=== PATIENT | male | born 1970 | race Caucasian/White ===

== ENCOUNTER 2016-07-10 21:26 | Emergency (ER) | payer MEDICAID ==
[~2016-07-10] VITALS: Ht 193 cm; Wt 86.2 kg
[~2016-07-10 21:26] MED LIST: AMIT75TA2 PO; AMLO5TAB2 PO; AMLO5TAB4 PO; CETI10TA17 PO; HUMALOG; INSU100I10 SQ; INSU100I23 SQ; INSU100V6 SC; INSU100V6 SQ; KRISTALOSE PO; LACT10SO PO; LANS30CA PO; LANTUS; LORA-794 PO; LORA0.5T34 GT; METH10CP PO; NADO20TA PO; OLAN10TA19 PO; OLAN10TA22 PO; OXYC-143 PO; OXYC5CAP4 PO; OXYC5TAB71 PO; PANT40TA PO; PANT40TA2 PO; PRD20T PO; RANI150T11 PO; RIFA550T PO; RIFA550T3 PO; TADA20TA PO; TRAM-42 PO; TRAM50TA2 PO; TRAZ-28 PO
--- OUTSIDE RECORDS SUMMARY | 2016-07-10 21:35 | XMS REPORT | Continuity of Care Document ---
Author Author Interface Organization Interface Address Unknown Phone Unavailable Problems Problem Status Onset Date Classification Date Reported Comments Source Attention deficit hyperactivity disorder (disorder) Active Problem 05/07/2013 [facility] Alcoholic cirrhosis (disorder) Active Problem 05/07/2013 [facility] Alcoholism (disorder) Active Problem 05/07/2013 [facility] Fracture of ankle (disorder) Active Problem 05/07/2013 [facility] Mixed anxiety and depressive disorder (disorder) Active Problem 05/07/2013 [facility] Cirrhosis - non-alcoholic (disorder) Active Problem 05/07 [facility] Diabetes mellitus (disorder) Active Problem 05/07/2013 [facility] Gastroesophageal reflux disease (disorder) Active Problem 05/07/2013 [facility] Hepatic coma (disorder) Active Problem 05/07/2013 [facility] Hypertensive disorder, systemic arterial (disorder) Active Problem 05/07/2013 [facility] Paranoid schizophrenia (disorder) Active Problem 2012 [facility] Supraventricular tachycardia (disorder) Active Problem [facility] 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 Attention deficit hyperactivity disorder (disorder) Active Problem 08/27/2015 [employer]. Attention deficit hyperactivity disorder (disorder) Active Problem 10/05/2014 [employer]. Alcoholic cirrhosis (disorder) Active Problem 08/27/2015 [employer]. Alcoholism (disorder) Active Problem 08/27/2015 [employer]. Fracture of ankle (disorder) Active Problem 08/27/2015 [employer]. Mixed anxiety and depressive disorder (disorder) Active Problem 08/27/2015 [employer]. Atrial flutter (disorder) Active Problem 08/27/2015 [employer]. Alcoholic cirrhosis (disorder) Active Problem 10/05/2014 [employer]. Alcoholism (disorder) Active Problem 10/05/2014 [employer]. Fracture of ankle (disorder) Active Problem 10/05/2014 [employer]. Mixed anxiety and depressive disorder (disorder) Active Problem 10/05/2014 [employer]. Diabetes mellitus (disorder) Active Problem 10/05/2014 [employer]. AV cathy re-entry tachycardia (disorder) Active Problem 08/27/2015 [employer]. 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) Active Problem 08/27/2015 [employer]. Diabetes mellitus (disorder) Active Problem 08/27/2015 [employer]. Gastroesophageal reflux disease (disorder) Active Problem 08/27/2015 [employer]. Hepatic coma (disorder) Active Problem 08/27/2015 [employer]. Gastroesophageal reflux disease (disorder) Active Problem 10/05/2014 [employer]. Hepatic coma (disorder) Active Problem 10/05/2014 [employer]. Hypertensive disorder, systemic arterial (disorder) Active Problem 10/05/2014 [employer]. Paranoid schizophrenia (disorder) Active Problem 2014 [employer]. Supraventricular tachycardia (disorder) Active Problem [employer]. Hypertensive disorder, systemic arterial (disorder) Active Problem 08/27/2015 [employer]. Paranoid schizophrenia (disorder) Active Problem 2015 [employer]. Supraventricular tachycardia (disorder) Active Problem [employer]. Traumatic arthropathy-ankle (disorder) Active 04/23/2011 Problem 07/19/2015 [employer]. Attention deficit hyperactivity disorder (disorder) Active Problem 11/08/2015 [employer]. Traumatic arthropathy-ankle (disorder) Active 04/23/2011 Problem 10/05/2014 [employer]. Alcoholic cirrhosis (disorder) Active Problem 11/08/2015 [employer]. Alcoholism (disorder) Active Problem 11/08/2015 [employer]. Fracture of ankle (disorder) Active Problem 11/08/2015 [employer]. Mixed anxiety and depressive disorder (disorder) Active Problem 11/08/2015 [employer]. Atrial flutter (disorder) Active Problem 11/08/2015 [employer]. AV cathy re-entry tachycardia (disorder) Active Problem 11/08/2015 [employer]. 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 Diabetes mellitus (disorder) Active Problem 11/08/2015 [employer]. Gastroesophageal reflux disease (disorder) Active Problem 11/08/2015 [employer]. Hepatic coma (disorder) Active Problem 11/08/2015 [employer]. Attention deficit hyperactivity disorder (disorder) Active Problem 10/06/2013 [facility] Alcoholic cirrhosis (disorder) Active Problem 10/06/2013 [facility] Hypertensive disorder, systemic arterial (disorder) Active Problem 11/08/2015 [employer]. Paranoid schizophrenia (disorder) Active Problem 2015 [employer]. Supraventricular tachycardia (disorder) Active Problem [employer]. Traumatic arthropathy-ankle (disorder) Active 04/23/2011 Problem 11/08/2015 [employer]. Attention deficit hyperactivity disorder (disorder) Active Problem 07/23/2015 [employer]. Alcoholism (disorder) Active Problem 10/06/2013 [facility] Fracture of ankle (disorder) Active Problem 10/06/2013 [facility] Mixed anxiety and depressive disorder (disorder) Active Problem 10/06/2013 [facility] Diabetes mellitus (disorder) Active Problem 10/06/2013 [facility] Gastroesophageal reflux disease (disorder) Active Problem 10/06/2013 [facility] Hepatic coma (disorder) Active Problem 10/06/2013 [facility] Alcoholic cirrhosis (disorder) Active Problem 07/23/2015 [employer]. Alcoholism (disorder) Active Problem 07/23/2015 [employer]. Fracture of ankle (disorder) Active Problem 07/23/2015 [employer]. Mixed anxiety and depressive disorder (disorder) Active Problem 07/23/2015 [employer]. Atrial flutter (disorder) Active Problem 07/23/2015 [employer]. 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 Alcoholic cirrhosis (disorder) Active Problem 09/19/2013 [employer]. AV cathy re-entry tachycardia (disorder) Active Problem 07/23/2015 [employer]. 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 Diabetes mellitus (disorder) Active Problem 07/23/2015 [employer]. Gastroesophageal reflux disease (disorder) Active Problem 07/23/2015 [employer]. Hepatic coma (disorder) Active Problem 07/23/2015 [employer]. Alcoholism (disorder) Active Problem 09/19/2013 [employer]. Fracture of ankle (disorder) Active Problem 09/19/2013 [employer]. Mixed anxiety and depressive disorder (disorder) Active Problem 09/19/2013 [employer]. Cirrhosis - non-alcoholic (disorder) Active Problem 09/19 [employer]. Diabetes mellitus (disorder) Active Problem 09/19/2013 [employer]. Gastroesophageal reflux disease (disorder) Active Problem 09/19/2013 [employer]. Hepatic coma (disorder) Active Problem 09/19/2013 [employer]. Hypertensive disorder, systemic arterial (disorder) Active Problem 07/23/2015 [employer]. Paranoid schizophrenia (disorder) Active Problem 2015 [employer]. Supraventricular tachycardia (disorder) Active Problem [employer]. Traumatic arthropathy-ankle (disorder) Active 04/23/2011 Problem 07/23/2015 [employer]. Hypertensive disorder, systemic arterial (disorder) Active Problem 09/19/2013 [employer]. Paranoid schizophrenia (disorder) Active Problem 2013 [facility] Supraventricular tachycardia (disorder) [facility] 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 Alcoholic cirrhosis (disorder) 07/18/2015 Diagnosis 07/23 [employer]. Alcoholism (disorder) 2015 Diagnosis 07/23/2015 [employer]. Chest pain (finding) 2015 Diagnosis 07/23/2015 [employer]. Paranoid schizophrenia (disorder) 06/19/2015 Diagnosis [employer]. 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) 08/23/2015 Diagnosis 08/27/2015 [employer]. Diabetes mellitus (disorder) 08/23/2015 Diagnosis 2015 [employer]. Alcoholism (disorder) 2015 Diagnosis 08/27/2015 [employer]. Alcoholic cirrhosis (disorder) 08/23/2015 Diagnosis 08/27 [employer]. Atrial flutter (disorder) Diagnosis 06/23/2015 [employer]. Gastroesophageal reflux disease (disorder) 05/29/2015 Diagnosis 06/02/2015 [employer]. Hypertensive disorder, systemic arterial (disorder) 05/29/2015 Diagnosis 06/02/2015 [employer]. Supraventricular tachycardia (disorder) 06/04/2015 Diagnosis 06/15/2015 [employer]. Paranoid schizophrenia (disorder) 06/11/2015 Diagnosis [employer]. Intentional drug overdose (disorder) 06/11/2015 Diagnosis 06/15/2015 [employer]. Acute renal failure syndrome (disorder) 06/03/2015 Diagnosis 06/15/2015 [employer]. Hepatic encephalopathy (disorder) 06/04/2015 Diagnosis [employer]. Diabetes mellitus (disorder) 06/04/2015 Diagnosis 2014 [employer]. Epidermoid cyst of skin (disorder) 08/23/2015 Diagnosis 08/27/2015 [employer]. Hypersplenism (disorder) Diagnosis 08/27/2015 [employer] Other abnormal glucose 02/28 Diagnosis 03/04/2015 [employer]. Hepatic coma 02/28/2015 Diagnosis 03/04/2015 [employer]. Alcoholic cirrhosis of liver 02/28/2015 Diagnosis 2014 [employer]. Other anxiety states 2014 Diagnosis 03/04/2015 [employer]. Unspecified essential hypertension 02/28/2015 Diagnosis 03/04/2015 [employer]. Diabetes mellitus without mention of complication, type II or unspecified type , not stated as uncontrolled 02/28/2015 Diagnosis 2014 [employer]. Other and unspecified alcohol dependence, unspecified drinking behavior 02/28/2015 Diagnosis 03/04/2015 [employer]. Other secondary thrombocytopenia 11/21/2014 Diagnosis [employer]. Contusion of chest wall Diagnosis 11/25/2014 [employer]. Traumatic arthropathy involving ankle and foot 02/07/2015 Diagnosis 02/11/2015 [employer]. Diabetes mellitus with neurological manifestations, type II or unspecified type , not stated as uncontrolled 02/07/2015 Diagnosis 2014 [employer]. Esophageal reflux 2014 Diagnosis 10/15/2014 [employer] Unspecified fall 10/11/2014 Diagnosis 10/15/2014 [employer]. Bimalleolar fracture, closed 10/11/2014 Diagnosis 2014 [employer]. Thrombocytopenia, unspecified 05/24/2014 Diagnosis 2013 [employer]. Esophageal varices without mention of bleeding 02/16/2014 Diagnosis 02/20/2014 [employer]. Esophageal reflux 2013 Diagnosis 02/20/2014 [employer]. Unspecified essential hypertension 02/16/2014 Diagnosis 02/20/2014 [employer]. Attention deficit disorder of childhood with hyperactivity 02/16/2014 Diagnosis 02/20/2014 [facility]. Alcoholic cirrhosis of liver 02/16/2014 Diagnosis 2013 [facility]. Abdominal pain, unspecified site 01/23/2014 Diagnosis [employer]. Alcoholic cirrhosis of liver 01/04/2014 Diagnosis 2013 [employer]. Esophageal varices without mention of bleeding 01/26/2014 Diagnosis 01/30/2014 [employer]. Cirrhosis of liver without mention of alcohol 01/02/2014 Diagnosis 01/06/2014 [employer]. Acute upper respiratory infections of unspecified site 01/02/2014 Diagnosis 01/06/2014 [employer]. Hepatic coma 12/22/2013 Diagnosis 12/26/2013 [employer]. Paranoid type schizophrenia, unspecified state 11/20/2013 Diagnosis 11/24/2013 [employer]. 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) 07/18/2015 Diagnosis 07/23/2015 [employer]. Medications Medication Details Route Status Patient Instructions Ordering Provider Order Date Source No Known Medications No known medications Active [facility]. Pneumovax 23 0.5 mL, SOLN, IM, ONCE, 02/12/12 12:00:00 , Stop date 02/12/12 12:00:00Provide patient/caregiver the vaccine information statement and document version date on eMAR. Record the lot number and senior python developer below. Manuf: Lot Number: Exp Date: Inactive [facility]. influenza virus vaccine, inactivated adult 0.5 mL, Suspension, IM, ONCE, Start Date: 07/03/13 12:00:00, Stop Date: 07/03/13 12:00: 00Provide patient/caregiver the vaccine information statement and document version date on eMAR. Record the lot number and senior python developer below. Manuf: ____ Lot Number: Exp Date: Inactive [facility], [facility]. Allergies, Adverse Reactions, Alerts Substance Category Reaction Severity Reaction type Status Date Reported Comments Source penicillins Assertion "can't breathe" Drug allergy [facility]. penicillins Assertion "can't breathe" Drug allergy [facility]. penicillins Assertion "can't breathe" Drug allergy [facility]. penicillins Assertion "can't breathe" Drug allergy [facility], [facility]. penicillins Assertion "can't breathe" Drug allergy [facility] penicillins drug allergy "can 't breathe" Allergy Active [facility], [facility]. penicillins drug allergy "can 't breathe" Allergy Active [facility] penicillin drug allergy "can' t breathe" Allergy Active [facility] penicillin drug allergy "can' t breathe" Allergy Active [facility], [facility]. penicillin drug allergy "can' t breathe" Allergy Active [facility] Immunizations Immunization Date Given Site Status Last Updated Comments Source pneumococcal polysaccharide PPV23 02/12/2012 Right Deltoid pneumococcal 23-valent vaccine [facility] [employer]. influenza virus vaccine 07/05/2013 Left [facility]id [facility] virus vaccine 06/02/2015 Left Deltoid influenza virus vaccine [facility] pneumococcal polysaccharide PPV23 02/12/2012 Right Deltoid pneumococcal 23-valent vaccine [facility] [employer]. influenza virus vaccine 07/05/2013 Left [facility]toid influenza [facility] influenza virus vaccine 06/02/2015 Left Deltoid influenza virus vaccine [facility]. pneumococcal polysaccharide PPV23 02/12/2012 Right Deltoid pneumococcal 23-valent vaccine [facility] [employer]. influenza virus vaccine 07/05/2013 Left [facility]toid [facility] influenza virus vaccine 06/02/2015 Left [facility]id [facility] pneumococcal polysaccharide PPV23 02/12/2012 Right Deltoid pneumococcal 23-valent vaccine [facility] influenza virus vaccine 07/05/2013 Left Deltoid influenza virus [facility] pneumococcal polysaccharide PPV23 02/12/2012 Right Deltoid pneumococcal 23-valent vaccine [facility] influenza virus vaccine 07/05/2013 Left Deltoid influenza virus vaccine [facility] pneumococcal 23-valent vaccine 02/12/2012 completed [facility] influenza virus vaccine 07/05/2013 completed [facility] pneumococcal 23-valent vaccine 02/12/2012 completed [facility] pneumococcal 23-valent vaccine 02/12/2012 completed [facility] Results Order Name Results Value Reference Range Date Interpretation Comments Source Vital Signs Vital Sign Value Date Comments Source Encounters Location Location Details Encounter Type Encounter Number Reason For Visit Attending Provider ADM Date DC Date Status Source [facility] [id number] Clinic ( Outpatient) [id number] 12/22/2013 Active [facility] [id number] Clinic ( Outpatient) [id number] Sofy Smith 01/04/2014 Active [facility] [facility] Cancel/No Show [id number] Kings Aguilar 07/19/2015 07/15/2015 [employer] [facility] [id number] [facility] 11/04/2015 11/04/2015 [employer] [facility] [place]. Observation [id number] Kings Aguilar 07/18/2015 07/20/[address] [employer] [facility] [id number] Kings Aguilar 06/19/2015 [facility] [id number] Kings Aguilar 05/29/2015 [facility] Cancel/No Show [id number] Kings Aguilar 04/17/2015 04/16/2015 [employer]. [facility], [facility] Inpatient [id number] Ryan Nolan 06/01/2015 06/11/2015 [employer] [id number] Kings Aguilar 08/23/2015 [facility] [place] [facility] [id number] Kings Aguilar 02/28/2015 [employer] [place] [facility] [id number] Kings Aguilar 11/21/2014 [employer] [facility] [id number] Kings Aguilar 02/07/201501/2015 [employer] [place] [facility] Cancel/No Show [id number] Kings Aguilar 11/19/2014 11/19/2014 [facility], [facility] Emergency [id number] Soumya Fierro 11/15/2014 11/17/2014 [employer] [facility] [id number] Kings Aguilar 10/11/201404/2015 [employer] [facility] Cancel/No Show [id number] Kings Aguilar 09/24/2014 09/26/2014 [facility] Cancel/No Show [id number] Halie Dacosta 10/01/2014 10/01/2014 [facility] [id number] Kings Aguilar 08/27/2014 [employer] [facility] Cancel/No Show [id number] Kings Aguilar 06/22/2014 06/22/2014 [employer] [facility]. [facility] [place], [facility] Emergency [id number] Kings Aguilar 03/30/2014 03/31/2014 [facility] [facility] [id number] Kings Aguilar 05/24/2014 [employer] [facility] [id number] Kings Aguilar 02/16/2014 02/17/2014 [facility]opping, [facility]. [facility], [facility] Emergency [id number] DENISE DICKEY 01/24/2014 01/25/2014 [employer]. [facility] [id number] Sofy Smith 01/23/2014 01/25/2014 [employer]. [facility] Cancel/No Show [id number] Halie Dacosta 02/19/2014 02/19/2014 [employer]. [facility] [id number] Sofy Smith 01/04/201410/2013 [employer] [facility] [id number] Sofyarnold Smith 01/26/2014 01/27/2014 [employer]. [facility] [id number] Zoran Terry 01/02/2014 01/03/2014 [employer]. [facility] [id number] Kings Aguilar 12/22/2013 12/23/2013 [employer]. [facility] Cancel/No Show [id number] Kings Aguilar 12/18/2013 12/18/2013 [employer]. [facility] [id number] Kings Aguilar 11/10/2013 11/10/2013 [employer]. [facility] [id number] Kings Aguilar 11/20/2013 11/21/2013 [employer]. [facility] Cancel/No Show [id number] Kings Aguilar 10/02/2013 10/02/2013 [facility] CD:[id number] Inpatient [id number] Kings Aguilar 07/18/2015 07/19/2015 Active [facility] CD:[id number] Clinic ( Outpatient) [id number] Kings Aguilar 08/22/2015 Active [facility] CD:[id number] Clinic ( Outpatient) [id number] Kings Aguilar 09/24/2014 Active [facility] CD:[id number] Clinic ( Outpatient) [id number] Kings Aguilar 08/27/2014 Active [facility] CD:[id number] Emergency [id number] Kings Arredondo 03/29/2014 Active [facility] CD:[id number] Emergency [id number] DENISE DICKEY 01/23/2014 01/23/2014 Active [employer] [facility] CD:[id number] Clinic ( Outpatient) [id number] Kings Aguilar 02/16/2014 Active [employer] [facility] CD:[id number] Clinic ( Outpatient) [id number] Kings Aguilar 11/06/2013 Active [employer] [facility] CD:[id number] Inpatient [id number] Kings Aguilar 07/02/2013 07/05/2013 Active [employer] [facility] CD:[id number] Inpatient [id number] Kings Aguilar 08/01/2012 08/08/2012 Active [employer] [facility] CD:[id number] Clinic ( Outpatient) [id number] Kings Aguilar 06/19/2015 Active [employer] [facility] CD:090103 Inpatient [id number] Ryan Shawrick 06/01/2015 06/11/2015 Active [employer] [facility] CD:[id number] Clinic ( Outpatient) [id number] Kings Aguilar 05/24/2014 Active [employer] [facility] CD:[id number] Clinic ( Outpatient) [id number] Kings Aguilar 06/21/2013 Active [employer] [facility] CD:[id number] Inpatient [id number] Kings Aguilar 09/11/2013 09/15/2013 Active [employer] [facility] CD:[id number] Clinic ( Outpatient) [id number] Kings Aguilar 08/23/2015 Active [employer] [facility] CD:119245 Inpatient [id number] Max An 02/10/2012 Active [employer] [facility] CD:[id number] Clinic ( Outpatient) [id number] Kings Aguilar 05/29/2015 Active [employer] [facility] CD:[id number] Clinic ( Outpatient) [id number] Kings Aguilar 02/07/2015 Active [employer] [facility] CD:[id number] Clinic ( Outpatient) [id number] Kings Aguilar 11/19/2014 Active [employer] [facility] CD:[id number] Emergency [id number] Napoleon Hall 11/15/2014 11/15/2014 Active [employer] [facility] CD:[id number] Clinic ( Outpatient) [id number] Kings Aguilar 06/22/2014 Active [facility] [employer] [facility] CD:[id number] Clinic ( Outpatient) [id number] Kings Aguilar 12/22/2013 Active [facility] CD:[id number] Clinic ( Outpatient) [id number] Kings Aguilar 12/18/2013 Active [employer] [facility] CD:[id number] Clinic ( Outpatient) [id number] Kings Aguilar 10/11/2014 Active [employer] [facility] CD:[id number] Clinic ( Outpatient) [id number] Kings Aguilar 11/20/2013 Active [employer] [facility] CD:[id number] Clinic ( Outpatient) [id number] Kings Aguilar 06/07/2013 Active [facility] [employer] [facility] CD:[id number] Clinic ( Outpatient) [id number] Kings Aguilar 07/13/2013 Active [employer] [facility] CD:090590 Inpatient [id number] Kings Aguilar 12/08/2012 12/09/2012 Active [employer] [facility] CD:[id number] Clinic ( Outpatient) [id number] Kings Aguilar 02/28/2015 Active [employer] [facility] CD:[id number] Inpatient [id number] Kings Aguilar 06/20/2012 06/21/2012 Active [employer] [facility] CD:[id number] Outpatient [id number] Sofy Smith 01/26/2014 01/26/2014 Active [employer] [facility] CD:[id number] Clinic ( Outpatient) [id number] Kings Aguilar 07/27/2013 Active [employer] [facility] CD:[id number] Clinic ( Outpatient) [id number] Kings Aguilar 09/20/2013 Active [facility] [id number] Clinic ( Outpatient) [id number] Valentin Rojas 10/09/2015 Active [facility] AFCOL [id number] Clinic ( Outpatient) [id number] Kings Aguilar 10/02/2013 Active [facility] [employer] [facility] AFCOL [id number] Clinic ( Outpatient) [id number] Kings Aguilar 07/19/2015 Active [employer] [employer] [facility] [id number] Outpatient [id number] Sofy Bonillaiason 01/23/2014 01/23/2014 Active [facility] [id number] Clinic ( Outpatient) [id number] Kings Aguilar 06/14/2013 Active [facility] [id number] Clinic ( Outpatient) [id number] Kings Aguilar 11/21/2014 Active [facility] [id number] Clinic ( Outpatient) [id number] Kings Aguilar 11/10/2013 Active [facility] [id number] Clinic ( Outpatient) [id number] Valentin Sousamala 11/04/2015 Active [facility] [id number] Clinic ( Outpatient) [id number] Kings Aguilar 04/17/2015 Active [facility] [id number] Clinic ( Outpatient) [id number] [facility] 10/01/2014 Active [facility] [id number] Clinic ( Outpatient) [id number] Sofy Chadiason 05/03/2013 Active [facility] [id number] Clinic ( Outpatient) [id number] Sofy Quiason 11/01/2013 Active [facility] [id number] Clinic ( Outpatient) [id number] [facility] 02/19/2014 Active [facility] [id number] Clinic ( Outpatient) [id number] Zoran Terry 01/02/2014 Active [facility] Procedures Procedure Code Date Perfomer Comments Source No data available for this section [employer]. Echocardiography, transthoracic, real-time with image documentation (2D), includes M-mode recording, when performed, complete, with spectral Doppler echocardiography, and with color flow Doppler echocardiography [id number] 07/19/2015 [employer]. Echocardiogram, EF 55% 06/03 [employer]. Typical and Atypical AVNRT and Atrial Flutter Ablation 06/05/2015 [employer]. Esophagogastroduodenoscopy, flexible, transoral; diagnostic, including collection of specimen(s) by brushing or washing, when performed (separate procedure) [id number] [employer].
[2016-07-10] MEDS ORDERED: FOLI1TAB24 PO (21:39)
[2016-07-10] MEDS ORDERED: PREG50CA2 PO (21:39)
--- NOTE | 2016-07-10 21:42 | ED Abdominal Pain ---
General Chief Complaint: Abdominal/GI Problems Stated Complaint: ABD PAIN Source of Information: Patient, RN Notes Reviewed Exam Limitations: No Limitations History of Present Illness Time Seen By Provider: 21:38 Initial Comments As above. Timing/Duration: 1 Day Location: [facility], Epigastric Radiation: No Radiation Activities at Onset: None Associated Symptoms: Heartburn Swelling/Mass in Abdomen Other ((+) nausea) Allergies and Home Medications Allergies Coded Allergies: Penicillins (Verified Allergy, Severe, EDEMA, SOA, 03/21/16) clindamycin (Verified Allergy, Unknown, 03/21/16) olanzapine (Verified Allergy, Unknown, 03/21/16) quetiapine (Verified Allergy, Unknown, 03/21/16) Home Medications Amlodipine Besylate 5 Mg Tablet 5 MG PO DAILY (Reported) Famotidine 20 Mg Tablet #60 20 MG PO BID Prescribed by: MALGORZATA GUTIERREZ on 07/10/16 2351 Folic Acid 1 Mg Tablet #28 1 TAB PO UD (Reported) Insulin Glargine,Hum.rec.anlog 100 Unit/1 Ml Vial 40 UNIT SQ HS (Reported) Insulin Lispro 100 Unit/1 Ml Insuln.pen 30Days 5 UNIT SQ TIDAC Prescribed by: NATHANAEL FRY on 04/03/16 1054 Lactulose 10 Gm/15 Ml Solution 15 ML PO BID (Reported) Pregabalin 50 Mg Capsule #56 1 CAP PO UD (Reported) Tramadol HCl 50 Mg Tablet 50 MG PO Q6H PRN PRN PAIN (Reported) Review of Systems Constitutional: see HPI Gastrointestinal: See HPI Abdominal Pain Nausea All Other Systems Reviewed Negative Unless Noted: Yes (Negative excepted noted.) Past Fmxjped-Wjlvam-Ffzjhq Hx Patient Social History Type Used: Cigarettes Recent Foreign Travel: No Contact w/Someone Who Travel: No Recent Hopitalizations: No Immunizations Up To Date Tetanus Booster (TDap): Less than 5yrs PED Vaccines UTD: No Date of Pneumonia Vaccine: Apr 26, 2014 Date of Influenza Vaccine: Sep 02, 2014 Seasonal Allergies Seasonal Allergies: Yes Surgeries HX Surgeries: Yes (ORAL) Surgeries: Appendectomy, Neurological, Orthopedic Respiratory Hx Respiratory Disorders: Yes Respiratory Disorders: COPD Cardiovascular Hx Cardiac Disorders: Yes Cardiac Disorders: Hypertension, Palpitations Neurological Hx Neurological Disorders: Yes Neurological Disorders: Headaches /Migraines, Neuropathy Reproductive System Hx Reproductive Disorders: No Sexually Transmitted Disease: No HIV/AIDS: No Genitourinary Hx Genitourinary Disorders: No Gastrointestinal Hx Gastrointestinal Disorders: Yes (HEPATITIS C) Gastrointestinal Disorders: Hepatitis, Cirrhosis Musculoskeletal Hx Musculoskeletal Disorders: Yes (RIGHT FOOT FRACTURE) Musculoskeletal Disorders: Chronic Back Pain, Fractures Endocrine Hx Endocrine Disorders: Yes Endocrine Disorders: Diabetes, Insulin dep HEENT HX ENT Disorders: No Cancer Hx Cancer: Yes Cancer: Liver Psychosocial Hx Psychiatric Problems: Yes (EXTENISVE PSYCH ISSUES) Behavioral Health Disorders: Anxiety, Suicide Attempts, Schizophrenia, Depression Integumentary HX Skin/Integumentary Disorder: No Blood Transfusions Hx Blood Disorders: No (hep c) Adverse Reaction to a Blood Tr: No Family Medical History Significant Family History: Psychiatric Problems Family Medial History: Cardiovascular disease 19 FATHER 19 MOTHER FH: schizophrenia 19 FATHER 19 MOTHER Respiratory disorder 19 FATHER 19 MOTHER Physical Exam Vital Signs VS - Last 72 Hours, by Label 07/10/16 07/10/16 21:39 23:59 Temp 98.6 98.9 Pulse 73 90 Resp 18 16 B/P 158/93 Pulse Ox 99 95 O2 Delivery Room Air Room Air Capillary Refill : General Appearance: WD/WN mild distress HEENT: pharynx normal Neck: normal inspection Respiratory: no respiratory distress decreased breath sounds Cardiovascular: regular rate, rhythm Gastrointestinal: No rebound, tenderness (epigastric) Rectal: deferred Neurologic/Psychiatric: no motor/sensory deficits alert oriented x 3 depressed affect Skin: warm/dry Progress/Results/Core Measures Results/Orders Lab Results Laboratory Tests Test 07/10/16 00:00 07/10/16 21:45 07/10/16 21:50 Range/Units Arterial Blood pH 7.44 H 7.37-7.43 Ur Tricyclic Antidepressants Screen POSITIVE H NEGATIVE Urine Amphetamines Screen NEGATIVE NEGATIVE Urine Bacteria NONE /HPF Urine Barbiturates Screen NEGATIVE NEGATIVE Urine Benzodiazepines Screen NEGATIVE NEGATIVE Urine Bilirubin NEGATIVE NEGATIVE Urine Cannabinoids Screen NEGATIVE NEGATIVE Urine Casts NONE /LPF Urine Clarity SLIGHTLY CLOUDY Urine Cocaine Screen NEGATIVE NEGATIVE Urine Color YELLOW Urine Crystals NONE /LPF Urine Culture Indicated NO Urine Glucose (UA) 4+ H NEGATIVE Urine Ketones 1+ H NEGATIVE Urine Leukocyte Esterase NEGATIVE NEGATIVE Urine Methadone Screen NEGATIVE NEGATIVE Urine Methamphetamines Screen POSITIVE H NEGATIVE Urine Mucus NEGATIVE /LPF Urine Nitrite NEGATIVE NEGATIVE Urine Opiates Screen NEGATIVE NEGATIVE Urine Oxycodone Screen NEGATIVE NEGATIVE Urine Phencyclidine Screen NEGATIVE NEGATIVE Urine Propoxyphene Screen NEGATIVE NEGATIVE Urine Protein 3+ H NEGATIVE Urine RBC TNTC H /HPF Urine RBC (Auto) 5+ H NEGATIVE Urine Specific [place] 1.015 L 1.016-1.022 Urine Squamous Epithelial Cells 0-2 /HPF Urine Urobilinogen 1 NORMAL MG/DL Urine WBC NONE /HPF Urine pH 6.5 5-9 Alanine Aminotransferase (ALT/SGPT) 29 0-55 U/L Albumin 2.8 L 3.2-4.5 G/DL Alkaline Phosphatase 242 H 40-136 U/L Anion Gap 10 5-14 MMOL/L Aspartate Amino Transf (AST/SGOT) 53 H 5-34 U/L BUN/Creatinine Ratio 10 Basophils # (Auto) 0.0 0.0-0.1 10^3/uL Basophils (%) (Auto) 0 0-10 % Blood Urea Nitrogen 9 7-18 MG/DL Calcium Level 8.1 L 8.5-10.1 MG/DL Carbon Dioxide Level 18 L 21-32 MMOL/L Chloride Level 106 98-107 MMOL/L Creatinine 0.87 0.60-1.30 MG/DL Eosinophils # (Auto) 0.1 0.0-0.3 10^3/uL Eosinophils (%) (Auto) 3 0-10 % Estimat Glomerular Filtration Rate > 60 Glucose Level 416 *H 70-105 MG/DL Hematocrit 35 L 40-54 % Hemoglobin 12.1 L 13.3-17.7 G/DL Lipase 23 8-78 U/L Lymphocytes # (Auto) 0.8 L 1.0-4.0 X 10^3 Lymphocytes (%) (Auto) 17 12-44 % Magnesium Level 1.4 L 1.8-2.4 MG/DL Mean Corpuscular Hemoglobin 30 25-34 PG Mean Corpuscular Hemoglobin Concent 35 32-36 G/DL Mean Corpuscular Volume 85 80-99 FL Mean Platelet Volume 12.1 H 7.4-10.4 FL Monocytes # (Auto) 0.3 0.0-1.0 X 10^3 Monocytes (%) (Auto) 6 0-12 % Neutrophils # (Auto) 3.5 1.8-7.8 X 10^3 Neutrophils (%) (Auto) 74 42-75 % Platelet Count 53 L 130-400 10^3/uL Potassium Level 3.8 3.6-5.0 MMOL/L Red Blood Count 4.08 L 4.35-5.85 10^6/uL Red Cell Distribution Width 15.9 H 10.0-14.5 % Sodium Level 134 L 135-145 MMOL/L Total Bilirubin 2.1 H 0.1-1.0 MG/DL Total Protein 6.6 6.4-8.2 G/DL White Blood Count 4.7 4.3-11.0 10^3/uL My Orders Orders-MALGORZATA GUTIERREZ DO Saline Lock/Iv-Start (07/10/16 21:43) Cbc With Automated Diff (07/10/16 21:43) Comprehensive Metabolic Panel (07/10/16 21:43) Drug Screen Stat (Urine) (07/10/16 21:43) Lipase (07/10/16 21:43) Ua Culture If Indicated (07/10/16 21:43) Famotidine Injection (Pepcid Injection) (07/10/16 21:45) Ondansetron Injection (Zofran Injectio (07/10/16 21:45) Ketorolac Injection (Toradol Injection) (07/10/16 21:45) Insulin (Regular) Human (Humulin R (Per (07/10/16 22:45) Saline Lock/Iv-Start (07/10/16 22:31) Ns Iv 1000 Ml (Sodium Chloride 0.9%) (07/10/16 22:31) Ct Abdomen/Pelvis Wo (07/10/16 22:33) Magnesium (07/10/16 22:34) Insulin (Regular) Human (Humulin R (Per (07/10/16 22:38) Abg Ph (07/10/16 22:50) Medications Given in ED Current Medications Medications Dose Ordered Sig/Rafita Route Start Time Stop Time Status Last Admin Dose Admin Famotidine 20 mg ONCE ONCE IVP 07/10/16 21:45 07/10/16 21:46 DC 07/10/16 21:54 20 MG Ketorolac Tromethamine 15 mg 15 mg ONCE ONCE IVP 07/10/16 21:45 07/10/16 21:46 DC 07/10/16 21:55 15 MG Ondansetron HCl 4 mg ONCE ONCE IVP 07/10/16 21:45 07/10/16 22:31 DC 07/10/16 21:55 4 MG Sodium Chloride 1,000 ml @ 0 mls/hr Q0M ONCE IV 07/10/16 22:31 07/10/16 22:33 DC 07/10/16 22:44 0 MLS/HR Vital Signs/I&O Vital Sign - Last 12Hours 07/10/16 07/10/16 21:39 23:59 Temp 98.6 98.9 Pulse 73 90 Resp 18 16 B/P 158/93 Pulse Ox 99 95 O2 Delivery Room Air Room Air Intake and Output 07/11/16 00:00 Intake Total 1000 ml Balance 1000 ml Progress Note : Progress Note Much improved @ discharge. Diagnostic Imaging Diagonstic Imaging: CT Plain Films/CT/US/NM/MRI: abdomen, pelvis Reviewed: Reviewed [place] Study (nothing acute) Departure Impression Impression: Primary Impression: Abdominal pain secondary to acute gastritis Additional Impressions: Methamphetamine abuse Hyperglycemia Disposition: 01 HOME, SELF-CARE Condition: Improved Departure-Patient Inst. Decision time for Depature: 23:51 Referrals: MEETA SUTTON (PCP) Primary Care Physician [facility] (Family) Primary Care Physician Patient Instructions: Gastritis (DC) Scripts Famotidine (Pepcid)20 Mg [id number] Mg PO BID #60 TAB Ref 0 Prov:MALGORZATA GUTIERREZ DO 07/10/16 MALGORZAAT GUTIERREZ DO Jul 10, 2016 21:42
[2016-07-10] MEDS ORDERED: ONDANSETRON 4 MG/2 ML (SDV) Z0FRAN IVP ONE (21:45)
[2016-07-10] MEDS ORDERED: PROCHLORPERAZINE 10 MG/2ML INJ (COMPAZINE) IM ONE (21:45)
[2016-07-10] MEDS ORDERED: FAMOTIDINE 20MG/2ML IV (PEPCID) IVP ONE (21:45)
[2016-07-10] MEDS ORDERED: KETOROLAC 30 MG/ML VIAL IVP ONE (21:45)
[2016-07-10] MEDS ORDERED: diphenhydrAMINE 50 MG/ML INJ (BENADRYL) IM ONE (21:45)
[2016-07-10 22:05] LABS: BASOPHILS % (AUTO) 0 % (0-10); EOSINOPHILS # (AUTO) 0.1 10^3/uL (0.0-0.3); EOSINOPHILS % (AUTO) 3 % (0-10); LYMPHOCYTES # (AUTO) 0.8 X 10^3 (1.0-4.0); LYMPHOCYTES % (AUTO) 17 % (12-44); MEAN CORPUSCULAR HEMOGLOBIN 30 PG (25-34); MEAN CORPUSCULAR HGB CONC 35 G/DL (32-36); MEAN CORPUSCULAR VOLUME 85 FL (80-99); MEAN PLATELET VOLUME 12.1 FL (7.4-10.4); MONOCYTES # (AUTO) 0.3 X 10^3 (0.0-1.0); MONOCYTES % (AUTO) 6 % (0-12); NEUTROPHILS # (AUTO) 3.5 X 10^3 (1.8-7.8); NEUTROPHILS % (AUTO) 74 % (42-75); PLATELET COUNT 53 10^3/uL (130-400); RED BLOOD COUNT 4.08 10^6/uL (4.35-5.85); RED CELL DISTRIBUTION WIDTH 15.9 % (10.0-14.5); WHITE BLOOD COUNT 4.7 10^3/uL (4.3-11.0)
[2016-07-10 22:15] LABS: BILIRUBIN,URINE NEGATIVE (NEGATIVE); KETONES,URINE 1+ (NEGATIVE); LEUKOCYTE ESTERASE ,URINE NEGATIVE (NEGATIVE); NITRITE,URINE NEGATIVE (NEGATIVE); PH,URINE 6.5 (5-9); PROTEIN,URINE 3+ (NEGATIVE); SQUAMOUS EPITHELIAL CELL,UR 0-2 /HPF; UROBILINOGEN,URINE 1 MG/DL (NORMAL)
[2016-07-10 22:22] LABS: ALANINE AMINOTRANSFERASE 29 U/L (0-55); ALBUMIN 2.8 G/DL (3.2-4.5); ANION GAP 10 MMOL/L (5-14); ASPARTATE AMINO TRANSFERASE 53 U/L (5-34); BILIRUBIN,TOTAL 2.1 MG/DL (0.1-1.0); BLOOD UREA NITROGEN 9 MG/DL (7-18); BUN/CREATININE RATIO 10; CALCIUM 8.1 MG/DL (8.5-10.1); CARBON DIOXIDE 18 MMOL/L (21-32); CHLORIDE 106 MMOL/L (98-107); CREATININE SERUM 0.87 MG/DL (0.60-1.30); GFR ESTIMATED > 60; LIPASE 23 U/L (8-78); POTASSIUM 3.8 MMOL/L (3.6-5.0); SODIUM 134 MMOL/L (135-145); TOTAL PROTEIN 6.6 G/DL (6.4-8.2)
[2016-07-10 22:28] LABS: GLUCOSE 416 MG/DL (70-105)
[2016-07-10] MEDS ORDERED: NS IV 1000 ML 1,000 ML IV ONE (22:31)
[2016-07-10] MEDS ORDERED: inSUlin (REGULAR) HUMAN 1 UNIT/0.01 ML (CHARGE PER UNIT) IV STA (22:38)
[2016-07-10] MEDS ORDERED: inSUlin (REGULAR) HUMAN 1 UNIT/0.01 ML (CHARGE PER UNIT) IV ONE (22:45)
[2016-07-10] MEDS ORDERED: FAMO-119 PO (23:51)
[2016-07-10 23:59] VITALS: BP 139/89
--- NOTE | 2016-07-11 07:39 | Diagnostic Imaging Report ---
PROCEDURE: CT abdomen and pelvis without contrast. TECHNIQUE: Multiple contiguous axial images were obtained through the abdomen and pelvis without the use of intravenous contrast. INDICATION: Upper abdominal pain x1 day. CORRELATION STUDY: 03/03/2016 FINDINGS: Overall assessment is limited by lack of contrast material. The lung bases are relatively clear on followup. The previously noted right pleural effusion/consolidated right lung has resolved. There is a heterogeneous nodular appearance about the liver parenchyma compatible with cirrhosis. The liver measures 17 cm in craniocaudal length. No definitive focal lesion on unenhanced imaging. Relatively stable severity splenic enlargement. Upper abdominal varicosities again demonstrated. The presented abdominal ascites has significantly decreased. There is continue stranding throughout the mesentery. Calcified gallstones again noted within a nondistended-appearing gallbladder. There is edema at the root of the mesentery, may be related to the portal hypertension. The possibility of sequelae of pancreatitis not excluded. There are changes of likely chronic pancreatitis with extensive calcifications. Dilated pancreatic duct again demonstrated. The kidneys and collecting system are unremarkable. The abdominal aorta is normal in contour. There are likely mildly prominent central retroperitoneal lymph nodes. Gastrointestinal tract demonstrates no definitive evidence for obstruction. Inflammation would be difficult to exclude with scattered areas of fluid adjacent to the bowel, particularly along the right paracolic gutter. Apparent surgical clip around the cecum suspect for prior cholecystectomy. Urinary bladder unremarkable. Prostate gland appears unremarkable. Negative for acute bony abnormality. IMPRESSION: 1. Cirrhosis with findings compatible with portal systemic hypertension including stable severity splenomegaly and upper abdominal varicosities. However, the previously noted abdominal ascites has decreased considerably since the prior study 2. Features of chronic calcific pancreatitis. Edema through to the mesentery is present, could be sequelae of portal hypertension versus pancreatitis. Clinical correlation recommended. 3. Previously noted right pleural effusion and consolidated right lung base has resolved which is relatively negative on followup. Agreement with the preliminary interpretation. Dictated by: Dictated on workstation # [id number]
[2016-08-14] MEDS ORDERED: INSU100V6 SQ ×2 (10:57→11:20)
[2016-08-14] MEDS ORDERED: INSU100I23 SQ ×2 (11:00→11:20)
[2016-08-14] MEDS ORDERED: THIA100T7 PO (11:20)
[2016-08-14] MEDS ORDERED: TRAM50TA2 PO (11:20)
[2016-08-14] MEDS ORDERED: LACT20SO2 PO (11:20)
[2016-08-28] MEDS ORDERED: TRAM50TA2 PO ×2 (08:08→11:13)
[2016-08-28] MEDS ORDERED: PREG75CA PO ×2 (08:08→11:13)
[2016-08-28] MEDS ORDERED: HYDR-3812 PO (11:13)
== END 2016-07-10 23:59 | disposition home or self-care (01) ==
LOC: EDUNIT# 21:26 → ER 21:28
DX: K29.00 Acute gastritis without bleeding (principal); F15.10 Other stimulant abuse, uncomplicated; E11.65 Type 2 diabetes mellitus with hyperglycemia; J44.9 Chronic obstructive pulmonary disease, unspecified; K74.60 Unspecified cirrhosis of liver; K85.90 Acute pancreatitis without necrosis or infection, unspecified; Z79.4 Long term (current) use of insulin; Z79.899 Other long term (current) drug therapy
CPT/HCPCS: 36415; 74176; 80053; 80306; 81000; 82800; 83690; 83735; 85025; 96361; 96374; 96375

== ENCOUNTER 2016-08-12 17:22 | Inpatient (IN) | payer MEDICAID ==
[~2016-08-12] VITALS: Ht 193 cm; Wt 82.6 kg
[2016-08-12] VITALS (7 sets, daily range): BP systolic 113–125; BP diastolic 75–86
[~2016-08-12 17:22] MED LIST changes: +FAMO-119 PO; +FOLI1TAB24 PO; +PREG50CA2 PO
--- NOTE | 2016-08-12 17:40 | ED Neurological Problem ---
General Chief Complaint: Glucose Problems Nursing Triage Note: PT ARRIVED PER EMS, PT WALKED TO ROOM 8 FROM EMS, PT FAMILY SENT PT TO ED D/T LETHARGY. FSBS TO HIGH TO READ ON MONITOR Nursing Sepsis Screen: No Definite Risk Source: patient Exam Limitations: intoxication History of Present Illness Time seen by provider: 17:24 Initial Comments 46 YO MALE PRESENTS TO THE ED VIA EMS WITH REPORTS OF PATIENT BEING LETHARGIC. PATIENT STATES EVERYONE AT HIS HOUSE WAS DRINKING. REPORTEDLY FELL ASLEEP ON THE COUCH. FAMILY STARTED TO WORRY AND CALLED EMS. PATIENT IS AGITATED HE DID NOT WANT TO COME TO THE ED. FAMILY FORCED PATIENT TO GO WITH EMS. PATIENT REPORTS DRINKING "2 BEERS AND 2 MIXED SHOTS". PATIENT DENIES HEADACHE, DIZZINESS, CHEST PAIN, N/V/D, SOB, NUMBNESS, WEAKNESS, SEIZURE, CHANGES IN BEHAVIOR. Timing/Duration: 1-3 hours Context: family report patient was lethargic at home. Allergies and Home Medications Allergies Coded Allergies: Penicillins (Verified Allergy, Severe, EDEMA, SOA, 03/21/16) clindamycin (Verified Allergy, Unknown, 03/21/16) olanzapine (Verified Allergy, Unknown, 03/21/16) quetiapine (Verified Allergy, Unknown, 03/21/16) Home Medications Amlodipine Besylate 5 Mg Tablet 5 MG PO DAILY (Reported) Famotidine 20 Mg Tablet #60 20 MG PO BID Prescribed by: MALGORZATA GUTIERREZ on 07/10/16 2351 Folic Acid 1 Mg Tablet #28 1 TAB PO UD (Reported) Insulin Glargine,Hum.rec.anlog 100 Unit/1 Ml Vial 40 UNIT SQ HS (Reported) Insulin Lispro 100 Unit/1 Ml Insuln.pen 30Days 5 UNIT SQ TIDAC Prescribed by: NATHANAEL FRY on 04/03/16 1054 Lactulose 10 Gm/15 Ml Solution 15 ML PO BID (Reported) Pregabalin 50 Mg Capsule #56 1 CAP PO UD (Reported) Tramadol HCl 50 Mg Tablet 50 MG PO Q6H PRN PRN PAIN (Reported) Constitutional: No chills, No diaphoresis, No dizziness, No fever, No malaise Eyes: No Symptoms Reported Ears, Nose, Mouth, Throat: no symptoms reported Respiratory: No cough, No orthopnea, No phlegm, No short of breath, No wheezing Cardiovascular: No chest pain, No edema, No palpitations, No syncope Gastrointestinal: abdominal pain (chronic abdominal pain)No constipation, No diarrhea, No loss of appetite, No nausea, No vomiting Genitourinary: no symptoms reported Musculoskeletal: no symptoms reported Skin: no symptoms reported Psychiatric/Neurological: See HPI Past [place]tha-[place] Hx Patient Social History Alcohol Use: Regular Use Recreational Drug Use: No Smoking Status: Current Everyday Smoker Type Used: Cigarettes Recent Foreign Travel: No Contact w/Someone Who Travel: No Recent Infectious Disease Expo: No Recent Hopitalizations: No Immunizations Up To Date Tetanus Booster (TDap): Less than 5yrs PED Vaccines UTD: No Date of Pneumonia Vaccine: Apr 26, 2014 Date of Influenza Vaccine: Sep 02, 2014 Seasonal Allergies Seasonal Allergies: Yes Surgeries HX Surgeries: Yes (ORAL) Surgeries: Appendectomy, Coronary Stent, Neurological, Orthopedic Respiratory Hx Respiratory Disorders: Yes Respiratory Disorders: COPD Cardiovascular Hx Cardiac Disorders: Yes Cardiac Disorders: Coronary Artery Disease, Hypertension, Palpitations Neurological Hx Neurological Disorders: Yes Neurological Disorders: Headaches /Migraines, Neuropathy Reproductive System Hx Reproductive Disorders: No Sexually Transmitted Disease: No HIV/AIDS: No Genitourinary Hx Genitourinary Disorders: No Gastrointestinal Hx Gastrointestinal Disorders: Yes (HEPATITIS C) Gastrointestinal Disorders: Pancreatitis, Cirrhosis Musculoskeletal Hx Musculoskeletal Disorders: Yes (RIGHT FOOT FRACTURE) Musculoskeletal Disorders: Chronic Back Pain, Fractures Endocrine Hx Endocrine Disorders: Yes Endocrine Disorders: Diabetes, Insulin dep HEENT HX ENT Disorders: No Cancer Hx Cancer: Yes Cancer: Liver Psychosocial Hx Psychiatric Problems: Yes (EXTENISVE PSYCH ISSUES) Behavioral Health Disorders: Anxiety, Suicide Attempts, Schizophrenia, Depression Integumentary HX Skin/Integumentary Disorder: No Blood Transfusions Hx Blood Disorders: No (hep c) Adverse Reaction to a Blood Tr: No Reviewed Nursing Assessment Reviewed/Agree w Nursing PMH: Yes Family Medical History Significant Family History: Psychiatric Problems Family Medial History: Cardiovascular disease 19 FATHER 19 MOTHER FH: schizophrenia 19 FATHER 19 MOTHER Respiratory disorder 19 FATHER 19 MOTHER Physical Exam Vital Signs Vital Sign - Last 12Hours 08/12/16 17:22 Temp 98.1 Pulse 92 Resp 18 B/P 118/80 Pulse Ox 94 Capillary Refill : Less Than 3 Seconds General Appearance: no apparent distress other (chronically ill appearing male. slurred speech, agitated, but cooperative with this examiner. (patient explains he is only angry with his family)) HEENT: PERRL/EOMI pharynx normal Respiratory: lungs clear normal breath sounds no respiratory distress Cardiovascular: regular rate, rhythm no murmur Gastrointestinal: normal bowel sounds soft distendedNo guarding, No rebound, tenderness (mild generalized ttp.) other ((+) ascites) Back: normal inspection Extremities: no calf tenderness normal capillary refill pedal edema (2+ pedal edema bilaterally.) other (excoriations and scabs of the BUE.) Neurologic/Psychiatric: alert other (agitated with family. cooperative with [facility] staff. Flight of ideas. Paranoid that family is "trying to get rid of me. I hear them whispering.") Crainal Nerves: normal hearing PERRLNo abnormal pupil position, abnormal speech (mildly slurred speech.)No facial asymmetry, No facial droop, No facial paresthesias, No facial weakness, No gaze palsy Coordination/Gait: other (incoordination. Gait and romberg not tested due to intoxication.) Motor/Sensory: no motor deficit no sensory deficit no pronator drift Skin: warm/dryNo diaphoresis, No damp, jaundiceNo pallor Progress/Results/Core Measures Results/Orders Lab Results Laboratory Tests Test 08/12/16 17:26 08/12/16 17:55 08/12/16 19:15 08/12/16 19:47 Range/Units Acetaminophen Level < 10 L 10-30 UG/ML Activated Partial Thromboplast Time 37 H 24-35 SEC Alanine Aminotransferase (ALT/SGPT) 26 0-55 U/L Albumin 2.6 L 3.2-4.5 G/DL Alkaline Phosphatase 267 H 40-136 U/L Ammonia 62 H 11-32 UMOL/L Anion Gap 12 5-14 MMOL/L Aspartate Amino Transf (AST/SGOT) 44 H 5-34 U/L BUN/Creatinine Ratio 11 Basophils # (Auto) 0.0 0.0-0.1 10^3/uL Basophils (%) (Auto) 0 0-10 % Blood Urea Nitrogen 22 H 7-18 MG/DL Calcium Level 8.2 L 8.5-10.1 MG/DL Carbon Dioxide Level 17 L 21-32 MMOL/L Chloride Level 94 L 98-107 MMOL/L Creatinine 1.94 H 0.60-1.30 MG/DL Eosinophils # (Auto) 0.2 0.0-0.3 10^3/uL Eosinophils (%) (Auto) 3 0-10 % Estimat Glomerular Filtration Rate 38 Glucose Level 786 *H 70-105 MG/DL Hematocrit 28 L 40-54 % Hemoglobin 10.0 L 13.3-17.7 G/DL INR Comment 1.3 0.8-1.4 Lymphocytes # (Auto) 1.1 1.0-4.0 X 10^3 Lymphocytes (%) (Auto) 16 12-44 % Mean Corpuscular Hemoglobin 29 25-34 PG Mean Corpuscular Hemoglobin Concent 35 32-36 G/DL Mean Corpuscular Volume 83 80-99 FL Mean Platelet Volume 10.9 H 7.4-10.4 FL Monocytes # (Auto) 0.4 0.0-1.0 X 10^3 Monocytes (%) (Auto) 5 0-12 % Neutrophils # (Auto) 5.6 1.8-7.8 X 10^3 Neutrophils (%) (Auto) 77 H 42-75 % Platelet Count 56 L 130-400 10^3/uL Potassium Level 4.2 3.6-5.0 MMOL/L Prothrombin Time 15.4 H 12.2-14.7 SEC Red Blood Count 3.43 L 4.35-5.85 10^6/uL Red Cell Distribution Width 16.1 H 10.0-14.5 % Salicylates Level < 5.0 L 5.0-20.0 MG/DL Serum Alcohol 198 H <10 MG/DL Sodium Level 123 *L 135-145 MMOL/L TSH [place] Testing 2.17 0.35-4.94 UIU/ML Total Bilirubin 1.4 H 0.1-1.0 MG/DL Total Protein 7.1 6.4-8.2 G/DL Troponin I < 0.30 <0.30 NG/ML White Blood Count 7.4 4.3-11.0 10^3/uL Glucometer > 600 *H > 600 *H 70-110 MG/DL Ur Tricyclic Antidepressants Screen POSITIVE H NEGATIVE Urine Amphetamines Screen NEGATIVE NEGATIVE Urine Bacteria NEGATIVE /HPF Urine Barbiturates Screen NEGATIVE NEGATIVE Urine Benzodiazepines Screen NEGATIVE NEGATIVE Urine Bilirubin NEGATIVE NEGATIVE Urine Cannabinoids Screen NEGATIVE NEGATIVE Urine Casts NONE /LPF Urine Clarity SLIGHTLY CLOUDY Urine Cocaine Screen NEGATIVE NEGATIVE Urine Color YELLOW Urine Crystals NONE /LPF Urine Culture Indicated NO Urine Glucose (UA) 4+ H NEGATIVE Urine Ketones NEGATIVE NEGATIVE Urine Leukocyte Esterase NEGATIVE NEGATIVE Urine Methadone Screen NEGATIVE NEGATIVE Urine Methamphetamines Screen NEGATIVE NEGATIVE Urine Mucus NEGATIVE /LPF Urine Nitrite NEGATIVE NEGATIVE Urine Opiates Screen NEGATIVE NEGATIVE Urine Oxycodone Screen NEGATIVE NEGATIVE Urine Phencyclidine Screen NEGATIVE NEGATIVE Urine Propoxyphene Screen NEGATIVE NEGATIVE Urine Protein 2+ H NEGATIVE Urine RBC TNTC H /HPF Urine RBC (Auto) 5+ H NEGATIVE Urine Specific [place] 1.010 L 1.016-1.022 Urine Urobilinogen NORMAL NORMAL MG/DL Urine WBC RARE /HPF Urine pH 6 5-9 My Orders Orders-NAYELY DEGROOT Acetaminophen (08/12/16 17:27) Alcohol (08/12/16 17:27) Ammonia (08/12/16 17:27) Cbc With Automated Diff (08/12/16 17:27) Comprehensive Metabolic Panel (08/12/16 17:27) Drug Screen Stat (Urine) (08/12/16 17:27) Protime With Inr (08/12/16 17:27) Partial Thromboplastin Time (08/12/16 17:27) Thyroid Analyzer (08/12/16 17:27) Troponin I (08/12/16 17:27) Ua Culture If Indicated (08/12/16 17:27) Salicylate (08/12/16 17:27) Saline Lock/Iv-Start (08/12/16 17:27) Accucheck Stat ONCE (08/12/16 17:47) Ekg Tracing (08/12/16 17:47) Famotidine Injection (Pepcid Injection) (08/12/16 17:47) Ns Iv 1000 Ml (Sodium Chloride 0.9%) (08/12/16 17:47) Ketorolac Injection (Toradol Injection) (08/12/16 17:47) Insulin (Regular) Human (Humulin R (Per (08/12/16 17:47) Accucheck Stat ONCE (08/12/16 19:33) Insulin (Regular) Human (Humulin R (Per (08/12/16 19:52) Ns Iv 1000 Ml (Sodium Chloride 0.9%) (08/12/16 19:52) Accucheck Stat ONCE (08/12/16 20:42) Medications Given in ED Current Medications Medications Dose Ordered Sig/Rafita Route Start Time Stop Time Status Last Admin Dose Admin Sodium Chloride 1,000 ml @ 0 mls/hr Q0M ONCE IV 08/12/16 17:47 08/12/16 17:49 DC 08/12/16 18:00 1,000 MLS/HR Sodium Chloride 1,000 ml @ 0 mls/hr Q0M ONCE IV 08/12/16 19:52 08/12/16 19:54 DC 08/12/16 20:00 1,000 MLS/HR Vital Signs/I&O Vital Sign - Last 12Hours 08/12/16 17:22 Temp 98.1 Pulse 92 Resp 18 B/P 118/80 Pulse Ox 94 Blood Pressure Mean: 93 ECG Initial ECG Impression Date: Aug 12, 2016 Initial ECG Impression Time: 18:00 Initial ECG Rate: 86 Initial ECG Rhythm: Normal Sinus Initial ECG Comparisson: Changed Comment SINUS RHYTHM WITH PROLONGED QT INTERVAL. CHANGES NOTED IN V2 MOST LIKELY RELATED TO ACUTE RENAL FAILURE, CIRRHOSIS, AND/OR CURRENT INTOXICATED STATE. ECG REVIEWED AND DISCUSSED WITH DR. ABILIO KAISER. Departure Communication Time/Spoke to Admitting Phy: 18:[address] PASCAL ACCEPTS PATIENT TO HER INTERNAL MEDICINE SERVICE FOR IVF, ELECTROLYTE REPLACEMENT, AND INSULIN DRIP. Progress Notes Patient was given 2 L of fluids and 2 doses of IV insulin with improvement of blood sugar to only 549. Patient case discussed with Dr. Pascal to excepts patient to her internal medicine service. All laboratory findings, diagnostic study findings, and plan for admission discussed with the patient. Patient voices understanding and wishes to proceed with admission. Patient case discussed with Dr. Prasad, he agrees with the plan of care. 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 Referrals: [facility] (PCP/Family) Primary Care Physician NAYELY DEGROOT Aug 12, 2016 17:40
[2016-08-12 17:41] LABS: BASOPHILS % (AUTO) 0 % (0-10); EOSINOPHILS # (AUTO) 0.2 10^3/uL (0.0-0.3); EOSINOPHILS % (AUTO) 3 % (0-10); LYMPHOCYTES # (AUTO) 1.1 X 10^3 (1.0-4.0); LYMPHOCYTES % (AUTO) 16 % (12-44); MEAN CORPUSCULAR HEMOGLOBIN 29 PG (25-34); MEAN CORPUSCULAR HGB CONC 35 G/DL (32-36); MEAN CORPUSCULAR VOLUME 83 FL (80-99); MEAN PLATELET VOLUME 10.9 FL (7.4-10.4); MONOCYTES # (AUTO) 0.4 X 10^3 (0.0-1.0); MONOCYTES % (AUTO) 5 % (0-12); NEUTROPHILS # (AUTO) 5.6 X 10^3 (1.8-7.8); NEUTROPHILS % (AUTO) 77 % (42-75); PLATELET COUNT 56 10^3/uL (130-400); RED BLOOD COUNT 3.43 10^6/uL (4.35-5.85); RED CELL DISTRIBUTION WIDTH 16.1 % (10.0-14.5); WHITE BLOOD COUNT 7.4 10^3/uL (4.3-11.0)
[2016-08-12] MEDS ORDERED: NS IV 1000 ML 1,000 ML IV ONE ×2 (17:47→19:52)
[2016-08-12] MEDS ORDERED: FAMOTIDINE 20MG/2ML IV (PEPCID) IV STA (17:47)
[2016-08-12] MEDS ORDERED: KETOROLAC 30 MG/ML VIAL IVP STA (17:47)
[2016-08-12] MEDS ORDERED: inSUlin (REGULAR) HUMAN 1 UNIT/0.01 ML (CHARGE PER UNIT) IV STA ×2 (17:47→19:52)
[2016-08-12 17:49] LABS: INR 1.3 (0.8-1.4); PROTHROMBIN TIME PATIENT 15.4 SEC (12.2-14.7)
[2016-08-12 18:00] LABS: ALANINE AMINOTRANSFERASE 26 U/L (0-55); ALBUMIN 2.6 G/DL (3.2-4.5); ALCOHOL 198 MG/DL (<10); AMMONIA 62 UMOL/L (11-32); ANION GAP 12 MMOL/L (5-14); ASPARTATE AMINO TRANSFERASE 44 U/L (5-34); BILIRUBIN,TOTAL 1.4 MG/DL (0.1-1.0); BLOOD UREA NITROGEN 22 MG/DL (7-18); BUN/CREATININE RATIO 11; CALCIUM 8.2 MG/DL (8.5-10.1); CARBON DIOXIDE 17 MMOL/L (21-32); CHLORIDE 94 MMOL/L (98-107); CREATININE SERUM 1.94 MG/DL (0.60-1.30); GFR ESTIMATED 38; POTASSIUM 4.2 MMOL/L (3.6-5.0); SALICYLATE < 5.0 MG/DL (5.0-20.0); TOTAL PROTEIN 7.1 G/DL (6.4-8.2)
[2016-08-12 18:03] LABS: ACETAMINOPHEN < 10 UG/ML (10-30); GLUCOSE 786 MG/DL (70-105); SODIUM 123 MMOL/L (135-145)
[2016-08-12 18:20] LABS: TROPONIN I < 0.30 NG/ML (<0.30)
[2016-08-12 19:30] LABS: BILIRUBIN,URINE NEGATIVE (NEGATIVE); KETONES,URINE NEGATIVE (NEGATIVE); LEUKOCYTE ESTERASE ,URINE NEGATIVE (NEGATIVE); NITRITE,URINE NEGATIVE (NEGATIVE); PH,URINE 6 (5-9); PROTEIN,URINE 2+ (NEGATIVE); UROBILINOGEN,URINE NORMAL (NORMAL)
[2016-08-12 19:42] LABS: WBC,URINE RARE /HPF
[2016-08-12] MEDS ORDERED: NS (IVPB) 100 ML ONE (21:39)
[2016-08-12] MEDS ORDERED: inSUlin REGULAR TPN/DRIP ONLY 250 UNITS in NORMAL SALINE 247.5 ML IV SCH (21:45)
[2016-08-12] MEDS ORDERED: ONDANSETRON 4 MG/2 ML (SDV) Z0FRAN IV PRN (21:45)
[2016-08-12] MEDS ORDERED: CATHETER FLUSH 10 ML SYR IV PRN (21:45)
[2016-08-12] MEDS: NS W/KCL 20 MEQ/L 1,000 ML IV SCH (21:46)
[2016-08-12] MEDS: CATHETER FLUSH 10 ML SYR IV SCH (21:47)
[2016-08-12] MEDS: LACTULOSE SYRUP 10GM/15ML (ENULOSE) 30ML UDC PO SCH (21:56)
[2016-08-12] MEDS ORDERED: inSUlin (REGULAR) HUMAN 1 UNIT/0.01 ML (CHARGE PER UNIT) IV ONE (22:00)
[2016-08-12] MEDS ORDERED: DRIP ONLY IV SCH (22:00)
[2016-08-12] MEDS ORDERED: SODIUM CHLORIDE IV SCH (22:00)
[2016-08-12] MEDS ORDERED: INSULIN REGULAR TPN IV SCH (22:00)
[2016-08-12] MEDS ORDERED: inSUlin (REGULAR) HUMAN 1 UNIT/0.01 ML (CHARGE PER UNIT) IV PRN (22:15)
[2016-08-12] MEDS ORDERED: DEXTROSE 50% 50 ML (IMS) SYR IV PRN (22:15)
[2016-08-13] VITALS (14 sets, daily range): BP systolic 117–160; BP diastolic 64–103
[2016-08-13 03:29] LABS: BASOPHILS % (AUTO) 0 % (0-10); EOSINOPHILS # (AUTO) 0.2 10^3/uL (0.0-0.3); EOSINOPHILS % (AUTO) 4 % (0-10); LYMPHOCYTES % (AUTO) 16 % (12-44); MEAN CORPUSCULAR HEMOGLOBIN 29 PG (25-34); MEAN CORPUSCULAR HGB CONC 35 G/DL (32-36); MEAN CORPUSCULAR VOLUME 83 FL (80-99); MEAN PLATELET VOLUME 10.3 FL (7.4-10.4); MONOCYTES # (AUTO) 0.4 X 10^3 (0.0-1.0); MONOCYTES % (AUTO) 6 % (0-12); NEUTROPHILS # (AUTO) 4.4 X 10^3 (1.8-7.8); NEUTROPHILS % (AUTO) 73 % (42-75); PLATELET COUNT 49 10^3/uL (130-400); RED BLOOD COUNT 2.92 10^6/uL (4.35-5.85); RED CELL DISTRIBUTION WIDTH 16.5 % (10.0-14.5); WHITE BLOOD COUNT 5.9 10^3/uL (4.3-11.0)
[2016-08-13 03:45] LABS: INR 1.3 (0.8-1.4)
[2016-08-13 03:57] LABS: ALBUMIN 2.2 G/DL (3.2-4.5); BILIRUBIN,TOTAL 1.1 MG/DL (0.1-1.0); CALCIUM 7.8 MG/DL (8.5-10.1); CREATININE SERUM 1.51 MG/DL (0.60-1.30); MAGNESIUM 1.3 MG/DL (1.8-2.4); PHOSPHORUS 3.6 MG/DL (2.3-4.7); POTASSIUM 3.5 MMOL/L (3.6-5.0); TOTAL PROTEIN 5.8 G/DL (6.4-8.2)
[2016-08-13] MEDS: NS W/KCL 20 MEQ/L 1,000 ML IV SCH (04:33)
[2016-08-13] MEDS: CATHETER FLUSH 10 ML SYR IV SCH ×3 (04:34→22:58)
[2016-08-13] MEDS ORDERED: fentaNYL INJECTION 100 MCG/2 ML AMP IV PRN (05:30)
--- NOTE | 2016-08-13 05:55 | Pulmonary Consultation ---
History of Present Illness History of Present Illness Date of Consultation 08/13/16 05:50 Date of Admission History of Present Illness 46 yo hx of hep C, IDDM, ETOH dependance, pt was drinking at his house family called EMS. Upon EMS arrival pt was agitated and did not want to go with EMS however family forced him too. He was found to have hyperglycemia and was placed on insulin drip. Pt is doing much better now. I am consulted for iCU management. Allergies and Home Medications Allergies Coded Allergies: Penicillins (Verified Allergy, Severe, EDEMA, SOA, 03/21/16) clindamycin (Verified Allergy, Unknown, 03/21/16) olanzapine (Verified Allergy, Unknown, 03/21/16) quetiapine (Verified Allergy, Unknown, 03/21/16) Home Medications Amlodipine Besylate 5 Mg Tablet 5 MG PO DAILY (Reported) Famotidine 20 Mg Tablet #60 20 MG PO BID Prescribed by: MALGORZATA GUTIERREZ on 07/10/16 2351 Folic Acid 1 Mg Tablet #28 1 TAB PO UD (Reported) Insulin Glargine,Hum.rec.anlog 100 Unit/1 Ml Vial 40 UNIT SQ HS (Reported) Insulin Lispro 100 Unit/1 Ml Insuln.pen 30Days 5 UNIT SQ TIDAC Prescribed by: NATHANAEL FRY on 04/03/16 1054 Lactulose 10 Gm/15 Ml Solution 15 ML PO BID (Reported) Pregabalin 50 Mg Capsule #56 1 CAP PO UD (Reported) Tramadol HCl 50 Mg Tablet 50 MG PO Q6H PRN PRN PAIN (Reported) Past Rryubsd-Ofcbfv-Ndahlp Hx Patient Social History Alcohol Use: Regular Use Recreational Drug Use: No Smoking Status: Current Everyday Smoker Type Used: Cigarettes Recent Foreign Travel: No Contact w/Someone Who Travel: No Recent Infectious Disease Expo: No Recent Hopitalizations: No Immunizations Up To Date Tetanus Booster (TDap): Less than 5yrs PED Vaccines UTD: No Date of Pneumonia Vaccine: Apr 26, 2014 Date of Influenza Vaccine: Sep 02, 2014 Seasonal Allergies Seasonal Allergies: Yes Surgeries HX Surgeries: Yes (ORAL) Surgeries: Appendectomy, Coronary Stent, Neurological, Orthopedic Respiratory Hx Respiratory Disorders: Yes Respiratory Disorders: COPD Cardiovascular Hx Cardiac Disorders: Yes Cardiac Disorders: Coronary Artery Disease, Hypertension, Palpitations Neurological Hx Neurological Disorders: Yes Neurological Disorders: Headaches /Migraines, Neuropathy Reproductive System Hx Reproductive Disorders: No Sexually Transmitted Disease: No HIV/AIDS: No Genitourinary Hx Genitourinary Disorders: No Gastrointestinal Hx Gastrointestinal Disorders: Yes (HEPATITIS C) Gastrointestinal Disorders: Pancreatitis, Cirrhosis Musculoskeletal Hx Musculoskeletal Disorders: Yes (RIGHT FOOT FRACTURE) Musculoskeletal Disorders: Chronic Back Pain, Fractures Endocrine Hx Endocrine Disorders: Yes Endocrine Disorders: Diabetes, Insulin dep HEENT HX ENT Disorders: No Cancer Hx Cancer: Yes Cancer: Liver Psychosocial Hx Psychiatric Problems: Yes (EXTENISVE PSYCH ISSUES) Behavioral Health Disorders: Anxiety, Suicide Attempts, Schizophrenia, Depression Integumentary HX Skin/Integumentary Disorder: No Blood Transfusions Hx Blood Disorders: No (hep c) Adverse Reaction to a Blood Tr: No Reviewed Nursing Assessment Reviewed/Agree w Nursing PMH: Yes Family Medical History Significant Family History: Psychiatric Problems Family Medial History: Cardiovascular disease 19 FATHER 19 MOTHER FH: schizophrenia 19 FATHER 19 MOTHER Respiratory disorder 19 FATHER 19 MOTHER Review of Systems Constitutional: : Malaise: WeaknessNo: Chills, Fever, Other, Sweats Eyes: No: Conjunctivae inflammation, Eyelid inflammation, Other, Pain, Redness , Vision change ENT: No: Ear discharge, Ear pain, Mouth pain, Mouth swelling, Nose congestion, Nose discharge, Nose pain, Other, Throat pain, Throat swelling Respiratory: No: Cough, Dry, Hemoptysis, Other, Pleuritic Pain, SOB with excertion, Shortness of breath, Sputum, Wheezing, Wheezing Cardiovascular: No: Chest Pain, Edema, Lt Headedness, Orthopnea, Other, Palpitations, Paroxysmal Noc. Dyspnea Gastrointestinal: No: Abdominal Pain, Constipation, Diarrhea, Hematochezia, Melena, Nausea, Other, Vomiting Genitourinary: No Dysuria, No Frequency, No Incontinence, No Hematuria, No Retention, No Other Musculoskeletal: No: arm pain, back pain, foot pain, hand pain, leg pain, neck pain, other, shoulder pain Neurological: : Weakness Exam Exam Vital Signs Date Time Temp Pulse Resp B/P Pulse Ox O2 Delivery O2 Flow Rate FiO2 08/13/16 05:15 99.0 08/13/16 04:18 98 08/13/16 03:00 101 30 126/81 92 Room Air 08/13/16 02:00 97 27 124/76 93 Room Air 08/13/16 01:42 98 08/13/16 01:00 88 22 121/64 93 Room Air 08/13/16 01:00 98 08/13/16 00:00 99 20 117/76 93 Room Air 08/13/16 00:00 98 08/12/16 23:30 98 24 113/75 93 Room Air 08/12/16 23:00 95 21 115/80 91 Room Air 08/12/16 22:30 93 28 114/77 93 Room Air 08/12/16 22:20 93 08/12/16 22:15 88 17 121/81 93 Room Air 08/12/16 22:00 88 22 116/78 93 Room Air 08/12/16 21:45 90 18 116/82 93 Room Air 08/12/16 21:30 92 10 125/86 94 Room Air 08/12/16 21:18 90 08/12/16 21:10 95 16 99 08/12/16 21:08 98 08/12/16 17:22 98.1 92 18 118/80 94 I & O 08/13/16 07:00 Intake Total 1980 ml Output Total 200 ml Balance 1780 ml General Appearance: No Apparent Distress WD/WN Respiratory: Chest Non Tender Decreased Breath Sounds Cardiovascular: Regular Rate, Rhythm No Edema No Gallop Capillary Refill: Less Than 3 Seconds Gastrointestinal: normal bowel sounds soft distendedNo guarding, No rebound, tenderness (mild generalized ttp.) other ((+) ascites) Neurologic/Psychiatric: Alert Oriented x3 Skin: Normal Color Warm/Dry Lymphatic: No Adenopathy Results Lab Laboratory Tests 08/12/16 17:26 08/13/16 03:18 Assessment/Plan Assessment/Plan MS change with alcohol intoxication Hyperglycemia - resolved -D/C insulin gtt give half of home long acting insulin now and half tonight. -Restart home insulin short acting IDDM hx of hep C and alcohol dependance Hypomagnesium and hypokalemia -replace ARF -IVF THrombocytopenia - chronic Clinical Quality Measures DVT/VTE Risk/Contraindication: Risk Factor Score Per Nursin RFS Level Per Nursing on Admit: 2=Moderate RANDOLPH STYLES DO Aug 13, 2016 05:55
[2016-08-13] MEDS ORDERED: inSUlin DETERMIR 1 UNIT/0.01 ML (LEVEMIR) CHARGE PER UNIT SQ ONE (06:00)
[2016-08-13] MEDS ORDERED: MAGNESIUM 1 GM/100 ML IVPB 200 ML IV ONE (06:02)
[2016-08-13] MEDS ORDERED: POTASSIUM CL 10MEQ/50ML IVPB 200 ML IV ONE (06:02)
[2016-08-13] MEDS ORDERED: NS IV 1000 ML 1,000 ML ONE (06:02)
[2016-08-13] MEDS: POTASSIUM CL 10MEQ/50ML IVPB 50 ML IV SCH ×4 (06:20→09:53)
[2016-08-13] MEDS: MAGNESIUM 1 GM/100 ML IVPB 100 ML IV SCH ×2 (06:20→07:09)
[2016-08-13] MEDS: MULTIVIT W/MINERALS TAB (THERAGRAN M) PO SCH (06:28)
[2016-08-13] MEDS: LACTULOSE SYRUP 10GM/15ML (ENULOSE) 30ML UDC PO SCH ×3 (06:28→20:42)
[2016-08-13] MEDS: THIAMINE 100 MG (VITAMIN B-1) TAB PO SCH (06:28)
[2016-08-13] MEDS ORDERED: NS IV 1000 ML 1,000 ML IV SCH (06:30)
[2016-08-13] MEDS: inSUlin (REGULAR) HUMAN 1 UNIT/0.01 ML (CHARGE PER UNIT) SC SCH ×3 (06:57→20:42)
--- NOTE | 2016-08-13 08:33 | Diagnostic Imaging Report ---
INDICATION: Hyperglycemia and hyponatremia, cirrhosis. COMPARISON: April 24, 2006 FINDINGS: The lungs are clear on today's exam. There is resolution of previous vascular congestion and perihilar edema. No pneumonia, failure, effusion or pneumothorax. No acute pathology. IMPRESSION: Unremarkable frontal chest. Dictated by: Dictated on workstation # [id number]
[2016-08-13] MEDS: FAMOTIDINE 20 MG (PEPCID) TABLET PO SCH ×2 (09:02→20:42)
[2016-08-13] MEDS: FOLIC ACID 1 MG TAB PO SCH (09:02)
[2016-08-13] MEDS: MAGNESIUM OXIDE (MAG-OX)400 MG TAB PO SCH ×2 (09:02→20:43)
[2016-08-13] MEDS ORDERED: TRAZ-28 PO (09:19)
[2016-08-13] MEDS ORDERED: OMEP40CA36 PO (09:19)
[2016-08-13] MEDS ORDERED: 1/2 NS IV SOLUTION 1,000 ML IV PRN (09:49)
[2016-08-13] MEDS ORDERED: SENNA W/DOCUSATE (SENOKOT S) TABLET PO PRN (10:00)
[2016-08-13] MEDS ORDERED: LORazepam INJ 2 MG/ML (ATIVAN) VIAL IV PRN (10:00)
[2016-08-13] MEDS ORDERED: ONDANSETRON 4 MG/2 ML (SDV) Z0FRAN IV PRN (10:00)
[2016-08-13] MEDS ORDERED: LORazepam 1 MG (ATIVAN) TAB PO PRN (10:00)
[2016-08-13] MEDS ORDERED: D5 1/2 NS 1000 ML IV SOLUTION 1,000 ML IV PRN (10:00)
[2016-08-13] MEDS ORDERED: ONDANSETRON 4 MG (ZOFRAN) ORAL DISSOLVE TAB SL PRN (10:00)
[2016-08-13] MEDS ORDERED: LORazepam INJ 2 MG/ML (ATIVAN) VIAL IM/IV PRN (10:00)
[2016-08-13] MEDS ORDERED: ANTACID SUSP 30 ML UDC (MYLANTA) PO PRN (10:00)
[2016-08-13] MEDS ORDERED: FAMO20TA5 PO (10:59)
--- NOTE | 2016-08-13 11:40 | History & Physical-Hospitalist ---
HPI History of Present Illness: HPI/Chief Complaint CC: Hyperglycemia with lethargy HPI: 46yoWM pt of [facility] with end stage liver disease and DM that was drinking ETOH with family became less responsive while lying on the cough, so family called EMS. Pt was brought to ER and had sugar of 736 and Na+ 123 so he was placed in ICU with insulin drip with admit Bicarb of 17 and Creat 1.94. He has since improved to sugar of 108 transition to SQ insulin and Creat is 1.5. Ammonia level was 52 and pt on Lactulose. 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 Patient Interview: Pt states that he feels lethargic today. Pt states that he normally is able to ambulate by himself at home. Pt states that two years ago he began to experience balance issues, even when sober. Pt falls often due to this. Physical exam stable. Pt states that he smokes 3-4 cigarettes per day. Pt states that he would like to consider assisted living. Scribed by Romero Valles under the direct supervision of Dr. Villa. Source: patient Date Seen 08/13/16 Attending Physician Lizbeth Welsh MD PCP [facility] [place] Referring Physician Date of Admission Aug 12, 2016 at 20:47 Home Medications & Allergies Home Medications Reviewed patient Home Medication Reconciliation Form Allergies Coded Allergies: Penicillins (Verified Allergy, Severe, EDEMA, SOA, 03/21/16) clindamycin (Verified Allergy, Unknown, 03/21/16) olanzapine (Verified Allergy, Unknown, 03/21/16) quetiapine (Verified Allergy, Unknown, 03/21/16) Past [id number]-[id number] Hx Patient Social History Marrital Status: single Employed/Student: unemployed Alcohol Use: Regular Use Recreational Drug Use: No Smoking Status: Current Everyday Smoker Type Used: Cigarettes Recent Foreign Travel: No Contact w/other who traveled: No Recent Hopitalizations: No Recent Infectious Disease Expo: No Immunizations Up To Date Tetanus Booster (TDap): Less than 5yrs Date of Pneumonia Vaccine: Apr 26, 2014 Date of Influenza Vaccine: Sep 02, 2014 Seasonal Allergies Seasonal Allergies: Yes Surgeries HX Surgeries: Yes (ORAL) Surgeries: Appendectomy, Coronary Stent, Neurological, Orthopedic Respiratory Hx Respiratory Disorders: Yes Cardiovascular Hx Cardiovascular Disorders: Yes Cardiac Disorders: Coronary Artery Disease, Hypertension, Palpitations Neurological Hx Neurological Disorders: Yes Neurological Disorders: Headaches /Migraines, Neuropathy Reproductive System Hx Reproductive Disorders: No Sexually Transmitted Disease: No HIV/AIDS: No Genitourinary Hx Genitourinary Disorders: No Gastrointestinal Hx Gastrointestinal Disorders: Yes (HEPATITIS C) Gastrointestinal Disorders: Pancreatitis, Cirrhosis Musculoskeletal Hx Musculoskeletal Disorders: Yes (RIGHT FOOT FRACTURE) Musculoskeletal Disorders: Chronic Back Pain, Fractures Endocrine Hx Endocrine Disorders: Yes Endocrine Disorders: Diabetes, Insulin dep HEENT HX ENT Disorders: No Cancer Hx Cancer: Yes Cancer: Liver Psychosocial Hx Psychiatric Problems: Yes (EXTENISVE PSYCH ISSUES) Behavioral Health Disorders: Anxiety, Suicide Attempts, Schizophrenia, Depression Integumentary HX Skin/Integumentary Disorder: No Blood Transfusions Hx Blood Disorders: No (hep c) Adverse Reaction to a Blood Tr: No Reviewed Nursing Assessment Reviewed/Agree w Nursing PMH: Yes Family Medical History Significant Family History: Psychiatric Problems Family Hx: Cardiovascular disease 19 FATHER 19 MOTHER FH: schizophrenia 19 FATHER 19 MOTHER Respiratory disorder 19 FATHER 19 MOTHER Review of Systems Constitutional: see HPI malaise weakness EENTM: no symptoms reported Respiratory: no symptoms reported Cardiovascular: no symptoms reported Gastrointestinal: no symptoms reported Genitourinary: no symptoms reported Musculoskeletal: back pain Skin: no symptoms reported Psychiatric/Neurological: No Symptoms Reported All Other Systems Reviewed Negative Unless Noted: Yes Physical Exam Physical Exam Vital Signs Vital Sign - Last 12Hours 08/12/16 08/12/16 17:22 21:30 Temp 98.1 Pulse 92 Resp 18 B/P 118/80 Pulse Ox 94 O2 Delivery Room Air Capillary Refill : Less Than 3 Seconds General Appearance: No Apparent Distress WD/WN Chronically ill Eyes: Bilateral Eye Normal Inspection, Bilateral Eye PERRL HEENT: PERRL/EOMI Normal ENT Inspection Pharynx Normal Neck: Full Range of Motion Normal Inspection Non Tender Supple Carotid Bruit Respiratory: Chest Non Tender Lungs Clear Normal Breath Sounds No Accessory Muscle Use No Respiratory Distress Cardiovascular: Regular Rate, Rhythm No Edema No Gallop No JVD No Murmur Normal Peripheral Pulses Gastrointestinal: Normal Bowel Sounds No Organomegaly No Pulsatile Mass Non Tender Soft Back: Normal Inspection No CVA Tenderness No Vertebral Tenderness Extremity: Normal Capillary Refill Normal Inspection Normal Range of Motion Non Tender No Calf Tenderness No Pedal Edema Neurologic/Psychiatric: Alert Oriented x3 No Motor/Sensory Deficits Normal Mood/Affect Skin: Normal Color Warm/Dry Lymphatic: No Adenopathy Results Results/Procedures Lab Laboratory Tests 08/12/16 17:26 08/13/16 03:18 Assessment/Plan Admission Diagnosis Assessment: End stage liver disease Severe Hyperglycemia 736 on admit Acute alcohol intoxication 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 Assessment and Plan Plan: SS consult SQ Insulin Move pt to 4th floor Alcohol withdrawal protocol DC Tramadol due to risk for seizures Clinical Quality Measures DVT/VTE Risk/Contraindication: Risk Factor Score Per Nursin RFS Level Per Nursing on Admit: 2=Moderate BRYAN VILLA DO Aug 13, 2016 11:40
[2016-08-13] MEDS ORDERED: traZODone 50 MG (DESYREL) TAB PO PRN (12:15)
--- NOTE | 2016-08-13 14:32 | Physical Therapy Evaluation ---
PT Evaluation-General Medical Diagnosis Admission Date Aug 12, 2016 at 20:47 Medical Diagnosis: hyperglycemia/hyponatremia Onset Date: Aug 12, 2016 Therapy Diagnosis Therapy Diagnosis: general debility Height/Weight Height (Feet): 6 Height (Inches): 4.00 Weight (Pounds): 179 Weight (Ounces): 0.0 Precautions Precautions/Isolations: Fall Prevention, Standard Precautions Referral Physician: Daisy Reason for Referral: Evaluation/Treatment Medical History Pertinent Medical History: DM, HTN, Neuropathy, Renal Insufficiency, Smoking Additional Medical History end stage liver disease Current History drinking with family and became less responsive; blood sugar 736; ETOH abuse Reviewed History: Yes Social History Home: Apartment Current Living Status: Alone Prior/Core FIM Prior Level of Function Functional [place] Measure 0=Not Assessed/NA 4=Minimal Assistance 1=Total Assistance 5=Supervision or Setup 2=Maximal Assistance 6=Modified [place] 3=Moderate Assistance 7=Complete [place] Bed Mobility: 7 Transfers (B,C,W/C) (FIM): 7 Gait: 7 PT Evaluation-Current Subjective Patient agrees to PT. Pain Numeric Pain Scale: 5-Moderate Pain Location: Right Location Body Site: Abdomen Pain Description: Pressure Objective Patient Orientation: Normal For Age Problem Solving: Good Attachments: IV ROM/Strength ROM Lower Extremities bilateral LE WFL Strenght Lower Extremities bilateral LE WFL Integumentary/Posture Integumentary refer to nursing notes Bowel Incontinence: No Bladder Incontinence: No Posture WNL Neuromuscular (Tone, Coordination, Reflexes) grossly intact Sensory Vision: Functional Hearing: Functional Sensation Right Lower Extremit: Impaired Sensation Left Lower Extremity: Impaired Transfers Functional [place] Measure 0=Not Assessed/NA 4=Minimal Assistance 1=Total Assistance 5=Supervision or Setup 2=Maximal Assistance 6=Modified [place] 3=Moderate Assistance 7=Complete [place] Transfers (B, C, W/C) (FIM): 7 Scootin Rollin Supine to/from Sit: 7 Sit to/from Stand: 7 Gait Mode of Locomotion: Walk Anticipated Mode of Locomotion: Walk Gait (FIM): 7 Distance (FIM): 3=150 ft Distance: 500' Gait Level of Assist: 7 Gait Assistive Device: None Comments/Gait Description safe and functional Balance Sitting Static: Normal Sitting Dynamic: Normal Standing Static: Normal Standing Dynamic: Normal Assessment/Needs 46 y.o. male, currently at [facility] with all gross motor skills and does not require skilled PT intervention at this time. Rehab Potential: Fair Post Rehab Potential-Barriers: noncompliance PT Plan Treatment/Plan Treatment Plan: Discontinue PT Pt/Family Agrees w/Plan: Yes Time/GCodes Time In: 1250 Time Out: 1310 Total Billed Treatment Time: 20 Total Billed Treatment 1 visit EVLowC 20 min LORI WHEELER PT Aug 13, 2016 14:32
--- NOTE | 2016-08-13 15:47 | Occupational Therapy Eval ---
OT Evaluation-General/PLF Medical Diagnosis Admission Date Aug 12, 2016 at 20:47 Medical Diagnosis: hyperglycemia/hyponatremia Onset Date: Aug 12, 2016 Therapy Diagnosis Therapy Diagnosis: Weakness Height/Weight Height (Feet): 6 Height (Inches): 4.00 Weight (Pounds): 179 Weight (Ounces): 0.0 Precautions Precautions/Isolations: Fall Prevention, Standard Precautions Safety Interventions: None Weight Bear Status Weight Bearing Restriction: Weight Bearing/Tolerated Referral Physician: Daisy Referral Reason: Activity Tolerance, Self Care, Evaluation/Treatment, Strengthening/ROM Medical History Pertinent Medical History: DM, HTN, Neuropathy, Renal Insufficiency, Smoking Additional Medical History End stage liver disease. Current History Pt. states that he was living with someone who "took care of me." States that it was a roommate who just made sure "I don't get up too much." Pt. states that after this hospitalization however, that he will have no place to go. States that he gets a disability check and wants to go to an assisted living, or to get a place with a "Skil worker." Social History Home: Apartment Current Living Status: Alone ADL-Prior Level of Function ADL PLOF Comments Pt. was independent. When asked if he drove, states, "I wasn't supposed to, but I do." Drive Self: Yes OT Current Status Subjective Pt. lying pleasantly in bed. Smiles at therapist. When asked if he was having pain he said "yes." Rated it a 10/10. When asked where he states, "in my liver , I have cirrhosis." Appearance Pt. lying pleasant in bed. Agrees to work with OT. Mental Status/Objective Patient Orientation: Person, Place, Time, Situation Current Hand Dominance: Right Upper Extremity ROM WFL Upper Extremity Strength WFL ADL-Treatment Functional [place] Measure 0=Not Assessed/NA 4=Minimal Assistance 1=Total Assistance 5=Supervision or Setup 2=Maximal Assistance 6=Modified [place] 3=Moderate Assistance 7=Complete IndependenceIRFPAI Quality Coding Scale 6 Independent with activity with or without an assistive device 5 Patient requires set up or clean up by helper. Patient completes activity by themselves 4 Supervision or touching assist (CGA). [place] provide cues , steadying assist 3 The helper provides less than half the effort to complete the activity 2 The helper provides more than half the effort to complete the activity 1 Dependent. The helper does all the effort to complete an activity 7 Patient refused to complete or attempt activity 9 The patient did not perform the activity before the current illness or injury 88 Not attempted due to Medical conditions or safety concerns Lower Body Dressing (FIM): 7 Transfers (B, C, W/C) (FIM): 6 Pt. transferred to side of bed with independence. Able to doff and don shoes and socks independently. Stood by holding bedrail, with mod I. Pt. states, "I can do everything." Pt. is concerned about getting housing after discharge. Pt. states that his main problem is balance, and states, "I look like I'm drunk when I walk, and I am not." Pt. states that he does not need OT training while in hospital. Education OT Patient Education: Progress toward Goal/Update tx plan, Purpose of tx/ functional activities, Reviewed precautions, Rehab process, Transfer techniques Teaching Recipient: Patient Teaching Methods: Demonstration, Discussion Response to Teaching: Verbalize Understanding, Return Demonstration OT Short Term Goals Short Term Goals 1=Demonstrate adherence to instructed precautions during ADL tasks. 2=Patient will verbalize/demonstrate understanding of assistive devices/ modifications for ADL. 3=Patient will improve strength/tolerance for activity to enable patient to perform ADL's. OT [facility] Goals Predatory Animal Trapper Goals Time Frame: Aug 13, 2016 Pt. will demonstrate ability to complete simple ADL tasks, such as toileting, feeding, and LE dressing. Pt. has done this, and therefore no further OT goals at this time. Additional Goals: 1-Demonstrate ADL Tasks 1=Demonstrate adherence to instructed precautions during ADL tasks. 2=Patient will verbalize/demonstrate understanding of assistive devices/ modifications for ADL. 3=Patient will improve strength/tolerance for activity to enable patient to perform ADL's. OT Education/Plan Problem List/Assessment Assessment: No Skilled OT Needs ID'd Discharge Recommendations Plan/Recommendations: Discharge/Goals Met Therapy D/C Recommendations: Assisted Living Barriers to Progress ETOH abuse Treatment Plan/Plan of Care Treatment,Training & Education: Yes Treatment Duration: Aug 13, 2016 # of days/week 1 day Visits Per Week: 1 visit no needs Agreement: Yes Rehab Potential: Fair Time/GCodes Start Time: 14:40 Stop Time: 14:55 Total Time Billed (hr/min): 15 Billed Treatment Time 1, EVmod complexity NACCARATO,MALA OT Aug 13, 2016 15:47
[2016-08-13] MEDS ORDERED: fentaNYL INJECTION 100 MCG/2 ML AMP IVP PRN (17:00)
[2016-08-13] MEDS: PREGABALIN 50 MG (LYRICA) CAP PO SCH (20:42)
[2016-08-13] MEDS ORDERED: FAMOTIDINE 20 MG (PEPCID) TABLET PO SCH (21:00)
[2016-08-14 04:00] VITALS: BP 128/79
[2016-08-14] MEDS: LACTULOSE SYRUP 10GM/15ML (ENULOSE) 30ML UDC PO SCH ×2 (05:57→13:58)
[2016-08-14] MEDS: MULTIVIT W/MINERALS TAB (THERAGRAN M) PO SCH (05:57)
[2016-08-14] MEDS: THIAMINE 100 MG (VITAMIN B-1) TAB PO SCH (05:57)
[2016-08-14] MEDS: CATHETER FLUSH 10 ML SYR IV SCH ×2 (05:58→13:58)
[2016-08-14] MEDS: inSUlin (REGULAR) HUMAN 1 UNIT/0.01 ML (CHARGE PER UNIT) SC SCH ×2 (05:58→11:22)
[2016-08-14 06:56] LABS: BASOPHILS % (AUTO) 0 % (0-10); EOSINOPHILS # (AUTO) 0.3 10^3/uL (0.0-0.3); EOSINOPHILS % (AUTO) 6 % (0-10); LYMPHOCYTES % (AUTO) 21 % (12-44); MEAN CORPUSCULAR HEMOGLOBIN 29 PG (25-34); MEAN CORPUSCULAR HGB CONC 35 G/DL (32-36); MEAN CORPUSCULAR VOLUME 85 FL (80-99); MEAN PLATELET VOLUME 11.4 FL (7.4-10.4); MONOCYTES # (AUTO) 0.3 X 10^3 (0.0-1.0); MONOCYTES % (AUTO) 7 % (0-12); NEUTROPHILS % (AUTO) 66 % (42-75); PLATELET COUNT 56 10^3/uL (130-400); RED BLOOD COUNT 3.37 10^6/uL (4.35-5.85); RED CELL DISTRIBUTION WIDTH 17.2 % (10.0-14.5); WHITE BLOOD COUNT 4.6 10^3/uL (4.3-11.0)
[2016-08-14] MEDS ORDERED: PANTOPRAZOLE 40 MG (PROTONIX) TAB PO SCH (07:00)
[2016-08-14 07:16] LABS: ALBUMIN 2.3 G/DL (3.2-4.5); BILIRUBIN,TOTAL 1.6 MG/DL (0.1-1.0); CALCIUM 7.6 MG/DL (8.5-10.1); CREATININE SERUM 1.46 MG/DL (0.60-1.30); POTASSIUM 4.7 MMOL/L (3.6-5.0); TOTAL PROTEIN 6.2 G/DL (6.4-8.2)
[2016-08-14 08:00] VITALS: BP 134/75
[2016-08-14] MEDS ORDERED: NON-FORMULARY MEDICATION 1 EA EA (Omeprazole 40 MG) PO SCH (09:00)
[2016-08-14] MEDS ORDERED: amLODIPine 5 MG (NORVASC) TAB PO SCH (09:00)
[2016-08-14] MEDS ORDERED: FOLIC ACID 1 MG TAB PO SCH (09:00)
[2016-08-14] MEDS: PREGABALIN 50 MG (LYRICA) CAP PO SCH (10:22)
[2016-08-14] MEDS: FOLIC ACID 1 MG TAB PO SCH (10:22)
[2016-08-14] MEDS: MAGNESIUM OXIDE (MAG-OX)400 MG TAB PO SCH (10:22)
[2016-08-14] MEDS: FAMOTIDINE 20 MG (PEPCID) TABLET PO SCH (10:22)
[2016-08-14] MEDS ORDERED: INSU100V6 SQ ×2 (10:57→11:20)
[2016-08-14] MEDS ORDERED: INSU100I23 SQ ×2 (11:00→11:20)
--- NOTE | 2016-08-14 11:12 | Discharge Summary-Hospitalist ---
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 Plan: SS consult SQ Insulin Move pt to 4th floor Alcohol withdrawal protocol DC Tramadol due to risk for seizures Reason Hospital Visit/Course CC: Hyperglycemia with lethargy HPI: 46yoWM pt of [facility] with end stage liver disease and DM that was drinking ETOH with family became less responsive while lying on the cough, so family called EMS. Pt was brought to ER and had sugar of 736 and Na+ 123 so he was placed in ICU with insulin drip with admit Bicarb of 17 and Creat 1.94. He has since improved to sugar of 108 transition to SQ insulin and Creat is 1.5. Ammonia level was 52 and pt on Lactulose. case sealer: RN states that pt had a associate director of biostatistics at home but the associate director of biostatistics has recently stopped caring for pt. Patient Interview: Pt states that he feels lethargic today. Pt states that he normally is able to ambulate by himself at home. Pt states that two years ago he began to experience balance issues, even when sober. Pt falls often due to this. Physical exam stable. Pt states that he smokes 3-4 cigarettes per day. Pt states that he would like to consider assisted living. Scribed by Romero Valles under the direct supervision of Dr. Pascal. Notes from 08/14/2016: Chart Review: No fever Vitals stable WBC 4.6 Hgb 9.9 Platelets 56k Creat 1.46 Glucose 190-200s Alc Phos of 213 Pharmacy Review: Pt stopped taking Insulin meds and has been noncompliant for the past 3 months. Pt uses Lantus and NovoLog. Pt's preferred pharmacy is [facility] case sealer: RN states that pt is doing well and has no requests at this time. RN states that SS has been working on finding a place for pt to go after DC. Patient Interview: Pt states that he feels much better. Pt states that he takes DM medicine at home regularly. Physical exam stable. Pt does not want to go to a intermediate, but would like assisted living. Pt sees Dr. Welsh and Dr. Olguin at [facility]. Pt received Lactulose today. No fever, vital signs stable, pleasant Regular rate and rhythm, clear to all sedation bilaterally Chronically ill and debilitated Plan: DC home with PCP follow-up Reconcile Lantus 20 and Humalog 3 TID SW consult regarding post-DC plans. DC telemetry. Scribed by Romero Valles under the direct supervision of Dr. Pascal. Hospital course: Patient had a brief hospital course he was admitted to the ICU on insulin drip after he is noncompliant with insulin. He was intoxicated drinking with friends even though he has end-stage liver cirrhosis and that was counseled. He did not have any evidence of alcohol withdrawal and he was deemed stable for discharge to home with family support. Discharge Summary Discharge Physical Examination Allergies: Coded Allergies: Penicillins (Verified Allergy, Severe, EDEMA, SOA, 03/21/16) clindamycin (Verified Allergy, Unknown, 03/21/16) olanzapine (Verified Allergy, Unknown, 03/21/16) quetiapine (Verified Allergy, Unknown, 03/21/16) Vitals & I&Os Vital Signs Date Time Temp Pulse Resp B/P Pulse Ox O2 Delivery O2 Flow Rate FiO2 08/14/16 12:19 98.3 82 18 149/90 96 Room Air Hospital Course Labs (last 24 hrs) Laboratory Tests 08/13/16 13:16: Glucometer 96 08/13/16 16:54: Glucometer 91 08/13/16 20:36: Glucometer 274H 08/14/16 05:10: Glucometer 194H 08/14/16 05:47: Alanine Aminotransferase (ALT/SGPT) 42, Albumin 2.3L, Alkaline Phosphatase 213H , Anion Gap 7, Aspartate Amino Transf (AST/SGOT) 140H, BUN/Creatinine Ratio 14, Basophils # (Auto) 0.0, Basophils (%) (Auto) 0, Blood Urea Nitrogen 20H, Calcium Level 7.6L, Carbon Dioxide Level 19L, Chloride Level 109H, Creatinine 1.46H, Eosinophils # (Auto) 0.3, Eosinophils (%) (Auto) 6, Estimat Glomerular Filtration Rate 52, Glucose Level 202H, Hematocrit 29L, Hemoglobin 9.9L, Lymphocytes # (Auto) 1.0, Lymphocytes (%) (Auto) 21, Mean Corpuscular Hemoglobin 29, Mean Corpuscular Hemoglobin Concent 35, Mean Corpuscular Volume 85, Mean Platelet Volume 11.4H, Monocytes # (Auto) 0.3, Monocytes (%) (Auto) 7, Neutrophils # (Auto) 3.0, Neutrophils (%) (Auto) 66, Platelet Count 56L, Potassium Level 4.7, Red Blood Count 3.37L, Red Cell Distribution Width 17.2H, Sodium Level 135, Total Bilirubin 1.6H, Total Protein 6.2L, White Blood Count 4.6 08/14/16 10:53: Glucometer 362H Microbiology 08/12/16 MRSA Screen - Final, Complete MRSA not isolated Pending Labs Laboratory Tests 08/14/16 05:10: Glucometer 194 08/14/16 05:47: Alanine Aminotransferase (ALT/SGPT) 42, Albumin 2.3, Alkaline Phosphatase 213, Anion Gap 7, Aspartate Amino Transf (AST/SGOT) 140, BUN/Creatinine Ratio 14, Basophils # (Auto) 0.0, Basophils (%) (Auto) 0, Blood Urea Nitrogen 20, Calcium Level 7.6, Carbon Dioxide Level 19, Chloride Level 109, Creatinine 1.46, Eosinophils # (Auto) 0.3, Eosinophils (%) (Auto) 6, Estimat Glomerular Filtration Rate 52, Glucose Level 202, Hematocrit 29, Hemoglobin 9.9, Lymphocytes # (Auto) 1.0, Lymphocytes (%) (Auto) 21, Mean Corpuscular Hemoglobin 29, Mean Corpuscular Hemoglobin Concent 35, Mean Corpuscular Volume 85, Mean Platelet Volume 11.4, Monocytes # (Auto) 0.3, Monocytes (%) (Auto) 7, Neutrophils # (Auto) 3.0, Neutrophils (%) (Auto) 66, Platelet Count 56, Potassium Level 4.7, Red Blood Count 3.37, Red Cell Distribution Width 17.2, Sodium Level 135, Total Bilirubin 1.6, Total Protein 6.2, White Blood Count 4.6 08/14/16 10:53: Glucometer 362 Discharge Home Medications: Active Scripts Active Vitamin B-1 (Thiamine HCl) 100 Mg Tablet 100 Mg PO DAILY@0700 Lactulose 20 Gm/30 Ml Solution 20 Gm PO Q8HR Humalog Kwikpen (Insulin Lispro) 100 Unit/1 Ml Insuln.pen 3 Unit SQ TIDAC Lantus (Insulin Glargine,Hum.rec.anlog) 100 Unit/1 Ml Vial 20 Unit SQ HS Tramadol HCl 50 Mg Tablet 50 Mg PO Q6H PRN Reported Famotidine 20 Mg Tablet 20 Mg PO BID Omeprazole 40 Mg Capsule.dr 40 Mg PO DAILY Trazodone HCl 50 Mg Tablet 50 Mg PO HS PRN Lyrica (Pregabalin) 50 Mg Capsule 50 Mg PO BID LAST FILLED 06/19/16 #56 Folic Acid 1 Mg Tablet 1 Mg PO DAILY LAST FILLED 06/19/16 #28 Amlodipine Besylate 5 Mg Tablet 5 Mg PO DAILY LAST FILLED 06/19/16 #28 Instructions to patient/family Please see electonic discharge instructions given to patient. Clinical Quality Measures DVT/VTE Risk/Contraindication: Risk Factor Score Per Nursin RFS Level Per Nursing on Admit: 2=Moderate BRYAN PASCAL DO Aug 14, 2016 11:12
[2016-08-14] MEDS ORDERED: TRAM50TA2 PO (11:20)
[2016-08-14] MEDS ORDERED: THIA100T7 PO (11:20)
[2016-08-14] MEDS ORDERED: LACT20SO2 PO (11:20)
--- NOTE | 2016-08-14 11:22 | Discharge Instructions ---
Discharge Instructions Discharge Medications New, Converted or Re-Newed RX: Transmitted to Pharmacy New Medications: Lactulose (Lactulose) 20 Gm/30 Ml Solution 20 GM PO Q8HR #8 OZ Thiamine HCl (Vitamin B-1) 100 Mg Tablet 100 MG PO DAILY@0700 #30 TAB Changed Medications: Insulin Glargine,Hum.rec.anlog (Lantus) 100 Unit/1 Ml Vial 20 UNIT SQ HS #1 VIAL (Changed from: 40 UNIT) Insulin Lispro (Humalog Kwikpen) 100 Unit/1 Ml Insuln.pen 3 UNIT SQ TIDAC #5 EA (Changed from: 5 UNIT) Continued Medications: Amlodipine Besylate (Amlodipine Besylate) 5 Mg Tablet 5 MG PO DAILY LAST FILLED 06/19/16 #28 TAB Famotidine (Famotidine) 20 Mg Tablet 20 MG PO BID Folic Acid (Folic Acid) 1 Mg Tablet 1 MG PO DAILY LAST FILLED 06/19/16 #28 Omeprazole (Omeprazole) 40 Mg Capsule.dr 40 MG PO DAILY Pregabalin (Lyrica) 50 Mg Capsule 50 MG PO BID LAST FILLED 06/19/16 #56 Tramadol HCl (Tramadol HCl) 50 Mg Tablet 50 MG PO Q6H PRN PAIN #15 TAB (This prescription has been renewed) Trazodone HCl (Trazodone HCl) 50 Mg Tablet 50 MG PO HS PRN SLEEP Patient Instructions Goal/Follow Up Appt: [facility] in 1 week Patient Instructions: Take insulin as directed Do not drink alcohol Activity & Diet Discharge Diet: No Restrictions Activity as Tolerated: Yes BRYAN PASCAL DO Aug 14, 2016 11:22
[2016-08-14 12:19] VITALS: BP 149/90
--- NOTE | 2016-08-17 17:40 | Physician Query-General Query ---
Physician Query-General Query to Physician: The medical record reflects the following clinical scenario: History/Risk factors: liver disease, diabetes, blood sugar on admission was 786 Clinical Findings: 2/8 BUN and creatinine 1.94 and 22, 2/9 BUN and creatinine 1.51 and 20, 2/10 BUN and creatinine 1.46 and 20 Treatment: IV fluids Question: Do you agree with the impression of acute renal failure per Pulmonology Consult-Wanda? Please document a response in Progress Notes or Discharge Summary. 1. Yes ___ 2. No ___ 3. Other, with explanation of clinical findings 4. Clinically undetermined, no explanation for clinical findings Please remember a lack of response to the above will prompt a phone page by CDI/ coding staff. In responding to this query, please exercise your independent professional judgment. The purpose of this communication is to more accurately reflect the complexity of your patients condition. The fact that a question is asked does not imply that any particular answer is desired or expected. Thank you for your timely response to this clarification. PHYSICIAN RESPONSE: Based on the clinical findings in the record, please respond to the query above on this document as an addendum. Possible, probable, or questionable diagnosis can be coded for INPATIENTS ONLY. Physician Response: Physician Response Acute renal failure If you have questions please contact: Conventional Underwriter: Ext: Thank you for your time and cooperation. Clinical Anatomy And Physiology Instructor/Conventional Underwriter This is a permanent part of the medical record KARIE WHITING Aug 17, 2016 17:40 BRYAN PASCAL DO Aug 19, 2016 11:48
== END 2016-08-14 14:35 | disposition home or self-care (01) | DRG 442 ==
LOC: EDUNIT# 17:22 → ER 17:23 → ICU 20:47 → 4TH 08-13 22:42
PROVIDERS: ADMIT Internal Medicine; ATTEND Family Medicine
DX: K72.90 Hepatic failure, unspecified without coma (principal); E11.65 Type 2 diabetes mellitus with hyperglycemia; N17.9 Acute kidney failure, unspecified; F10.229 Alcohol dependence with intoxication, unspecified; K70.30 Alcoholic cirrhosis of liver without ascites; Z79.4 Long term (current) use of insulin; F20.9 Schizophrenia, unspecified; F32.9 Major depressive disorder, single episode, unspecified; I10 Essential (primary) hypertension; I25.10 Atherosclerotic heart disease of native coronary artery without angina pectoris; Z95.5 Presence of coronary angioplasty implant and graft; F17.210 Nicotine dependence, cigarettes, uncomplicated; E83.42 Hypomagnesemia; E87.6 Hypokalemia; D69.6 Thrombocytopenia, unspecified; B18.2 Chronic viral hepatitis C
CPT/HCPCS: 36415; 71010; 80053; 80306; 80320; 80329; 81000; 82140; 82962; 83735; 84100; 84443; 84484; 85025; 85610; 85730; 87081; 93005; 94760; 96361; 96365; 96375

== ENCOUNTER 2016-08-26 13:32 | Emergency (ER) | payer MEDICAID ==
[~2016-08-26] VITALS: Ht 193 cm; Wt 82.6 kg
[~2016-08-26 13:32] MED LIST changes: +FAMO20TA5 PO; +LACT20SO2 PO; +OMEP40CA36 PO; +THIA100T7 PO
[2016-08-26] MEDS ORDERED: NS IV 1000 ML 1,000 ML IV ONE ×3 (13:38→16:10)
[2016-08-26 13:47] LABS: BASOPHILS % (AUTO) 0 % (0-10); EOSINOPHILS # (AUTO) 0.1 10^3/uL (0.0-0.3); EOSINOPHILS % (AUTO) 2 % (0-10); LYMPHOCYTES # (AUTO) 0.8 X 10^3 (1.0-4.0); LYMPHOCYTES % (AUTO) 13 % (12-44); MEAN CORPUSCULAR HEMOGLOBIN 29 PG (25-34); MEAN CORPUSCULAR HGB CONC 36 G/DL (32-36); MEAN CORPUSCULAR VOLUME 81 FL (80-99); MEAN PLATELET VOLUME 11.8 FL (7.4-10.4); MONOCYTES # (AUTO) 0.3 X 10^3 (0.0-1.0); MONOCYTES % (AUTO) 5 % (0-12); NEUTROPHILS # (AUTO) 4.8 X 10^3 (1.8-7.8); NEUTROPHILS % (AUTO) 80 % (42-75); PLATELET COUNT 42 10^3/uL (130-400); RED BLOOD COUNT 3.33 10^6/uL (4.35-5.85); RED CELL DISTRIBUTION WIDTH 15.7 % (10.0-14.5)
[2016-08-26 14:05] LABS: ABG BASE EXCESS -4.3 MMOL/L (-2.5-2.5); ABG HCO3 19 MMOL/L (23-27); ABG OXYGEN SATURATION 73 % (94-100); ABG PCO2 30 MMHG (35-45); ABG PH 7.43 (7.37-7.43); ABG PO2 43 MMHG (79-93); ABG TCO2 20.4 MMOL/L (21.0-31.0)
[2016-08-26 14:05] LABS: ALANINE AMINOTRANSFERASE 27 U/L (0-55); ALBUMIN 2.5 G/DL (3.2-4.5); AMYLASE 528 U/L (25-125); ANION GAP 10 MMOL/L (5-14); ASPARTATE AMINO TRANSFERASE 35 U/L (5-34); BILIRUBIN,TOTAL 1.8 MG/DL (0.1-1.0); BLOOD UREA NITROGEN 25 MG/DL (7-18); BUN/CREATININE RATIO 13; CALCIUM 8.1 MG/DL (8.5-10.1); CARBON DIOXIDE 19 MMOL/L (21-32); CHLORIDE 97 MMOL/L (98-107); CREATININE SERUM 1.94 MG/DL (0.60-1.30); GFR ESTIMATED 38; LIPASE 85 U/L (8-78); MAGNESIUM 1.4 MG/DL (1.8-2.4); POTASSIUM 4.8 MMOL/L (3.6-5.0); SODIUM 126 MMOL/L (135-145); TOTAL PROTEIN 6.8 G/DL (6.4-8.2)
[2016-08-26 14:08] LABS: ALLENS TEST YES-POS
[2016-08-26 14:09] LABS: PATIENT TEMP 97.7
[2016-08-26 14:10] LABS: ALCOHOL < 10 MG/DL (<10); GLUCOSE 838 MG/DL (70-105)
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
[2016-08-26] MEDS ORDERED: inSUlin (REGULAR) HUMAN 1 UNIT/0.01 ML (CHARGE PER UNIT) IV ONE ×3 (14:15→16:15)
[2016-08-26 14:52] LABS: BILIRUBIN,URINE NEGATIVE (NEGATIVE); KETONES,URINE NEGATIVE (NEGATIVE); LEUKOCYTE ESTERASE ,URINE NEGATIVE (NEGATIVE); NITRITE,URINE NEGATIVE (NEGATIVE); PH,URINE 7 (5-9); PROTEIN,URINE 2+ (NEGATIVE); UROBILINOGEN,URINE NORMAL (NORMAL)
--- NOTE | 2016-08-26 15:08 | Diagnostic Imaging Report ---
INDICATION: Right upper quadrant pain, history of cirrhosis. TECHNIQUE: PA and lateral views of the chest were obtained at 2:48 PM. COMPARISON: 08/13/2016. FINDINGS: The heart and mediastinal silhouette are normal in appearance. The lungs are clear. There is no pneumothorax or pleural fluid. IMPRESSION: Negative chest. Dictated by: Dictated on workstation # [id number]
[2016-08-26] MEDS ORDERED: LACTULOSE SYRUP 10GM/15ML (ENULOSE) 30ML UDC PO ONE (15:15)
[2016-08-26 17:10] VITALS: BP 133/84
[2016-08-28] MEDS ORDERED: TRAM50TA2 PO ×2 (08:08→11:13)
[2016-08-28] MEDS ORDERED: PREG75CA PO ×2 (08:08→11:13)
[2016-08-28] MEDS ORDERED: HYDR-3812 PO (11:13)
== END 2016-08-26 17:12 | disposition home or self-care (01) ==
LOC: EDUNIT# 13:32 → ER 13:33
DX: E11.65 Type 2 diabetes mellitus with hyperglycemia (principal); K72.10 Chronic hepatic failure without coma; B19.20 Unspecified viral hepatitis C without hepatic coma; K74.60 Unspecified cirrhosis of liver; N28.9 Disorder of kidney and ureter, unspecified; D64.9 Anemia, unspecified; D69.6 Thrombocytopenia, unspecified; I10 Essential (primary) hypertension; J44.9 Chronic obstructive pulmonary disease, unspecified; I25.10 Atherosclerotic heart disease of native coronary artery without angina pectoris; F17.210 Nicotine dependence, cigarettes, uncomplicated; Z79.4 Long term (current) use of insulin; Z79.899 Other long term (current) drug therapy; Z91.19 Patient's noncompliance with other medical treatment and regimen
CPT/HCPCS: 36415; 71020; 80053; 80306; 80320; 81000; 82140; 82150; 82805; 82962; 83605; 83690; 83735; 85025; 87040; 87804; 93041; 96361; 96374; 96376

== ENCOUNTER 2016-08-27 16:55 | Inpatient (IN) | payer MEDICAID ==
[~2016-08-27] VITALS: Ht 193 cm; Wt 86.3 kg
[2016-08-27] MEDS ORDERED: NS IV 1000 ML 1,000 ML IV ONE ×2 (17:03→20:19)
[2016-08-27] MEDS ORDERED: inSUlin (REGULAR) HUMAN 1 UNIT/0.01 ML (CHARGE PER UNIT) IV ONE ×2 (17:15→18:15)
[2016-08-27 17:24] LABS: BASOPHILS % (AUTO) 0 % (0-10); EOSINOPHILS # (AUTO) 0.1 10^3/uL (0.0-0.3); EOSINOPHILS % (AUTO) 2 % (0-10); LYMPHOCYTES # (AUTO) 0.8 X 10^3 (1.0-4.0); LYMPHOCYTES % (AUTO) 12 % (12-44); MEAN CORPUSCULAR HEMOGLOBIN 29 PG (25-34); MEAN CORPUSCULAR HGB CONC 35 G/DL (32-36); MEAN CORPUSCULAR VOLUME 83 FL (80-99); MEAN PLATELET VOLUME 11.1 FL (7.4-10.4); MONOCYTES # (AUTO) 0.3 X 10^3 (0.0-1.0); MONOCYTES % (AUTO) 5 % (0-12); NEUTROPHILS # (AUTO) 5.5 X 10^3 (1.8-7.8); NEUTROPHILS % (AUTO) 81 % (42-75); PLATELET COUNT 45 10^3/uL (130-400); RED BLOOD COUNT 3.38 10^6/uL (4.35-5.85); RED CELL DISTRIBUTION WIDTH 16.1 % (10.0-14.5); WHITE BLOOD COUNT 6.8 10^3/uL (4.3-11.0)
[2016-08-27 17:32] LABS: BILIRUBIN,URINE NEGATIVE (NEGATIVE); KETONES,URINE NEGATIVE (NEGATIVE); LEUKOCYTE ESTERASE ,URINE NEGATIVE (NEGATIVE); NITRITE,URINE NEGATIVE (NEGATIVE); PH,URINE 6.5 (5-9); PROTEIN,URINE 2+ (NEGATIVE); UROBILINOGEN,URINE NORMAL (NORMAL)
[2016-08-27 17:42] LABS: SQUAMOUS EPITHELIAL CELL,UR RARE /HPF
[2016-08-27 17:45] LABS: ALANINE AMINOTRANSFERASE 28 U/L (0-55); ALBUMIN 2.4 G/DL (3.2-4.5); AMMONIA 46 UMOL/L (11-32); ANION GAP 10 MMOL/L (5-14); ASPARTATE AMINO TRANSFERASE 48 U/L (5-34); BILIRUBIN,TOTAL 1.8 MG/DL (0.1-1.0); BLOOD UREA NITROGEN 24 MG/DL (7-18); BUN/CREATININE RATIO 13; CALCIUM 7.9 MG/DL (8.5-10.1); CARBON DIOXIDE 14 MMOL/L (21-32); CHLORIDE 101 MMOL/L (98-107); CREATININE SERUM 1.86 MG/DL (0.60-1.30); GFR ESTIMATED 40; LIPASE 75 U/L (8-78); MAGNESIUM 1.3 MG/DL (1.8-2.4); POTASSIUM 4.9 MMOL/L (3.6-5.0); TOTAL PROTEIN 6.6 G/DL (6.4-8.2)
--- NOTE | 2016-08-27 17:52 | ED General ---
General Chief Complaint: Glucose Problems Stated Complaint: WEAKNESS Nursing Triage Note: PT TO [facility] BY [facility] WITH CC OF BEING LETHARGIC, PT'S FAMILY TOLD EMS THAT HE HAS BEEN SLEEPING A LOT AND WEAK. 18 G IV STARTED BY EMS PULLED OUT BY EMS STAFF PT MOVED TO BED. Nursing Sepsis Screen: No Definite Risk Source of Information: Patient, Old Records Exam Limitations: No Limitations (MIGUEL DAVIS MD) History of Present Illness Time Seen by Provider: 16:56 Initial Comments This 46-year-old male presents to the emergency room from home via EMS for reasons of lethargy and high blood sugars. He is an insulin-dependent diabetic with poor control of his blood sugars. He was seen in this ER yesterday and treated for hyperglycemia. He was dismissed home. Patient also has liver failure and history of elevated ammonia levels. His ammonia level was mildly elevated yesterday. Patient is alert and able to have a conversation upon arrival. Blood sugar measured "high". Patient has a history of alcohol abuse but denies any alcohol consumption recently. Patient's care provider, Sunita Puentes, contacted the emergency room firmly demanding that the patient be admitted to a chcf from the emergency room. She reports that "Dr. Olguin" told them the patient needed to return to emergency room for admission to a chcf. (MIGUEL DAVIS MD) Allergies and Home Medications Allergies Coded Allergies: Penicillins (Verified Allergy, Severe, EDEMA, SOA, 03/21/16) clindamycin (Verified Allergy, Unknown, 03/21/16) olanzapine (Verified Allergy, Unknown, 03/21/16) quetiapine (Verified Allergy, Unknown, 03/21/16) Home Medications Amlodipine Besylate 5 Mg Tablet 5 MG PO DAILY (Reported) LAST FILLED 06/19/16 #28 Famotidine 20 Mg Tablet 20 MG PO BID (Reported) Folic Acid 1 Mg Tablet 1 MG PO DAILY (Reported) LAST FILLED 06/19/16 #28 Insulin Glargine,Hum.rec.anlog 100 Unit/1 Ml Vial #1 20 UNIT SQ HS Prescribed by: BRYAN PASCAL on 08/14/16 1120 Insulin Lispro 100 Unit/1 Ml Insuln.pen #5 3 UNIT SQ TIDAC Prescribed by: BRYAN PASCAL on 08/14/16 1120 Lactulose 20 Gm/30 Ml Solution #8 20 GM PO Q8HR Prescribed by: BRYAN PASCAL on 08/14/16 1120 Omeprazole 40 Mg Capsule.dr 40 MG PO DAILY (Reported) Pregabalin 50 Mg Capsule 50 MG PO BID (Reported) LAST FILLED 06/19/16 #56 Thiamine HCl 100 Mg Tablet #30 100 MG PO DAILY@0700 Prescribed by: BRYAN PASCAL on 08/14/16 1120 Tramadol HCl 50 Mg Tablet #15 50 MG PO Q6H PRN PRN PAIN Prescribed by: BRYAN PASCAL on 08/14/16 1120 Trazodone HCl 50 Mg Tablet 50 MG PO HS PRN PRN SLEEP (Reported) Constitutional: see HPI EENTM: no symptoms reported Respiratory: no symptoms reported Cardiovascular: no symptoms reported Gastrointestinal: no symptoms reported Genitourinary: no symptoms reported Musculoskeletal: no symptoms reported Skin: change in color Psychiatric/Neurological: See HPI Hematologic/Lymphatic: No Symptoms Reported (MIGUEL DAVIS MD) Past Hlsvvku-Ketejy-Ehbypo Hx Patient Social History Alcohol Use: Rarely Uses Recreational Drug Use: No Smoking Status: Current Everyday Smoker Type Used: Cigarettes 2nd Hand Smoke Exposure: Yes Recent Foreign Travel: No Contact w/Someone Who Travel: No Recent Infectious Disease Expo: No Recent Hopitalizations: Yes (LIVER FAILURE) (MIGUEL DAVIS MD) Immunizations Up To Date Tetanus Booster (TDap): Less than 5yrs PED Vaccines UTD: No Date of Pneumonia Vaccine: Apr 26, 2014 Date of Influenza Vaccine: Mar 05, 2016 (MIGUEL DAVIS MD) Seasonal Allergies Seasonal Allergies: Yes (MIGUEL DAVIS MD) Surgeries HX Surgeries: Yes Surgeries: Appendectomy, Neurological, Orthopedic (MIGUEL DAVIS MD) Respiratory Hx Respiratory Disorders: Yes Respiratory Disorders: COPD (MIGUEL DAVIS MD) Cardiovascular Hx Cardiac Disorders: Yes Cardiac Disorders: Coronary Artery Disease, Hypertension, Palpitations (MIGUEL DAVIS MD) Neurological Hx Neurological Disorders: Yes (HEPATIC ENCEPHALOPATHY; CHRONIC POOR BALANCE AND FREQUENT FALLS) Neurological Disorders: Headaches /Migraines, Neuropathy (MIGUEL DAVIS MD) Reproductive System Hx Reproductive Disorders: No Sexually Transmitted Disease: No HIV/AIDS: No (MIGUEL DAVIS MD) Genitourinary Hx Genitourinary Disorders: No (MIGUEL DAVIS MD) Gastrointestinal Hx Gastrointestinal Disorders: Yes Gastrointestinal Disorders: Gastroesophageal Reflux, Liver Disease/Jaundice, Gastrointestinal Bleed, Pancreatitis, Esophageal Varices, Hepatitis, Cirrhosis, Gall Bladder Disease (MIGUEL DAVIS MD) Musculoskeletal Hx Musculoskeletal Disorders: Yes (RIGHT ANKLE FRACTURE; MULTIPLE FRACTURES ) Musculoskeletal Disorders: Chronic Back Pain, Fractures (MIGUEL DAVIS MD) Endocrine Hx Endocrine Disorders: Yes Endocrine Disorders: Diabetes, Insulin dep (MIGUEL DAVIS MD) HEENT HX ENT Disorders: No (MIGUEL DAVIS MD) Cancer Hx Cancer: No Cancer: Liver (MIGUEL DAVIS MD) Psychosocial Hx Psychiatric Problems: Yes Behavioral Health Disorders: Anxiety, Suicide Attempts, Schizophrenia, Depression (MIGUEL DAVIS MD) Integumentary HX Skin/Integumentary Disorder: Yes (KURTZ 04/2016--PT WAS SMOKING WHILE WEARING O2/NC. ) (MIGUEL DAVIS MD) Blood Transfusions Hx Blood Disorders: Yes (ANEMIA; THROMBOCYTOPENIA) Adverse Reaction to a Blood Tr: No (MIGUEL DAVIS MD) Family Medical History Significant Family History: Psychiatric Problems Family Medial History: Cardiovascular disease 19 FATHER 19 MOTHER FH: schizophrenia 19 FATHER 19 MOTHER Respiratory disorder 19 FATHER 19 MOTHER (MIGUEL DAVIS MD) Family Medial History: Cardiovascular disease 19 FATHER 19 MOTHER FH: schizophrenia 19 FATHER 19 MOTHER Respiratory disorder 19 FATHER 19 MOTHER (JAYLON KAISER MD) Physical Exam Vital Signs Vital Sign - Last 12Hours 08/27/16 17:00 Temp 99.2 Pulse 85 Resp 18 B/P 162/99 Pulse Ox 97 O2 Delivery Room Air (JAYLON KAISER MD) Vital Signs Capillary Refill : Less Than 3 Seconds (MIGUEL DAVIS MD) General Appearance: No Apparent Distress WD/WN Other (malaise without true lethargy) HEENT: PERRL/EOMI Normal ENT Inspection Neck: Normal Inspection Respiratory: Lungs Clear Normal Breath Sounds No Accessory Muscle Use No Respiratory Distress Cardiovascular: Regular Rate, Rhythm No Edema No Murmur Gastrointestinal: Normal Bowel Sounds Soft Tenderness (mild epigastric tenderness) Extremity: Normal Inspection No Pedal Edema Neurologic/Psychiatric: Alert No Motor/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 Cognition is somewhat dulled. Speech is slow.) Skin: Warm/Dry Jaundice (MIGUEL DAVIS MD) Progress/Results/Core Measures Results/Orders Lab Results Laboratory Tests Test 08/27/16 17:08 08/27/16 17:10 08/27/16 17:23 08/27/16 18:05 Range/Units Glucometer > 600 *H > 600 *H 70-110 MG/DL Alanine Aminotransferase (ALT/SGPT) 28 0-55 U/L Albumin 2.4 L 3.2-4.5 G/DL Alkaline Phosphatase 233 H 40-136 U/L Ammonia 46 H 11-32 UMOL/L Anion Gap 10 5-14 MMOL/L Aspartate Amino Transf (AST/SGOT) 48 H 5-34 U/L BUN/Creatinine Ratio 13 Basophils # (Auto) 0.0 0.0-0.1 10^3/uL Basophils (%) (Auto) 0 0-10 % Blood Urea Nitrogen 24 H 7-18 MG/DL Calcium Level 7.9 L 8.5-10.1 MG/DL Carbon Dioxide Level 14 L 21-32 MMOL/L Chloride Level 101 98-107 MMOL/L Creatinine 1.86 H 0.60-1.30 MG/DL Eosinophils # (Auto) 0.1 0.0-0.3 10^3/uL Eosinophils (%) (Auto) 2 0-10 % Estimat Glomerular Filtration Rate 40 Glucose Level 874 *H 70-105 MG/DL Hematocrit 28 L 40-54 % Hemoglobin 9.9 L 13.3-17.7 G/DL Lipase 75 8-78 U/L Lymphocytes # (Auto) 0.8 L 1.0-4.0 X 10^3 Lymphocytes (%) (Auto) 12 12-44 % Magnesium Level 1.3 L 1.8-2.4 MG/DL Mean Corpuscular Hemoglobin 29 25-34 PG Mean Corpuscular Hemoglobin Concent 35 32-36 G/DL Mean Corpuscular Volume 83 80-99 FL Mean Platelet Volume 11.1 H 7.4-10.4 FL Monocytes # (Auto) 0.3 0.0-1.0 X 10^3 Monocytes (%) (Auto) 5 0-12 % Neutrophils # (Auto) 5.5 1.8-7.8 X 10^3 Neutrophils (%) (Auto) 81 H 42-75 % Platelet Count 45 L 130-400 10^3/uL Potassium Level 4.9 3.6-5.0 MMOL/L Red Blood Count 3.38 L 4.35-5.85 10^6/uL Red Cell Distribution Width 16.1 H 10.0-14.5 % Serum Alcohol < 10 <10 MG/DL Sodium Level 125 *L 135-145 MMOL/L Total Bilirubin 1.8 H 0.1-1.0 MG/DL Total Protein 6.6 6.4-8.2 G/DL White Blood Count 6.8 4.3-11.0 10^3/uL Ur Tricyclic Antidepressants Screen NEGATIVE NEGATIVE Urine Amphetamines Screen NEGATIVE NEGATIVE Urine Bacteria NEGATIVE /HPF Urine Barbiturates Screen NEGATIVE NEGATIVE Urine Benzodiazepines Screen NEGATIVE NEGATIVE Urine Bilirubin NEGATIVE NEGATIVE Urine Cannabinoids Screen NEGATIVE NEGATIVE Urine Casts NONE /LPF Urine Clarity CLEAR Urine Cocaine Screen NEGATIVE NEGATIVE Urine Color BUD H Urine Crystals NONE /LPF Urine Culture Indicated NO Urine Glucose (UA) 4+ H NEGATIVE Urine Ketones NEGATIVE NEGATIVE Urine Leukocyte Esterase NEGATIVE NEGATIVE Urine Methadone Screen NEGATIVE NEGATIVE Urine Methamphetamines Screen NEGATIVE NEGATIVE Urine Mucus NEGATIVE /LPF Urine Nitrite NEGATIVE NEGATIVE Urine Opiates Screen NEGATIVE NEGATIVE Urine Oxycodone Screen NEGATIVE NEGATIVE Urine Phencyclidine Screen NEGATIVE NEGATIVE Urine Propoxyphene Screen NEGATIVE NEGATIVE Urine Protein 2+ H NEGATIVE Urine RBC >100 H /HPF Urine RBC (Auto) 5+ H NEGATIVE Urine Specific [place] 1.005 L 1.016-1.022 Urine Squamous Epithelial Cells RARE /HPF Urine Urobilinogen NORMAL NORMAL MG/DL Urine WBC 10-25 H /HPF Urine pH 6.5 5-9 Test 08/27/16 18:56 08/27/16 19:40 Range/Units Glucometer > 600 *H > 600 *H 70-110 MG/DL (JAYLON KAISER MD) My Orders Orders-JAYLON KAISER MD Insulin (Regular) Human (Humulin R (Per (08/27/16 19:04) Insulin (Regular) Human (Humulin R (Per (08/27/16 19:33) Insulin Determir (Per Unit) (Levemir (Pe (08/27/16 20:30) Ns Iv 1000 Ml (Sodium Chloride 0.9%) (08/27/16 20:19) (JAYLON KAISER MD) Medications Given in ED Current Medications Medications Dose Ordered Sig/Rafita Route Start Time Stop Time Status Last Admin Dose Admin Insulin Human Regular 10 unit ONCE ONCE IV 08/27/16 17:15 08/27/16 17:16 DC 08/27/16 17:18 10 UNIT Insulin Human Regular 10 unit ONCE ONCE IV 08/27/16 18:15 08/27/16 18:16 DC 08/27/16 18:23 10 UNIT Magnesium Oxide 400 mg ONCE ONCE PO 08/27/16 18:15 08/27/16 18:16 DC 08/27/16 18:29 400 MG Sodium Chloride 1,000 ml @ 0 mls/hr Q0M ONCE IV 08/27/16 17:03 08/27/16 17:05 DC 08/27/16 17:19 1,000 MLS/HR (JAYLON KAISER MD) Vital Signs/I&O Vital Sign - Last 12Hours 08/27/16 17:00 Temp 99.2 Pulse 85 Resp 18 B/P 162/99 Pulse Ox 97 O2 Delivery Room Air (JAYLON KAISER MD) Blood Pressure Mean: 120 Point of Care Testing Blood Glucose Action Taken: READ "HI" DR OLIVAREZ (MIGUEL DAVIS MD) Progress Note #1: Time: 17:52 Progress Note Patient received about 650 mL of saline by EMS. An additional liter of saline has been ordered. IV failed and needed to be restarted. Glucometer read "high ". 10 units of insulin was is administered IV route. Patient's caregiver, Sunita Puentes, called the emergency room demanding that the patient be admitted admitted to a chcf. She was informed the disposition will be determined after results are back. Sodium is 125 which is likely artificial due to hyperglycemia. Progress Note #2: Time: 18:19 Progress Note Exact value on blood sugar was 874. Fingerstick blood sugar still reads "high" . An additional 10 units of insulin was ordered. I discussed this case with Dr. Lebron who agrees patient likely needs placement. However, if his blood sugars improve, he will not meet inpatient admission criteria. Dr. Lebron will instruct the transitional ambulatory care nurse at the clinic to assist with chcf placement. The family can then follow up with the clinic tomorrow. This was explained to Sunita Puentes who seemed accepting of this plan. (MIGUEL DAVIS MD) Progress Note : Progress Note 1829: I did assume care of the patient from Dr. Eng. He has received a second dose of insulin and we are going to recheck glucose value. 1899: Glucose still read high. 1914: Repeat dosing of 15 units insulin IV ordered. He appears to have had 30 units of insulin yesterday to get his blood sugar down. 1929: In reviewing medication administration from previous visit, patient appears to have had 90 units of insulin given yesterday to get his blood sugar down. I have added an additional 15 units IV insulin dosing ordered and we will recheck blood sugar. Patient resting comfortably and in no apparent distress. 2024: Patient's blood sugar control is provided to be quite resistant. He is just now breaking under 600 after 50 units total of insulin. I have no police in the fact that he will be available to control this at home. Patient reports that he is essentially homeless but is staying with the is support analyst but she is having problems with her boyfriend and have been kicked out for the past couple of days. He admits that he is having problems with managing his medicines. He also admits that he needs placement. Due to the resistant nature of his hyperglycemia and the liver failure and volume deficit, we will admit him to the hospital. I did discuss the case with Dr. Pascal. We will initiate insulin drip and admitted to ICU inpatient status. Consult the ICU for management per Dr. Pascal. Patient is tolerating by mouth fluids currently. We will put him on insulin drip protocol which will allow for greater control of his glucose level in an appropriate manner. I will continue lactulose and mag oxide with other meds per attending physician. This was discussed with the patient who agrees with plan. (JAYLON KAISER MD) Departure Communication Time/Spoke to Admitting Phy: 20:25 (JAYLON KAISER MD) Impression Impression: Primary Impression: Acute hyperglycemia Additional Impressions: Hypomagnesemia Chronic kidney disease Qualified Code: N18.9 - Chronic kidney disease, unspecified Liver failure Qualified Code: K72.00 - Acute and subacute hepatic failure without coma elevated ammonia Disposition: ADMITTED INPATIENT Condition: Stable Decision to Admit Reason: Admit from ER (General) Decision to Admit/Date: Aug 27, 2016 Time/Decision to Admit Time: 20:25 (JAYLON KAISER MD) Departure-Patient Inst. Referrals: [facility] (PCP/Family) Primary Care Physician MIGUEL DAVIS MD Aug 27, 2016 17:52 JAYLON KAISER MD Aug 27, 2016 19:37
[2016-08-27 17:53] LABS: ALCOHOL < 10 MG/DL (<10); SODIUM 125 MMOL/L (135-145)
[2016-08-27] MEDS ORDERED: MAGNESIUM OXIDE (MAG-OX)400 MG TAB PO ONE (18:15)
[2016-08-27 18:20] LABS: GLUCOSE 874 MG/DL (70-105)
[2016-08-27] MEDS ORDERED: inSUlin (REGULAR) HUMAN 1 UNIT/0.01 ML (CHARGE PER UNIT) IV STA ×2 (19:04→19:33)
[2016-08-27] MEDS ORDERED: inSUlin DETERMIR 1 UNIT/0.01 ML (LEVEMIR) CHARGE PER UNIT SQ ONE (20:30)
[2016-08-27 23:00] VITALS: BP 136/73
[2016-08-27] MEDS ORDERED: NS (IVPB) 100 ML ONE (23:10)
[2016-08-27] MEDS ORDERED: inSUlin (REGULAR) HUMAN 1 UNIT/0.01 ML (CHARGE PER UNIT) ONE (23:11)
[2016-08-27] MEDS ORDERED: 1/2 NS W/KCL 20 MEQ/L 1,000 ML IV ONE (23:12)
[2016-08-27 23:15] VITALS: BP 141/91
[2016-08-27 23:30] VITALS: BP 136/84
[2016-08-27] MEDS: POTASSIUM CL 10MEQ/50ML IVPB X 4 (TOTAL 40 MEQ) IV SCH (23:30)
[2016-08-27] MEDS: D5 1/2 NS W/KCL 20 MEQ/L 1,000 ML IV SCH (23:30)
[2016-08-27] MEDS ORDERED: DEXTROSE 10% IV SOLUTION 1,000 ML IV SCH (23:30)
[2016-08-27] MEDS ORDERED: REGULAR inSUlin DRIP 250 UNITS/NS 250 ML IV SCH ×2 (23:30)
[2016-08-27 23:45] VITALS: BP 136/73
[2016-08-27] MEDS: 1/2 NS W/KCL 20 MEQ/L 1,000 ML IV SCH (23:55)
[2016-08-28] VITALS (13 sets, daily range): BP systolic 126–152; BP diastolic 77–99
[2016-08-28] MEDS: LACTULOSE SYRUP 10GM/15ML (ENULOSE) 30ML UDC PO SCH ×4 (00:05→23:26)
[2016-08-28] MEDS ORDERED: NS IV SCH (00:18)
[2016-08-28] MEDS ORDERED: INSULIN REGULAR TPN IV SCH (00:18)
[2016-08-28] MEDS ORDERED: DRIP ONLY IV SCH (00:18)
[2016-08-28] MEDS ORDERED: fentaNYL INJECTION 100 MCG/2 ML AMP ONE (00:24)
[2016-08-28] MEDS: POTASSIUM CL 10MEQ/50ML IVPB X 4 (TOTAL 40 MEQ) IV SCH ×2 (00:30→00:34)
[2016-08-28] MEDS: fentaNYL INJECTION 100 MCG/2 ML AMP IVP PRN ×2 (01:34→06:00)
[2016-08-28 03:09] LABS: CALCIUM 7.5 MG/DL (8.5-10.1); CREATININE SERUM 1.35 MG/DL (0.60-1.30); POTASSIUM 3.3 MMOL/L (3.6-5.0)
[2016-08-28] MEDS: D5 1/2 NS W/KCL 20 MEQ/L 1,000 ML IV SCH (03:24)
[2016-08-28] MEDS: 1/2 NS W/KCL 20 MEQ/L 1,000 ML IV SCH (03:30)
[2016-08-28 05:11] LABS: BASOPHILS % (AUTO) 0 % (0-10); EOSINOPHILS # (AUTO) 0.3 10^3/uL (0.0-0.3); EOSINOPHILS % (AUTO) 3 % (0-10); LYMPHOCYTES # (AUTO) 1.2 X 10^3 (1.0-4.0); LYMPHOCYTES % (AUTO) 14 % (12-44); MEAN CORPUSCULAR HEMOGLOBIN 30 PG (25-34); MEAN CORPUSCULAR HGB CONC 36 G/DL (32-36); MEAN CORPUSCULAR VOLUME 83 FL (80-99); MEAN PLATELET VOLUME 11.4 FL (7.4-10.4); MONOCYTES # (AUTO) 0.5 X 10^3 (0.0-1.0); MONOCYTES % (AUTO) 6 % (0-12); NEUTROPHILS # (AUTO) 6.5 X 10^3 (1.8-7.8); NEUTROPHILS % (AUTO) 76 % (42-75); PLATELET COUNT 50 10^3/uL (130-400); RED CELL DISTRIBUTION WIDTH 16.3 % (10.0-14.5); WHITE BLOOD COUNT 8.5 10^3/uL (4.3-11.0)
[2016-08-28 05:36] LABS: ALANINE AMINOTRANSFERASE 27 U/L (0-55); ANION GAP 4 MMOL/L (5-14); ASPARTATE AMINO TRANSFERASE 53 U/L (5-34); BILIRUBIN,TOTAL 1.5 MG/DL (0.1-1.0); BLOOD UREA NITROGEN 19 MG/DL (7-18); BUN/CREATININE RATIO 15; CALCIUM 7.4 MG/DL (8.5-10.1); CARBON DIOXIDE 16 MMOL/L (21-32); CHLORIDE 114 MMOL/L (98-107); CREATININE SERUM 1.23 MG/DL (0.60-1.30); GFR ESTIMATED > 60; GLUCOSE 79 MG/DL (70-105); MAGNESIUM 1.2 MG/DL (1.8-2.4); PHOSPHORUS 2.7 MG/DL (2.3-4.7); POTASSIUM 3.3 MMOL/L (3.6-5.0); SODIUM 134 MMOL/L (135-145); TOTAL PROTEIN 5.8 G/DL (6.4-8.2)
[2016-08-28] MEDS ORDERED: MAGNESIUM 1 GM/100 ML IVPB 100 ML IV SCH (06:00)
[2016-08-28] MEDS ORDERED: POTASSIUM CL 10MEQ/50ML IVPB 50 ML IV SCH (06:00)
[2016-08-28] MEDS: POTASSIUM CL 10MEQ/50ML IVPB 50 ML IV SCH ×4 (06:00→09:42)
[2016-08-28] MEDS ORDERED: KCL 20 MEQ TAB (K-DUR) PO SCH (06:00)
[2016-08-28] MEDS: MAGNESIUM 1 GM/100 ML IVPB 100 ML IV SCH ×4 (06:01→09:43)
[2016-08-28] MEDS ORDERED: NS IV 1000 ML 1,000 ML ONE (06:14)
--- NOTE | 2016-08-28 06:36 | Pulmonary Consultation ---
History of Present Illness History of Present Illness Date of Consultation 08/28/16 06:30 Date of Admission History of Present Illness 46yo with hx of IDDM, liver failure, alcohol abuse, and recent hospitalization presented to ED via EMS secondary to lethargy and hyperglycemia. I am consulted for pulmonary management. Allergies and Home Medications Allergies Coded Allergies: Penicillins (Verified Allergy, Severe, EDEMA, SOA, 03/21/16) clindamycin (Verified Allergy, Unknown, 03/21/16) olanzapine (Verified Allergy, Unknown, 03/21/16) quetiapine (Verified Allergy, Unknown, 03/21/16) Home Medications Amlodipine Besylate 5 Mg Tablet 5 MG PO DAILY (Reported) LAST FILLED 06/19/16 #28 Famotidine 20 Mg Tablet 20 MG PO BID (Reported) Folic Acid 1 Mg Tablet 1 MG PO DAILY (Reported) LAST FILLED 06/19/16 #28 Insulin Glargine,Hum.rec.anlog 100 Unit/1 Ml Vial #1 20 UNIT SQ HS Prescribed by: BRYAN PASCAL on 08/14/16 1120 Insulin Lispro 100 Unit/1 Ml Insuln.pen #5 3 UNIT SQ TIDAC Prescribed by: BRYAN PASCAL on 08/14/16 1120 Lactulose 20 Gm/30 Ml Solution #8 20 GM PO Q8HR Prescribed by: BRYAN PASCAL on 08/14/16 1120 Omeprazole 40 Mg Capsule.dr 40 MG PO DAILY (Reported) Pregabalin 50 Mg Capsule 50 MG PO BID (Reported) LAST FILLED 06/19/16 #56 Thiamine HCl 100 Mg Tablet #30 100 MG PO DAILY@0700 Prescribed by: BRYAN PASCAL on 08/14/16 1120 Tramadol HCl 50 Mg Tablet #15 50 MG PO Q6H PRN PRN PAIN Prescribed by: BRYAN PASCAL on 08/14/16 1120 Trazodone HCl 50 Mg Tablet 50 MG PO HS PRN PRN SLEEP (Reported) Past Hzdxoxi-Wppmnl-Bhhxif Hx Patient Social History Alcohol Use: Rarely Uses Recreational Drug Use: No Smoking Status: Current Everyday Smoker Type Used: Cigarettes 2nd Hand Smoke Exposure: Yes Recent Foreign Travel: No Contact w/Someone Who Travel: No Recent Infectious Disease Expo: No Recent Hopitalizations: Yes (LIVER FAILURE) Physical Abuse Screen: No Sexual Abuse: No Immunizations Up To Date Tetanus Booster (TDap): Less than 5yrs PED Vaccines UTD: No Date of Pneumonia Vaccine: Apr 26, 2014 Date of Influenza Vaccine: Mar 05, 2016 Seasonal Allergies Seasonal Allergies: Yes Surgeries HX Surgeries: Yes Surgeries: Appendectomy, Neurological, Orthopedic Respiratory Hx Respiratory Disorders: Yes Respiratory Disorders: COPD Cardiovascular Hx Cardiac Disorders: Yes Cardiac Disorders: Coronary Artery Disease, Hypertension, Palpitations Neurological Hx Neurological Disorders: Yes (HEPATIC ENCEPHALOPATHY; CHRONIC POOR BALANCE AND FREQUENT FALLS) Neurological Disorders: Headaches /Migraines, Neuropathy Reproductive System Hx Reproductive Disorders: No Sexually Transmitted Disease: No HIV/AIDS: No Genitourinary Hx Genitourinary Disorders: No Gastrointestinal Hx Gastrointestinal Disorders: Yes Gastrointestinal Disorders: Gastroesophageal Reflux, Liver Disease/Jaundice, Gastrointestinal Bleed, Pancreatitis, Esophageal Varices, Hepatitis, Cirrhosis, Gall Bladder Disease Musculoskeletal Hx Musculoskeletal Disorders: Yes (RIGHT ANKLE FRACTURE; MULTIPLE FRACTURES ) Musculoskeletal Disorders: Chronic Back Pain, Fractures Endocrine Hx Endocrine Disorders: Yes Endocrine Disorders: Diabetes, Insulin dep HEENT HX ENT Disorders: No Cancer Hx Cancer: No Cancer: Liver Psychosocial Hx Psychiatric Problems: Yes Behavioral Health Disorders: Anxiety, Suicide Attempts, Schizophrenia, Depression Integumentary HX Skin/Integumentary Disorder: Yes (KURTZ 04/2016--PT WAS SMOKING WHILE WEARING O2/NC. ) Blood Transfusions Hx Blood Disorders: Yes (ANEMIA; THROMBOCYTOPENIA) Adverse Reaction to a Blood Tr: No Family Medical History Significant Family History: Psychiatric Problems Family Medial History: Cardiovascular disease 19 FATHER 19 MOTHER FH: schizophrenia 19 FATHER 19 MOTHER Respiratory disorder 19 FATHER 19 MOTHER Exam Exam Vital Signs Date Time Temp Pulse Resp B/P Pulse Ox O2 Delivery O2 Flow Rate FiO2 08/28/16 06:00 84 16 147/93 91 Room Air 08/28/16 05:00 86 10 143/86 94 Room Air 08/28/16 04:00 93 08/28/16 04:00 83 13 130/82 93 Room Air 08/28/16 04:00 97.5 08/28/16 03:00 87 12 139/94 93 Room Air 08/28/16 02:09 96 08/28/16 02:00 112 14 151/99 93 Room Air 08/28/16 01:00 98 34 152/91 95 Room Air 08/28/16 01:00 92 08/28/16 00:15 90 11 131/95 95 Room Air 08/28/16 00:00 92 15 126/84 93 Room Air 08/28/16 00:00 97.0 08/27/16 23:45 89 11 136/73 94 Room Air 08/27/16 23:30 86 15 136/84 95 Room Air 08/27/16 23:15 98 26 141/91 97 Room Air 08/27/16 23:00 96.8 Room Air 08/27/16 23:00 89 12 136/73 94 Room Air 08/27/16 22:37 93 08/27/16 22:15 100.9 94 18 96 08/27/16 17:00 99.2 85 18 162/99 97 Room Air I & O 08/28/16 07:00 Intake Total 3150 ml Output Total 750 ml Balance 2400 ml General Appearance: No Apparent Distress WD/WN Other (malaise without true lethargy) HEENT: PERRL/EOMI Normal ENT Inspection Neck: Normal Inspection Respiratory: Lungs Clear Normal Breath Sounds No Accessory Muscle Use No Respiratory Distress Cardiovascular: Regular Rate, Rhythm No Edema No Murmur Capillary Refill: Less Than 3 Seconds Extremity: Normal Inspection No Pedal Edema Neurologic/Psychiatric: Alert No Motor/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 Cognition is somewhat dulled. Speech is slow.) Skin: Warm/Dry Jaundice Results Lab Laboratory Tests 08/27/16 17:10 08/28/16 02:44 08/28/16 05:00 Assessment/Plan Assessment/Plan Hyperglycemia -No resolved. insulin gtt is now off. 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 Clinical Quality Measures DVT/VTE Risk/Contraindication: Risk Factor Score Per Nursin RFS Level Per Nursing on Admit: 1=Low/No VTE PPX RANDOLPH STYLES DO Aug 28, 2016 06:36
[2016-08-28] MEDS: NS IV 1000 ML 1,000 ML IV SCH ×4 (06:56→20:17)
[2016-08-28] MEDS ORDERED: INSU100V6 SQ ×2 (08:08→08:14)
[2016-08-28] MEDS ORDERED: PREG75CA PO ×2 (08:08→11:13)
[2016-08-28] MEDS ORDERED: TRAM50TA2 PO ×2 (08:08→11:13)
[2016-08-28] MEDS ORDERED: RT-ALBUINH INH (08:08)
[2016-08-28] MEDS ORDERED: LACT10SO PO (08:14)
[2016-08-28] MEDS ORDERED: THIA100T7 PO (08:14)
[2016-08-28] MEDS ORDERED: INSU100I23 SQ (08:14)
[2016-08-28] MEDS: MAGNESIUM OXIDE (MAG-OX)400 MG TAB PO SCH ×2 (08:15→20:15)
[2016-08-28] MEDS: inSUlin ASPART (NovoLOG) 1 UNIT/0.01 ML (CHARGE PER UNIT) SC SCH ×4 (08:26→22:16)
[2016-08-28] MEDS ORDERED: inSUlin ASPART (NovoLOG) 1 UNIT/0.01 ML (CHARGE PER UNIT) SC SCH ×2 (09:30→11:00)
[2016-08-28] MEDS ORDERED: HYDR-3812 PO (11:13)
--- NOTE | 2016-08-28 11:14 | Discharge Inst-Skilled Nursing ---
Discharge Inst-Skilled NF Chief Complaint CC: Severe hyperglycemia and unable to care for himself at home HPI: This is a 46yoWM pt of [facility] known to me from recent admission for hyperglycemia that presented to ER for a second ER visit this week for sugar of 830. Pt unable to care for himself at home so placement in NH is being arranged. He has hx of alcoholic cirrhosis complicating the issue. I placed him on an insulin drip last night with good resolution of high sugars and currently we are in process of placement. Patient Interview: Pt disoriented during visit, with some difficulty speaking. Pt very tired. Pt states that he has been struggling at home. Pt states that he was drinking ETOH at home. Dr. Villa discusses moving to [place] with pt. Physical exam stable. Assessment: Severe hyperglycemia due to inability to care for himself and take insulin Plan: Arrangements being made for pt to enter assisted living facility. Scribed by Romero Valles under the direct supervision of Dr. Villa. Patient Instructions Patient Problems: Diabetes out of control Alcoholic cirrhosis Non-compliance Severe debility Consult/Follow Up/Orders Follow Up Appt.: [facility] for NH rounds Skilled NF Admit to: [facility] Certification (SNF) I certify that SNF services are required to be given on an inpatient basis because of the above named patient's need for correction care on a continuing basis for the conditions(s) for which he/she was receiving inpatient hospital services prior to his/her transfer to the SNF. Nursing Home Facility Order: Nursing Services, Space Controller-Evaluate & Treat, Physical Therapy-Evaluate & Treat Discharge Diet: ADA Diet Daily Activity as Tolerated: Yes New & Resume Previous Orders New Medications: Hydrocodone/Acetaminophen (Hydrocodon -Acetaminophen 5-325) 1 Each Tablet 2 TAB PO Q4H PRN MODERATE PAIN #15 TAB Continued Medications: Albuterol Sulfate (Proair Hfa) 1 Puff Puff 2 PUFF INH Q4H PRN SHORTNESS OF BREATH INHALER Amlodipine Besylate (Amlodipine Besylate) 5 Mg Tablet 5 MG PO DAILY TAB Famotidine (Famotidine) 20 Mg Tablet 20 MG PO BID TAB Folic Acid (Folic Acid) 1 Mg Tablet 1 MG PO DAILY TAB Insulin Glargine,Hum.rec.anlog (Lantus) 100 Unit/1 Ml Vial 15 UNIT SQ DAILY VIAL Insulin Glargine,Hum.rec.anlog (Lantus) 100 Unit/1 Ml Vial 30 UNIT SQ HS VIAL Insulin Lispro (Humalog Kwikpen) 100 Unit/1 Ml Insuln.pen 15-30 UNIT SQ AC EA Lactulose (Lactulose) 10 Gm/15 Ml Solution 30 ML PO Q8H EA Omeprazole (Omeprazole) 40 Mg Capsule.dr 40 MG PO DAILY CAP Pregabalin (Lyrica) 75 Mg Capsule 75 MG PO BID #30 CAP (This prescription has been renewed) Thiamine HCl (Vitamin B-1) 100 Mg Tablet 100 MG PO DAILY TAB Tramadol HCl (Tramadol HCl) 50 Mg Tablet 50 MG PO BID PRN PAIN #30 TAB (This prescription has been renewed) Trazodone HCl (Trazodone HCl) 50 Mg Tablet 50 MG PO HS TAB Neela Villa Aug 28, 2016 11:13 NEELA VILLA DO Aug 28, 2016 11:14
[2016-08-28] MEDS ORDERED: RT-ALBUTEROL SULF 2.5 MG/3 ML PRE-MIX VIAL INH PRN (12:15)
[2016-08-28] MEDS ORDERED: LACTULOSE SYRUP 10GM/15ML (ENULOSE) 30ML UDC PO SCH (14:00)
[2016-08-28 15:14] LABS: ANION GAP 4 MMOL/L (5-14); BLOOD UREA NITROGEN 16 MG/DL (7-18); BUN/CREATININE RATIO 13; CALCIUM 7.2 MG/DL (8.5-10.1); CARBON DIOXIDE 17 MMOL/L (21-32); CHLORIDE 111 MMOL/L (98-107); CREATININE SERUM 1.23 MG/DL (0.60-1.30); GFR ESTIMATED > 60; GLUCOSE 350 MG/DL (70-105); SODIUM 132 MMOL/L (135-145)
[2016-08-28] MEDS ORDERED: INSULIN LISPRO 20 UNIT SQ SCH (16:00)
[2016-08-28] MEDS: HYDROcodone/APAP 5 MG/325 MG (LORTAB) TAB PO PRN ×2 (16:15→20:17)
[2016-08-28] MEDS: FAMOTIDINE 20 MG (PEPCID) TABLET PO SCH (20:15)
[2016-08-28] MEDS: traZODone 50 MG (DESYREL) TAB PO SCH (20:15)
[2016-08-28] MEDS: PREGABALIN 75 MG (LYRICA) CAP PO SCH (20:15)
[2016-08-28] MEDS ORDERED: MAGNESIUM OXIDE (MAG-OX)400 MG TAB PO SCH (21:00)
[2016-08-28] MEDS: inSUlin DETERMIR 1 UNIT/0.01 ML (LEVEMIR) CHARGE PER UNIT SQ SCH (22:15)
[2016-08-29] VITALS (7 sets, daily range): BP systolic 124–166; BP diastolic 64–105
[2016-08-29] MEDS: NS IV 1000 ML 1,000 ML IV SCH ×2 (00:22→06:22)
[2016-08-29 04:00] LABS: BASOPHILS % (AUTO) 0 % (0-10); EOSINOPHILS # (AUTO) 0.2 10^3/uL (0.0-0.3); EOSINOPHILS % (AUTO) 4 % (0-10); LYMPHOCYTES # (AUTO) 1.1 X 10^3 (1.0-4.0); LYMPHOCYTES % (AUTO) 18 % (12-44); MEAN CORPUSCULAR HEMOGLOBIN 29 PG (25-34); MEAN CORPUSCULAR HGB CONC 35 G/DL (32-36); MEAN CORPUSCULAR VOLUME 85 FL (80-99); MEAN PLATELET VOLUME 11.7 FL (7.4-10.4); MONOCYTES # (AUTO) 0.3 X 10^3 (0.0-1.0); MONOCYTES % (AUTO) 6 % (0-12); NEUTROPHILS # (AUTO) 4.2 X 10^3 (1.8-7.8); NEUTROPHILS % (AUTO) 71 % (42-75); PLATELET COUNT 50 10^3/uL (130-400); RED CELL DISTRIBUTION WIDTH 16.8 % (10.0-14.5); WHITE BLOOD COUNT 5.8 10^3/uL (4.3-11.0)
[2016-08-29 04:15] LABS: ANION GAP 6 MMOL/L (5-14); BLOOD UREA NITROGEN 16 MG/DL (7-18); BUN/CREATININE RATIO 14; CALCIUM 7.1 MG/DL (8.5-10.1); CARBON DIOXIDE 13 MMOL/L (21-32); CHLORIDE 118 MMOL/L (98-107); CREATININE SERUM 1.12 MG/DL (0.60-1.30); GFR ESTIMATED > 60; GLUCOSE 107 MG/DL (70-105); MAGNESIUM 1.7 MG/DL (1.8-2.4); PHOSPHORUS 2.9 MG/DL (2.3-4.7); POTASSIUM 3.7 MMOL/L (3.6-5.0); SODIUM 137 MMOL/L (135-145)
[2016-08-29] MEDS: inSUlin ASPART (NovoLOG) 1 UNIT/0.01 ML (CHARGE PER UNIT) SC SCH ×4 (06:00→21:26)
[2016-08-29] MEDS: PANTOPRAZOLE 40 MG (PROTONIX) TAB PO SCH (06:22)
[2016-08-29] MEDS: HYDROcodone/APAP 5 MG/325 MG (LORTAB) TAB PO PRN ×4 (06:23→21:28)
[2016-08-29] MEDS: LACTULOSE SYRUP 10GM/15ML (ENULOSE) 30ML UDC PO SCH ×3 (06:34→23:21)
[2016-08-29] MEDS ORDERED: FOLIC ACID 1 MG TAB PO SCH (09:00)
[2016-08-29] MEDS: MAGNESIUM OXIDE (MAG-OX)400 MG TAB PO SCH ×2 (09:14→21:26)
[2016-08-29] MEDS: FAMOTIDINE 20 MG (PEPCID) TABLET PO SCH ×2 (09:14→21:26)
[2016-08-29] MEDS: THERAPEUTIC MULTIVITAMINS LIQUID 5 ML UDC PO SCH (09:14)
[2016-08-29] MEDS: THIAMINE 100 MG (VITAMIN B-1) TAB PO SCH (09:14)
[2016-08-29] MEDS: FOLIC ACID 1 MG TAB PO SCH (09:15)
[2016-08-29] MEDS: amLODIPine 5 MG (NORVASC) TAB PO SCH (09:15)
[2016-08-29] MEDS: PREGABALIN 75 MG (LYRICA) CAP PO SCH ×2 (09:15→21:26)
[2016-08-29] MEDS: inSUlin DETERMIR 1 UNIT/0.01 ML (LEVEMIR) CHARGE PER UNIT SQ SCH ×2 (09:17→21:27)
--- NOTE | 2016-08-29 12:44 | Progress Note-Hospitalist ---
Subjective HPI/CC On Admission CC: Severe hyperglycemia and unable to care for himself at home HPI: This is a 46yoWM pt of [facility] presented to ER visit for sugar of 830. Pt unable to care for himself at home so placement in NH is being arranged. He has hx of alcoholic cirrhosis with encephalopathy complicating the issue. Date Seen 08/29/16 Subjective/Events-last exam Patient reports doing well today. He is hungry. He is anticipating discharge to a facility soon. He denies any difficulty breathing or chest pain. He is eating and drinking well otherwise. Objective Exam Vital Signs Vital Sign - Last 12Hours 08/27/16 17:00 Temp 99.2 Pulse 85 Resp 18 B/P 162/99 Pulse Ox 97 O2 Delivery Room Air Capillary Refill : Less Than 3 Seconds General Appearance: No Apparent Distress WD/WN Respiratory: Lungs Clear Normal Breath Sounds Cardiovascular: Regular Rate, Rhythm No Edema Gastrointestinal: Normal Bowel Sounds Non Tender Soft Other (mildly distended - patient reports at baseline) Neurologic/Psychiatric: Alert Oriented x3 Other (poor recall) Skin: Normal Color Warm/Dry Results/Procedures Lab Laboratory Tests 08/28/16 14:45 08/29/16 03:52 Assessment/Plan Assessment and Plan Assess & Plan/Chief Complaint Inability to care for self - SNF placement being arranged currently - Continue to need significant assistance with ADLs Hyperglycemia - improved from admission, continue current regimen Alcohol cirrhosis with ESLD - noted thrombocytopenia and encephalopathy - Appears to be near his baseline Anemia of chronic disease - At baseline as well - Possible variceal screening as outpatient non gap acidosis - hyperchloremic, will DC IVF Dispo: Await shelter placement. MD MYNOR Lugo KATELYN M MD Aug 29, 2016 12:44
[2016-08-29] MEDS: traZODone 50 MG (DESYREL) TAB PO SCH (21:26)
[2016-08-30] VITALS: BP 155/82
[2016-08-30 05:48] LABS: BASOPHILS % (AUTO) 0 % (0-10); EOSINOPHILS # (AUTO) 0.2 10^3/uL (0.0-0.3); EOSINOPHILS % (AUTO) 3 % (0-10); LYMPHOCYTES # (AUTO) 1.2 X 10^3 (1.0-4.0); LYMPHOCYTES % (AUTO) 21 % (12-44); MEAN CORPUSCULAR HEMOGLOBIN 29 PG (25-34); MEAN CORPUSCULAR HGB CONC 34 G/DL (32-36); MEAN CORPUSCULAR VOLUME 86 FL (80-99); MEAN PLATELET VOLUME 10.2 FL (7.4-10.4); MONOCYTES # (AUTO) 0.4 X 10^3 (0.0-1.0); MONOCYTES % (AUTO) 7 % (0-12); NEUTROPHILS # (AUTO) 4.1 X 10^3 (1.8-7.8); NEUTROPHILS % (AUTO) 69 % (42-75); PLATELET COUNT 54 10^3/uL (130-400); RED BLOOD COUNT 3.22 10^6/uL (4.35-5.85); RED CELL DISTRIBUTION WIDTH 17.3 % (10.0-14.5); WHITE BLOOD COUNT 5.9 10^3/uL (4.3-11.0)
[2016-08-30] MEDS: inSUlin ASPART (NovoLOG) 1 UNIT/0.01 ML (CHARGE PER UNIT) SC SCH ×5 (06:00→21:46)
[2016-08-30 06:07] LABS: ANION GAP 5 MMOL/L (5-14); BLOOD UREA NITROGEN 14 MG/DL (7-18); BUN/CREATININE RATIO 12; CALCIUM 7.5 MG/DL (8.5-10.1); CARBON DIOXIDE 16 MMOL/L (21-32); CHLORIDE 119 MMOL/L (98-107); CREATININE SERUM 1.19 MG/DL (0.60-1.30); GFR ESTIMATED > 60; MAGNESIUM 1.6 MG/DL (1.8-2.4); PHOSPHORUS 3.5 MG/DL (2.3-4.7); POTASSIUM 3.9 MMOL/L (3.6-5.0); SODIUM 140 MMOL/L (135-145)
[2016-08-30 06:09] LABS: GLUCOSE 54 MG/DL (70-105)
[2016-08-30] MEDS: PANTOPRAZOLE 40 MG (PROTONIX) TAB PO SCH (06:16)
[2016-08-30] MEDS: HYDROcodone/APAP 5 MG/325 MG (LORTAB) TAB PO PRN ×4 (06:17→22:16)
[2016-08-30] MEDS: LACTULOSE SYRUP 10GM/15ML (ENULOSE) 30ML UDC PO SCH ×3 (06:51→23:39)
[2016-08-30 08:36] VITALS: BP 121/69
[2016-08-30] MEDS: PREGABALIN 75 MG (LYRICA) CAP PO SCH ×2 (08:47→21:45)
[2016-08-30] MEDS: MAGNESIUM OXIDE (MAG-OX)400 MG TAB PO SCH ×2 (08:47→21:45)
[2016-08-30] MEDS: THERAPEUTIC MULTIVITAMINS LIQUID 5 ML UDC PO SCH (08:47)
[2016-08-30] MEDS: FAMOTIDINE 20 MG (PEPCID) TABLET PO SCH ×2 (08:47→21:45)
[2016-08-30] MEDS: FOLIC ACID 1 MG TAB PO SCH (08:47)
[2016-08-30] MEDS: THIAMINE 100 MG (VITAMIN B-1) TAB PO SCH (08:47)
[2016-08-30] MEDS: amLODIPine 5 MG (NORVASC) TAB PO SCH (08:47)
[2016-08-30] MEDS: inSUlin DETERMIR 1 UNIT/0.01 ML (LEVEMIR) CHARGE PER UNIT SQ SCH ×2 (08:48→21:46)
--- NOTE | 2016-08-30 11:57 | Progress Note-Hospitalist ---
Progress Note HPI/CC on Admission CC: Severe hyperglycemia and unable to care for himself at home HPI: This is a 46yoWM pt of [facility] presented to ER visit for sugar of 830. Pt unable to care for himself at home so placement in NH is being arranged. He has hx of alcoholic cirrhosis with encephalopathy complicating the issue. Progress Notes/Assess & Plan Date Seen 08/30/16 Admission Dx/Process Reports doing well today but having difficulty with eating foods. Needs softer diet but declined changed officially to soft diet. No abd pain. Ambulating well. Diagonsis/Assessment & Plan Inability to care for self - SNF placement being arranged currently - Continue to need significant assistance with ADLs - Social work to see tomorrow for placement Hyperglycemia - improved from admission, continue current regimen - Has overall been above goal but given low of 54 on AM labs will not make any further adjustments - fasting low likely due to poor gluconeogenesis in liver from ESLD Alcohol cirrhosis with ESLD - noted thrombocytopenia and encephalopathy - Appears to be near his baseline Anemia of chronic disease - At baseline as well - Possible variceal screening as outpatient non gap acidosis, improving - continue off IVF as able, if needed will use 1/2NS Dispo: Await [facility] placement. MD MYNOR Lugo KATELYN M MD Aug 30, 2016 11:57
[2016-08-30 16:00] VITALS: BP 159/80
[2016-08-30] MEDS: traZODone 50 MG (DESYREL) TAB PO SCH (21:45)
[2016-08-31] VITALS: BP 157/98
[2016-08-31] MEDS: inSUlin ASPART (NovoLOG) 1 UNIT/0.01 ML (CHARGE PER UNIT) SC SCH ×2 (05:16→11:47)
[2016-08-31 05:49] LABS: BASOPHILS % (AUTO) 0 % (0-10); EOSINOPHILS # (AUTO) 0.2 10^3/uL (0.0-0.3); EOSINOPHILS % (AUTO) 3 % (0-10); LYMPHOCYTES # (AUTO) 1.1 X 10^3 (1.0-4.0); LYMPHOCYTES % (AUTO) 17 % (12-44); MEAN CORPUSCULAR HEMOGLOBIN 29 PG (25-34); MEAN CORPUSCULAR HGB CONC 34 G/DL (32-36); MEAN CORPUSCULAR VOLUME 86 FL (80-99); MEAN PLATELET VOLUME 10.9 FL (7.4-10.4); MONOCYTES # (AUTO) 0.5 X 10^3 (0.0-1.0); MONOCYTES % (AUTO) 8 % (0-12); NEUTROPHILS # (AUTO) 4.7 X 10^3 (1.8-7.8); NEUTROPHILS % (AUTO) 72 % (42-75); PLATELET COUNT 57 10^3/uL (130-400); RED BLOOD COUNT 3.05 10^6/uL (4.35-5.85); RED CELL DISTRIBUTION WIDTH 17.4 % (10.0-14.5); WHITE BLOOD COUNT 6.5 10^3/uL (4.3-11.0)
[2016-08-31 06:02] LABS: ANION GAP 8 MMOL/L (5-14); BLOOD UREA NITROGEN 13 MG/DL (7-18); BUN/CREATININE RATIO 11; CALCIUM 7.6 MG/DL (8.5-10.1); CARBON DIOXIDE 15 MMOL/L (21-32); CHLORIDE 116 MMOL/L (98-107); CREATININE SERUM 1.18 MG/DL (0.60-1.30); GFR ESTIMATED > 60; MAGNESIUM 1.6 MG/DL (1.8-2.4); PHOSPHORUS 3.8 MG/DL (2.3-4.7); POTASSIUM 3.5 MMOL/L (3.6-5.0); SODIUM 139 MMOL/L (135-145)
[2016-08-31] MEDS: LACTULOSE SYRUP 10GM/15ML (ENULOSE) 30ML UDC PO SCH (06:17)
[2016-08-31] MEDS: PANTOPRAZOLE 40 MG (PROTONIX) TAB PO SCH (06:17)
[2016-08-31] MEDS: HYDROcodone/APAP 5 MG/325 MG (LORTAB) TAB PO PRN ×2 (06:20→11:47)
[2016-08-31 06:21] LABS: GLUCOSE 54 MG/DL (70-105)
[2016-08-31 08:28] VITALS: BP 161/92
[2016-08-31] MEDS: FOLIC ACID 1 MG TAB PO SCH (09:39)
[2016-08-31] MEDS: FAMOTIDINE 20 MG (PEPCID) TABLET PO SCH (09:39)
[2016-08-31] MEDS: THERAPEUTIC MULTIVITAMINS LIQUID 5 ML UDC PO SCH (09:39)
[2016-08-31] MEDS: MAGNESIUM OXIDE (MAG-OX)400 MG TAB PO SCH (09:39)
[2016-08-31] MEDS: amLODIPine 5 MG (NORVASC) TAB PO SCH (09:39)
[2016-08-31] MEDS: THIAMINE 100 MG (VITAMIN B-1) TAB PO SCH (09:39)
[2016-08-31] MEDS: PREGABALIN 75 MG (LYRICA) CAP PO SCH (09:39)
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
[2016-08-31 15:15] VITALS: BP 161/92
== END 2016-08-31 15:15 | disposition home or self-care (01) | DRG 639 ==
LOC: EDUNIT# 16:55 → ER 16:56 → ICU 20:56 → 4TH 08-28 08:48
PROVIDERS: ADMIT Internal Medicine; ATTEND Internal Medicine
DX: E11.65 Type 2 diabetes mellitus with hyperglycemia (principal); Z79.4 Long term (current) use of insulin; F10.229 Alcohol dependence with intoxication, unspecified; K70.30 Alcoholic cirrhosis of liver without ascites; F20.9 Schizophrenia, unspecified; F32.9 Major depressive disorder, single episode, unspecified; I12.9 Hypertensive chronic kidney disease with stage 1 through stage 4 chronic kidney disease, or unspecified chronic kidney disease; I25.10 Atherosclerotic heart disease of native coronary artery without angina pectoris; F17.210 Nicotine dependence, cigarettes, uncomplicated; J44.9 Chronic obstructive pulmonary disease, unspecified; E86.0 Dehydration; D69.6 Thrombocytopenia, unspecified; D63.8 Anemia in other chronic diseases classified elsewhere; E87.5 Hyperkalemia; K70.40 Alcoholic hepatic failure without coma; E83.42 Hypomagnesemia; N18.9 Chronic kidney disease, unspecified; K72.90 Hepatic failure, unspecified without coma; E87.8 Other disorders of electrolyte and fluid balance, not elsewhere classified; Z91.14 Patient's other noncompliance with medication regimen
CPT/HCPCS: 36415; 80048; 80053; 80306; 80320; 81000; 82140; 82962; 83690; 83735; 84100; 85025; 94760; 96361; 96374; 96376

== ENCOUNTER 2016-09-25 14:15 | Inpatient (IN) | payer MEDICAID ==
[~2016-09-25] VITALS: Ht 193 cm; Wt 92.1 kg
[2016-09-25] VITALS (9 sets, daily range): BP systolic 128–162; BP diastolic 84–102
[~2016-09-25 14:15] MED LIST changes: +HYDR-3812 PO; +PREG75CA PO; +RT-ALBUINH INH
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
[2016-09-25 14:39] LABS: BASOPHILS % (AUTO) 0 % (0-10); EOSINOPHILS # (AUTO) 0.1 10^3/uL (0.0-0.3); EOSINOPHILS % (AUTO) 2 % (0-10); LYMPHOCYTES # (AUTO) 0.7 X 10^3 (1.0-4.0); LYMPHOCYTES % (AUTO) 11 % (12-44); MEAN CORPUSCULAR HEMOGLOBIN 29 PG (25-34); MEAN CORPUSCULAR HGB CONC 32 G/DL (32-36); MEAN CORPUSCULAR VOLUME 93 FL (80-99); MEAN PLATELET VOLUME 12.8 FL (7.4-10.4); MONOCYTES # (AUTO) 0.3 X 10^3 (0.0-1.0); MONOCYTES % (AUTO) 5 % (0-12); NEUTROPHILS # (AUTO) 4.9 X 10^3 (1.8-7.8); NEUTROPHILS % (AUTO) 83 % (42-75); RED BLOOD COUNT 3.75 10^6/uL (4.35-5.85); RED CELL DISTRIBUTION WIDTH 16.1 % (10.0-14.5)
[2016-09-25] MEDS ORDERED: inSUlin (REGULAR) HUMAN 1 UNIT/0.01 ML (CHARGE PER UNIT) IV ONE (14:45)
[2016-09-25 14:49] LABS: PLATELET COUNT 50 10^3/uL (130-400)
[2016-09-25 14:55] LABS: ALBUMIN 2.2 G/DL (3.2-4.5); BILIRUBIN,TOTAL 1.9 MG/DL (0.1-1.0); CALCIUM 8.1 MG/DL (8.5-10.1); CREATININE SERUM 2.07 MG/DL (0.60-1.30); MAGNESIUM 1.5 MG/DL (1.8-2.4); POTASSIUM 3.4 MMOL/L (3.6-5.0); TOTAL PROTEIN 6.7 G/DL (6.4-8.2)
[2016-09-25] MEDS ORDERED: NS IV 1000 ML 1,000 ML IV ONE ×2 (15:15→16:42)
[2016-09-25] MEDS ORDERED: KCL 10 MEQ TAB (MICRO K) PO ONE (15:15)
[2016-09-25 15:23] LABS: ABG BASE EXCESS -10.9 MMOL/L (-2.5-2.5); ABG OXYGEN SATURATION 93 % (94-100); ABG PCO2 31 MMHG (35-45); ABG PO2 70 MMHG (79-93); ABG TCO2 15.5 MMOL/L (21.0-31.0)
[2016-09-25 15:24] LABS: ABG PH 7.28 (7.37-7.43)
[2016-09-25 15:25] LABS: ABG HCO3 15 MMOL/L (23-27); ALLENS TEST YES-POS; PATIENT TEMP 97.7
[2016-09-25] MEDS ORDERED: inSUlin REGULAR TPN/DRIP ONLY 250 UNITS in NORMAL SALINE 247.5 ML IV SCH (15:30)
[2016-09-25 15:52] LABS: BILIRUBIN,URINE NEGATIVE (NEGATIVE); KETONES,URINE NEGATIVE (NEGATIVE); LEUKOCYTE ESTERASE ,URINE NEGATIVE (NEGATIVE); NITRITE,URINE NEGATIVE (NEGATIVE); PH,URINE 5 (5-9); PROTEIN,URINE NEGATIVE (NEGATIVE); UROBILINOGEN,URINE NORMAL (NORMAL)
[2016-09-25] MEDS ORDERED: D5 1/2 NS 1000 ML IV SOLUTION 1,000 ML IV SCH (16:45)
[2016-09-25] MEDS: D5 1/2 NS W/KCL 20 MEQ/L 1,000 ML IV SCH ×2 (17:00→20:42)
[2016-09-25] MEDS: 1/2 NS IV SOLUTION 1,000 ML IV SCH ×2 (17:00→20:42)
[2016-09-25] MEDS: LACTULOSE SYRUP 10GM/15ML (ENULOSE) 30ML UDC PO SCH ×2 (17:00→22:00)
[2016-09-25] MEDS ORDERED: CATHETER FLUSH 10 ML SYR IV PRN (17:00)
[2016-09-25 18:00] LABS: MEAN PLATELET VOLUME 11.9 FL (7.4-10.4); RED BLOOD COUNT 3.28 10^6/uL (4.35-5.85); RED CELL DISTRIBUTION WIDTH 15.2 % (10.0-14.5); WHITE BLOOD COUNT 6.3 10^3/uL (4.3-11.0)
[2016-09-25 18:31] LABS: CREATININE SERUM 1.7 MG/DL (0.60-1.30); POTASSIUM 3.3 MMOL/L (3.6-5.0)
[2016-09-25 18:32] LABS: CALCIUM 8.3 MG/DL (8.5-10.1)
[2016-09-25] MEDS: 1/2 NS W/KCL 20 MEQ/L 1,000 ML IV SCH ×3 (18:49→22:50)
[2016-09-25 20:10] LABS: CALCIUM 8.5 MG/DL (8.5-10.1); CREATININE SERUM 1.68 MG/DL (0.60-1.30); POTASSIUM 3.4 MMOL/L (3.6-5.0)
[2016-09-25 22:00] LABS: CALCIUM 8.4 MG/DL (8.5-10.1); CREATININE SERUM 1.47 MG/DL (0.60-1.30); POTASSIUM 3.5 MMOL/L (3.6-5.0)
[2016-09-26] VITALS (24 sets, daily range): BP systolic 101–156; BP diastolic 64–113
[2016-09-26] MEDS ORDERED: ALBUMIN 5% 12.5 GM/250 ML 250 ML IV SCH (00:30)
[2016-09-26] MEDS: D5 1/2 NS W/KCL 20 MEQ/L 1,000 ML IV SCH ×5 (00:42→15:14)
[2016-09-26] MEDS: 1/2 NS IV SOLUTION 1,000 ML IV SCH ×5 (00:42→16:26)
[2016-09-26 03:50] LABS: BASOPHILS % (AUTO) 0 % (0-10); EOSINOPHILS # (AUTO) 0.2 10^3/uL (0.0-0.3); EOSINOPHILS % (AUTO) 3 % (0-10); LYMPHOCYTES % (AUTO) 13 % (12-44); MEAN CORPUSCULAR HEMOGLOBIN 30 PG (25-34); MEAN CORPUSCULAR HGB CONC 35 G/DL (32-36); MEAN CORPUSCULAR VOLUME 84 FL (80-99); MEAN PLATELET VOLUME 12.8 FL (7.4-10.4); MONOCYTES # (AUTO) 0.3 X 10^3 (0.0-1.0); MONOCYTES % (AUTO) 4 % (0-12); NEUTROPHILS # (AUTO) 6.1 X 10^3 (1.8-7.8); NEUTROPHILS % (AUTO) 79 % (42-75); PLATELET COUNT 46 10^3/uL (130-400); RED BLOOD COUNT 3.01 10^6/uL (4.35-5.85); RED CELL DISTRIBUTION WIDTH 15.5 % (10.0-14.5); WHITE BLOOD COUNT 7.7 10^3/uL (4.3-11.0)
[2016-09-26 04:11] LABS: ANION GAP 7 MMOL/L (5-14); BLOOD UREA NITROGEN 10 MG/DL (7-18); BUN/CREATININE RATIO 9; CARBON DIOXIDE 17 MMOL/L (21-32); CHLORIDE 108 MMOL/L (98-107); CREATININE SERUM 1.11 MG/DL (0.60-1.30); GFR ESTIMATED > 60; GLUCOSE 228 MG/DL (70-105); PHOSPHORUS 2.5 MG/DL (2.3-4.7); POTASSIUM 3.5 MMOL/L (3.6-5.0); SODIUM 132 MMOL/L (135-145)
[2016-09-26] MEDS: 1/2 NS W/KCL 20 MEQ/L 1,000 ML IV SCH ×4 (04:41→16:26)
[2016-09-26] MEDS: MAGNESIUM 1 GM/100 ML IVPB 100 ML IV SCH ×7 (04:46→09:53)
[2016-09-26] MEDS: POTASSIUM CL 10MEQ/50ML IVPB 50 ML IV SCH ×3 (04:47→06:03)
[2016-09-26] MEDS: KCL 20 MEQ TAB (K-DUR) PO SCH (05:46)
[2016-09-26] MEDS: LACTULOSE SYRUP 10GM/15ML (ENULOSE) 30ML UDC PO SCH ×3 (06:00→22:18)
--- NOTE | 2016-09-26 07:52 | Diagnostic Imaging Report ---
INDICATION: Respiratory distress Upright portable chest shows normal heart size and vascularity. There is right perihilar and basilar discoid atelectasis. The left lung is clear. There is no effusion or pneumothorax. IMPRESSION: There is discoid atelectasis which has developed since the prior study from 08/26/16. Dictated by: Dictated on workstation # [id number]
[2016-09-26 09:20] LABS: ANION GAP 6 MMOL/L (5-14); BLOOD UREA NITROGEN 9 MG/DL (7-18); BUN/CREATININE RATIO 8; CALCIUM 7.9 MG/DL (8.5-10.1); CARBON DIOXIDE 19 MMOL/L (21-32); CHLORIDE 106 MMOL/L (98-107); CREATININE SERUM 1.11 MG/DL (0.60-1.30); GFR ESTIMATED > 60; GLUCOSE 214 MG/DL (70-105); POTASSIUM 3.6 MMOL/L (3.6-5.0); SODIUM 131 MMOL/L (135-145)
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
[2016-09-26] MEDS ORDERED: RT-ALBUTEROL SULF 2.5 MG/3 ML PRE-MIX VIAL IH PRN (11:45)
[2016-09-26] MEDS: amLODIPine 5 MG (NORVASC) TAB PO SCH (15:49)
[2016-09-26] MEDS: FOLIC ACID 1 MG TAB PO SCH (15:49)
[2016-09-26] MEDS: PANTOPRAZOLE 40 MG (PROTONIX) TAB PO SCH (15:49)
[2016-09-26] MEDS: [UNRECOGNIZED DRUG - OTHER] IV SCH ×2 (15:54)
[2016-09-26] MEDS: NS IV SCH ×2 (15:54)
[2016-09-26] MEDS ORDERED: DEXTROSE 10% IV SOLUTION 1,000 ML IV ONE (16:17)
[2016-09-26 16:38] LABS: ANION GAP 7 MMOL/L (5-14); BLOOD UREA NITROGEN 8 MG/DL (7-18); BUN/CREATININE RATIO 8; CALCIUM 7.8 MG/DL (8.5-10.1); CARBON DIOXIDE 16 MMOL/L (21-32); CHLORIDE 108 MMOL/L (98-107); CREATININE SERUM 0.97 MG/DL (0.60-1.30); GFR ESTIMATED > 60; GLUCOSE 101 MG/DL (70-105); POTASSIUM 3.7 MMOL/L (3.6-5.0); SODIUM 131 MMOL/L (135-145)
[2016-09-26] MEDS: PREGABALIN 75 MG (LYRICA) CAP PO SCH (22:14)
[2016-09-26] MEDS: traZODone 50 MG (DESYREL) TAB PO SCH (22:14)
[2016-09-27] VITALS (24 sets, daily range): BP systolic 112–146; BP diastolic 70–107
[2016-09-27] MEDS: D5 1/2 NS W/KCL 20 MEQ/L 1,000 ML IV SCH ×5 (00:27→12:16)
[2016-09-27 04:27] LABS: BASOPHILS % (AUTO) 1 % (0-10); EOSINOPHILS # (AUTO) 0.2 10^3/uL (0.0-0.3); EOSINOPHILS % (AUTO) 3 % (0-10); LYMPHOCYTES % (AUTO) 18 % (12-44); MEAN CORPUSCULAR HEMOGLOBIN 29 PG (25-34); MEAN CORPUSCULAR HGB CONC 34 G/DL (32-36); MEAN CORPUSCULAR VOLUME 84 FL (80-99); MEAN PLATELET VOLUME 11.8 FL (7.4-10.4); MONOCYTES # (AUTO) 0.4 X 10^3 (0.0-1.0); MONOCYTES % (AUTO) 6 % (0-12); NEUTROPHILS # (AUTO) 4.2 X 10^3 (1.8-7.8); NEUTROPHILS % (AUTO) 73 % (42-75); PLATELET COUNT 60 10^3/uL (130-400); RED BLOOD COUNT 3.34 10^6/uL (4.35-5.85); WHITE BLOOD COUNT 5.8 10^3/uL (4.3-11.0)
[2016-09-27 04:48] LABS: ANION GAP 5 MMOL/L (5-14); BLOOD UREA NITROGEN 7 MG/DL (7-18); BUN/CREATININE RATIO 7; CALCIUM 7.2 MG/DL (8.5-10.1); CARBON DIOXIDE 17 MMOL/L (21-32); CHLORIDE 109 MMOL/L (98-107); CREATININE SERUM 1.03 MG/DL (0.60-1.30); GFR ESTIMATED > 60; GLUCOSE 186 MG/DL (70-105); MAGNESIUM 1.4 MG/DL (1.8-2.4); PHOSPHORUS 2.3 MG/DL (2.3-4.7); POTASSIUM 3.9 MMOL/L (3.6-5.0); SODIUM 131 MMOL/L (135-145)
[2016-09-27] MEDS: MAGNESIUM 1 GM/100 ML IVPB 100 ML IV SCH ×3 (06:00→07:48)
[2016-09-27] MEDS: LACTULOSE SYRUP 10GM/15ML (ENULOSE) 30ML UDC PO SCH ×3 (06:00→22:25)
[2016-09-27] MEDS: KCL 20 MEQ TAB (K-DUR) PO SCH (06:00)
[2016-09-27] MEDS: POTASSIUM CL 10MEQ/50ML IVPB 50 ML IV SCH (06:00)
[2016-09-27] MEDS: PANTOPRAZOLE 40 MG (PROTONIX) TAB PO SCH (06:52)
[2016-09-27] MEDS ORDERED: PANTOPRAZOLE 40 MG (PROTONIX) TAB PO SCH (07:00)
[2016-09-27] MEDS: FOLIC ACID 1 MG TAB PO SCH (08:40)
[2016-09-27] MEDS: amLODIPine 5 MG (NORVASC) TAB PO SCH (08:41)
[2016-09-27] MEDS: 1/2 NS IV SOLUTION 1,000 ML IV SCH ×2 (08:42→12:16)
[2016-09-27] MEDS: PREGABALIN 75 MG (LYRICA) CAP PO SCH ×2 (08:48→20:07)
[2016-09-27] MEDS ORDERED: FOLIC ACID 1 MG TAB PO SCH (09:00)
[2016-09-27] MEDS ORDERED: amLODIPine 5 MG (NORVASC) TAB PO SCH (09:00)
--- NOTE | 2016-09-27 10:17 | Diagnostic Imaging Report ---
INDICATION: Respiratory distress. FINDINGS: Portable chest shows normal heart size and vascularity. There is right basilar atelectasis and effusion. The right upper lobe and the left lung are clear. IMPRESSION: Right basilar atelectasis is slightly worse compared to the prior study from 09/26/16. Dictated by: Dictated on workstation # [id number]
--- NOTE | 2016-09-27 11:16 | Progress Note-Hospitalist ---
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 He has since improved on insulin drip maintained on ICU protocol and currently she is just asking for some pain medication and will monitor closely until bicarbonate returns back to normal and transferred to the floor. Very difficult situation since he is living with friends and poor social situation and about to move into his apartment in [facility] on October 05. Progress Notes/Assess & Plan Date Seen 09/27/16 Admission Dx/Process Assessment: Acute DKA in noncompliant diabetic with a hemoglobin A1c of greater than 14 End-stage liver disease due to alcoholism and hepatitis C Chronic thrombocytopenia due to liver disease Chronic liver pain Smoker Coronary artery disease Hypertension Diagonsis/Assessment & Plan Patient doing well but bicarbonate is now only 17 so we'll decrease the D5 1 half normal saline running at 250 down to 100 due to his history of liver disease causing more ascites. Very difficult to manage this DKA patient considering his hemoglobin A1c of greater than 14 leads me to believe significant noncompliance with insulin and he has become brittle Patient wanting an adrenaline shot I told him that we cannot accommodate that request Denies any pain Has been refusing lactulose so I encouraged him to take that for his liver disease and maintain bowel function Denies any pain Chest x-ray noted atelectasis so ordered incentive spirometer and albuterol neb treatments No fever, vital signs stable, pleasant, improved, sitting in chair Regular rate and rhythm, clear to auscultation bilaterally but diminished in the bases No edema Assessment: Acute DKA in noncompliant diabetic with a hemoglobin A1c of greater than 14 resistant to insulin drip thus far but improved today End-stage liver disease due to alcoholism and hepatitis C Chronic thrombocytopenia due to liver disease Chronic liver pain Smoker Coronary artery disease Hypertension ATX on CXR in smoker Plan: Maintain insulin infusion until bicarbonate has normalized Very difficult to manage due to poorly controlled diabetes and end-stage liver disease patient has poor prognosis long-term Social work consult Initiate pain medication to keep comfortable Likely transfer to the floor today IS Nebs Dispo per [facility] tomorrow. PASCAL,BRYAN DO Sep 27, 2016 11:16
[2016-09-27] MEDS: RT-ALBUTEROL SULF 2.5 MG/3 ML PRE-MIX VIAL IH SCH ×4 (11:39→22:32)
[2016-09-27] MEDS: 1/2 NS W/KCL 20 MEQ/L 1,000 ML IV SCH (12:16)
--- OUTSIDE RECORDS SUMMARY | 2016-09-27 12:49 | XMS REPORT | Continuity of Care Document ---
Author Author [employer] Organization Rachel Address Unknown Phone Unavailable Care Team Providers Care Employment Law Specialist Name Role Phone [employer] Unavailable Unavailable Problems Problem Status Onset Date Classification Date Reported Comments Source 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) 08/23/2015 Diagnosis 08/27/2015 [facility]. Diabetes mellitus (disorder) 08/23/2015 Diagnosis 2015 [facility]. Alcoholism (disorder) 2015 Diagnosis 08/27/2015 [facility] Alcoholic cirrhosis (disorder) 08/23/2015 Diagnosis 08/27 [facility] Epidermoid cyst of skin (disorder) 08/23/2015 Diagnosis 08/27/2015 [facility] Hypersplenism (disorder) Diagnosis 08/27/2015 [facility] Chest pain (finding) 2015 Diagnosis 07/23/2015 [facility], [facility]. Paranoid schizophrenia (disorder) 06/19/2015 Diagnosis [facility], [facility] Atrial flutter (disorder) Diagnosis 06/23/2015 [facility] Intentional drug overdose (disorder) 06/11/2015 Diagnosis 06/15/2015 [facility], [facility]. Supraventricular tachycardia (disorder) 06/04/2015 Diagnosis 06/15/2015 [facility], [facility]. Hepatic encephalopathy (disorder) 06/04/2015 Diagnosis [facility], [facility]. Acute renal failure syndrome (disorder) 06/03/2015 Diagnosis 06/15/2015 [facility] Gastroesophageal reflux disease (disorder) 05/29/2015 Diagnosis 06/02/2015 [facility] Hypertensive disorder, systemic arterial (disorder) 05/29/2015 Diagnosis 06/02/2015 [facility] Other abnormal glucose 02/28 Diagnosis 03/04/2015 [facility] Hepatic coma 02/28/2015 Diagnosis 03/04/2015 [facility] Alcoholic cirrhosis of liver 02/28/2015 Diagnosis 2014 [facility] Other anxiety states 2014 Diagnosis 03/04/2015 [facility] Unspecified essential hypertension 02/28/2015 Diagnosis 03/04/2015 [facility] Diabetes mellitus without mention of complication, type II or unspecified type , not stated as uncontrolled 02/28/2015 Diagnosis 2014 [facility] Other and unspecified alcohol dependence, unspecified drinking behavior 02/28/2015 Diagnosis 03/04/2015 [facility] Traumatic arthropathy involving ankle and foot 02/07/2015 Diagnosis 02/11/2015 [facility] Diabetes mellitus with neurological manifestations, type II or unspecified type , not stated as uncontrolled 02/07/2015 Diagnosis 2014 [facility] Other secondary thrombocytopenia 11/21/2014 Diagnosis [facility] Contusion of chest wall Diagnosis 11/25/2014 [facility] Esophageal reflux 2014 Diagnosis 10/15/2014 [facility] Unspecified fall 10/11/2014 Diagnosis 10/15/2014 [facility] Bimalleolar fracture, closed 10/11/2014 Diagnosis 2014 [facility] Thrombocytopenia, unspecified 05/24/2014 Diagnosis 2013 [facility] Esophageal varices without mention of bleeding 02/16/2014 Diagnosis 02/20/2014 [facility], [facility], [facility]. Esophageal reflux 2013 Diagnosis 02/20/2014 [facility] Unspecified essential hypertension 02/16/2014 Diagnosis 02/20/2014 [facility] Attention deficit disorder of childhood with hyperactivity 02/16/2014 Diagnosis 02/20/2014 [facility] Alcoholic cirrhosis of liver 02/16/2014 Diagnosis 2013 [facility] Abdominal pain, unspecified site 01/23/2014 Diagnosis [facility] Cirrhosis of liver without mention of alcohol 01/02/2014 Diagnosis 01/06/2014 [facility] Acute upper respiratory infections of unspecified site 01/02/2014 Diagnosis 01/06/2014 [facility] Hepatic coma 12/22/2013 Diagnosis 12/26/2013 [facility] Paranoid type schizophrenia, unspecified state 11/20/2013 Diagnosis 11/24/2013 [facility] Traumatic arthropathy-ankle (disorder) Active 04/23/2011 Problem 09/15/2016 [facility] Traumatic arthropathy-ankle (disorder) Active 04/23/2011 Problem 07/19/2015 [facility] 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) Active 04/23/2011 Problem 10/06/2013 [facility] 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 04/23/2011 Problem 07/09/2013 [facility] Attention deficit hyperactivity disorder (disorder) Active Problem 09/15/2016 [facility], [facility] Alcoholic cirrhosis (disorder) Active Problem 09/15/2016 [facility], [facility] Alcoholism (disorder) Active Problem 09/15/2016 [facility], [facility], [facility] Fracture of ankle (disorder) Active Problem 09/15/2016 [facility], [facility], [facility] Mixed anxiety and depressive disorder (disorder) Active Problem 09/15/2016 [facility], [facility] Atrial flutter (disorder) Active Problem 09/15/2016 [facility] AV cathy re-entry tachycardia (disorder) Active Problem 09/15/2016 [facility] 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) Active Problem 09/15/2016 [facility] Diabetes mellitus (disorder) Active Problem 09/15/2016 [facility], [facility] Gastroesophageal reflux disease (disorder) Active Problem 09/15/2016 [facility], [facility] Hepatic coma (disorder) Active Problem 09/15/2016 [facility], [facility] Hypertensive disorder, systemic arterial (disorder) Active Problem 09/15/2016 [facility], [facility], [facility] Paranoid schizophrenia (disorder) Active Problem 2016 [facility], [facility], [facility] Supraventricular tachycardia (disorder) Active Problem [facility], [facility], [facility], [facility] Cirrhosis - non-alcoholic (disorder) Active Problem 09/19 [facility] Medications Medication Details Route Status Patient Instructions Ordering Provider Order Date Source No Known Medications No known medications Active [facility] Pneumovax 23 0.5 mL, SOLN, IM, ONCE, 02/12/12 12:00:00 , Stop date 02/12/12 12:00:00Provide patient/caregiver the vaccine information statement and document version date on eMAR. Record the lot number and skein winding operator below. Manuf: Lot Number: Exp Date: Inactive [facility] influenza virus vaccine, inactivated adult 0.5 mL, Suspension, IM, ONCE, Start Date: 07/03/13 12:00:00, Stop Date: 07/03/13 12:00: 00Provide patient/caregiver the vaccine information statement and document version date on eMAR. Record the lot number and skein winding operator below. Manuf: ____ Lot Number: Exp Date: Inactive [facility]. Allergies, Adverse Reactions, Alerts Substance Category Reaction Severity Reaction type Status Date Reported Comments Source penicillins Assertion "can't breathe" Drug [facility], [facility], [facility] penicillins drug allergy "can 't breathe" Allergy Active [facility] penicillin drug allergy "can' t breathe" Allergy Active [facility], [facility] Immunizations Immunization Date Given Site Status Last Updated Comments Source influenza virus vaccine 07/19/2015 Not Given [facility] influenza virus vaccine 06/02/2015 Left Deltoid influenza virus vaccine [facility] influenza virus vaccine 07/05/2013 Left Deltoid influenza virus vaccine [facility], [facility], [facility], [facility], [facility]. pneumococcal polysaccharide PPV23 02/12/2012 Right Deltoid pneumococcal 23-valent vaccine [facility], [facility], [facility], [facility] pneumococcal 23-valent vaccine 02/12/2012 completed [facility], [facility], [facility] Results Vital Signs Encounters Location Location Details Encounter Type Encounter Number Reason For Visit Attending Provider ADM Date DC Date Status Source [facility] CD:[id number] Inpatient [id number] Max An 02/10/2012 Active [facility]. [facility] CD:[id number] Inpatient [id number] Kings Aguilar 06/20/2012 06/21/2012 Active [facility]. OM CD:[id number] Inpatient [id number] Kings Aguilar 08/01/2012 08/08/2012 Active [facility]. [facility] CD:[id number] Inpatient [id number] Kings Aguilar 12/08/2012 12/09/2012 Active [facility]. [facility] CD:[id number] Clinic ( Outpatient) [id number] Sofy Smith 05/03/2013 Active [facility], [facility] CD:[id number] Clinic ( Outpatient) [id number] [facility] Aguilar 06/07/2013 Active [facility] CD:[id number] Clinic ( Outpatient) [id number] Kings Aguilar 06/14/2013 Active [facility] CD:[id number] Clinic ( Outpatient) [id number] Kings Aguilar 06/21/2013 Active [facility] CD:[id number] Inpatient [id number] Kings Aguilar 07/02/2013 07/05/2013 Active [facility] CD:[id number] Clinic ( Outpatient) [id number] Kings Aguilar 07/13/2013 Active [facility] CD:[id number] Clinic ( Outpatient) [id number] Kings Aguilar 07/27/2013 Active [facility] CD:[id number] Inpatient [id number] Kings Aguilar 09/11/2013 09/15/2013 Active [facility] [employer] CD:[id number] Clinic ( Outpatient) [id number] Kings Aguilar 09/20/2013 Active [facility] CD:[id number] Clinic ( Outpatient) [id number] Kings Aguilar 10/02/2013 Active [facility] Cancel/No Show [id number] Kings Aguilar 10/02/2013 10/02/2013 [facility] CD:[id number] Clinic ( Outpatient) [id number] Sofy Smith 11/01/2013 Active [facility] CD:[id number] Clinic ( Outpatient) [id number] [place] Aguilar 11/06/2013 Active [facility] CD:[id number] Clinic ( Outpatient) [id number] [place] Aguilar 11/10/2013 Active [facility] [id number] Kings Aguilar 11/10/2013 11/10/2013 [facility] [id number] Kings Aguilar 11/20/2013 11/21/2013 [facility] [place] [facility] Cancel/No Show [id number] Kings Aguilar 12/18/2013 12/18/2013 [facility] [place] [facility] CD:[id number] Clinic ( Outpatient) [id number] 12/22/2013 Active [facility] [place] [facility] [id number] Kings Aguilar 12/22/2013 12/23/2013 [facility] [place] [facility] [id number] Zoran Mara 01/02/2014 01/03/2014 [facility] [place] [facility] CD:[id number] Clinic ( Outpatient) [id number] Sofy Luis 01/04/2014 Active [facility], [facility] Clinic [id number] [facility] 01/04/201410/2013 [facility] CD:[id number] Outpatient [id number] [place] Luis 01/23/2014 01/23/2014 Active [facility], [facility]. [facility] CD:[id number] Emergency [id number] DENISE NOBLE 01/23/2014 01/23/2014 Active [facility]. [facility] CD:[id number] Outpatient [id number] Sofy Luis 01/26/2014 01/26/2014 Active [facility]. [facility] [id number] [facility] Aguilar 02/16/2014 02/17/2014 [facility] [place] [facility] Cancel/No Show [id number] Halie Dacosta 02/19/2014 02/19/2014 [facility] CD:[id number] Emergency [id number] Kings Arredondo 03/29/2014 Active [facility], [facility]. [facility] [id number] [place] Aguilar 05/24/2014 [facility] [place] [facility] Cancel/No Show [id number] Kings Aguilar 06/22/2014 06/22/2014 [facility] [place] [facility] [id number] [place] Aguilar 08/27/2014 [facility] [place] [facility] Cancel/No Show [id number] Kings Aguilar 09/24/2014 09/26/2014 [facility] [place] [facility] Cancel/No Show [id number] Halie Dacosta 10/01/2014 10/01/2014 [facility] [id number] [place] Aguilar 10/11/201404/2015 [facility] [place] [facility] CD:[id number] Emergency [id number] Napoleon Isabel 11/15/2014 11/15/2014 Active [facility] Cancel/No Show [id number] [place] Aguilar 11/19/2014 11/19/2014 [facility] [place] [facility] [id number] [place] Aguilar 11/21/2014 [facility] [place] [facility] [id number] [place] Aguilar 02/07/201501/2015 [facility] [place] [facility] [id number] [place] Aguilar 02/28/2015 [facility] [place] [facility] Cancel/No Show [id number] [place] Aguilar 04/17/2015 04/16/2015 [facility] [place] [facility] [id number] [place] Aguilar 05/29/2015 [facility] [place] [facility] CD:[id number] Inpatient [id number] Ryan Nolan 06/01/2015 06/11/2015 Active [facility], [facility]. [facility] [id number] [place] Aguilar 06/19/2015 [facility] [place] [facility] CD:[id number] Inpatient [id number] [place] Aguilar 07/18/2015 07/19/2015 Active [facility], [facility]. [facility] Cancel/No Show [id number] [place] Aguilar 07/19/2015 07/15/2015 [facility] [place] [facility] CD:[id number] Clinic ( Outpatient) [id number] [place] Aguilar 08/22/2015 Active [facility] [place] [facility] [id number] [place] Aguilar 08/23/2015 [facility] [place] [facility] CD:[id number] Clinic ( Outpatient) [id number] Valentin Rojas 10/09/2015 Active [facility] Card[facility] Services Clinic [id number] Valentin Rojas 11/04/2015 11/04/2015 [facility] Cancel/No Show [id number] [facility] Aguilar 09/1109/11/2016 [facility] Procedures Procedure Code Date Perfomer Comments Source Echocardiography, transthoracic, real-time with image documentation (2D), includes M-mode recording, when performed, complete, with spectral Doppler echocardiography, and with color flow Doppler echocardiography [id number] 07/19/2015 [facility] Typical and Atypical AVNRT and Atrial Flutter Ablation 06/05/2015 [facility]. Echocardiogram, EF 55% 06/03 [facility]. No data available for this section [facility] Esophagogastroduodenoscopy, flexible, transoral; diagnostic, including collection of specimen(s) by brushing or washing, when performed (separate procedure) [id number] [facility]. Plan of Care Social History Assessment and Plan Family History Value Date Source Advance Directives Order Name Results Value Date Source
--- OUTSIDE RECORDS SUMMARY | 2016-09-27 12:50 | XMS REPORT | Continuity of Care Document ---
Author Author [facility] Organization [facility] Address Unknown Phone Unavailable Care Team Providers Care Physician Office Secretary Name Role Phone JeffKings Parrish PCP [phone] Source Comments Some departments are not documenting in the electronic medical record. If you do not see the information that you expected, contact Release of Information in the Health Information Management department at [phone] for further assistance in locating additional records.[facility] Active Allergies and Adverse Reactions Allergen Noted Date Severity Reactions Comments Pcn 03/01/2012 ANAPHYLAXIS, HIVES Seroquel 02/03/2013 ITCHING Current Medications Prescription Sig. Disp. Refills Start End Date Status Date OLANZapine (ZYPREXA Take 10 mg by mouth at Active ZYDIS) 10 mg rapid bedtime daily. dissolve tablet rifaximin (XIFAXAN) 550 Take 550 mg by mouth Active mg Tab twice daily. lactulose 10 gram/15 mL Take 30 mL by mouth four 1 Bottle 2 03/09/20 Active oral solution times daily. 12 nadolol(+) (CORGARD) 20 Take 1 Tab by mouth 30 Tab 3 03/09/20 Active mg tablet daily. [address](+) Take 1 Cap by mouth 90 Cap 3 03/09/20 Active (PREVACID) 30 mg capsule daily. 12 insulin glargine (LANTUS Inject into area(s) as Active SOLOSTAR) 100 unit/mL (3 directed. 20units in the mL) injection PEN morning and 40 units at night LORazepam (ATIVAN) 0.5 mg Take 0.5 mg by mouth Active tablet every 8 hours as needed. insulin lispro(+) Inject into area(s) as Active (HUMALOG) 100 unit/mL directed as Needed. prn injection per sliding scale traMADol (ULTRAM) 50 mg Take 1-2 Tabs by mouth 90 Tab 1 05/23/20 Active tablet every 6 hours as needed. 14 Active Problems Problem Noted Date RLQ abdominal pain 05/21/2014 Appendicitis, acute 05/21/2014 Thrombocytopenia (HCC) 05/21/2014 Coagulopathy (HCC) 05/21/2014 Transaminitis 05/21/2014 Bacteremia due to Gram-negative bacteria 05/21/2014 Severe sepsis (HCC) 05/21/2014 GI bleeding 05/20/2014 Alcohol dependence in remission (HCC) 02/03/2013 Psychosis 02/03/2013 Hepatic encephalopathy (HCC) 03/08/2012 Paranoid schizophrenia (HCC) 03/08/2012 End-stage liver disease (HCC) 03/08/2012 Paroxysmal SVT (supraventricular tachycardia) (HCC) 03/08/2012 Closed fracture of unspecified part of radius (alone) 09/27/2008 Resolved Problems Problem Noted Date Resolved Date Acute appendicitis 05/21/2014 05/21/2014 Immunizations Name Dates Previously Given Next Due Pneumococcal Vaccine 05/23/2014 (23-Gill Adult) Social History Tobacco Use Types Packs/Day Years Used Date Current Every Day Smoker Cigarettes 0.25 20 Smokeless Tobacco: Never Used Tobacco Cessation: Ready to Quit: No; Counseling Given: Yes Comments: Last Filed Vital Signs Vital Sign Reading Time Taken Blood Pressure 155/99 05/23/2014 12:00 PM [facility] Pulse 66 05/22/2014 3:59 PM [facility] Temperature 36.4 C (97.6 F) 05/23/2014 12:00 PM [facility] Respiratory Rate 16 11/01/2012 8:48 AM CDT Height 1.905 m (6' 3") 05/20/2014 6:00 PM [facility] Weight 94.8 kg (208 lb 15.9 oz) 05/21/2014 5:41 AM [facility] Body Mass Index 26.12 05/21/2014 5:41 AM [facility] Oxygen Saturation 96% 05/23/2014 12:00 PM [facility] Plan of Care Health Maintenance Due Date Last Done Comments Physical (Comprehensive) 1979 Exam Pertussis Vaccine 1983 Tetanus Vaccine 1989 Influenza Vaccine 03/05/2017 Results from Last 3 Months Not on file
--- OUTSIDE RECORDS SUMMARY | 2016-09-27 12:50 | XMS REPORT ---
Author Author [facility] Organization [facility] Address Unknown Phone Unavailable Care Team Providers Care Group Underwriter Name Role Phone Kings Aguilar PCP Encounter [id number] Date(s): 09/11/16 - 09/11/16 [facility]ly [facility] [address] Ori Robles- Attending Physician: Kings Aguilar MD Vital Signs No data available for this section Problem List Condition Effective Dates Status Health Status Informant ADHD - Attention Active deficit disorder with hyperactivity(Confir med) Alcoholic Active cirrhosis(Confirmed) Alcoholism(Confirmed Active ) Ankle fracture Active R(Confirmed) Anxiety Active depression(Confirmed ) Atrial Active flutter(Confirmed) AVNRT (AV cathy Active re-entry tachycardia)(Confirm ed) Chronic hepatitis C Active with cirrhosis(Confirmed) Diabetes Active mellitus(Confirmed) GERD - Active Gastro-esophageal reflux disease(Confirmed) Hepatic Active coma(Confirmed) HTN - Active Hypertension(Confirm ed) Paranoid Active schizophrenia(Confir med) SVT Active (supraventricular tachycardia)(Confirm ed) Traumatic arthritis 04/23/11 Active of ankle(Confirmed) Allergies, Adverse Reactions, Alerts Substance Reaction Severity Status penicillins "can't breathe" Active Medications No data available for this section Results No data available for this section Immunizations Given and Recorded Vaccine Date Status Refusal Reason influenza virus vaccine 06/02/15 Given influenza virus vaccine 07/05/13 Given pneumococcal 23-valent vaccine 02/12/12 Given Not Given Vaccine Date Status Refusal Reason influenza virus vaccine 07/19/15 Not Given Patient Refuses Procedures No data available for this section Social History No data available for this section Assessment and Plan No data available for this section
--- OUTSIDE RECORDS SUMMARY | 2016-09-27 12:55 | XMS REPORT ---
Author Author MEETA SUTTON Organization [employer] Address Unknown Phone Unavailable Care Team Providers Care Tuck Pointer Name Role Phone MEETA SUTTON CP Unavailable Allergies No Known Allergies Problems Problem Type Condition Code Onset Dates Condition Status Problem Edema, unspecified type R60.9 Active Problem Dental caries, unspecified K02.9 Active Problem Gastroesophageal reflux disease, esophagitis presence not specified K21.9 Active Problem Unspecified fracture of shaft of right tibia, subsequent encounter for closed fracture with routine healing S82.201D Active Problem Unspecified fracture of shaft of right fibula, subsequent encounter for closed fracture with routine healing S82.401D Active Problem Insomnia due to medical condition G47.01 Active Problem Other chronic pain G89.29 Active Problem Periapical abscess without sinus K04.7 Active Problem Drug abuse and dependence F19.20 Active Problem Pain in left leg M79.605 Active Problem Paranoid schizophrenia F20.0 Active Problem watermaster current use of insulin Z79.4 Active Problem Non-intractable cyclical vomiting with nausea G43.A0 Active Problem Type 2 diabetes mellitus with hyperglycemia E11.65 Active Problem Type 2 diabetes mellitus without complication, 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.9 Active Problem Alcoholic cirrhosis of liver without ascites K70.30 Active Medications No Known Medications Results No Known Results Summary Purpose [employer] Submission
--- OUTSIDE RECORDS SUMMARY | 2016-09-27 12:55 | XMS REPORT ---
Author MEETA Dumont Organization [employer] Address Unknown Phone Unavailable Care Team Providers Care Drum Sander Setter Name Role Phone MEETA SUTTON CP Unavailable Allergies No Known Allergies Problems Problem Type Condition Code Onset Dates Condition Status Problem Type 2 diabetes mellitus without complication, unspecified long term care social worker insulin use status E11.9 Active Problem termite helper current use of insulin Z79.4 Active Problem Paranoid schizophrenia F20.0 Active Problem Non-intractable cyclical vomiting with nausea G43.A0 Active Problem Drug abuse and dependence F19.20 Active Problem Pain in left leg M79.605 Active Problem Unspecified fracture of shaft of right fibula, subsequent encounter for closed fracture with routine healing S82.401D Active Problem Alcoholic cirrhosis of liver without ascites K70.30 Active Problem Type 2 diabetes mellitus with hyperglycemia E11.65 Active Problem Other chronic pain G89.29 Active Problem Gastroesophageal reflux disease, esophagitis presence not specified K21.9 Active Medications No Known Medications Results No Known Results Summary Purpose [employer] Submission
--- OUTSIDE RECORDS SUMMARY | 2016-09-27 12:56 | XMS REPORT ---
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.4 Active Problem Non-intractable cyclical vomiting with nausea G43.A0 Active Problem Type 2 diabetes mellitus without complication, 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.9 Active Problem Other chronic pain G89.29 Active Problem Periapical abscess without sinus K04.7 Active Problem Pain in left leg M79.605 Active Problem Edema, unspecified type R60.9 Active Problem Alcoholic cirrhosis of liver without ascites K70.30 Active Problem Dental caries, unspecified K02.9 Active Problem Gastroesophageal reflux disease, esophagitis presence not specified K21.9 Active Medications No Known Medications Results No Known Results Summary Purpose [employer] Submission
--- OUTSIDE RECORDS SUMMARY | 2016-09-27 12:56 | XMS REPORT ---
Author Author ANG NATHANAEL Organization [facility] Address [address] [place] [address] Care Team Providers Care Employee Operations Examiner Name Role Phone ANGSUNNY JOHNSTONHANY Unavailable PROBLEMS Type Condition ICD9-CM Code [id number] Code Onset Dates Condition Status SNOMED Code Problem Paranoid schizophrenia F20.0 Active 08539449 Problem Type 2 diabetes mellitus with hyperglycemia E11.65 Active 196993382916663 Problem adjunct faculty for medical terminology current use of insulin Z79.4 Active 237198775 Problem Non-intractable cyclical vomiting with nausea G43.A0 Active 17104382 Problem Type 2 diabetes mellitus without complication, unspecified care home insulin use status E11.9 Active 61239835 Problem Unspecified fracture of shaft of right fibula, subsequent encounter for closed fracture with routine healing S82.401D Active 08283752 Problem Drug abuse and dependence F19.20 Active 1222378 Problem Gastroesophageal reflux disease, esophagitis presence not specified K21.9 Active 880637568 Problem Alcoholic cirrhosis of liver without ascites K70.30 Active 014167836 Problem Pain in left leg M79.605 Active 28234301 Problem Other chronic pain G89.29 Active 41449342 ALLERGIES Unknown Allergies SOCIAL HISTORY No smoking Hx information available PLAN OF CARE VITAL SIGNS MEDICATIONS Medication Instructions Dosage Frequency Start Date End Date Duration Status Humalog KwikPen 100 UNIT/ML Subcutaneous TID before meals 5 units November Active Lantus 100 UNIT/ML Subcutaneous at bedtime 40 units Active Amitriptyline HCl 75 MG Orally one hour before bed 1 tablet Active Glucometer 1 glucometer ICD10- E11.65 3 times a day test 3 times per day 8h November, Active Lactulose 10 GM/15ML Orally TID with meals 15 ml 17 Dec, 2015 Active Glucometer Test Strips and lancets. Whatever Meter insurance will cover 3 times a day- ICD10- E11.65 test 3 times per day November, Active Tramadol HCl 50 mg Orally 3 times a day 1 tablet 8h 4 Apr, 2016 07 days Active RESULTS No Results PROCEDURES No Known procedures IMMUNIZATIONS No Known Immunizations
--- OUTSIDE RECORDS SUMMARY | 2016-09-27 12:56 | XMS REPORT ---
Author Author REDD MCKEON Organization [employer] Address Unknown Phone Unavailable Care Team Providers Care Manager Behavior Name Role Phone REDD MCKEON CP Unavailable Allergies No Known Allergies Problems Problem Type Condition Code Onset Dates Condition Status Problem Type 2 diabetes mellitus without complication, unspecified event planning intern insulin use status E11.9 Active Problem animal husbandry technician current use of insulin Z79.4 Active Problem Paranoid schizophrenia F20.0 Active Assessment Counseling on substance use and abuse Z71.89 Active Problem Non-intractable cyclical vomiting with nausea [...] specified K21.9 Active Medications No Known Medications Procedures Procedure Coding System Code Date AUDIT/DAST, 15-30 MIN CPT-4 62373 Apr 28, 2016 Results No Known Results Summary Purpose [employer] Submission
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
--- OUTSIDE RECORDS SUMMARY | 2016-09-27 12:57 | XMS REPORT ---
Author Author MEETA SUTTON [facility] [employer] Address Unknown Phone Unavailable Care Team Providers Care Print Room Worker Name Role Phone MEETA SUTTON CP Unavailable Allergies No Known Allergies Problems Problem Type Condition Code Onset Dates Condition Status Problem Paranoid schizophrenia F20.0 Active Problem Type 2 diabetes mellitus with hyperglycemia E11.65 Active Problem long term care administrator current use of insulin Z79.4 Active Problem Non-intractable cyclical vomiting with nausea G43.A0 Active Problem Type 2 diabetes mellitus without complication, unspecified intermediate designer insulin use status E11.9 Active Problem Other [...]
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
--- OUTSIDE RECORDS SUMMARY | 2016-09-27 12:57 | XMS REPORT ---
Author Author MEETA SUTTON Organization [employer] Address Unknown Phone Unavailable Care Team Providers Care Ring Cutter Lathe Operator Name Role Phone MEETA SUTTON CP Unavailable [...] Active Problem Paranoid schizophrenia F20.0 Active Problem terminal carman current use of insulin Z79.4 Active Problem Non-intractable cyclical vomiting with nausea G43.A0 Active Problem Type 2 diabetes mellitus with hyperglycemia E11.65 Active Problem Type 2 diabetes mellitus without complication, unspecified superintendent terminal insulin use status E11.9 Active Problem Alcoholic cirrhosis of liver without ascites K70.30 Active Medications No Known Medications Results No Known Results Summary Purpose [employer] Submission
--- OUTSIDE RECORDS SUMMARY | 2016-09-27 12:58 | XMS REPORT ---
Author Author NATHANAEL FRY [facility] [employer] Address Unknown Phone Unavailable Care Team Providers Care Rug Cleaner Hand Name Role Phone NATHANAEL FRY Unavailable Allergies No Known Allergies Problems Problem Type Condition Code Onset Dates Condition Status Problem Paranoid schizophrenia F20.0 Active Problem Type 2 diabetes mellitus with hyperglycemia E11.65 Active Problem photographic equipment technician current use of insulin Z79.4 Active Problem Non-intractable cyclical vomiting with nausea G43.A0 Active Problem Type 2 diabetes mellitus without complication, unspecified java security architect insulin use status E11.9 Active Problem Other chronic pain G89.29 Active Problem Periapical abscess without sinus K04.7 Active Problem Pain in left leg M79.605 Active Problem Edema, unspecified type R60.9 Active Problem Alcoholic cirrhosis of liver without ascites K70.30 Active Problem Dental caries, unspecified K02.9 Active Problem Gastroesophageal reflux disease, esophagitis presence not specified K21.9 Active Medications Medication Code System Code Instructions Start Date End Date Status Dosage Glucometer NDC 0 1 glucometer ICD10- E11.65 3 times a day November 20, 2015 test 3 times per day Humalog KwikPen [facility] [address]-65 100 UNIT/ML Subcutaneous 3 times a day before meals November 18, 2015 10 units Lactulose [facility] [address]-12 10 GM Orally 4 times a day December 20, 2015 1 packet Tramadol HCl [facility] [address]-27 50 mg Orally every 6 hours as needed 1 tablet Lantus [facility] [address]-05 100 UNIT/ML Subcutaneous 2 times a day 40 units Trazodone HCl [facility] [address]-34 50 mg Orally Once a day 1 tablet at bedtime as needed Glucometer ND 0 Test Strips and lancets. Whatever Meter insurance will cover 3 times a day- ICD10- E11.65 November 18, 2015 test 3 times per day Amitriptyline HCl [facility] [address]-70 75 MG Orally Once a day at bedtime 1 tablet Zantac [facility] [address]-19 150 MG Orally Once a day November 20, 2015 1 tablet at bedtime Results No Known Results Summary Purpose [employer] Submission
--- OUTSIDE RECORDS SUMMARY | 2016-09-27 12:58 | XMS REPORT ---
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
--- OUTSIDE RECORDS SUMMARY | 2016-09-27 12:59 | XMS REPORT ---
Author Author MEETA SUTTON Organization [facility] Address [address] [place] [address] Care Team Providers Care Fibre Cement Moulder Name Role Phone MEETA SUTTON Unavailable PROBLEMS Type Condition ICD9-CM Code [id number] Code Onset Dates Condition Status SNOMED Code Problem Non-intractable cyclical vomiting with nausea G43.A0 Active 68071341 Problem Paranoid schizophrenia F20.0 Active 06209893 Problem Type 2 diabetes mellitus without complication, unspecified intermediate manager insulin use status E11.9 Active 45322070 Problem Pain in left leg M79.605 Active 14544164 Problem Other chronic pain G89.29 Active 07051828 Problem Type 2 diabetes mellitus with hyperglycemia E11.65 Active 549152878163294 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
--- OUTSIDE RECORDS SUMMARY | 2016-09-27 12:59 | XMS REPORT ---
Author Author MEETA SUTTON Organization [facility] Address [address] [place] [address] Care Team Providers Care Reed Or Wind Instrument Tuner Name Role Phone MEETA SUTTON Unavailable PROBLEMS Type Condition ICD9-CM Code OFQ14-IJ Code Onset Dates Condition Status SNOMED Code Problem Non-intractable cyclical vomiting with nausea G43.A0 Active 63247169 Problem Paranoid schizophrenia F20.0 Active 62049957 Problem Type 2 diabetes mellitus without complication, unspecified intermediate teacher insulin use status E11.9 Active 29024266 Problem Pain in left leg M79.605 Active 07553060 Problem Other chronic pain G89.29 Active 05795067 Problem Type 2 diabetes mellitus with hyperglycemia E11.65 Active 113435159088605 Problem terminal operations supervisor current use of insulin Z79.4 Active 597572448 Problem Gastroesophageal reflux disease, esophagitis presence not specified K21.9 Active 691970363 Problem Alcoholic cirrhosis of liver without ascites K70.30 Active 656845414 ALLERGIES Unknown Allergies SOCIAL HISTORY No smoking Hx information available PLAN OF CARE VITAL SIGNS MEDICATIONS Unknown Medications RESULTS No Results PROCEDURES No Known procedures IMMUNIZATIONS No Known Immunizations
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
--- OUTSIDE RECORDS SUMMARY | 2016-09-27 12:59 | XMS REPORT ---
Author MEETA Dumont [facility] eClinical[employer] Address Unknown Phone Unavailable Care Team Providers Care Datastage Architect Name Role Phone MEETA SUTTON CP Unavailable Allergies No Known Allergies Problems Problem Type Condition Code Onset Dates Condition Status Problem Type 2 diabetes mellitus without complication, unspecified termite renewal inspector insulin use status E11.9 Active Problem ferry terminal agent current use of insulin Z79.4 Active Problem [...] Instructions Start Date End Date Status Dosage Blood Glucose Monitor System [facility] [address] w/Device [employer] E11.65 May 01, 2016 as directed Results No Known Results Summary Purpose eClinicalWorks Submission
--- OUTSIDE RECORDS SUMMARY | 2016-09-27 13:00 | XMS REPORT ---
Author MEETA Dumont [facility] e[employer] Address Unknown Phone Unavailable Care Team Providers Care Media Relations Coordinator Name Role Phone MEETA SUTTON Unavailable Allergies No Known Allergies Problems Problem Type Condition Code Onset Dates Condition Status Problem Type 2 diabetes mellitus without complication, unspecified terminal make up operator insulin use status E11.9 Active Problem roasterman current use of insulin Z79.4 Active Problem [...] Instructions Start Date End Date Status Dosage True Metrix Blood Glucose Test [facility] [id number] - In Vitro 3 times a day and lancets. Whatever insurance will cover May 01, 2016 as directed Results No Known Results Summary Purpose eClinicalWorks Submission
--- OUTSIDE RECORDS SUMMARY | 2016-09-27 13:00 | XMS REPORT ---
Author Author MEETA SUTTON Organization [facility] Address [address] [place] [address] Care Team Providers Care Peoplesoft Hcm Developer Name Role Phone MEETA SUTTON Unavailable PROBLEMS Type Condition ICD9-CM Code GJE14-HF Code Onset Dates Condition Status SNOMED Code Problem Non-intractable cyclical vomiting with nausea G43.A0 Active 84581731 Problem Paranoid schizophrenia F20.0 Active 52671441 Problem Type 2 diabetes mellitus without complication, unspecified technician terminal and repeater insulin use status E11.9 Active 70572346 Problem Pain in left leg M79.605 Active 49327296 Problem Other chronic pain G89.29 Active 85458482 Problem Type 2 diabetes mellitus with hyperglycemia E11.65 Active 433634971972467 Problem intermission coordinator current use of insulin Z79.4 Active 802550475 Problem Gastroesophageal reflux disease, esophagitis presence not specified K21.9 Active 896260334 Problem Alcoholic cirrhosis of liver without ascites K70.30 Active 445663768 ALLERGIES Unknown Allergies SOCIAL HISTORY No smoking Hx information available PLAN OF CARE VITAL SIGNS MEDICATIONS Unknown Medications RESULTS No Results PROCEDURES No Known procedures IMMUNIZATIONS No Known Immunizations
--- OUTSIDE RECORDS SUMMARY | 2016-09-27 13:01 | XMS REPORT ---
Author Author LISBET MCGARRY Organization [facility] Address [address] [place] [address] Care Team Providers Care Handkerchief Maker Name Role Phone LISBET MCGARRY Unavailable PROBLEMS Type Condition ICD9-CM Code VFW29-OK Code Onset Dates Condition Status SNOMED Code Problem Non-intractable cyclical vomiting with nausea G43.A0 Active 08273008 Problem Paranoid schizophrenia F20.0 Active 20121043 Problem Type 2 diabetes mellitus without complication, unspecified terminal manager insulin use status E11.9 Active 67590757 Problem Pain in left leg M79.605 Active 74302856 Problem Other chronic pain G89.29 Active 26049516 Problem Type 2 diabetes mellitus with hyperglycemia E11.65 Active 440430164057397 Problem superintendent terminal current use of insulin Z79.4 Active 065192144 Problem Gastroesophageal reflux disease, esophagitis presence not specified K21.9 Active 549811571 Problem Alcoholic cirrhosis of liver without ascites K70.30 Active 477019463 ALLERGIES Unknown Allergies SOCIAL HISTORY No smoking Hx information available PLAN OF CARE VITAL SIGNS MEDICATIONS Medication Instructions Dosage Frequency Start Date End Date Duration Status Humalog KwikPen 100 UNIT/ML Subcutaneous Once a day 30 unites 24h November, Active Glucometer Test Strips and lancets. Whatever Meter insurance will cover 3 times a day- ICD10- E11.65 test 3 times per day November, Active Lantus 100 UNIT/ML Subcutaneous at bedtime 40 units Active Glucometer 1 glucometer ICD10- E11.65 3 times a day test 3 times per day 8h November, Active Lactulose 10 GM/15ML Orally TID with meals 15 ml Dec, Active Tramadol HCl 50 mg Orally every 6 hours as needed 1 tablet Active Zantac 150 MG Orally Once a day 1 tablet at bedtime 24h November, Active Amitriptyline HCl 75 MG Orally one hour before bed 1 tablet 30 Active Trazodone HCl 50 mg Orally Once a day 1 tablet at bedtime as needed 24h Active RESULTS No Results PROCEDURES No Known procedures IMMUNIZATIONS No Known Immunizations
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
--- OUTSIDE RECORDS SUMMARY | 2016-09-27 13:01 | XMS REPORT ---
Author MEETA Dumont Organization [employer] Address Unknown Phone Unavailable Care Team Providers Care Publication Manager Name Role Phone MEETA SUTTON CP Unavailable Allergies No Known Allergies Problems Problem Type Condition Code Onset Dates Condition Status Problem Type 2 diabetes mellitus without complication, unspecified termination clerk insulin use status E11.9 Active Problem moth 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 current use of insulin Z79.4 Active Problem [...]
--- OUTSIDE RECORDS SUMMARY | 2016-09-27 13:01 | XMS REPORT ---
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
--- OUTSIDE RECORDS SUMMARY | 2016-09-27 13:01 | XMS REPORT ---
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
--- OUTSIDE RECORDS SUMMARY | 2016-09-27 13:01 | XMS REPORT ---
Author Author MEETA SUTTON Organization [employer] Address Unknown Phone Unavailable Care Team Providers Care Record Clerk Salesperson Name Role Phone MEETA SUTTON CP Unavailable Allergies No Known Allergies Problems Problem Type Condition Code Onset Dates Condition Status Problem Paranoid schizophrenia F20.0 Active Problem Type 2 diabetes mellitus with hyperglycemia E11.65 Active Problem assistant terminal manager current use of insulin Z79.4 Active Problem Non-intractable cyclical vomiting with nausea G43.A0 Active Problem Type 2 diabetes mellitus without complication, unspecified intermediate card tender insulin use status E11.9 Active Problem Other [...] Instructions Start Date End Date Status Dosage Zantac [facility] [address]-89 150 MG Orally Once a day November 20, 2015 1 tablet at bedtime Trazodone HCl [facility] [address]-20 50 mg Orally Once a day 1 tablet at bedtime as needed Norvasc [facility] [address]-85 5 mg Orally Once a day 1 tablet Glucometer [facility] 0 Test Strips and lancets. Whatever Meter insurance will cover 3 times a day- ICD10- E11.65 November 18, 2015 test 3 times per day Humalog KwikPen [facility] [address]-23 100 UNIT/ML Subcutaneous Once a day November 18, 2015 30 units Tramadol HCl [facility] [address]-43 50 mg Orally every 6 hours as needed 1 tablet Lantus [facility] [address]-35 100 UNIT/ML Subcutaneous HS 80UNit Lactulose [facility] [address]-29 10 GM Orally 4 times a day December 20, 2015 1 packet Results No Known Results Summary Purpose eClinicalWorks Submission
--- OUTSIDE RECORDS SUMMARY | 2016-09-27 13:01 | XMS REPORT ---
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
--- OUTSIDE RECORDS SUMMARY | 2016-09-27 13:02 | XMS REPORT ---
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
--- OUTSIDE RECORDS SUMMARY | 2016-09-27 13:02 | XMS REPORT ---
Author Author SUTTONMEETA WARE Organization [facility] Address [address] [place] [address] Care Team Providers Care Second Time Worker Name Role Phone MEETA SUTTON Unavailable PROBLEMS Type Condition ICD9-CM Code RAM12-TM Code Onset Dates Condition Status SNOMED Code Problem Paranoid schizophrenia F20.0 Active 13943014 Problem Type 2 diabetes mellitus with hyperglycemia E11.65 Active 164845808408838 Problem group home current use of insulin Z79.4 Active 515268515 Problem Unspecified fracture of shaft of right fibula, subsequent encounter for closed fracture with routine healing S82.401D Active 17247210 Problem Drug abuse and dependence F19.20 Active 8958204 Problem Gastroesophageal reflux disease, esophagitis presence not specified K21.9 Active 117399670 Problem Alcoholic cirrhosis of liver without ascites K70.30 Active 936347805 Problem Pain in left leg M79.605 Active 71126086 Problem Other chronic pain G89.29 Active 86477213 Assessment Insomnia due to medical condition G47.01 Mar, Active Assessment Alcoholic cirrhosis of liver without ascites K70.30 Mar, Active 795295842 Problem Non-intractable cyclical vomiting with nausea G43.A0 Active 82156594 Assessment Unspecified fracture of shaft of right tibia, subsequent encounter for closed fracture with routine healing S82.201D Mar, Active 76683300 Problem Type 2 diabetes mellitus without complication, unspecified long term care administrator insulin use status E11.9 Active 56205604 ALLERGIES Substance Reaction Event Type Date Status Zyprexa Unknown Drug Allergy Mar, Active Seroquel Unknown Drug Allergy Mar, Active Penicillamine Unknown Drug Allergy Mar, Active Clindamycin HCl Unknown Drug Allergy Mar, Active SOCIAL HISTORY No smoking Hx information available PLAN OF CARE VITAL SIGNS Height 75 in 2016-03-31 Weight 190 lbs 2016-03-31 Heart Rate 80 bpm 2016-03-31 Respiratory Rate 18 2016-03-31 BMI 23.75 kg/m2 2016-03-31 Blood pressure systolic 128 mmHg 2016-03-31 Blood pressure diastolic 78 mmHg 2016-03-31 MEDICATIONS Medication Instructions Dosage Frequency Start Date End Date Duration Status Amitriptyline HCl 75 MG Orally one hour before bed 1 tablet Active Zantac 150 MG Orally Once a day 1 tablet at bedtime 24h November, Active Trazodone HCl 50 mg Orally Once a day 1 tablet at bedtime as needed 24h Active Glucometer Test Strips and lancets. Whatever Meter insurance will cover 3 times a day- ICD10- E11.65 test 3 times per day November, Active Tramadol HCl 50 mg Orally 3 times a day 1 tablet 8h 4 Apr, 2016 07 days Active Lantus 100 UNIT/ML Subcutaneous at bedtime 40 units Active Glucometer 1 glucometer ICD10- E11.65 3 times a day test 3 times per day 8h November, Active Lactulose 10 GM/15ML Orally TID with meals 15 ml Dec, Active Humalog KwikPen 100 UNIT/ML Subcutaneous Once a day 30 unites 24h November, Active RESULTS Name Result Date Reference Range A1C (IN HOUSE) 2016-03-31 A1C IN HOUSE 11.3 4.3 - 5.6 % Previous A1c 13.8 Lot [id number] Exp date MICROALBUMIN, URINE (IN HOUSE) 2016-03-31 MICROALBUMIN Abnormal Lot # [id number] Exp date Clarity cloudy Color brown ALB 150 mg/L CRE 300 mg/dL A:C (IN HOUSE) 30-300 mg/g Control normal Control abnormal Lot # [id number] Exp date URINE DRUG SCREEN (IN HOUSE) 2016-03-31 Lot # [id number] Exp date Control + COCAINE Negative AMPH positive MTD negative THC negative OPIATE negative BENZO negative PCP negative BAR negative OXY positive MAMP positive TCA positive MDMA negative UA LONG DIP (IN HOUSE) 2016-03-31 Lot # [id number] Exp date Clarity cloudy Color brown Odor strong GLU 1+ FIOR 1+ KET Negative SG >=1.030 BLO 3+ pH 5.5 Protein 1+ URO 1.0 NIT Negative HARPREET Negative Lot # [id number] Exp date TSH 2016-03-31 TSH 2.140 0.450-4.500 CBC 2016-03-31 WBC 8.9 3.4-10.8 RBC 4.04 4.14-5.80 Hemoglobin 12.0 12.6-17.7 Hematocrit 36.6 37.5-51.0 MCV 91 79-97 MCH 29.7 26.6-33.0 MCHC 32.8 31.5-35.7 RDW 19.2 12.3-15.4 Platelets 78 150-379 Neutrophils 82 Lymphs 12 Monocytes 4 Eos 2 Basos 0 Immature Cells Neutrophils (Absolute) 7.4 1.4-7.0 Lymphs (Absolute) 1.1 0.7-3.1 Monocytes(Absolute) 0.3 0.1-0.9 Eos (Absolute) 0.2 0.0-0.4 Baso (Absolute) 0.0 0.0-0.2 Immature Granulocytes 0 Immature Grans (Abs) 0.0 0.0-0.1 NRBC Hematology Comments: Note: MICROALBUMIN/CREATININE RATIO, URINE 2016-03-31 Creatinine, Urine 158.6 Not Estab. Microalbumin, Urine 65.9 Not Estab. Microalb/Creat Ratio 41.6 0.0-30.0 CMP 2016-03-31 Glucose, Serum 309 65-99 BUN 7 6-24 Creatinine, Serum 0.90 0.76-1.27 eGFR If NonAfricn Am 104 >59 eGFR If Africn Am 120 >59 BUN/Creatinine Ratio 8 9-20 Sodium, Serum 137 134-144 Potassium, Serum 3.6 3.5-5.2 Chloride, Serum 105 97-108 Carbon Dioxide, Total 19 18-29 Calcium, Serum 7.6 8.7-10.2 Protein, Total, Serum 7.1 6.0-8.5 Albumin, Serum 2.3 3.5-5.5 Globulin, Total 4.8 1.5-4.5 A/G Ratio 0.5 1.1-2.5 Bilirubin, Total 3.1 0.0-1.2 Alkaline Phosphatase, S 354 39-117 AST (SGOT) 65 0-40 ALT (SGPT) 41 0-44 PROCEDURES Procedure Date Ordered Related Diagnosis Body Site GLYCATED HEMOGLOBIN TEST Mar 31, 2016 MICROALBUMIN, SEMIQUANT Mar 31, 2016 URINALYSIS, AUTO, W/O SCOPE Mar 31, 2016 DRUG SCREEN NON TLC DEVICES Mar 31, 2016 LAB NOT BILLED BY [facility] Mar 31, 2016 VENIPUNCT, ROUTINE* Mar 31, 2016 Office Visit, Est Pt., Level 5 Mar 31, 2016 IMMUNIZATIONS No Known Immunizations
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
--- OUTSIDE RECORDS SUMMARY | 2016-09-27 13:02 | XMS REPORT ---
Author Author MEETA SUTTON [facility] eClinicalWorks Address Unknown Phone Unavailable Care Team Providers Care Form Drafter Name Role Phone MEETA SUTTON CP Unavailable Allergies No Known Allergies Problems Problem Type Condition Code Onset Dates Condition Status Problem Paranoid schizophrenia F20.0 Active Problem Type 2 diabetes mellitus with hyperglycemia E11.65 Active Problem hand i blocker current use of insulin Z79.4 Active Problem Non-intractable cyclical vomiting with nausea G43.A0 Active Problem Type 2 diabetes mellitus without complication, unspecified drug safety data management specialist insulin use status E11.9 Active Problem Other [...]
--- OUTSIDE RECORDS SUMMARY | 2016-09-27 13:04 | XMS REPORT | Continuity of Care Document ---
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 Diabetes mellitus (disorder) 08/23/2015 Diagnosis 2015 [facility]. Alcoholism (disorder) 2015 Diagnosis 08/27/2015 [facility] Alcoholic cirrhosis (disorder) 08/23/2015 Diagnosis 08/27 [facility] Epidermoid cyst of skin (disorder) 08/23/2015 Diagnosis 08/27/2015 [facility] Hypersplenism (disorder) Diagnosis 08/27/2015 [facility] Chest pain (finding) 2015 Diagnosis 07/23/2015 [facility], [facility]. Paranoid schizophrenia (disorder) 06/19/2015 Diagnosis [facility], [facility] Atrial flutter (disorder) Diagnosis 06/23/2015 [facility] Intentional drug overdose (disorder) 06/11/2015 Diagnosis 06/15/2015 [facility], [facility]. Supraventricular tachycardia (disorder) 06/04/2015 Diagnosis 06/15/2015 [facility]. Hepatic encephalopathy (disorder) 06/04/2015 Diagnosis [facility], [facility]. Acute renal failure syndrome (disorder) 06/03/2015 Diagnosis 06/15/2015 [facility] Gastroesophageal reflux disease (disorder) 05/29/2015 Diagnosis 06/02/2015 [facility] Hypertensive disorder, systemic arterial (disorder) 05/29/2015 Diagnosis 06/02/2015 [facility] Other abnormal glucose 02/28 Diagnosis 03/04/2015 [facility] Hepatic coma 02/28/2015 Diagnosis 03/04/2015 [facility] Alcoholic cirrhosis of liver 02/28/2015 Diagnosis 2014 [facility] Other anxiety states 2014 Diagnosis 03/04/2015 [facility] [place] Unspecified essential hypertension 02/28/2015 Diagnosis 03/04/2015 [facility] Diabetes mellitus without mention of complication, type II or unspecified type , not stated as uncontrolled 02/28/2015 Diagnosis 2014 [facility] Other and unspecified alcohol dependence, unspecified drinking behavior 02/28/2015 Diagnosis 03/04/2015 [facility] Traumatic arthropathy involving ankle and foot 02/07/2015 Diagnosis 02/11/2015 [facility] Diabetes mellitus with neurological manifestations, type II or unspecified type , not stated as uncontrolled 02/07/2015 Diagnosis 2014 [facility] Other secondary thrombocytopenia 11/21/2014 Diagnosis [facility] Contusion of chest wall Diagnosis 11/25/2014 [facility] Esophageal reflux 2014 Diagnosis 10/15/2014 [facility] Unspecified fall 10/11/2014 Diagnosis 10/15/2014 [facility] Bimalleolar fracture, closed 10/11/2014 Diagnosis 2014 [facility] Thrombocytopenia, unspecified 05/24/2014 Diagnosis 2013 [facility] Esophageal varices without mention of bleeding 02/16/2014 Diagnosis 02/20/2014 [facility], [facility], [facility]. Esophageal reflux 2013 Diagnosis 02/20/2014 [facility] Unspecified essential hypertension 02/16/2014 Diagnosis 02/20/2014 [facility] Attention deficit disorder of childhood with hyperactivity 02/16/2014 Diagnosis 02/20/2014 [facility] Alcoholic cirrhosis of liver 02/16/2014 Diagnosis 2013 [facility] Abdominal pain, unspecified site 01/23/2014 Diagnosis [facility] Cirrhosis of liver without mention of alcohol 01/02/2014 Diagnosis 01/06/2014 [facility] Acute upper respiratory infections of unspecified site 01/02/2014 Diagnosis 01/06/2014 [facility] Hepatic coma 12/22/2013 Diagnosis 12/26/2013 [facility] Paranoid type schizophrenia, unspecified state 11/20/2013 Diagnosis 11/24/2013 [facility] Traumatic arthropathy-ankle (disorder) Active 04/23/2011 Problem 09/15/2016 [facility] Traumatic arthropathy-ankle (disorder) Active 04/23/2011 Problem 07/19/2015 [facility] 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) Active 04/23/2011 Problem 10/06/2013 [facility] 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 04/23/2011 Problem 07/09/2013 [facility], [facility] Attention deficit hyperactivity disorder (disorder) Active Problem 09/15/2016 [facility], [facility] Alcoholic cirrhosis (disorder) Active Problem 09/15/2016 [facility], [facility] Alcoholism (disorder) Active Problem 09/15/2016 [facility] Cardiology [facility], [facility], [facility] Fracture of ankle (disorder) Active Problem 09/15/2016 [facility] Cardiology [facility], [facility] Mixed anxiety and depressive disorder (disorder) Active Problem 09/15/2016 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, [facility] Gastroesophageal reflux disease (disorder) Active Problem 09/15/2016 [facility], [facility] Hepatic coma (disorder) Active Problem 09/15/2016 [facility], [facility] Hypertensive disorder, systemic arterial (disorder) Active Problem 09/15/2016 [facility], [facility], [facility] Paranoid schizophrenia (disorder) Active Problem 2016 [facility], [facility], [facility] Supraventricular tachycardia (disorder) Active Problem [facility] Cardiology [facility], [facility], [facility], [facility] Cirrhosis - non-alcoholic (disorder) Active Problem 09/19 [facility], [facility] Medications Medication Details Route Status Patient Instructions Ordering Provider Order Date Source No Known Medications No known medications Active [facility] Pneumovax 23 0.5 mL, SOLN, IM, ONCE, 02/12/12 12:00:00 , Stop date 02/12/12 12:00:00Provide patient/caregiver the vaccine information statement and document version date on eMAR. Record the lot number and box printer below. Manuf: Lot Number: Exp Date: Inactive Epp [facility] influenza virus vaccine, inactivated adult 0.5 mL, Suspension, IM, ONCE, Start Date: 07/03/13 12:00:00, Stop Date: 07/03/13 12:00: 00Provide patient/caregiver the vaccine information statement and document version date on eMAR. Record the lot number and box printer below. Manuf: ____ Lot Number: Exp Date: Inactive [facility]. Allergies, Adverse Reactions, Alerts Substance Category Reaction Severity Reaction type Status Date Reported Comments Source penicillins Assertion "can't breathe" Drug [facility], [facility] penicillins drug allergy "can 't breathe" Allergy Active [facility], [facility] penicillin drug allergy "can' t breathe" Allergy Active [facility], [facility], [facility] Immunizations Immunization Date Given Site Status Last Updated Comments Source influenza virus vaccine 07/19/2015 Not Given [facility] influenza virus vaccine 06/02/2015 Left Deltoid influenza virus vaccine Kings [facility] [address] [facility] influenza virus vaccine 07/05/2013 Left Deltoid influenza virus vaccine Eddie [facility], [facility], [facility], [facility], [facility]. pneumococcal polysaccharide PPV23 02/12/2012 Right Deltoid pneumococcal 23-valent vaccine [facility], [facility], [facility], [facility] pneumococcal 23-valent vaccine 02/12/2012 completed [facility], [facility], [facility] Results Vital Signs Encounters Location Location Details Encounter Type Encounter Number Reason For Visit Attending Provider ADM Date DC Date Status Source [facility] CD:[id number] Inpatient [id number] Max An 02/10/2012 Active [facility]. [facility] CD:[id number] Inpatient [id number] Kings Aguilar 06/20/2012 06/21/2012 Active [facility]. OM CD:[id number] Inpatient [id number] Kings Aguilar 08/01/2012 08/08/2012 Active [facility]. [facility] CD:[id number] Inpatient [id number] Kings Aguilar 12/08/2012 12/09/2012 Active [facility]. [facility] CD:[id number] Clinic ( Outpatient) [id number] Sofy Smith 05/03/2013 Active [facility], [facility] CD:[id number] Clinic ( Outpatient) [id number] Kings Aguilar 06/07/2013 Active [facility] CD:[id number] Clinic ( Outpatient) [id number] Kings Aguilar 06/14/2013 Active [facility] CD:[id number] Clinic ( Outpatient) [id number] Kings Aguilar 06/21/2013 Active [facility] CD:[id number] Inpatient [id number] Kings Aguilar 07/02/2013 07/05/2013 Active [facility] CD:[id number] Clinic ( Outpatient) [id number] Kings Aguilar 07/13/2013 Active [facility] CD:[id number] Clinic ( Outpatient) [id number] Kings Aguilar 07/27/2013 Active [facility] CD:[id number] Inpatient [id number] Kings Aguilar 09/11/2013 09/15/2013 Active [facility] [employer] CD:[id number] Clinic ( Outpatient) [id number] Kings Aguilar 09/20/2013 Active [facility] CD:[id number] Clinic ( Outpatient) [id number] Kings Aguilar 10/02/2013 Active [facility] Cancel/No Show [id number] Kings Aguilar 10/02/2013 10/02/2013 [facility] CD:[id number] Clinic ( Outpatient) [id number] Sofy Smith 11/01/2013 Active [facility] CD:[id number] Clinic ( Outpatient) [id number] Kings Aguilar 11/06/2013 Active [facility] CD:[id number] Clinic ( Outpatient) [id number] Kings Aguilar 11/10/2013 Active [facility] [id number] Kings Aguilar 11/10/2013 11/10/2013 [facility] [place] [facility] [id number] Kings Aguilar 11/20/2013 11/21/2013 [facility] [place] [facility] Cancel/No Show [id number] Kings Aguilar 12/18/2013 12/18/2013 [facility] [place] [facility] CD:[id number] Clinic ( Outpatient) [id number] 12/22/2013 Active [facility] [place] [facility] [id number] Kings Aguilar 12/22/2013 12/23/2013 [facility] [place] [facility] [id number] Zoran Mara 01/02/2014 01/03/2014 [facility] [place] [facility] CD:[id number] Clinic ( Outpatient) [id number] Sofy Luis 01/04/2014 Active [facility], [facility] [id number] [facility] 01/04/201410/2013 [facility] CD:[id number] Outpatient [id number] Wagram Luis 01/23/2014 01/23/2014 Active [facility], [facility]. [facility] CD:[id number] Emergency [id number] DENISE NOBLE 01/23/2014 01/23/2014 Active [facility]. [facility] CD:[id number] Outpatient [id number] Sofy Luis 01/26/2014 01/26/2014 Active [facility]. [facility] [id number] Kings Aguilar 02/16/2014 02/17/2014 [facility] [place] [facility] Cancel/No Show [id number] Halie Dacosta 02/19/2014 02/19/2014 [facility] CD:[id number] Emergency [id number] Kings Arredondo 03/29/2014 Active [facility], [facility]. [facility] [id number] Kings Aguilar 05/24/2014 [facility] [place] [facility] Cancel/No Show [id number] Kings Aguilar 06/22/2014 06/22/2014 [facility] [place] [facility] [id number] Kings Aguilar 08/27/2014 [facility] [place] [facility] Cancel/No Show [id number] Kings Aguilar 09/24/2014 09/26/2014 [facility] [place] [facility] Cancel/No Show [id number] Halie Dacosta 10/01/2014 10/01/2014 [facility] [id number] Kings Aguilar 10/11/201404/2015 [facility] [place] [facility] CD:[id number] Emergency [id number] Napoleon Isabel 11/15/2014 11/15/2014 Active [facility] Cancel/No Show [id number] Kings Aguilar 11/19/2014 11/19/2014 [facility] [place] [facility] [id number] Kings Aguilar 11/21/2014 [facility] [place] [facility] [id number] Kings Aguilar 02/07/201501/2015 [facility] [place] [facility] [id number] Kings Aguilar 02/28/2015 [facility] [place] [facility] Cancel/No Show [id number] Kings Aguilar 04/17/2015 04/16/2015 [facility] [place] [facility] [id number] Kings Aguilar 05/29/2015 [facility] [place] [facility] CD:[id number] Inpatient [id number] Ryan Nolan 06/01/2015 06/11/2015 Active [facility]. [facility] [id number] Kings Aguilar 06/19/2015 [facility] [place] [facility] CD:[id number] Inpatient [id number] Kings Aguilar 07/18/2015 07/19/2015 Active [facility], [facility]. [facility] Cancel/No Show [id number] Kings Aguilar 07/19/2015 07/15/2015 [facility] [place] [facility] CD:[id number] Clinic ( Outpatient) [id number] Kings Aguilar 08/22/2015 Active [facility] [place] [facility] [id number] Kings Aguilar 08/23/2015 [facility] [place] [facility] CD:[id number] Clinic ( Outpatient) [id number] Valentin Rojas 10/09/2015 Active [facility] Cardiology Services [facility] Clinic [id number] Valentin Rojas 11/04/2015 11/04/2015 [facility] Cardiology Services [facility] Cancel/No Show [id number] Kings Aguilar 09/1109/11/2016 [facility] Procedures Procedure Code Date Perfomer Comments Source Echocardiography, transthoracic, real-time with image documentation (2D), includes M-mode recording, when performed, complete, with spectral Doppler echocardiography, and with color flow Doppler echocardiography [id number] 07/19/2015 [facility] Typical and Atypical AVNRT and Atrial Flutter Ablation 06/05/2015 [facility]. Echocardiogram, EF 55% 06/03 [facility]. No data available for this section [facility] Esophagogastroduodenoscopy, flexible, transoral; diagnostic, including collection of specimen(s) by brushing or washing, when performed (separate procedure) [id number] [facility]. Plan of Care Social History Assessment and Plan Family History Value Date Source Advance Directives Order Name Results Value Date Source
--- OUTSIDE RECORDS SUMMARY | 2016-09-27 13:04 | XMS REPORT | Continuity of Care Document ---
Author Author [facility] Organization [facility] Address Unknown Phone Unavailable Care Team Providers Care Commodities Broker Name Role Phone JeffKings Parrish PCP [phone] Source Comments Some departments are not documenting in the electronic medical record. If you do not see the information that you expected, contact Release of Information in the Health Information Management department at [phone] for further assistance in locating additional records.[facility] Active Allergies and Adverse Reactions Allergen [...] Taken Blood Pressure 155/99 05/23/2014 12:00 PM SEED SPECIALIST Pulse 66 05/22/2014 3:59 PM SEED SPECIALIST Temperature 36.4 C (97.6 F) 05/23/2014 12:00 PM SEED SPECIALIST Respiratory Rate 16 11/01/2012 8:48 AM CDT Height 1.905 m (6' 3") 05/20/2014 6:00 PM SEED SPECIALIST Weight 94.8 kg (208 lb 15.9 oz) 05/21/2014 5:41 AM SEED SPECIALIST Body Mass Index 26.12 05/21/2014 5:41 AM SEED SPECIALIST Oxygen Saturation 96% 05/23/2014 12:00 PM SEED SPECIALIST Plan of Care Health Maintenance Due Date Last Done Comments Physical (Comprehensive) 1979 Exam Pertussis Vaccine 1983 Tetanus Vaccine 1989 Influenza Vaccine 03/05/2017 Results from Last 3 Months Not on file
[2016-09-27] MEDS ORDERED: DEXTROSE 10% IV SOLUTION 0 ML IV ONE (16:39)
[2016-09-27] MEDS: traZODone 50 MG (DESYREL) TAB PO SCH (20:07)
[2016-09-27] MEDS: NS IV SCH ×2 (22:29)
[2016-09-27] MEDS: [UNRECOGNIZED DRUG - OTHER] IV SCH ×2 (22:29)
[2016-09-27] MEDS ORDERED: DEXTROSE 10% IV SOLUTION 1,000 ML IV ONE (22:42)
[2016-09-28] VITALS (21 sets, daily range): BP systolic 103–149; BP diastolic 58–107
[2016-09-28] MEDS: RT-ALBUTEROL SULF 2.5 MG/3 ML PRE-MIX VIAL IH SCH ×6 (02:00→22:50)
[2016-09-28 04:18] LABS: BASOPHILS % (AUTO) 0 % (0-10); EOSINOPHILS # (AUTO) 0.1 10^3/uL (0.0-0.3); EOSINOPHILS % (AUTO) 3 % (0-10); LYMPHOCYTES # (AUTO) 0.8 X 10^3 (1.0-4.0); LYMPHOCYTES % (AUTO) 16 % (12-44); MEAN CORPUSCULAR HEMOGLOBIN 29 PG (25-34); MEAN CORPUSCULAR HGB CONC 34 G/DL (32-36); MEAN CORPUSCULAR VOLUME 86 FL (80-99); MEAN PLATELET VOLUME 10.6 FL (7.4-10.4); MONOCYTES # (AUTO) 0.4 X 10^3 (0.0-1.0); MONOCYTES % (AUTO) 8 % (0-12); NEUTROPHILS # (AUTO) 3.7 X 10^3 (1.8-7.8); NEUTROPHILS % (AUTO) 73 % (42-75); RED BLOOD COUNT 2.66 10^6/uL (4.35-5.85); RED CELL DISTRIBUTION WIDTH 16.4 % (10.0-14.5); WHITE BLOOD COUNT 5.2 10^3/uL (4.3-11.0)
[2016-09-28 04:20] LABS: PLATELET COUNT 39 10^3/uL (130-400)
[2016-09-28 04:39] LABS: ANION GAP 5 MMOL/L (5-14); BLOOD UREA NITROGEN 9 MG/DL (7-18); BUN/CREATININE RATIO 8; CALCIUM 6.9 MG/DL (8.5-10.1); CARBON DIOXIDE 16 MMOL/L (21-32); CHLORIDE 112 MMOL/L (98-107); CREATININE SERUM 1.09 MG/DL (0.60-1.30); GFR ESTIMATED > 60; GLUCOSE 105 MG/DL (70-105); MAGNESIUM 1.7 MG/DL (1.8-2.4); PHOSPHORUS 2.8 MG/DL (2.3-4.7); POTASSIUM 4.4 MMOL/L (3.6-5.0); SODIUM 133 MMOL/L (135-145)
[2016-09-28] MEDS: POTASSIUM CL 10MEQ/50ML IVPB 50 ML IV SCH (04:50)
[2016-09-28] MEDS: KCL 20 MEQ TAB (K-DUR) PO SCH (04:50)
[2016-09-28] MEDS: LACTULOSE SYRUP 10GM/15ML (ENULOSE) 30ML UDC PO SCH ×3 (04:59→21:01)
[2016-09-28] MEDS: PANTOPRAZOLE 40 MG (PROTONIX) TAB PO SCH (05:00)
[2016-09-28] MEDS: MAGNESIUM 1 GM/100 ML IVPB 100 ML IV SCH ×3 (05:01→06:07)
--- NOTE | 2016-09-28 06:49 | Pulmonary Consultation ---
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 Pt was admitted to ICU for close observation. I am consulted for ICU management. Allergies and Home Medications Allergies Coded Allergies: Penicillins (Verified Allergy, Severe, EDEMA, SOA, 03/21/16) clindamycin (Verified Allergy, Unknown, 03/21/16) olanzapine (Verified Allergy, Unknown, 03/21/16) quetiapine (Verified Allergy, Unknown, 03/21/16) Home Medications Albuterol Sulfate 1 Puff Puff, 2 PUFF INH Q4H PRN for SHORTNESS OF BREATH, ( Reported) Amlodipine Besylate 5 Mg Tablet, 5 MG PO DAILY, (Reported) Famotidine 20 Mg Tablet, 20 MG PO BID, (Reported) Folic Acid 1 Mg Tablet, 1 MG PO DAILY, (Reported) Hydrocodone/Acetaminophen 1 Each Tablet, 2 TAB PO Q4H PRN for MODERATE PAIN, #15 Prescribed by: BRYAN PASCAL on 08/28/16 1113 Insulin Glargine,Hum.rec.anlog 100 Unit/1 Ml Vial, 30 UNIT SQ HS, (Reported) Insulin Lispro 100 Unit/1 Ml Insuln.pen, 15-30 UNIT SQ AC, (Reported) Lactulose 10 Gm/15 Ml Solution, 30 ML PO Q8H, (Reported) Omeprazole 40 Mg Capsule.dr, 40 MG PO DAILY, (Reported) Pregabalin 75 Mg Capsule, 75 MG PO BID, #30 Prescribed by: BRYAN PASCAL on 08/28/16 1113 Thiamine HCl 100 Mg Tablet, 100 MG PO DAILY, (Reported) Tramadol HCl 50 Mg Tablet, 50 MG PO BID PRN for PAIN, #30 Prescribed by: BRYAN PASCAL on 08/28/16 1113 Trazodone HCl 50 Mg Tablet, 50 MG PO HS, (Reported) Past Ggezwup-Nvbjrs-Leqvbe Hx Patient Social History Alcohol Use: Past History Recreational Drug Use: No Smoking Status: Current Everyday Smoker Type Used: Cigarettes 2nd Hand Smoke Exposure: Yes Recent Foreign Travel: No Contact w/Someone Who Travel: No Recent Infectious Disease Expo: No Recent Hopitalizations: Yes (LIVER FAILURE) Physical Abuse Screen: No Sexual Abuse: No Immunizations Up To Date Tetanus Booster (TDap): Less than 5yrs PED Vaccines UTD: No Date of Pneumonia Vaccine: Apr 26, 2014 Date of Influenza Vaccine: Apr 09, 2016 Seasonal Allergies Seasonal Allergies: Yes Surgeries HX Surgeries: Yes (ORAL) Surgeries: Appendectomy, Neurological, Orthopedic Respiratory Hx Respiratory Disorders: Yes Respiratory Disorders: COPD Cardiovascular Hx Cardiac Disorders: Yes Cardiac Disorders: Coronary Artery Disease, Hypertension, Palpitations Neurological Hx Neurological Disorders: Yes (HEPATIC ENCEPHALOPATHY; CHRONIC POOR BALANCE AND FREQUENT FALLS) Neurological Disorders: Headaches /Migraines, Neuropathy Reproductive System Hx Reproductive Disorders: No Sexually Transmitted Disease: No HIV/AIDS: No Genitourinary Hx Genitourinary Disorders: No Gastrointestinal Hx Gastrointestinal Disorders: Yes (HEPATITIS C) Gastrointestinal Disorders: Gastroesophageal Reflux, Liver Disease/Jaundice, Gastrointestinal Bleed, Pancreatitis, Esophageal Varices, Hepatitis, Cirrhosis, Gall Bladder Disease Musculoskeletal Hx Musculoskeletal Disorders: Yes (RIGHT ANKLE FRACTURE; MULTIPLE FRACTURES ) Musculoskeletal Disorders: Chronic Back Pain, Fractures Endocrine Hx Endocrine Disorders: Yes Endocrine Disorders: Diabetes, Insulin dep HEENT HX ENT Disorders: No Cancer Hx Cancer: No Cancer: Liver Psychosocial Hx Psychiatric Problems: Yes (EXTENISVE PSYCH ISSUES) Behavioral Health Disorders: Anxiety, Suicide Attempts, Schizophrenia, Depression Integumentary HX Skin/Integumentary Disorder: Yes (KURTZ 04/2016--PT WAS SMOKING WHILE WEARING O2/NC. ) Blood Transfusions Hx Blood Disorders: Yes (ANEMIA; THROMBOCYTOPENIA) Adverse Reaction to a Blood Tr: No Reviewed Nursing Assessment Reviewed/Agree w Nursing PMH: Yes Family Medical History Significant Family History: Psychiatric Problems Family Medial History: Cardiovascular disease 19 FATHER 19 MOTHER FH: schizophrenia 19 FATHER 19 MOTHER Respiratory disorder 19 FATHER 19 MOTHER Exam Exam Vital Signs Date Time Temp Pulse Resp B/P (MAP) Pulse Ox O2 Delivery O2 Flow Rate FiO2 09/28/16 06:00 111/80 Nasal Cannula 3.00 09/28/16 05:00 121/82 92 Nasal Cannula 3.00 09/28/16 04:00 106/73 Nasal Cannula 3.00 09/28/16 04:00 97 3.00 09/28/16 03:00 103 23 112/58 91 Nasal Cannula 3.00 09/28/16 02:47 2.50 09/28/16 02:00 97 13 120/74 92 Nasal Cannula 3.00 09/28/16 01:00 105 12 103/59 92 Nasal Cannula 3.00 09/28/16 01:00 105 09/28/16 00:00 97 3.00 09/27/16 23:00 100 15 121/76 94 Nasal Cannula 3.00 09/27/16 22:32 96 2.50 09/27/16 22:00 100 12 122/79 95 Nasal Cannula 3.00 09/27/16 21:00 97 13 127/97 Nasal Cannula 3.00 09/27/16 20:00 97 3.00 09/27/16 20:00 106 131/89 94 Nasal Cannula 3.00 09/27/16 19:00 99.2 99 14 117/86 94 3.00 09/27/16 19:00 98 09/27/16 18:50 2.50 09/27/16 18:00 100 21 129/89 95 Nasal Cannula 3.00 09/27/16 17:00 103 113/74 97 Nasal Cannula 3.00 09/27/16 16:00 102 13 126/85 94 Nasal Cannula 3.00 09/27/16 16:00 97 3.00 09/27/16 15:00 92 13 115/70 96 Nasal Cannula 3.00 09/27/16 14:57 2.50 09/27/16 14:00 93 13 118/76 100 Nasal Cannula 3.00 09/27/16 13:00 93 09/27/16 13:00 93 13 125/80 100 Nasal Cannula 3.00 09/27/16 12:00 97 3.00 09/27/16 12:00 101 15 131/94 95 Nasal Cannula 3.00 09/27/16 11:39 3.00 09/27/16 11:00 92 11 128/92 Nasal Cannula 3.00 09/27/16 10:00 96 9 146/95 95 Nasal Cannula 3.00 09/27/16 09:00 93 13 142/93 96 Nasal Cannula 3.00 09/27/16 08:00 96 3.00 09/27/16 08:00 97.9 09/27/16 08:00 90 13 122/99 93 Nasal Cannula 3.00 09/27/16 07:48 3.00 09/27/16 07:00 89 9 112/76 97 Nasal Cannula 3.00 09/27/16 07:00 88 I & O 09/28/16 07:00 Intake Total 2990 ml Output Total 2450 ml Balance 540 ml General Appearance: No Apparent Distress, WD/WN, Chronically ill, Cachetic HEENT: PERRL/EOMI, Normal ENT Inspection, Pharynx Normal Neck: Full Range of Motion, Normal Inspection, Non Tender, Supple, Carotid Bruit Respiratory: Chest Non Tender, Lungs Clear, Normal Breath Sounds, No Accessory Muscle Use, No Respiratory Distress Cardiovascular: Regular Rate, Rhythm, No Edema, No Gallop, No JVD, No Murmur, Normal Peripheral Pulses Capillary Refill: Less Than 3 Seconds Extremity: Normal Capillary Refill, Normal Inspection, Normal Range of Motion, Non Tender, No Calf Tenderness, No Pedal Edema Neurologic/Psychiatric: Alert, Oriented x3, No Motor/Sensory Deficits, Depressed Affect Skin: Normal Color, Warm/Dry Lymphatic: No Adenopathy Results Lab Laboratory Tests 09/26/16 09:00 09/26/16 16:15 09/27/16 03:38 09/28/16 03:40 Assessment/Plan Assessment/Plan Acute DKA in noncompliant diabetic with a hemoglobin A1c of greater than 14 -Continue DKA protocol End-stage liver disease due to alcoholism and hepatitis C Chronic thrombocytopenia due to liver disease -monitor -repeat H&H later today Chronic liver pain Smoker Coronary artery disease Hypertension ATX on CXR in smoker Clinical Quality Measures DVT/VTE Risk/Contraindication: Risk Factor Score Per Nursin RFS Level Per Nursing on Admit: 2=Moderate RANDOLPH STYLES DO Sep 28, 2016 06:49
--- NOTE | 2016-09-28 09:12 | Diagnostic Imaging Report ---
INDICATION: Diabetic ketoacidosis. TECHNIQUE: Single view chest at 5:00 AM. CORRELATION STUDY: 09/27/2016. FINDINGS: The heart size is enlarged. The vasculature remains prominent. The right pleural effusion has increased in size and now is moderate. There is associated atelectasis or infiltrate in the right lung base. There is a small left pleural effusion. IMPRESSION: 1. Cardiac enlargement with the vasculature prominent. 2. Increasing effusion along with atelectasis or infiltrate in the right lung base as well as a small left pleural effusion. Dictated by: Dictated on workstation # [id number]
[2016-09-28] MEDS: PREGABALIN 75 MG (LYRICA) CAP PO SCH ×2 (09:48→21:01)
[2016-09-28] MEDS: FOLIC ACID 1 MG TAB PO SCH (09:48)
[2016-09-28] MEDS: amLODIPine 5 MG (NORVASC) TAB PO SCH (09:48)
[2016-09-28] MEDS ORDERED: DEXTROSE 10% IV SOLUTION 1,000 ML IV ONE (09:55)
[2016-09-28] MEDS: D5 1/2 NS W/KCL 20 MEQ/L 1,000 ML IV SCH ×3 (10:00→19:25)
[2016-09-28] MEDS: 1/2 NS IV SOLUTION 1,000 ML IV SCH ×5 (10:02→20:42)
[2016-09-28] MEDS: 1/2 NS W/KCL 20 MEQ/L 1,000 ML IV SCH ×4 (10:02→20:42)
[2016-09-28] MEDS ORDERED: TRAM50TA2 PO (10:08)
[2016-09-28] MEDS ORDERED: PREG75CA PO (10:08)
[2016-09-28] MEDS ORDERED: BUSP15TA60 PO (10:08)
[2016-09-28] MEDS ORDERED: TRAZ100T92 PO (10:08)
--- NOTE | 2016-09-28 10:14 | Progress Note (SOAP) ---
Subjective Subjective/Events-last exam States that he is feeling alittle better today. Still having some shortness of breath. Denies chest pain. Date seen by provider: Sep 28, 2016 Objective Exam Last Set of Vital Signs Vital Signs Date Time Temp Pulse Resp B/P (MAP) Pulse Ox O2 Delivery O2 Flow Rate FiO2 09/28/16 08:10 99.1 09/28/16 07:00 100 09/28/16 06:00 111/80 Nasal Cannula 3.00 09/28/16 05:00 92 09/28/16 03:00 23 Capillary Refill : Less Than 3 Seconds I&O Intake and Output 09/28/16 00:00 Intake Total 3780 ml Output Total 2400 ml Balance 1380 ml Intake Oral 1430 ml IV Total 2350 ml Output Urine Total 2400 ml General: Alert, Cooperative, No Acute Distress Lungs: Clear to Auscultation (decreased air movement in bases bilaterally) Heart: Regular Rate Abdomen: Soft, Other (+ Hepatosplenomegaly, ttp along liver edge, Reducible umbilical hernia) Extremities: Other (Left LE with 2+ pitting edema, RLE trace edema) Skin: No Rashes, No Breakdown Neuro: Normal Speech Psych/Mental Status: Mental Status NL, Mood NL Results/Procedures Lab Laboratory Tests 09/27/16 10:43: Glucometer 228H 09/27/16 11:44: Glucometer 193H 09/27/16 12:48: Glucometer 188H 09/27/16 13:51: Glucometer 154H 09/27/16 14:47: Glucometer 127H 09/27/16 15:22: Glucometer 135H 09/27/16 16:23: Glucometer 195H 09/27/16 17:23: Glucometer 230H 09/27/16 18:19: Glucometer 277H 09/27/16 19:19: Glucometer 281H 09/27/16 20:00: Glucometer 217H 09/27/16 21:13: Glucometer 199H 09/27/16 21:58: Glucometer 167H 09/27/16 23:02: Glucometer 160H 09/27/16 23:09: Glucometer 108 09/27/16 23:58: Glucometer 115H 09/28/16 00:32: Glucometer 78 09/28/16 01:08: Glucometer 124H 09/28/16 02:05: Glucometer 98 09/28/16 02:36: Glucometer 86 09/28/16 03:18: Glucometer 103 09/28/16 03:40: White Blood Count 5.2, Red Blood Count 2.66L, Hemoglobin 7.8L, Hematocrit 23L, Mean Corpuscular Volume 86, Mean Corpuscular Hemoglobin 29, Mean Corpuscular Hemoglobin Concent 34, Red Cell Distribution Width 16.4H, Platelet Count 39*L, Mean Platelet Volume 10.6H, Neutrophils (%) (Auto) 73, Lymphocytes (%) (Auto) 16 , Monocytes (%) (Auto) 8, Eosinophils (%) (Auto) 3, Basophils (%) (Auto) 0, Neutrophils # (Auto) 3.7, Lymphocytes # (Auto) 0.8L, Monocytes # (Auto) 0.4, Eosinophils # (Auto) 0.1, Basophils # (Auto) 0.0, Sodium Level 133L, Potassium Level 4.4, Chloride Level 112H, Carbon Dioxide Level 16L, Anion Gap 5, Blood Urea Nitrogen 9, Creatinine 1.09, Estimat Glomerular Filtration Rate > 60, BUN/ Creatinine Ratio 8, Glucose Level 105, Calcium Level 6.9L, Phosphorus Level 2.8 , Magnesium Level 1.7L 09/28/16 04:14: Glucometer 127H 09/28/16 05:07: Glucometer 151H 09/28/16 06:09: Glucometer 190H 09/28/16 06:53: Glucometer 206H 09/28/16 08:15: Glucometer 200H Assessment/Plan Assessment/Plan Plan 46 yo M with multiple co morbid conditions admitted for altered mental status found to be in DKA Plan DKA in non compliant Insulin Dependent DM - Continue insulin gtts, will transition to subcutaneous insulin tonight, Continue to monitor daily BMPs - Will give Lantus 40 tonight then turn off gtts 2 hrs after - A1c >14.5 End Stage Liver disease from h/o alcoholism and Hep C: Mental status at baseline - Continue Lactulose Atelectasis - Continue IS and A/A breathing treatments Thrombocytopenia - 2/2 to liver disease, no signs of bleeding at this time, Will continue to monitor Anemia of chronic Dz Left LE swelling - Consider LE Doppler US to r/o clot Reducible Umbilical Hernia Social Work: Patient states that he is getting apartment on October 05 in [place], Patient would likely benefit from care as he struggles to take medications appropriately Diagnosis/Problems: Clinical Quality Measures DVT/VTE Risk/Contraindication: Risk Factor Score Per Nursin RFS Level Per Nursing on Admit: 2=Moderate BJ RODRIGUEZ MD Sep 28, 2016 10:14
[2016-09-28 14:23] LABS: MEAN PLATELET VOLUME 10.7 FL (7.4-10.4); RED BLOOD COUNT 3.48 10^6/uL (4.35-5.85); RED CELL DISTRIBUTION WIDTH 17.3 % (10.0-14.5); WHITE BLOOD COUNT 7.4 10^3/uL (4.3-11.0)
[2016-09-28 15:09] LABS: ALANINE AMINOTRANSFERASE 89 U/L (0-55); ALBUMIN 2.4 G/DL (3.2-4.5); ANION GAP 4 MMOL/L (5-14); ASPARTATE AMINO TRANSFERASE 268 U/L (5-34); BILIRUBIN,TOTAL 2.1 MG/DL (0.1-1.0); BLOOD UREA NITROGEN 10 MG/DL (7-18); BUN/CREATININE RATIO 8; CALCIUM 7.5 MG/DL (8.5-10.1); CARBON DIOXIDE 19 MMOL/L (21-32); CHLORIDE 109 MMOL/L (98-107); CREATININE SERUM 1.28 MG/DL (0.60-1.30); GFR ESTIMATED > 60; GLUCOSE 213 MG/DL (70-105); POTASSIUM 4.2 MMOL/L (3.6-5.0); SODIUM 132 MMOL/L (135-145); TOTAL PROTEIN 7.2 G/DL (6.4-8.2)
[2016-09-28] MEDS: [UNRECOGNIZED DRUG - OTHER] IV SCH ×2 (16:00)
[2016-09-28] MEDS: NS IV SCH ×2 (16:00)
[2016-09-28] MEDS: inSUlin DETERMIR 1 UNIT/0.01 ML (LEVEMIR) CHARGE PER UNIT SQ SCH (21:01)
[2016-09-28] MEDS: traZODone 50 MG (DESYREL) TAB PO SCH (21:01)
[2016-09-29] VITALS (9 sets, daily range): BP systolic 111–137; BP diastolic 73–99
[2016-09-29] MEDS: RT-ALBUTEROL SULF 2.5 MG/3 ML PRE-MIX VIAL IH SCH ×6 (02:00→23:00)
[2016-09-29 04:02] LABS: BASOPHILS % (AUTO) 0 % (0-10); EOSINOPHILS # (AUTO) 0.1 10^3/uL (0.0-0.3); EOSINOPHILS % (AUTO) 2 % (0-10); LYMPHOCYTES # (AUTO) 0.7 X 10^3 (1.0-4.0); LYMPHOCYTES % (AUTO) 10 % (12-44); MEAN CORPUSCULAR HEMOGLOBIN 29 PG (25-34); MEAN CORPUSCULAR HGB CONC 34 G/DL (32-36); MEAN CORPUSCULAR VOLUME 88 FL (80-99); MEAN PLATELET VOLUME 11.5 FL (7.4-10.4); MONOCYTES # (AUTO) 0.6 X 10^3 (0.0-1.0); MONOCYTES % (AUTO) 8 % (0-12); NEUTROPHILS # (AUTO) 5.3 X 10^3 (1.8-7.8); NEUTROPHILS % (AUTO) 80 % (42-75); RED CELL DISTRIBUTION WIDTH 17.2 % (10.0-14.5); WHITE BLOOD COUNT 6.6 10^3/uL (4.3-11.0)
[2016-09-29 04:04] LABS: PLATELET COUNT 37 10^3/uL (130-400)
[2016-09-29 04:26] LABS: ANION GAP 6 MMOL/L (5-14); BLOOD UREA NITROGEN 11 MG/DL (7-18); BUN/CREATININE RATIO 10; CALCIUM 7.2 MG/DL (8.5-10.1); CARBON DIOXIDE 16 MMOL/L (21-32); CHLORIDE 113 MMOL/L (98-107); CREATININE SERUM 1.09 MG/DL (0.60-1.30); GFR ESTIMATED > 60; GLUCOSE 108 MG/DL (70-105); MAGNESIUM 1.7 MG/DL (1.8-2.4); PHOSPHORUS 3.1 MG/DL (2.3-4.7); POTASSIUM 4.3 MMOL/L (3.6-5.0); SODIUM 135 MMOL/L (135-145)
[2016-09-29] MEDS: MAGNESIUM 1 GM/100 ML IVPB 100 ML IV SCH ×3 (04:55→06:37)
[2016-09-29] MEDS: KCL 20 MEQ TAB (K-DUR) PO SCH (04:55)
[2016-09-29] MEDS: PANTOPRAZOLE 40 MG (PROTONIX) TAB PO SCH (05:28)
[2016-09-29] MEDS: LACTULOSE SYRUP 10GM/15ML (ENULOSE) 30ML UDC PO SCH ×3 (05:29→21:31)
--- NOTE | 2016-09-29 07:18 | Pulmonary Progress Note ---
Subjective Subjective/Events-last exam Pt is feeling better and wants to go home. Exam Exam Vital Signs Date Time Temp Pulse Resp B/P (MAP) Pulse Ox O2 Delivery O2 Flow Rate FiO2 09/29/16 06:29 92 09/29/16 06:00 101 11 134/97 97 Nasal Cannula 3.00 09/29/16 05:00 93 11 118/88 92 Nasal Cannula 3.00 09/29/16 04:00 98 14 128/89 93 Nasal Cannula 3.00 09/29/16 04:00 94 3.00 09/29/16 03:00 93 11 111/77 94 Nasal Cannula 3.00 09/29/16 02:00 96 13 112/99 95 Nasal Cannula 3.00 09/29/16 01:00 96 09/29/16 01:00 96 12 118/73 95 Nasal Cannula 3.00 09/29/16 00:00 94 3.00 09/28/16 23:00 100 11 116/69 93 Nasal Cannula 3.00 09/28/16 22:00 93 11 125/89 95 Nasal Cannula 3.00 09/28/16 21:00 97 14 144/95 96 Nasal Cannula 3.00 09/28/16 20:00 94 3.00 09/28/16 20:00 98 12 149/98 91 Nasal Cannula 3.00 09/28/16 20:00 98.9 Nasal Cannula 3.00 09/28/16 19:00 86 9 134/93 93 Nasal Cannula 3.00 09/28/16 19:00 90 09/28/16 18:05 93 09/28/16 18:00 92 7 124/96 93 Nasal Cannula 3.00 09/28/16 16:31 98.7 09/28/16 16:00 94 3.00 09/28/16 15:00 95 17 134/98 90 Nasal Cannula 3.00 09/28/16 15:00 92 09/28/16 14:00 96 12 149/107 86 Nasal Cannula 3.00 09/28/16 13:00 89 09/28/16 13:00 89 8 132/96 Nasal Cannula 3.00 09/28/16 12:00 89 11 122/91 88 Nasal Cannula 3.00 09/28/16 12:00 90 3.00 09/28/16 11:36 93 09/28/16 11:00 90 13 120/82 96 Nasal Cannula 3.00 09/28/16 10:00 93 11 109/80 95 Nasal Cannula 3.00 09/28/16 09:00 105 17 134/85 89 Nasal Cannula 3.00 09/28/16 08:10 99.1 09/28/16 08:00 92 3.00 09/28/16 08:00 100 22 105/67 89 Nasal Cannula 3.00 I & O 09/29/16 07:00 Intake Total 3360 ml Output Total 1975 ml Balance 1385 ml General Appearance: No Apparent Distress, WD/WN, Chronically ill, Cachetic HEENT: PERRL/EOMI, Normal ENT Inspection, Pharynx Normal Neck: Full Range of Motion, Normal Inspection, Non Tender, Supple, Carotid Bruit Respiratory: Chest Non Tender, Lungs Clear, Normal Breath Sounds, No Accessory Muscle Use, No Respiratory Distress Cardiovascular: Regular Rate, Rhythm, No Edema, No Gallop, No JVD, No Murmur, Normal Peripheral Pulses Capillary Refill: Less Than 3 Seconds Extremity: Normal Capillary Refill, Normal Inspection, Normal Range of Motion, Non Tender, No Calf Tenderness, No Pedal Edema Neurologic/Psychiatric: Alert, Oriented x3, No Motor/Sensory Deficits, Depressed Affect Skin: Normal Color, Warm/Dry Lymphatic: No Adenopathy Results Lab Laboratory Tests 09/28/16 03:40 09/28/16 14:15 09/29/16 03:15 Assessment/Plan Assessment/Plan Acute DKA in noncompliant diabetic with a hemoglobin A1c of greater than 14 -DKA protocol d/c'd by PCP -Pt is doing well will transfer to floor End-stage liver disease due to alcoholism and hepatitis C Chronic thrombocytopenia due to liver disease -monitor -repeat H&H later today Chronic liver pain Smoker Coronary artery disease Hypertension Pt is doing well will transfer to floor. I am going to sign off please call with any questions or concerns. Clinical Quality Measures DVT/VTE Risk/Contraindication: Risk Factor Score Per Nursin RFS Level Per Nursing on Admit: 2=Moderate RANDOLPH STYLES DO Sep 29, 2016 07:17
[2016-09-29] MEDS: amLODIPine 5 MG (NORVASC) TAB PO SCH (08:22)
[2016-09-29] MEDS: FOLIC ACID 1 MG TAB PO SCH (08:22)
[2016-09-29] MEDS: PREGABALIN 75 MG (LYRICA) CAP PO SCH ×2 (08:22→20:05)
--- NOTE | 2016-09-29 09:07 | Diagnostic Imaging Report ---
INDICATION: ICU management, history of effusion. EXAMINATION: Chest on 09/29/2016. COMPARISON: 09/28/2016. FINDINGS: There is a persistent effusion at the right lung base with adjacent atelectasis versus infiltrate. This is slightly improved. Decreasing edema is seen throughout the lungs with mild pulmonary vascular congestion still noted. The heart is stable. The left lung is unchanged. IMPRESSION: Improving appearance of the chest as described with persistent pulmonary vascular congestion as well as right infiltrate and effusion. Dictated by: Dictated on workstation # [id number]
--- NOTE | 2016-09-29 10:41 | Progress Note (SOAP) ---
Subjective Subjective/Events-last exam Patient states that he is feeling better today. Tolerated some PO diet. Off oxygen this AM. Date seen by provider: Sep 29, 2016 Objective Exam Last Set of Vital Signs Vital Signs Date Time Temp Pulse Resp B/P (MAP) Pulse Ox O2 Delivery O2 Flow Rate FiO2 09/29/16 08:23 99.3 09/29/16 08:00 92 09/29/16 07:00 98 09/29/16 06:00 11 134/97 Nasal Cannula 3.00 Capillary Refill : Less Than 3 Seconds I&O Intake and Output 09/29/16 00:00 Intake Total 4460 ml Output Total 2325 ml Balance 2135 ml Intake Oral 1160 ml IV Total 3300 ml Output Urine Total 2325 ml # Voids 1 # Bowel Movements 1 General: Alert, Cooperative, No Acute Distress Lungs: Clear to Auscultation Heart: Regular Rate, No Murmurs Abdomen: Normal Bowel Sounds, Soft, No Tenderness Extremities: No Tenderness/Swelling Neuro: Normal Speech, Sensation Intact Psych/Mental Status: Mental Status NL, Mood NL Results/Procedures Lab Laboratory Tests 09/28/16 10:32: Glucometer 146H 09/28/16 11:12: Glucometer 158H 09/28/16 12:08: Glucometer 188H 09/28/16 13:09: Glucometer 211H 09/28/16 14:13: Glucometer 203H 09/28/16 14:15: White Blood Count 7.4, Red Blood Count 3.48L, Hemoglobin 10.1#L, Hematocrit 30L , Mean Corpuscular Volume 87, Mean Corpuscular Hemoglobin 29, Mean Corpuscular Hemoglobin Concent 33, Red Cell Distribution Width 17.3H, Platelet Count 50L, Mean Platelet Volume 10.7H, Sodium Level 132L, Potassium Level 4.2, Chloride Level 109H, Carbon Dioxide Level 19L, Anion Gap 4L, Blood Urea Nitrogen 10, Creatinine 1.28, Estimat Glomerular Filtration Rate > 60, BUN/Creatinine Ratio 8 , Glucose Level 213H, Calcium Level 7.5L, Total Bilirubin 2.1H, Aspartate Amino Transf (AST/SGOT) 268H, Alanine Aminotransferase (ALT/SGPT) 89H, Alkaline Phosphatase 249H, Total Protein 7.2, Albumin 2.4L 09/28/16 15:16: Glucometer 225H 09/28/16 16:15: Glucometer 269H 09/28/16 17:12: Glucometer 275H 09/28/16 18:00: Glucometer 227H 09/28/16 19:23: Glucometer 148H 09/28/16 19:58: Glucometer 175H 09/28/16 20:55: Glucometer 120H 09/28/16 21:45: Glucometer 153H 09/28/16 23:38: Glucometer 179H 09/29/16 03:15: White Blood Count 6.6, Red Blood Count 2.90L, Hemoglobin 8.5L, Hematocrit 25L, Mean Corpuscular Volume 88, Mean Corpuscular Hemoglobin 29, Mean Corpuscular Hemoglobin Concent 34, Red Cell Distribution Width 17.2H, Platelet Count 37*L, Mean Platelet Volume 11.5H, Neutrophils (%) (Auto) 80H, Lymphocytes (%) (Auto) 10L, Monocytes (%) (Auto) 8, Eosinophils (%) (Auto) 2, Basophils (%) (Auto) 0, Neutrophils # (Auto) 5.3, Lymphocytes # (Auto) 0.7L, Monocytes # (Auto) 0.6, Eosinophils # (Auto) 0.1, Basophils # (Auto) 0.0, Sodium Level 135, Potassium Level 4.3, Chloride Level 113H, Carbon Dioxide Level 16L, Anion Gap 6, Blood Urea Nitrogen 11, Creatinine 1.09, Estimat Glomerular Filtration Rate > 60, BUN/ Creatinine Ratio 10, Glucose Level 108H, Calcium Level 7.2L, Phosphorus Level 3.1, Magnesium Level 1.7L 09/29/16 03:23: Glucometer 124H Assessment/Plan Assessment/Plan Plan 46 yo M with multiple co morbid conditions admitted for altered mental status found to be in DKA Plan DKA in non compliant Insulin Dependent DM - Continue Lantus 40 and SSI, continue to monitor blood sugars ACHS - A1c >14.5 End Stage Liver disease from h/o alcoholism and Hep C: Mental status at baseline - Continue Lactulose Atelectasis: Improved no longer on oxygen - Continue IS and A/A breathing treatments Thrombocytopenia - 2/2 to liver disease, no signs of bleeding at this time, Will continue to monitor Anemia of chronic Dz Left LE swelling: Improving Reducible Umbilical Hernia Social Work: Patient states that he is getting apartment on October 05 in [place], Patient would likely benefit from care as he struggles to take medications appropriately Diagnosis/Problems: Clinical Quality Measures DVT/VTE Risk/Contraindication: Risk Factor Score Per Nursin RFS Level Per Nursing on Admit: 2=Moderate BJ RODRIGUEZ MD Sep 29, 2016 10:41
[2016-09-29] MEDS: inSUlin ASPART (NovoLOG) 1 UNIT/0.01 ML (CHARGE PER UNIT) SC SCH ×3 (11:00→21:19)
[2016-09-29] MEDS: traZODone 50 MG (DESYREL) TAB PO SCH (20:05)
[2016-09-29] MEDS: inSUlin DETERMIR 1 UNIT/0.01 ML (LEVEMIR) CHARGE PER UNIT SQ SCH (21:19)
[2016-09-30] VITALS (7 sets, daily range): BP systolic 112–158; BP diastolic 72–87
[2016-09-30] MEDS: RT-ALBUTEROL SULF 2.5 MG/3 ML PRE-MIX VIAL IH SCH ×6 (02:00→21:38)
[2016-09-30] MEDS: PANTOPRAZOLE 40 MG (PROTONIX) TAB PO SCH (05:43)
[2016-09-30] MEDS: LACTULOSE SYRUP 10GM/15ML (ENULOSE) 30ML UDC PO SCH ×3 (05:43→21:40)
[2016-09-30] MEDS: inSUlin ASPART (NovoLOG) 1 UNIT/0.01 ML (CHARGE PER UNIT) SC SCH ×4 (06:00→20:52)
[2016-09-30 06:22] LABS: BASOPHILS % (AUTO) 0 % (0-10); EOSINOPHILS # (AUTO) 0.1 10^3/uL (0.0-0.3); EOSINOPHILS % (AUTO) 2 % (0-10); LYMPHOCYTES % (AUTO) 20 % (12-44); MEAN CORPUSCULAR HEMOGLOBIN 29 PG (25-34); MEAN CORPUSCULAR HGB CONC 33 G/DL (32-36); MEAN CORPUSCULAR VOLUME 89 FL (80-99); MEAN PLATELET VOLUME 11.1 FL (7.4-10.4); MONOCYTES # (AUTO) 0.6 X 10^3 (0.0-1.0); MONOCYTES % (AUTO) 11 % (0-12); NEUTROPHILS # (AUTO) 3.5 X 10^3 (1.8-7.8); NEUTROPHILS % (AUTO) 67 % (42-75); RED BLOOD COUNT 2.86 10^6/uL (4.35-5.85); RED CELL DISTRIBUTION WIDTH 17.3 % (10.0-14.5); WHITE BLOOD COUNT 5.2 10^3/uL (4.3-11.0)
[2016-09-30 06:29] LABS: PLATELET COUNT 39 10^3/uL (130-400)
[2016-09-30 06:32] LABS: ANION GAP 6 MMOL/L (5-14); BLOOD UREA NITROGEN 14 MG/DL (7-18); BUN/CREATININE RATIO 13; CALCIUM 7.2 MG/DL (8.5-10.1); CARBON DIOXIDE 18 MMOL/L (21-32); CHLORIDE 116 MMOL/L (98-107); GFR ESTIMATED > 60; POTASSIUM 4.1 MMOL/L (3.6-5.0); SODIUM 140 MMOL/L (135-145)
[2016-09-30 06:36] LABS: GLUCOSE 59 MG/DL (70-105)
[2016-09-30] MEDS: amLODIPine 5 MG (NORVASC) TAB PO SCH (08:59)
[2016-09-30] MEDS: PREGABALIN 75 MG (LYRICA) CAP PO SCH ×2 (09:00→20:52)
[2016-09-30] MEDS: FOLIC ACID 1 MG TAB PO SCH (09:00)
--- NOTE | 2016-09-30 11:27 | Progress Note (SOAP) ---
Subjective Subjective/Events-last exam Patient states that he is not feeling well this AM. States that he does not know why he does not feel good. Denies pain, N/V. Tolerating PO diet. + BM last night. Date seen by provider: Sep 30, 2016 Objective Exam Last Set of Vital Signs Vital Signs Date Time Temp Pulse Resp B/P (MAP) Pulse Ox O2 Delivery O2 Flow Rate FiO2 09/30/16 10:56 91 09/30/16 09:00 Room Air 09/30/16 08:00 97.3 99 20 126/82 09/30/16 07:07 2.00 Capillary Refill : Less Than 3 SecondsLess Than 3 Seconds I&O Intake and Output 09/30/16 00:00 Intake Total 2340 ml Output Total 1750 ml Balance 590 ml Intake Oral 2140 ml IV Total 200 ml Output Urine Total 1750 ml # Voids 1 # Bowel Movements 1 General: Alert, Oriented X3, No Acute Distress Lungs: Clear to Auscultation, Normal Air Movement Heart: Regular Rate Abdomen: Normal Bowel Sounds, Soft, No Tenderness Extremities: Other (1+ pitting edema in LLE, calf non tender bilaterally) Skin: No Rashes Neuro: Normal Speech, Strength at 5/5 X4 Ext, Cranial Nerves 3-12 NL Psych/Mental Status: Mental Status NL, Mood NL Results/Procedures Lab Laboratory Tests 09/29/16 14:10: Hemoglobin 9.7L, Hematocrit 29L 09/29/16 16:10: Glucometer 271H 09/29/16 21:11: Glucometer 269H 09/30/16 05:14: Hemoglobin 8.3L, Hematocrit 25L, White Blood Count 5.2, Red Blood Count 2.86L, Mean Corpuscular Volume 89, Mean Corpuscular Hemoglobin 29, Mean Corpuscular Hemoglobin Concent 33, Red Cell Distribution Width 17.3H, Platelet Count 39*L, Mean Platelet Volume 11.1H, Neutrophils (%) (Auto) 67, Lymphocytes (%) (Auto) 20 , Monocytes (%) (Auto) 11, Eosinophils (%) (Auto) 2, Basophils (%) (Auto) 0, Neutrophils # (Auto) 3.5, Lymphocytes # (Auto) 1.0, Monocytes # (Auto) 0.6, Eosinophils # (Auto) 0.1, Basophils # (Auto) 0.0, Sodium Level 140, Potassium Level 4.1, Chloride Level 116H, Carbon Dioxide Level 18L, Anion Gap 6, Blood Urea Nitrogen 14, Creatinine 1.10, Estimat Glomerular Filtration Rate > 60, BUN/ Creatinine Ratio 13, Glucose Level 59*L, Calcium Level 7.2L 09/30/16 06:08: Glucometer 48*L 09/30/16 06:49: Glucometer 84 09/30/16 10:45: Glucometer 58*L Assessment/Plan Assessment/Plan Plan 46 yo M with multiple co morbid conditions admitted for altered mental status found to be in DKA Plan DKA in non compliant Insulin Dependent DM - Hypoglycemia overnight, decreased Levemir to 30 qhs, continue to monitor blood sugars - A1c >14.5 - CO2 continues to be low, improving End Stage Liver disease from h/o alcoholism and Hep C: Mental status at baseline - Continue Lactulose Atelectasis: Improved no longer on oxygen - Continue IS and A/A breathing treatments Thrombocytopenia - 2/2 to liver disease, no signs of bleeding at this time, Will continue to monitor Anemia of chronic Dz Left LE swelling: Improving Reducible Umbilical Hernia Social Work: Patient states that he is getting apartment on October 05 in [place], Patient would likely benefit from care as he struggles to take medications appropriately Diagnosis/Problems: Clinical Quality Measures DVT/VTE Risk/Contraindication: Risk Factor Score Per Nursin RFS Level Per Nursing on Admit: 2=Moderate BJ RODRIGUEZ MD Sep 30, 2016 11:27
[2016-09-30] MEDS: traZODone 50 MG (DESYREL) TAB PO SCH (20:52)
[2016-09-30] MEDS ORDERED: inSUlin DETERMIR 1 UNIT/0.01 ML (LEVEMIR) CHARGE PER UNIT SQ SCH (21:00)
[2016-10-01] VITALS: BP 144/80
[2016-10-01] MEDS: RT-ALBUTEROL SULF 2.5 MG/3 ML PRE-MIX VIAL IH SCH ×3 (01:44→11:03)
[2016-10-01 04:00] VITALS: BP 137/74
[2016-10-01 05:10] LABS: BASOPHILS % (AUTO) 0 % (0-10); EOSINOPHILS # (AUTO) 0.1 10^3/uL (0.0-0.3); EOSINOPHILS % (AUTO) 2 % (0-10); LYMPHOCYTES # (AUTO) 0.7 X 10^3 (1.0-4.0); LYMPHOCYTES % (AUTO) 14 % (12-44); MEAN CORPUSCULAR HEMOGLOBIN 29 PG (25-34); MEAN CORPUSCULAR HGB CONC 33 G/DL (32-36); MEAN CORPUSCULAR VOLUME 88 FL (80-99); MEAN PLATELET VOLUME 10.7 FL (7.4-10.4); MONOCYTES # (AUTO) 0.5 X 10^3 (0.0-1.0); MONOCYTES % (AUTO) 10 % (0-12); NEUTROPHILS # (AUTO) 3.5 X 10^3 (1.8-7.8); NEUTROPHILS % (AUTO) 75 % (42-75); RED BLOOD COUNT 2.75 10^6/uL (4.35-5.85); RED CELL DISTRIBUTION WIDTH 16.9 % (10.0-14.5); WHITE BLOOD COUNT 4.7 10^3/uL (4.3-11.0)
[2016-10-01 05:23] LABS: PLATELET COUNT 38 10^3/uL (130-400)
[2016-10-01 05:29] LABS: ANION GAP 5 MMOL/L (5-14); BLOOD UREA NITROGEN 14 MG/DL (7-18); BUN/CREATININE RATIO 13; CALCIUM 7.2 MG/DL (8.5-10.1); CARBON DIOXIDE 18 MMOL/L (21-32); CHLORIDE 112 MMOL/L (98-107); CREATININE SERUM 1.06 MG/DL (0.60-1.30); GFR ESTIMATED > 60; POTASSIUM 3.9 MMOL/L (3.6-5.0); SODIUM 135 MMOL/L (135-145)
[2016-10-01 05:33] LABS: GLUCOSE 53 MG/DL (70-105)
[2016-10-01] MEDS: LACTULOSE SYRUP 10GM/15ML (ENULOSE) 30ML UDC PO SCH (06:00)
[2016-10-01] MEDS: PANTOPRAZOLE 40 MG (PROTONIX) TAB PO SCH (06:00)
[2016-10-01] MEDS: inSUlin ASPART (NovoLOG) 1 UNIT/0.01 ML (CHARGE PER UNIT) SC SCH ×2 (06:00→11:00)
[2016-10-01 08:25] VITALS: BP 130/72
[2016-10-01] MEDS: FOLIC ACID 1 MG TAB PO SCH (08:37)
[2016-10-01] MEDS: amLODIPine 5 MG (NORVASC) TAB PO SCH (08:37)
[2016-10-01] MEDS: PREGABALIN 75 MG (LYRICA) CAP PO SCH (08:38)
--- NOTE | 2016-10-01 15:33 | Discharge Summary ---
Diagnosis/Chief Complaint Date of Admission Sep 25, 2016 at 15:50 Date of Discharge Oct 01, 2016 at 12:55 Admission Diagnosis Admission Diagnosis DKA Uncontrolled Insulin Dependent DM End Stage Liver Disease 2/2 Alcohol and Hep C Thrombocytopenia 2/2 liver Dz Umbilical Hernia Discharge Diagnosis Same as above Chief Complaint/HPI Chief Complaint/HPI Admitted from ER by Dr Villa with blood sugars 1200. Discharge Summary-Simple/Stand Consultations Discharge Physical Examination Allergies: Coded Allergies: Penicillins (Verified Allergy, Severe, EDEMA, SOA, 03/21/16) clindamycin (Verified Allergy, Unknown, 03/21/16) olanzapine (Verified Allergy, Unknown, 03/21/16) quetiapine (Verified Allergy, Unknown, 03/21/16) Vitals & I&Os Vital Sign - Last 12Hours Date Time Temp Pulse Resp B/P (MAP) Pulse Ox O2 Delivery O2 Flow Rate FiO2 10/01/16 11:03 92 10/01/16 09:00 Nasal Cannula 3.00 10/01/16 08:25 99.3 111 12 130/72 Intake and Output 10/01/16 00:00 Intake Total 1690 ml Output Total 650 ml Balance 1040 ml General Appearance: Alert, Oriented X3, No Acute Distress Respiratory: Clear to Auscultation, Normal Air Movement Cardiovascular: Regular Rate, No Murmurs Abdominal: Soft, Other (+ hepatomegaly, diffuse abdominal tenderness to palpation) Extremities: Other Neuro: Normal Speech, Cranial Nerves 3-12 NL Hospital Course See final discharge diagnosis. Discussion & Recommendations 46 yo chronically ill male that was admitted in [facility]. Labs and blood sugars improving throughout the admission. Insulin need was decreased from what he was previously on because of hypoglycemia during admission. Discussed the importance of discharge plans with patient. [facility] but then spoke with his brother who came to the hospital to get him. Seems that patient is very focused on the facility taking his money. Patient is unable to care for himself on his own. Discharge Condition at discharge Left AMA Instructions to patient/family Please see electonic discharge instructions given to patient. Discharge Medications Reviewed and agree with Discharge Medication list on patient's Discharge Instruction sheet Clinical Quality Measures DVT/VTE Risk/Contraindication: Risk Factor Score Per Nursin RFS Level Per Nursing on Admit: 2=Moderate Copy Copies To 1: Sharif DALE HOLLY R MD Oct 01, 2016 15:33
[2016-10-01] MEDS ORDERED: inSUlin DETERMIR 1 UNIT/0.01 ML (LEVEMIR) CHARGE PER UNIT SQ SCH (21:00)
== END 2016-10-01 12:55 | disposition left against medical advice (07) | DRG 638 ==
LOC: EDUNIT# 14:15 → ER 14:17 → ICU 15:50 → 4TH 09-29 11:45
PROVIDERS: ADMIT Internal Medicine; ATTEND Internal Medicine
DX: E10.10 Type 1 diabetes mellitus with ketoacidosis without coma (principal); K70.30 Alcoholic cirrhosis of liver without ascites; B19.20 Unspecified viral hepatitis C without hepatic coma; J98.11 Atelectasis; D69.6 Thrombocytopenia, unspecified; I25.10 Atherosclerotic heart disease of native coronary artery without angina pectoris; I10 Essential (primary) hypertension; D63.8 Anemia in other chronic diseases classified elsewhere; M79.89 Other specified soft tissue disorders; F17.210 Nicotine dependence, cigarettes, uncomplicated; K42.9 Umbilical hernia without obstruction or gangrene; Z79.4 Long term (current) use of insulin; Z91.19 Patient's noncompliance with other medical treatment and regimen
CPT/HCPCS: 36415; 71010; 80048; 80053; 80320; 81000; 82140; 82805; 82947; 82962; 83036; 83690; 83735; 84100; 85014; 85018; 85025; 85027; 94640; 94664; 94760; 96361; 96365

== ENCOUNTER 2016-11-16 08:08 | Emergency (ER) | payer MEDICAID ==
[~2016-11-16] VITALS: Ht 193 cm; Wt 92.1 kg
[~2016-11-16 08:08] MED LIST changes: +BUSP15TA60 PO; +TRAZ100T92 PO
[2016-11-16 08:19] VITALS: BP 148/85
[2016-11-16] MEDS ORDERED: NS IV 1000 ML 1,000 ML IV ONE (08:26)
[2016-11-16] MEDS ORDERED: fentaNYL INJECTION 100 MCG/2 ML AMP IVP STA (08:44)
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
[2016-11-16 08:49] LABS: BASOPHILS % (AUTO) 1 % (0-10); EOSINOPHILS # (AUTO) 0.2 10^3/uL (0.0-0.3); EOSINOPHILS % (AUTO) 4 % (0-10); LYMPHOCYTES % (AUTO) 20 % (12-44); MEAN CORPUSCULAR HEMOGLOBIN 28 PG (25-34); MEAN CORPUSCULAR HGB CONC 33 G/DL (32-36); MEAN CORPUSCULAR VOLUME 85 FL (80-99); MEAN PLATELET VOLUME 10.4 FL (7.4-10.4); MONOCYTES # (AUTO) 0.3 X 10^3 (0.0-1.0); MONOCYTES % (AUTO) 6 % (0-12); NEUTROPHILS # (AUTO) 3.6 X 10^3 (1.8-7.8); NEUTROPHILS % (AUTO) 70 % (42-75); PLATELET COUNT 78 10^3/uL (130-400); RED BLOOD COUNT 3.14 10^6/uL (4.35-5.85); RED CELL DISTRIBUTION WIDTH 17.7 % (10.0-14.5); WHITE BLOOD COUNT 5.1 10^3/uL (4.3-11.0)
[2016-11-16 09:07] LABS: ALANINE AMINOTRANSFERASE 20 U/L (0-55); ALBUMIN 2.5 G/DL (3.2-4.5); ANION GAP 5 MMOL/L (5-14); ASPARTATE AMINO TRANSFERASE 36 U/L (5-34); BILIRUBIN,TOTAL 1.4 MG/DL (0.1-1.0); BLOOD UREA NITROGEN 16 MG/DL (7-18); BUN/CREATININE RATIO 15; CALCIUM 7.7 MG/DL (8.5-10.1); CARBON DIOXIDE 18 MMOL/L (21-32); CHLORIDE 115 MMOL/L (98-107); CREATININE SERUM 1.07 MG/DL (0.60-1.30); GFR ESTIMATED > 60; GLUCOSE 122 MG/DL (70-105); POTASSIUM 3.6 MMOL/L (3.6-5.0); SODIUM 138 MMOL/L (135-145); TOTAL PROTEIN 6.8 G/DL (6.4-8.2); hs C REACTIVE PROTEIN 0.32 MG/DL (0.00-0.50)
[2016-11-16] MEDS ORDERED: cefTRIAXone INJECTION 1,000 MG in NS (IVPB) 50 ML IV ONE (09:30)
[2016-11-16] MEDS ORDERED: LEVOFLOXACIN 500 MG TAB (LEVAQUIN) PO STA (09:30)
[2016-11-16] MEDS ORDERED: SULF-222 PO (10:00)
[2016-11-16] MEDS ORDERED: LEVO500T80 PO (10:00)
== END 2016-11-16 10:20 | disposition home or self-care (01) ==
LOC: EDUNIT# 08:08 → ER 08:10
DX: E11.621 Type 2 diabetes mellitus with foot ulcer (principal); L97.512 Non-pressure chronic ulcer of other part of right foot with fat layer exposed; J44.9 Chronic obstructive pulmonary disease, unspecified; I25.10 Atherosclerotic heart disease of native coronary artery without angina pectoris; F17.210 Nicotine dependence, cigarettes, uncomplicated; Z79.4 Long term (current) use of insulin; Z79.899 Other long term (current) drug therapy
CPT/HCPCS: 36415; 80053; 83605; 85025; 86141; 87040; 87070; 87205; 96361; 96365; 96375

== ENCOUNTER 2016-12-23 03:05 | Observation (INO) | payer MEDICAID ==
[~2016-12-23 03:05] MED LIST changes: +LEVO500T80 PO; +SULF-222 PO
[2016-12-23] MEDS ORDERED: NS IV 1000 ML 1,000 ML IV ONE (03:27)
[2016-12-23] MEDS ORDERED: inSUlin (REGULAR) HUMAN 1 UNIT/0.01 ML (CHARGE PER UNIT) IV ONE ×2 (03:30→04:15)
[2016-12-23] MEDS ORDERED: NS W/KCL 20 MEQ/L 1,000 ML IV SCH (04:15)
[2016-12-23] MEDS ORDERED: NS W/KCL 40 MEQ/L 1,000 ML IV ONE ×2 (05:14→06:00)
[2016-12-23] MEDS: inSUlin (REGULAR) HUMAN 1 UNIT/0.01 ML (CHARGE PER UNIT) SC SCH ×3 (06:28→12:22)
[2016-12-23] MEDS ORDERED: CATHETER FLUSH 10 ML SYR IV PRN (06:30)
[2016-12-23] MEDS ORDERED: LACTULOSE SYRUP 10GM/15ML (ENULOSE) 30ML UDC PO ONE (06:30)
[2016-12-23] MEDS ORDERED: inSUlin (REGULAR) HUMAN 1 UNIT/0.01 ML (CHARGE PER UNIT) SC SCH ×2 (07:00→08:00)
[2016-12-23] MEDS: LACTULOSE SYRUP 10GM/15ML (ENULOSE) 30ML UDC PO SCH ×3 (08:29→21:34)
[2016-12-23] MEDS ORDERED: FLUT16SP22 NS (08:51)
[2016-12-23] MEDS ORDERED: FAMO20TA5 PO (08:51)
[2016-12-23] MEDS ORDERED: FURO40TA4 PO (08:51)
[2016-12-23] MEDS ORDERED: POTA10CA43 PO (08:51)
[2016-12-23] MEDS ORDERED: RT-ALBUINH INH (08:51)
[2016-12-23] MEDS ORDERED: CETI10TA17 PO (08:51)
[2016-12-23] MEDS ORDERED: NS IV 500 ML 500 ML IV SCH (12:15)
[2016-12-23] MEDS: POTASSIUM CL 10MEQ/50ML IVPB 50 ML IV SCH ×4 (12:22→16:06)
[2016-12-23] MEDS: MAGNESIUM 1 GM/100 ML IVPB 100 ML IV SCH ×2 (12:35→13:52)
[2016-12-23] MEDS: CATHETER FLUSH 10 ML SYR IV SCH ×2 (14:49→22:05)
[2016-12-23] MEDS: inSUlin ASPART (NovoLOG) 1 UNIT/0.01 ML (CHARGE PER UNIT) SC SCH ×2 (16:51→21:35)
[2016-12-23] MEDS: MAGNESIUM OXIDE (MAG-OX)400 MG TAB PO SCH (17:58)
[2016-12-23] MEDS ORDERED: ENOXAPARIN 40 MG/0.4 ML (LOVENOX) SYR SC SCH (20:00)
[2016-12-23] MEDS ORDERED: inSUlin DETERMIR 1 UNIT/0.01 ML (LEVEMIR) CHARGE PER UNIT SQ SCH (21:00)
[2016-12-23] MEDS: FAMOTIDINE 20 MG (PEPCID) TABLET PO SCH (21:36)
[2016-12-24] MEDS: inSUlin ASPART (NovoLOG) 1 UNIT/0.01 ML (CHARGE PER UNIT) SC SCH ×3 (06:25→16:15)
[2016-12-24] MEDS: CATHETER FLUSH 10 ML SYR IV SCH ×2 (06:43→14:27)
[2016-12-24] MEDS ORDERED: THERAPEUTIC MULTIVITAMINS LIQUID 5 ML UDC PO SCH (07:00)
[2016-12-24] MEDS ORDERED: THIAMINE 100 MG (VITAMIN B-1) TAB PO SCH (07:00)
[2016-12-24] MEDS: FAMOTIDINE 20 MG (PEPCID) TABLET PO SCH (08:57)
[2016-12-24] MEDS: MAGNESIUM OXIDE (MAG-OX)400 MG TAB PO SCH ×2 (08:57→17:08)
[2016-12-24] MEDS: LACTULOSE SYRUP 10GM/15ML (ENULOSE) 30ML UDC PO SCH ×2 (08:57→13:05)
[2016-12-24] MEDS ORDERED: FUROSEMIDE 40 MG (LASIX) TAB PO SCH (09:00)
[2016-12-24] MEDS ORDERED: FOLIC ACID 1 MG TAB PO SCH ×2 (09:00)
[2016-12-24] MEDS ORDERED: KCL 20 MEQ TAB (K-DUR) PO NR (09:45)
[2016-12-24] MEDS ORDERED: ACETAMINOPHEN 500 MG TAB (TYLENOL) PO PRN (09:45)
[2016-12-24] MEDS ORDERED: inSUlin ASPART (NovoLOG) 1 UNIT/0.01 ML (CHARGE PER UNIT) SC ONE (16:15)
== END 2016-12-24 11:32 | disposition home or self-care (01) ==
DX: E11.65 Type 2 diabetes mellitus with hyperglycemia (principal); E87.6 Hypokalemia; E72.20 Disorder of urea cycle metabolism, unspecified; N28.9 Disorder of kidney and ureter, unspecified; R31.9 Hematuria, unspecified; R10.13 Epigastric pain; F20.9 Schizophrenia, unspecified; K74.60 Unspecified cirrhosis of liver; I10 Essential (primary) hypertension; J44.9 Chronic obstructive pulmonary disease, unspecified; Z79.4 Long term (current) use of insulin; Z91.14 Patient's other noncompliance with medication regimen

== ENCOUNTER 2017-01-06 14:37 | Emergency (ER) | payer MEDICAID ==
[~2017-01-06] VITALS: Ht 182.9 cm; Wt 90.7 kg
[~2017-01-06 14:37] MED LIST changes: +FLUT16SP22 NS; +FURO40TA4 PO; +POTA10CA43 PO
[2017-01-06 14:48] VITALS: BP 141/98
[2017-01-06] MEDS ORDERED: HYDROcodone/APAP 5 MG/325 MG (LORTAB) TAB PO STA (15:14)
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
[2017-01-06 15:38] LABS: BASOPHILS % (AUTO) 1 % (0-10); EOSINOPHILS # (AUTO) 0.1 10^3/uL (0.0-0.3); EOSINOPHILS % (AUTO) 2 % (0-10); LYMPHOCYTES # (AUTO) 0.9 X 10^3 (1.0-4.0); LYMPHOCYTES % (AUTO) 16 % (12-44); MEAN CORPUSCULAR HEMOGLOBIN 27 PG (25-34); MEAN CORPUSCULAR HGB CONC 35 G/DL (32-36); MEAN CORPUSCULAR VOLUME 79 FL (80-99); MEAN PLATELET VOLUME 10.9 FL (7.4-10.4); MONOCYTES # (AUTO) 0.1 X 10^3 (0.0-1.0); MONOCYTES % (AUTO) 2 % (0-12); NEUTROPHILS # (AUTO) 4.5 X 10^3 (1.8-7.8); NEUTROPHILS % (AUTO) 79 % (42-75); PLATELET COUNT 54 10^3/uL (130-400); RED BLOOD COUNT 3.96 10^6/uL (4.35-5.85); RED CELL DISTRIBUTION WIDTH 15.5 % (10.0-14.5); WHITE BLOOD COUNT 5.7 10^3/uL (4.3-11.0)
[2017-01-06 15:38] LABS: BILIRUBIN,URINE NEGATIVE (NEGATIVE); KETONES,URINE NEGATIVE (NEGATIVE); LEUKOCYTE ESTERASE ,URINE NEGATIVE (NEGATIVE); NITRITE,URINE NEGATIVE (NEGATIVE); PH,URINE 6 (5-9); PROTEIN,URINE 1+ (NEGATIVE); UROBILINOGEN,URINE 4 MG/DL (NORMAL)
[2017-01-06 15:55] LABS: ALBUMIN 2.9 GM/DL (3.2-4.5); BILIRUBIN,TOTAL 2.6 MG/DL (0.1-1.0); CALCIUM 8.8 MG/DL (8.5-10.1); CREATININE SERUM 1.34 MG/DL (0.60-1.30); POTASSIUM 3.1 MMOL/L (3.6-5.0); TOTAL PROTEIN 7.6 GM/DL (6.4-8.2)
[2017-01-06 15:58] LABS: WBC,URINE RARE /HPF
--- NOTE | 2017-01-06 16:09 | Diagnostic Imaging Report ---
PROCEDURE: CT lumbar spine without contrast. TECHNIQUE: Multiple contiguous axial images were obtained through the lumbar spine without the use of intravenous contrast. Sagittal and coronal reformations were then performed. INDICATION: Low back pain. FINDINGS: There is a relatively short pedicle shortening the AP dimension of the spinal canal and foramina in this patient on a congenital basis, not to the degree of congenital spinal canal stenosis, however. There is a grade 1 retrolisthesis of L5 over S1. The vertebral body heights are preserved. Disc heights are also preserved. Anterior osteophytes at the lumbar spine, however, are seen mostly around the mid lumbar spine levels. There is no pars defect or fracture seen. At L3/L4 level, there is suggestion of a diffuse disc bulge and there are small posterior osteophytes. This appears to result in mild spinal canal stenosis. There is generally mild to moderate facet and ligamentum flavum hypertrophy. There is bilateral mild to moderate foraminal stenosis at L5/S1. The other foramina are patent. IMPRESSION: Grade 1 retrolisthesis of L5 over S1. There are relatively mild degenerative changes overall with suggestion of spinal canal stenosis at L3/L4 and bilateral neuroforaminal stenosis at L5/S1. These findings can be better evaluated with MRI of the lumbar spine if needed. Dictated by: Dictated on workstation # [id number]
[2017-01-06] MEDS ORDERED: inSUlin (REGULAR) HUMAN 1 UNIT/0.01 ML (CHARGE PER UNIT) SC STA (16:12)
[2017-01-06] MEDS ORDERED: NS IV 1000 ML 1,000 ML IV ONE (16:12)
--- OUTSIDE RECORDS SUMMARY | 2017-01-06 18:25 | XMS REPORT | Continuity of Care Document ---
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 Diabetes mellitus (disorder) 08/23/2015 Diagnosis 2015 [facility], [facility]. Alcoholism (disorder) 2015 Diagnosis 08/27/2015 [facility] Alcoholic cirrhosis (disorder) 08/23/2015 Diagnosis 08/27 [facility] Epidermoid cyst of skin (disorder) 08/23/2015 Diagnosis 08/27/2015 [facility] Hypersplenism (disorder) Diagnosis 08/27/2015 [facility] Chest pain (finding) 2015 Diagnosis 07/23/2015 [facility], [facility]. Paranoid schizophrenia (disorder) 06/19/2015 Diagnosis [facility], [facility] Atrial flutter (disorder) Diagnosis 06/23/2015 [facility] Intentional drug overdose (disorder) 06/11/2015 Diagnosis 06/15/2015 [facility], [facility]. Supraventricular tachycardia (disorder) 06/04/2015 Diagnosis 06/15/2015 [facility], [facility]. Hepatic encephalopathy (disorder) 06/04/2015 Diagnosis [facility], [facility]. Acute renal failure syndrome (disorder) 06/03/2015 Diagnosis 06/15/2015 [facility] Gastroesophageal reflux disease (disorder) 05/29/2015 Diagnosis 06/02/2015 [facility] Hypertensive disorder, systemic arterial (disorder) 05/29/2015 Diagnosis 06/02/2015 [facility] Other abnormal glucose 02/28 Diagnosis 03/04/2015 [facility] Hepatic coma 02/28/2015 Diagnosis 03/04/2015 [facility] Alcoholic cirrhosis of liver 02/28/2015 Diagnosis 2014 [facility] Other anxiety states 2014 Diagnosis 03/04/2015 [facility] Unspecified essential hypertension 02/28/2015 Diagnosis 03/04/2015 [facility] Diabetes mellitus without mention of complication, type II or unspecified type , not stated as uncontrolled 02/28/2015 Diagnosis 2014 [facility] Other and unspecified alcohol dependence, unspecified drinking behavior 02/28/2015 Diagnosis 03/04/2015 [facility] Traumatic arthropathy involving ankle and foot 02/07/2015 Diagnosis 02/11/2015 [facility] Diabetes mellitus with neurological manifestations, type II or unspecified type , not stated as uncontrolled 02/07/2015 Diagnosis 2014 [facility] Other secondary thrombocytopenia 11/21/2014 Diagnosis [facility] Contusion of chest wall Diagnosis 11/25/2014 [facility] Esophageal reflux 2014 Diagnosis 10/15/2014 [facility] Unspecified fall 10/11/2014 Diagnosis 10/15/2014 [facility] Bimalleolar fracture, closed 10/11/2014 Diagnosis 2014 [facility] Thrombocytopenia, unspecified 05/24/2014 Diagnosis 2013 [facility] Esophageal varices without mention of bleeding 02/16/2014 Diagnosis 02/20/2014 [facility], [facility], [facility]. Esophageal reflux 2013 Diagnosis 02/20/2014 [facility] Unspecified essential hypertension 02/16/2014 Diagnosis 02/20/2014 [facility] Attention deficit disorder of childhood with hyperactivity 02/16/2014 Diagnosis 02/20/2014 [facility] Alcoholic cirrhosis of liver 02/16/2014 Diagnosis 2013 [facility] Abdominal pain, unspecified site 01/23/2014 Diagnosis [facility] Cirrhosis of liver without mention of alcohol 01/02/2014 Diagnosis 01/06/2014 [facility] Acute upper respiratory infections of unspecified site 01/02/2014 Diagnosis 01/06/2014 [facility] Hepatic coma 12/22/2013 Diagnosis 12/26/2013 [facility] Paranoid type schizophrenia, unspecified state 11/20/2013 Diagnosis 11/24/2013 [facility] Traumatic arthropathy-ankle (disorder) Active 04/23/2011 Problem 09/15/2016 [facility] Traumatic arthropathy-ankle (disorder) Active 04/23/2011 Problem 07/19/2015 [facility] 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) Active 04/23/2011 Problem 10/06/2013 [facility] 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 04/23/2011 Problem 07/09/2013 [facility], [facility] Attention deficit hyperactivity disorder (disorder) Active Problem 09/15/2016 [facility], [facility] Alcoholic cirrhosis (disorder) Active Problem 09/15/2016 [facility], [facility] Alcoholism (disorder) Active Problem 09/15/2016 [place] [facility], [facility], [facility] Fracture of ankle (disorder) Active Problem 09/15/2016 [facility], [facility] Mixed anxiety and depressive disorder (disorder) Active Problem 09/15/2016 [facility], [facility] Atrial flutter (disorder) Active Problem 09/15/2016 [facility] AV cathy re-entry tachycardia (disorder) Active Problem 09/15/2016 [facility] 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) Active Problem 09/15/2016 [facility] Diabetes mellitus (disorder) Active Problem 09/15/2016 [facility], [facility] Gastroesophageal reflux disease (disorder) Active Problem 09/15/2016 [facility], [facility] Hepatic coma (disorder) Active Problem 09/15/2016 [facility], [facility] Hypertensive disorder, systemic arterial (disorder) Active Problem 09/15/2016 [facility], [facility], [facility] Paranoid schizophrenia (disorder) Active Problem 2016 [facility], [facility], [facility], [facility] Supraventricular tachycardia (disorder) Active Problem [facility], [facility], [facility], [facility] Cirrhosis - non-alcoholic (disorder) Active Problem 09/19 [facility], [facility] Medications Medication Details Route Status Patient Instructions Ordering Provider Order Date Source No Known Medications No known medications Active [facility] Pneumovax 23 0.5 mL, SOLN, IM, ONCE, 02/12/12 12:00:00 , Stop date 02/12/12 12:00:00Provide patient/caregiver the vaccine information statement and document version date on eMAR. Record the lot number and transportation equipment painter below. Manuf: Lot Number: Exp Date: Inactive [facility] influenza virus vaccine, inactivated adult 0.5 mL, Suspension, IM, ONCE, Start Date: 07/03/13 12:00:00, Stop Date: 07/03/13 12:00: 00Provide patient/caregiver the vaccine information statement and document version date on eMAR. Record the lot number and transportation equipment painter below. Manuf: ____ Lot Number: Exp Date: Inactive [facility]. Allergies, Adverse Reactions, Alerts Substance Category Reaction Severity Reaction type Status Date Reported Comments Source penicillins Assertion "can't breathe" [facility], [facility], [facility] penicillins drug allergy "can 't breathe" Allergy Active [facility], [facility] penicillin drug allergy "can' t breathe" Allergy Active [facility], [facility], [facility] Immunizations Immunization Date Given Site Status Last Updated Comments Source influenza virus vaccine 07/19/2015 Not Given [facility] influenza virus vaccine 06/02/2015 Left Deltoid influenza virus vaccine [facility] influenza virus vaccine 07/05/2013 Left Deltoid influenza virus vaccine [facility], [facility], [facility], [facility], [facility]. pneumococcal polysaccharide PPV23 02/12/2012 Right Deltoid pneumococcal 23-valent vaccine [facility], [facility], [facility], [facility] pneumococcal 23-valent vaccine 02/12/2012 completed [facility], [facility], [facility] Results Vital Signs Encounters Location Location Details Encounter Type Encounter Number Reason For Visit Attending Provider ADM Date DC Date Status Source [facility] [id number] Inpatient [id number] Max An 02/10/2012 Active [facility]. [facility] [id number] Inpatient [id number] Kings Aguilar 06/20/2012 06/21/2012 Active [facility]. OM [id number] Inpatient [id number] Kings Aguilar 08/01/2012 08/08/2012 Active [facility]. [facility] CD:[id number] Inpatient [id number] Kings Aguilar 12/08/2012 12/09/2012 Active [facility]. GIS CD:[id number] Clinic ( Outpatient) [id number] Sofy Smith 05/03/2013 Active [place] [employer] [facility], [facility] CD:[id number] Clinic ( Outpatient) [id number] Kings Aguilar 06/07/2013 Active [employer] [facility] CD:[id number] Clinic ( Outpatient) [id number] Kings Aguilar 06/14/2013 Active [employer] [facility] CD:[id number] Clinic ( Outpatient) [id number] Kings Aguilar 06/21/2013 Active [employer] [facility] CD:[id number] Inpatient [id number] Kings Aguilar 07/02/2013 07/05/2013 Active [employer]. [facility] CD:[id number] Clinic ( Outpatient) [id number] Kings Aguilar 07/13/2013 Active [employer] [facility] CD:[id number] Clinic ( Outpatient) [id number] Kings Aguilar 07/27/2013 Active [employer] [facility] CD:[id number] Inpatient [id number] Kings Aguilar 09/11/2013 09/15/2013 Active [employer] AFCOL CD:[id number] Clinic ( Outpatient) [id number] Kings Aguilar 09/20/2013 Active [employer] [facility] CD:[id number] Clinic ( Outpatient) [id number] Kings Aguilar 10/02/2013 Active [employer] [facility] Cancel/No Show [id number] Kings Aguilar 10/02/2013 10/02/2013 [facility] CD:[id number] Clinic ( Outpatient) [id number] Sofy Smith 11/01/2013 Active [employer] [facility] CD:[id number] Clinic ( Outpatient) [id number] Kings Aguilar 11/06/2013 Active [employer] [facility] CD:[id number] Clinic ( Outpatient) [id number] Kings Aguilar 11/10/2013 Active [employer] [facility] [id number] Kings Aguilar 11/10/2013 11/10/2013 [facility] [id number] Kings Aguilar 11/20/2013 11/21/2013 [place] [facility] [place] [facility] Cancel/No Show [id number] Kings Aguilar 12/18/2013 12/18/2013 [employer] [facility] [place] [facility] CD:[id number] Clinic ( Outpatient) [id number] 12/22/2013 Active [facility] [place] [facility] [id number] Kings Aguilar 12/22/2013 12/23/2013 [facility] [place] [facility] [id number] Zoran Mara 01/02/2014 01/03/2014 [facility] [place] GIS CD:[id number] Clinic ( Outpatient) [id number] Sofy Luis 01/04/2014 Active [facility], [facility] [id number] [facility] 01/04/201410/2013 [facility] CD:[id number] Outpatient [id number] Moody Luis 01/23/2014 01/23/2014 Active [facility], [facility]. [facility] CD:[id number] Emergency [id number] DENISE NOBLE 01/23/2014 01/23/2014 Active [facility]. [facility] CD:[id number] Outpatient [id number] Sofy Luis 01/26/2014 01/26/2014 Active [facility] [id number] Knigs Aguilar 02/16/2014 02/17/2014 [facility] [place] [facility] Cancel/No Show [id number] Halie Dacosta 02/19/2014 02/19/2014 [facility] CD:[id number] Emergency [id number] Kings Arredondo 03/29/2014 Active [facility], [facility]. [facility] [place] [facility] [id number] Kings Aguilar 05/24/2014 [facility] [place] [facility] [place] Cancel/No Show [id number] Kings Aguilar 06/22/2014 06/22/2014 [facility] [place] [facility] [place] [facility] [id number] Kings Aguilar 08/27/2014 [facility] [place] AFC [place] Cancel/No Show [id number] Kings Aguilar 09/24/2014 09/26/2014 [facility] [place] [facility] Cancel/No Show [id number] Halie Dacosta 10/01/2014 10/01/2014 [facility] [place] [facility] [id number] Kings Aguilar 10/11/201404/2015 [facility] [place] [facility] CD:[id number] Emergency [id number] Napoleon Isabel 11/15/2014 11/15/2014 Active [facility] [place] Cancel/No Show [id number] Kings Aguilar 11/19/2014 11/19/2014 [facility] [place] AFC [place] [facility] [id number] Kings Aguilar 11/21/2014 [facility] [place] AFC [place] [facility] [id number] Kings Aguilar 02/07/201501/2015 [facility] [place] AF [place] [facility] [id number] Kings Aguilar 02/28/2015 [facility] [place] [facility] [place] Cancel/No Show [id number] Kings Aguilar 04/17/2015 04/16/2015 [facility] [place] AF [place] [facility] [id number] Kings Aguilar 05/29/2015 [facility] [place] [facility] CD:[id number] Inpatient [id number] Ryan Nolan 06/01/2015 06/11/2015 Active [facility], [facility]. AF [place] [facility] [id number] Kings Aguilar 06/19/2015 [facility] [place] [facility] CD:[id number] Inpatient [id number] Kings Aguilar 07/18/2015 07/19/2015 Active [facility], [facility]. [facility] [place] Cancel/No Show [id number] Kings Aguilar 07/19/2015 07/15/2015 [facility] [place] [facility] CD:[id number] Clinic ( Outpatient) [id number] Kings Aguilar 08/22/2015 Active [facility] [place] [facility] [place] [facility] [id number] Kings Aguilar 08/23/2015 [facility] [place] [facility] CD:[id number] Clinic ( Outpatient) [id number] Valentin Rojas 10/09/2015 Active [facility] [id number] Valentin Rojas 11/04/2015 11/04/2015 [facility] Cancel/No Show [id number] Kings Aguilar 09/1109/11/2016 [facility] Procedures Procedure Code Date Perfomer Comments Source Echocardiography, transthoracic, real-time with image documentation (2D), includes M-mode recording, when performed, complete, with spectral Doppler echocardiography, and with color flow Doppler echocardiography [id number] 07/19/2015 [facility] Typical and Atypical AVNRT and Atrial Flutter Ablation 06/05/2015 [facility]. Echocardiogram, EF 55% 06/03 [facility]. No data available for this section [facility] Esophagogastroduodenoscopy, flexible, transoral; diagnostic, including collection of specimen(s) by brushing or washing, when performed (separate procedure) [id number] [facility]. Plan of Care Social History Assessment and Plan Family History Value Date Source Advance Directives Order Name Results Value Date Source
--- OUTSIDE RECORDS SUMMARY | 2017-01-06 18:25 | XMS REPORT | Continuity of Care Document ---
Author Author [facility] Organization [facility] Address Unknown Phone Unavailable Care Team Providers Care Directional Bore Operator Name Role Phone JeffKings Parrish PCP [phone] Source Comments Some departments are not documenting in the electronic medical record. If you do not see the information that you expected, contact Release of Information in the Health Information Management department at [phone] for further assistance in locating additional records.[facility] Active Allergies and Adverse Reactions Allergen Noted [...] Taken Blood Pressure 155/99 05/23/2014 12:00 PM DESTINATION SPECIALIST Pulse 66 05/22/2014 3:59 PM DESTINATION SPECIALIST Temperature 36.4 C (97.6 F) 05/23/2014 12:00 PM DESTINATION SPECIALIST Respiratory Rate 16 11/01/2012 8:48 AM CDT Height 1.905 m (6' 3") 05/20/2014 6:00 PM DESTINATION SPECIALIST Weight 94.8 kg (208 lb 15.9 oz) 05/21/2014 5:41 AM DESTINATION SPECIALIST Body Mass Index 26.12 05/21/2014 5:41 AM DESTINATION SPECIALIST Oxygen Saturation 96% 05/23/2014 12:00 PM DESTINATION SPECIALIST Plan of Care Health Maintenance Due Date Last Done Comments Physical (Comprehensive) 1979 Exam Pertussis Vaccine 1983 Tetanus Vaccine 1989 Influenza Vaccine 03/05/2017 Results from Last 3 Months Not on file
== END 2017-01-06 16:27 | disposition left against medical advice (07) ==
LOC: EDUNIT# 14:37 → ER 14:40
DX: M54.5 Low back pain (principal); F20.9 Schizophrenia, unspecified; F41.9 Anxiety disorder, unspecified; F32.9 Major depressive disorder, single episode, unspecified; E11.9 Type 2 diabetes mellitus without complications; K21.9 Gastro-esophageal reflux disease without esophagitis; G43.909 Migraine, unspecified, not intractable, without status migrainosus; I25.10 Atherosclerotic heart disease of native coronary artery without angina pectoris; I10 Essential (primary) hypertension; J44.9 Chronic obstructive pulmonary disease, unspecified; R29.6 Repeated falls; G62.9 Polyneuropathy, unspecified; K72.90 Hepatic failure, unspecified without coma; F17.210 Nicotine dependence, cigarettes, uncomplicated; Z91.5 Personal history of self-harm; Z90.49 Acquired absence of other specified parts of digestive tract; Z79.4 Long term (current) use of insulin; Z87.81 Personal history of (healed) traumatic fracture; V03.90XA Pedestrian on foot injured in collision with car, pick-up truck or van, unspecified whether traffic or nontraffic accident, initial encounter
CPT/HCPCS: 36415; 72131; 80053; 80306; 81000; 85025; 96372

== ENCOUNTER 2017-01-15 23:46 | Emergency (ER) | payer MEDICAID ==
[~2017-01-15] VITALS: Ht 182.9 cm; Wt 90.7 kg
--- OUTSIDE RECORDS SUMMARY | 2017-01-15 23:54 | XMS REPORT | Continuity of Care Document ---
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. Diabetes mellitus (disorder) 08/23/2015 Diagnosis 2015 [facility] [place], [facility]. Alcoholism (disorder) 2015 Diagnosis 08/27/2015 [facility] Alcoholic cirrhosis (disorder) 08/23/2015 Diagnosis 08/27 [facility] Epidermoid cyst of skin (disorder) 08/23/2015 Diagnosis 08/27/2015 [facility] Hypersplenism (disorder) Diagnosis 08/27/2015 [facility] Chest pain (finding) 2015 Diagnosis 07/23/2015 [facility], [facility]. Paranoid schizophrenia (disorder) 06/19/2015 Diagnosis [facility], [facility] Atrial flutter (disorder) Diagnosis 06/23/2015 [facility] Intentional drug overdose (disorder) 06/11/2015 Diagnosis 06/15/2015 [facility], [facility]. Supraventricular tachycardia (disorder) 06/04/2015 Diagnosis 06/15/2015 [facility], [facility]. Hepatic encephalopathy (disorder) 06/04/2015 Diagnosis [facility], [facility]. Acute renal failure syndrome (disorder) 06/03/2015 Diagnosis 06/15/2015 [facility] Gastroesophageal reflux disease (disorder) 05/29/2015 Diagnosis 06/02/2015 [facility] Hypertensive disorder, systemic arterial (disorder) 05/29/2015 Diagnosis 06/02/2015 [facility] Other abnormal glucose 02/28 Diagnosis 03/04/2015 [facility] Hepatic coma 02/28/2015 Diagnosis 03/04/2015 [facility] Alcoholic cirrhosis of liver 02/28/2015 Diagnosis 2014 [facility] Other anxiety states 2014 Diagnosis 03/04/2015 [facility] [place] Unspecified essential hypertension 02/28/2015 Diagnosis 03/04/2015 [facility] Diabetes mellitus without mention of complication, type II or unspecified type , not stated as uncontrolled 02/28/2015 Diagnosis 2014 [facility] Other and unspecified alcohol dependence, unspecified drinking behavior 02/28/2015 Diagnosis 03/04/2015 [facility] Traumatic arthropathy involving ankle and foot 02/07/2015 Diagnosis 02/11/2015 [facility] Diabetes mellitus with neurological manifestations, type II or unspecified type , not stated as uncontrolled 02/07/2015 Diagnosis 2014 [facility] Other secondary thrombocytopenia 11/21/2014 Diagnosis [facility] Contusion of chest wall Diagnosis 11/25/2014 [facility] Esophageal reflux 2014 Diagnosis 10/15/2014 [facility] Unspecified fall 10/11/2014 Diagnosis 10/15/2014 [facility] Bimalleolar fracture, closed 10/11/2014 Diagnosis 2014 [facility] [place] Thrombocytopenia, unspecified 05/24/2014 Diagnosis 2013 [facility] [place] Esophageal varices without mention of bleeding 02/16/2014 Diagnosis 02/20/2014 [facility] [place], [facility], [facility]. Esophageal reflux 2013 Diagnosis 02/20/2014 [facility] [place] Unspecified essential hypertension 02/16/2014 Diagnosis 02/20/2014 [facility] Attention deficit disorder of childhood with hyperactivity 02/16/2014 Diagnosis 02/20/2014 [facility] Alcoholic cirrhosis of liver 02/16/2014 Diagnosis 2013 [facility] Abdominal pain, unspecified site 01/23/2014 Diagnosis [facility] Cirrhosis of liver without mention of alcohol 01/02/2014 Diagnosis 01/06/2014 [facility] Acute upper respiratory infections of unspecified site 01/02/2014 Diagnosis 01/06/2014 [facility] Hepatic coma 12/22/2013 Diagnosis 12/26/2013 [facility] Paranoid type schizophrenia, unspecified state 11/20/2013 Diagnosis 11/24/2013 [facility] Traumatic arthropathy-ankle (disorder) Active 04/23/2011 Problem 09/15/2016 [facility] Traumatic arthropathy-ankle (disorder) Active 04/23/2011 Problem 07/19/2015 [facility] 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) Active 04/23/2011 Problem 10/06/2013 [facility] 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 04/23/2011 Problem 07/09/2013 [facility], [facility], [facility] Attention deficit hyperactivity disorder (disorder) Active Problem 09/15/2016 [facility], [facility] Alcoholic cirrhosis (disorder) Active Problem 09/15/2016 [facility], [facility] Alcoholism (disorder) Active Problem 09/15/2016 [facility], [facility], [facility] Fracture of ankle (disorder) Active Problem 09/15/2016 [facility]iology [facility]., [facility], [facility] Mixed anxiety and depressive disorder (disorder) Active Problem 09/15/2016 [facility], [facility] Atrial flutter (disorder) Active Problem 09/15/2016 [facility] AV cathy re-entry tachycardia (disorder) Active Problem 09/15/2016 [facility] 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) Active Problem 09/15/2016 [facility] Diabetes mellitus (disorder) Active Problem 09/15/2016 [facility], [facility] Gastroesophageal reflux disease (disorder) Active Problem 09/15/2016 [facility], [facility] Hepatic coma (disorder) Active Problem 09/15/2016 [facility], [facility] Hypertensive disorder, systemic arterial (disorder) Active Problem 09/15/2016 [facility], [facility], [facility] Paranoid schizophrenia (disorder) Active Problem 2016 [facility], [facility], [facility], [facility] Supraventricular tachycardia (disorder) Active Problem [facility] Cardiology [facility], [facility], [facility], [facility] Cirrhosis - non-alcoholic (disorder) Active Problem 09/19 [facility], [facility], [facility] Medications Medication Details Route Status Patient Instructions Ordering Provider Order Date Source No Known Medications No known medications Active [facility] Pneumovax 23 0.5 mL, SOLN, IM, ONCE, 02/12/12 12:00:00 , Stop date 02/12/12 12:00:00Provide patient/caregiver the vaccine information statement and document version date on eMAR. Record the lot number and senior sharepoint architect below. Manuf: Lot Number: Exp Date: Inactive [facility] influenza virus vaccine, inactivated adult 0.5 mL, Suspension, IM, ONCE, Start Date: 07/03/13 12:00:00, Stop Date: 07/03/13 12:00: 00Provide patient/caregiver the vaccine information statement and document version date on eMAR. Record the lot number and senior sharepoint architect below. Manuf: ____ Lot Number: Exp Date: Inactive [facility]. Allergies, Adverse Reactions, Alerts Substance Category Reaction Severity Reaction type Status Date Reported Comments Source penicillins Assertion "can't breathe" Drug [facility], [facility], [facility] penicillins drug allergy "can 't breathe" Allergy Active [facility], [facility] penicillin drug allergy "can' t breathe" Allergy Active [facility], [facility], [facility] Immunizations Immunization Date Given Site Status Last Updated Comments Source influenza virus vaccine 07/19/2015 Not Given [facility] influenza virus vaccine 06/02/2015 Left Deltoid influenza virus vaccine [facility] influenza virus vaccine 07/05/2013 Left Deltoid influenza virus vaccine [facility], [facility], [facility], [facility], [facility]. pneumococcal polysaccharide PPV23 02/12/2012 Right Deltoid pneumococcal 23-valent vaccine [facility], [facility], [facility], [facility] pneumococcal 23-valent vaccine 02/12/2012 completed [facility], [facility], [facility] Results Vital Signs Encounters Location Location Details Encounter Type Encounter Number Reason For Visit Attending Provider ADM Date DC Date Status Source [facility] [id number] Inpatient [id number] Max An 02/10/2012 Active [facility]. [facility] [id number] Inpatient [id number] Kings Aguilar 06/20/2012 06/21/2012 Active [facility]. OM CD:[id number] Inpatient [id number] Kings Aguilar 08/01/2012 08/08/2012 Active [facility]. [facility] CD:[id number] Inpatient [id number] Kings Aguilar 12/08/2012 12/09/2012 Active [facility]. [facility] [id number] Clinic ( Outpatient) [id number] Sofy Smith 05/03/2013 Active [facility], [facility] CD:[id number] Clinic ( Outpatient) [id number] Kings Aguilar 06/07/2013 Active [facility] CD:[id number] Clinic ( Outpatient) [id number] Kings Aguilar 06/14/2013 Active [facility] CD:[id number] Clinic ( Outpatient) [id number] Kings Aguilar 06/21/2013 Active [facility] CD:[id number] Inpatient [id number] Kings Aguilar 07/02/2013 07/05/2013 Active [facility]. [facility] CD:[id number] Clinic ( Outpatient) [id number] Kings Aguilar 07/13/2013 Active [facility] CD:[id number] Clinic ( Outpatient) [id number] Kings Aguilar 07/27/2013 Active [facility] CD:[id number] Inpatient [id number] Kings Aguilar 09/11/2013 09/15/2013 Active [facility] [email or web address]. AFC[facility] CD:[id number] Clinic ( Outpatient) [id number] Kings Aguilar 09/20/2013 Active [facility] CD:[id number] Clinic ( Outpatient) [id number] Kings Aguilar 10/02/2013 Active [facility] Cancel/No Show [id number] Kings Aguilar 10/02/2013 10/02/2013 [facility] CD:[id number] Clinic ( Outpatient) [id number] Sofy Smith 11/01/2013 Active [facility] CD:[id number] Clinic ( Outpatient) [id number] Kings Aguilar 11/06/2013 Active [facility] CD:[id number] Clinic ( Outpatient) [id number] Kings Aguilar 11/10/2013 Active [facility] [id number] Kings Aguilar 11/10/2013 11/10/2013 [facility] [place] [id number] Kings Aguilar 11/20/2013 11/21/2013 [facility] [place] [facility] Cancel/No Show [id number] Kings Aguilar 12/18/2013 12/18/2013 [facility] [place] [facility] CD:[id number] Clinic ( Outpatient) [id number] 12/22/2013 Active [facility] [place] [facility] [id number] Kings Aguilar 12/22/2013 12/23/2013 [facility] [place] [facility] [id number] Zoran Mara 01/02/2014 01/03/2014 [facility] [place] GIS CD:[id number] Clinic ( Outpatient) [id number] Sofy Luis 01/04/2014 Active [facility], [facility] [id number] [facility] 01/04/201410/2013 [facility] CD:[id number] Outpatient [id number] [place] Luis 01/23/2014 01/23/2014 Active [facility], [facility]. [facility] CD:[id number] Emergency [id number] DENISE NOBLE 01/23/2014 01/23/2014 Active [facility]. [facility] CD:[id number] Outpatient [id number] Sofy Luis 01/26/2014 01/26/2014 Active [facility]. [facility] [id number] Kings Aguilar 02/16/2014 02/17/2014 [facility] [place] [facility] Cancel/No Show [id number] Halie Dacosta 02/19/2014 02/19/2014 [facility] CD:[id number] Emergency [id number] Kings Arredondo 03/29/2014 Active [facility], [facility]. [facility] [id number] Kings Aguilar 05/24/2014 [facility] [place] [facility] Cancel/No Show [id number] [employer] Aguilar 06/22/2014 06/22/2014 [facility] [place] [facility] [id number] Kings Aguilar 08/27/2014 [facility] [place] [facility] Cancel/No Show [id number] Kings Aguilar 09/24/2014 09/26/2014 [facility] [place] [facility] Cancel/No Show [id number] Halie Dacosta 10/01/2014 10/01/2014 [facility] [id number] Kings Aguilar 10/11/201404/2015 [facility] [place] [facility] CD:[id number] Emergency [id number] Napoleon Isabel 11/15/2014 11/15/2014 Active [facility] Cancel/No Show [id number] Kings Aguilar 11/19/2014 11/19/2014 [facility] [place] [facility] [id number] Kings Aguilar 11/21/2014 [facility] [place] [facility] [id number] Kings Aguilar 02/07/201501/2015 [facility] [place] [facility] [id number] Kings Aguilar 02/28/2015 [facility] [place] [employer] [facility] Cancel/No Show [id number] Kings Aguilar 04/17/2015 04/16/2015 [facility] [place] [facility] [id number] Kings Aguilar 05/29/2015 [facility] [place] [facility] CD:[id number] Inpatient [id number] Ryan Nolan 06/01/2015 06/11/2015 Active [facility], [facility]. [facility] [id number] Kings Aguilar 06/19/2015 [facility] [place] [facility] CD:[id number] Inpatient [id number] Kings Aguilar 07/18/2015 07/19/2015 Active [facility], [facility]. [facility] Cancel/No Show [id number] Kings Aguilar 07/19/2015 07/15/2015 [facility] [place] [facility] CD:[id number] Clinic ( Outpatient) [id number] Kings Aguilar 08/22/2015 Active [facility] [place] [facility] [id number] Kings Aguilar 08/23/2015 [facility] [place] CSOL CD:[id number] Clinic ( Outpatient) [id number] Valentin Rojas 10/09/2015 Active [facility] Cardiology Services Cardiology Services Clinic [id number] Valentin Rojas 11/04/2015 11/04/2015 [facility] Cardiology Services [facility] Cancel/No Show [id number] Kings Aguilar 09/1109/11/2016 [facility] Procedures Procedure Code Date Perfomer Comments Source Echocardiography, transthoracic, real-time with image documentation (2D), includes M-mode recording, when performed, complete, with spectral Doppler echocardiography, and with color flow Doppler echocardiography [id number] 07/19/2015 [facility] Typical and Atypical AVNRT and Atrial Flutter Ablation 06/05/2015 [facility]. Echocardiogram, EF 55% 06/03 [facility]. No data available for this section [facility] Esophagogastroduodenoscopy, flexible, transoral; diagnostic, including collection of specimen(s) by brushing or washing, when performed (separate procedure) [id number] [facility]. Plan of Care Social History Assessment and Plan Family History Value Date Source Advance Directives Order Name Results Value Date Source
--- NOTE | 2017-01-16 | ED GI ---
General Chief Complaint: Abdominal/GI Problems Stated Complaint: VOMITING Source of Information: Patient, EMS Exam Limitations: Other (altered mental status) History of Present Illness Time Seen By Provider: 23:56 Initial Comments Patient presents the ER by EMS with a story that according to his sister for the past 2 days he has been altered mental status as well as vomiting up multiple times of bloody emesis. EMS reports when they got there he was pretty altered not able to give much history. They've got a liter in him and are starting on her second liter. The initial blood sugar read too high. Ketones on urine dipstick were 2+. They also give a history of cirrhosis and hepatitis C as well as diabetes but has not been very compliant with his insulin intake. The patient states he rarely sees Dr. Olguin for diabetic therapy. He is not seeing anyone for his hepatitis. He states he is having some pain in his abdomen generally. He also is having nausea. Allergies and Home Medications Allergies Coded Allergies: Penicillins (Verified Allergy, Severe, EDEMA, SOA, 03/21/16) clindamycin (Verified Allergy, Unknown, 03/21/16) olanzapine (Verified Allergy, Unknown, 03/21/16) quetiapine (Verified Allergy, Unknown, 03/21/16) Home Medications Albuterol Sulfate 6.7 Gm Hfa.aer.ad, 2 PUFF INH Q4H PRN for SHORTNESS OF BREATH, (Reported) Amlodipine Besylate 5 Mg Tablet, 5 MG PO DAILY, (Reported) Buspirone HCl 15 Mg Tablet, 15 MG PO BID, (Reported) Cetirizine HCl 10 Mg Tablet, 10 MG PO DAILY, (Reported) Famotidine 20 Mg Tablet, 20 MG PO BID, (Reported) Fluticasone Propionate 16 Gm [place].susp, 1 SPRAY NS BID PRN for CONGESTION, ( Reported) Folic Acid 1 Mg Tablet, 1 MG PO DAILY, (Reported) Furosemide 40 Mg Tablet, 40 MG PO DAILY, (Reported) Insulin Glargine,Hum.rec.anlog 100 Unit/1 Ml Vial, 20 UNIT SQ HS, (Reported) Insulin Lispro 100 Unit/1 Ml Insuln.pen, 3 UNIT SQ AC, (Reported) Lactulose 10 Gm/15 Ml Solution, 30 ML PO Q8H, (Reported) Omeprazole 40 Mg Capsule.dr, 40 MG PO DAILY, (Reported) Potassium Chloride 10 Meq Capsule.er, 10 MEQ PO BID WITH MEALS, (Reported) Pregabalin 75 Mg Capsule, 75 MG PO TID, (Reported) Thiamine HCl 100 Mg Tablet, 100 MG PO DAILY, (Reported) Review of Systems Constitutional: see HPI (a complete history of present illness is unable to be obtained secondary to patient's altered mental status.) Respiratory: Denies Cough, Denies Shortness of Air Gastrointestinal: Abdominal Pain, Nausea, Vomiting Past Nhyjfgw-Pvsvkj-Yfdztx Hx Patient Social History Alcohol Use: Regular Use Recreational Drug Use: No Smoking Status: Current Everyday Smoker Type Used: Cigarettes 2nd Hand Smoke Exposure: Yes Recent Foreign Travel: No Contact w/Someone Who Travel: No Recent Hopitalizations: No Immunizations Up To Date Tetanus Booster (TDap): Less than 5yrs PED Vaccines UTD: No Date of Pneumonia Vaccine: Apr 26, 2014 Date of Influenza Vaccine: Apr 09, 2016 Seasonal Allergies Seasonal Allergies: Yes Surgeries HX Surgeries: Yes (ORAL) Surgeries: Appendectomy, Neurological, Orthopedic Respiratory Hx Respiratory Disorders: Yes Respiratory Disorders: COPD Cardiovascular Hx Cardiac Disorders: Yes Cardiac Disorders: Coronary Artery Disease, Hypertension, Palpitations Neurological Hx Neurological Disorders: Yes (HEPATIC ENCEPHALOPATHY; CHRONIC POOR BALANCE AND FREQUENT FALLS) Neurological Disorders: Headaches /Migraines, Neuropathy Reproductive System Hx Reproductive Disorders: No Sexually Transmitted Disease: No HIV/AIDS: No Genitourinary Hx Genitourinary Disorders: Yes (chronic hematuria) Gastrointestinal Hx Gastrointestinal Disorders: Yes (HEPATITIS C) Gastrointestinal Disorders: Gastroesophageal Reflux, Liver Disease/Jaundice, Gastrointestinal Bleed, Pancreatitis, Esophageal Varices, Hepatitis, Cirrhosis, Gall Bladder Disease Musculoskeletal Hx Musculoskeletal Disorders: Yes (RIGHT ANKLE FRACTURE; MULTIPLE FRACTURES ) Musculoskeletal Disorders: Chronic Back Pain, Fractures Endocrine Hx Endocrine Disorders: Yes Endocrine Disorders: Diabetes, Insulin dep HEENT HX ENT Disorders: No Cancer Hx Cancer: No Cancer: Liver Psychosocial Hx Psychiatric Problems: Yes (EXTENISVE PSYCH ISSUES) Behavioral Health Disorders: Anxiety, Suicide Attempts, Schizophrenia, Depression Integumentary HX Skin/Integumentary Disorder: Yes (KURTZ 04/2016--PT WAS SMOKING WHILE WEARING O2/NC. ) Blood Transfusions Hx Blood Disorders: Yes (ANEMIA; THROMBOCYTOPENIA) Adverse Reaction to a Blood Tr: No Family Medical History Significant Family History: Psychiatric Problems Family Medial History: Cardiovascular disease 19 FATHER 19 MOTHER FH: schizophrenia 19 FATHER 19 MOTHER Respiratory disorder 19 FATHER 19 MOTHER Physical Exam Vital Signs VS - Last 72 Hours, by Label 01/15/17 01/16/17 23:55 03:31 Temp 98.4 98.7 Pulse 73 72 Resp 18 13 B/P (MAP) 131/92 129/91 Pulse Ox 100 100 O2 Delivery Room Air Room Air Capillary Refill : Less Than 3 Seconds General Appearance: moderate distress, thin HEENT: PERRL/EOMI, pharynx normal Neck: non-tender, supple, normal inspection Respiratory: chest non-tender, lungs clear, normal breath sounds, no respiratory distress Cardiovascular: normal peripheral pulses, regular rate, rhythm, no edema Peripheral Pulses: 3+ Dorsalis Pedis (R), 3+ Left Dors-Pedis (L), 3+ Radial Pulses (R), 3+ Radial Pulses (L) Gastrointestinal: normal bowel sounds, soft, tenderness (diffusely) Extremities: normal range of motion, non-tender, no pedal edema, no calf tenderness, normal capillary refill Neurologic/Psychiatric: alert, other (oriented to person and place. Speech is slow and mumbles and does not give very good answers.) Skin: normal color, warm/dry Lymphatic: no adenopathy Focused Exam Lactic Acid Level Laboratory Tests Test 01/16/17 00:30 Lactic Acid Level 1.53 MMOL/L (0.50-2.00) Progress/Results/Core Measures Results/Orders Lab Results Laboratory Tests Test 01/16/17 00:01 01/16/17 00:30 01/16/17 01:19 01/16/17 02:46 Range/Units White Blood Count 5.2 4.3-11.0 10^3/uL Red Blood Count 3.73 L 4.35-5.85 10^6/uL Hemoglobin 10.3 L 13.3-17.7 G/DL Hematocrit 32 L 40-54 % Mean Corpuscular Volume 85 80-99 FL Mean Corpuscular Hemoglobin 28 25-34 PG Mean Corpuscular Hemoglobin Concent 33 32-36 G/DL Red Cell Distribution Width 19.0 H 10.0-14.5 % Platelet Count 45 L 130-400 10^3/uL Mean Platelet Volume 10.9 H 7.4-10.4 FL Neutrophils (%) (Auto) 69 42-75 % Lymphocytes (%) (Auto) 21 12-44 % Monocytes (%) (Auto) 7 0-12 % Eosinophils (%) (Auto) 2 0-10 % Basophils (%) (Auto) 1 0-10 % Neutrophils # (Auto) 3.6 1.8-7.8 X 10^3 Lymphocytes # (Auto) 1.1 1.0-4.0 X 10^3 Monocytes # (Auto) 0.4 0.0-1.0 X 10^3 Eosinophils # (Auto) 0.1 0.0-0.3 10^3/uL Basophils # (Auto) 0.0 0.0-0.1 10^3/uL Sodium Level 138 135-145 MMOL/L Potassium Level 4.0 3.6-5.0 MMOL/L Chloride Level 102 98-107 MMOL/L Carbon Dioxide Level 24 21-32 MMOL/L Anion Gap 12 5-14 MMOL/L Blood Urea Nitrogen 25 H 7-18 MG/DL Creatinine 1.70 H 0.60-1.30 MG/DL Estimat Glomerular Filtration Rate 44 BUN/Creatinine Ratio 15 Glucose Level 531 *H 70-105 MG/DL Calcium Level 8.0 L 8.5-10.1 MG/DL Magnesium Level 1.6 L 1.8-2.4 MG/DL Total Bilirubin 2.6 H 0.1-1.0 MG/DL Aspartate Amino Transf (AST/SGOT) 52 H 5-34 U/L Alanine Aminotransferase (ALT/SGPT) 51 0-55 U/L Alkaline Phosphatase 194 H 40-136 U/L Troponin I < 0.30 <0.30 NG/ML Total Protein 6.9 6.4-8.2 GM/DL Albumin 2.4 L 3.2-4.5 GM/DL Serum Alcohol < 10 <10 MG/DL Lactic Acid Level 1.53 0.50-2.00 MMOL/L Ammonia 45 H 11-32 UMOL/L Urine Color YELLOW Urine Clarity CLEAR Urine pH 6 5-9 Urine Specific [place] 1.015 L 1.016-1.022 Urine Protein 2+ H NEGATIVE Urine Glucose (UA) 4+ H NEGATIVE Urine Ketones 2+ H NEGATIVE Urine Nitrite NEGATIVE NEGATIVE Urine Bilirubin NEGATIVE NEGATIVE Urine Urobilinogen 4 H NORMAL MG/DL Urine Leukocyte Esterase NEGATIVE NEGATIVE Urine RBC (Auto) 5+ H NEGATIVE Urine RBC 50-100 H /HPF Urine WBC NONE /HPF Urine Squamous Epithelial Cells 10-25 H /HPF Urine Crystals NONE /LPF Urine Bacteria NEGATIVE /HPF Urine Casts NONE /LPF Urine Mucus SMALL H /LPF Urine Culture Indicated NO Urine Opiates Screen POSITIVE H NEGATIVE Urine Oxycodone Screen NEGATIVE NEGATIVE Urine Methadone Screen NEGATIVE NEGATIVE Urine Propoxyphene Screen NEGATIVE NEGATIVE Urine Barbiturates Screen NEGATIVE NEGATIVE Ur Tricyclic Antidepressants Screen NEGATIVE NEGATIVE Urine Phencyclidine Screen NEGATIVE NEGATIVE Urine Amphetamines Screen NEGATIVE NEGATIVE Urine Methamphetamines Screen POSITIVE H NEGATIVE Urine Benzodiazepines Screen NEGATIVE NEGATIVE Urine Cocaine Screen NEGATIVE NEGATIVE Urine Cannabinoids Screen NEGATIVE NEGATIVE Glucometer 471 *H 70-110 MG/DL My Orders Orders - MAUDE MORALES Ct Head Wo (01/16/17 00:01) Saline Lock/Iv-Start (01/16/17 00:01) Alcohol (01/16/17 00:01) Cbc With Automated Diff (01/16/17 00:01) Comprehensive Metabolic Panel (01/16/17 00:01) Drug Screen Stat (Urine) (01/16/17 00:01) Lactic Acid Analyzer (01/16/17 00:01) Magnesium (01/16/17 00:01) Troponin I (01/16/17 00:01) Ua Culture If Indicated (01/16/17 00:01) Type And Screen (01/16/17 00:01) Blood Culture (01/16/17 00:01) Chest 1 View, Ap/Pa Only (01/16/17 00:01) Ondansetron Injection (Zofran Injectio (01/16/17 00:15) Ekg Tracing (01/16/17 00:01) Ammonia (01/16/17 00:09) Magnesium 1 Gm/100 Ml Ivpb (Magnesium [place] (01/16/17 00:45) Ns Iv 1000 Ml (Sodium Chloride 0.9%) (01/16/17 00:45) Vital Signs: Special (01/16/17 01:19) Consent-Obtain Consent For (01/16/17 01:19) Monitor S/S Transfusion Reacti (01/16/17 01:19) Platelet Pheresis Lr (01/16/17 01:19) Pantoprazole Injection (Protonix Injecti (01/16/17 02:15) Ns (Ivpb) (Sodium C... W/Pantoprazole In (01/16/17 02:15) Insulin Determir (Per Unit) (Levemir (Pe (01/16/17 02:15) Insulin (Regular) Human (Humulin R (Per (01/16/17 02:15) Accucheck Stat ONCE (01/16/17 02:40) Medications Given in ED Current Medications Medications Dose Ordered Sig/Rafita Route Start Time Stop Time Status Last Admin Dose Admin Insulin Detemir 20 unit ONCE ONCE SQ 01/16/17 02:15 01/16/17 02:16 DC 01/16/17 02:27 20 UNIT Insulin Human Regular 8 unit ONCE ONCE SC 01/16/17 02:15 01/16/17 02:16 DC 01/16/17 02:27 8 UNIT Ondansetron HCl 4 mg ONCE ONCE IVP 01/16/17 00:15 01/16/17 00:16 DC 01/16/17 00:51 4 MG Pantoprazole 80 mg ONCE ONCE IV 01/16/17 02:15 01/16/17 02:16 DC 01/16/17 02:27 80 MG Vital Signs/I&O Vital Sign - Last 12Hours 01/15/17 01/16/17 23:55 03:31 Temp 98.4 98.7 Pulse 73 72 Resp 18 13 B/P (MAP) 131/92 129/91 Pulse Ox 100 100 O2 Delivery Room Air Room Air Progress Note #1: Time: 00:49 Progress Note Hepatic encephalopathy versus intoxication versus diabetic ketoacidosis versus sepsis from occult infection. Patient gave a urine specimen on the floor and a straight catheter subsequently was unable to obtain any urine. We will try again later. Progress Note #2: Time: 02:05 Progress Note Hepatic encephalopathy with a GI bleed secondary to hep C cirrhosis. We'll treat his sugars with 8 units or regular and his typical Levemir dose of 20 units. We will then also put him on a Protonix drip. He will probably need a MRI follow up inpatient for a subtle hypodensity seen on his temporal lobe. Progress Note #3: Time: 02:47 Progress Note Point of care blood glucose was 471 about a half hour after administration of 8 units regular insulin and 20 units Levemir. Urine drug screen notably positive for opiates and amphetamines. No opiates of been given this visit. He is protecting his airway and easily arousable to voice. Progress Note #4: Time: 03:30 Progress Note Patient is doing well resting comfortably without pain or nausea in bed. [facility] informs us will be after 5:30 before they'll be available for transport to [place]. Patient's on telemetry with Protonix drip running and copious IV fluids at 200 cc an hour to replete him. ECG Initial ECG Impression Date: Jan 16, 2017 Initial ECG Impression Time: 00:22 Initial ECG Rate: 111 Initial ECG Rhythm: S.Tach Initial ECG Intervals: QRS (mild prolongation) Initial ECG Impression: Nonspecific Changes Initial ECG Comparisson: No Previous ECG Available Comment No ST-T wave aberration Diagnostic Imaging Diagonstic Imaging: CT Plain Films/CT/US/NM/MRI: head Comments Subtle right lateral temporal lobe hypodensities that are not associated with mass shift. Possible could be a recent infarct so wouldn't recommend further imaging such as an MRI. Otherwise no acute bleed, mass effect, midline shift or hydrocephalus noted. Reviewed: Reviewed by Me, Discussed w/Radiologist Diagonstic Imaging: Xray Plain Films/CT/US/NM/MRI: chest Comments No acute cardiopulmonary processes noted. Reviewed: Reviewed by Me Consults Consults : Consulting Physician: JB RODRIGUEZ MD Consults Notes Spoke to the on-call doctor for [facility] about admission of this patient for hepatic encephalopathy and she recommends that the patient will need endoscopy for his symptomatic hematemesis and the they do not have GI or endoscopy for cirrhotic patients. Recommends transfer to a facility with appropriate level of resources. Departure Communication Time/Spoke to Admitting Phy: 02:00 Communication [phone] left a voicemail with [place] [facility] transfer service. 0151: Spoke with Lety at [facility]'s transfer service. She is going to contact PRITI Meza about admission. 0200: Dr Chapman, internal medicine at [facility]. Recommends Protonix drip but will need octreotide it is not actively having any vomiting. They will accept the patient in transfer. 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 Chapman, internal medicine will accept the patient to telemetry floor. Transfer Time: 03:56 Transfer Facility: [place], [place] Method of Transfer: EMS Departure-Patient Inst. Referrals: [facility] (PCP/Family) Primary Care Physician Copy Copies To 1: NIEVES RAMSEY TITUS J Jan 16, 2017 00:00
--- OUTSIDE RECORDS SUMMARY | 2017-01-16 00:05 | XMS REPORT | Continuity of Care Document ---
Author Author [facility] Organization [facility] Address Unknown Phone Unavailable Care Team Providers Care Estimator Printing Plate Making Name Role Phone JeffKings Parrish PCP [phone] Source Comments Some departments are not documenting in the electronic medical record. If you do not see the information that you expected, contact Release of Information in the Health Information Management department at [phone] for further assistance in locating additional records.[facility] Active Allergies and Adverse Reactions Allergen Noted [...] Taken Blood Pressure 155/99 05/23/2014 12:00 PM HOME CARE MUSIC THERAPIST Pulse 66 05/22/2014 3:59 PM HOME CARE MUSIC THERAPIST Temperature 36.4 C (97.6 F) 05/23/2014 12:00 PM HOME CARE MUSIC THERAPIST Respiratory Rate 16 11/01/2012 8:48 AM CDT Height 1.905 m (6' 3") 05/20/2014 6:00 PM HOME CARE MUSIC THERAPIST Weight 94.8 kg (208 lb 15.9 oz) 05/21/2014 5:41 AM HOME CARE MUSIC THERAPIST Body Mass Index 26.12 05/21/2014 5:41 AM HOME CARE MUSIC THERAPIST Oxygen Saturation 96% 05/23/2014 12:00 PM HOME CARE MUSIC THERAPIST Plan of Care Health Maintenance Due Date Last Done Comments Physical (Comprehensive) 1979 Exam Pertussis Vaccine 1983 Tetanus Vaccine 1989 Influenza Vaccine 03/05/2017 Results from Last 3 Months Not on file
[2017-01-16 00:13] LABS: BASOPHILS % (AUTO) 1 % (0-10); EOSINOPHILS # (AUTO) 0.1 10^3/uL (0.0-0.3); EOSINOPHILS % (AUTO) 2 % (0-10); LYMPHOCYTES # (AUTO) 1.1 X 10^3 (1.0-4.0); LYMPHOCYTES % (AUTO) 21 % (12-44); MEAN CORPUSCULAR HEMOGLOBIN 28 PG (25-34); MEAN CORPUSCULAR HGB CONC 33 G/DL (32-36); MEAN CORPUSCULAR VOLUME 85 FL (80-99); MEAN PLATELET VOLUME 10.9 FL (7.4-10.4); MONOCYTES # (AUTO) 0.4 X 10^3 (0.0-1.0); MONOCYTES % (AUTO) 7 % (0-12); NEUTROPHILS # (AUTO) 3.6 X 10^3 (1.8-7.8); NEUTROPHILS % (AUTO) 69 % (42-75); PLATELET COUNT 45 10^3/uL (130-400); RED BLOOD COUNT 3.73 10^6/uL (4.35-5.85); WHITE BLOOD COUNT 5.2 10^3/uL (4.3-11.0)
[2017-01-16] MEDS ORDERED: ONDANSETRON 4 MG/2 ML (SDV) Z0FRAN IVP ONE (00:15)
[2017-01-16 00:27] LABS: ALANINE AMINOTRANSFERASE 51 U/L (0-55); ALBUMIN 2.4 GM/DL (3.2-4.5); ALCOHOL < 10 MG/DL (<10); ANION GAP 12 MMOL/L (5-14); ASPARTATE AMINO TRANSFERASE 52 U/L (5-34); BILIRUBIN,TOTAL 2.6 MG/DL (0.1-1.0); BLOOD UREA NITROGEN 25 MG/DL (7-18); BUN/CREATININE RATIO 15; CARBON DIOXIDE 24 MMOL/L (21-32); CHLORIDE 102 MMOL/L (98-107); GFR ESTIMATED 44; MAGNESIUM 1.6 MG/DL (1.8-2.4); SODIUM 138 MMOL/L (135-145); TOTAL PROTEIN 6.9 GM/DL (6.4-8.2)
[2017-01-16 00:33] LABS: TROPONIN I < 0.30 NG/ML (<0.30)
[2017-01-16 00:35] LABS: GLUCOSE 531 MG/DL (70-105)
[2017-01-16] MEDS ORDERED: NS IV 1000 ML 1,000 ML IV SCH (00:45)
[2017-01-16] MEDS: MAGNESIUM 1 GM/100 ML IVPB 100 ML IV SCH ×2 (00:51→02:03)
[2017-01-16 01:26] LABS: BILIRUBIN,URINE NEGATIVE (NEGATIVE); KETONES,URINE 2+ (NEGATIVE); LEUKOCYTE ESTERASE ,URINE NEGATIVE (NEGATIVE); NITRITE,URINE NEGATIVE (NEGATIVE); PH,URINE 6 (5-9); PROTEIN,URINE 2+ (NEGATIVE); UROBILINOGEN,URINE 4 MG/DL (NORMAL)
[2017-01-16] MEDS ORDERED: PANTOPRAZOLE INJECTION 200 MG in NS (IVPB) 50 ML IV SCH (02:15)
[2017-01-16] MEDS ORDERED: inSUlin DETERMIR 1 UNIT/0.01 ML (LEVEMIR) CHARGE PER UNIT SQ ONE (02:15)
[2017-01-16] MEDS ORDERED: PANTOPRAZOLE 40 MG/10 ML (PROTONIX) VIAL IV ONE (02:15)
[2017-01-16] MEDS ORDERED: inSUlin (REGULAR) HUMAN 1 UNIT/0.01 ML (CHARGE PER UNIT) SC ONE (02:15)
[2017-01-16 03:58] VITALS: BP 130/90
--- NOTE | 2017-01-16 08:16 | Diagnostic Imaging Report ---
INDICATION: Altered mental status. TECHNIQUE: Single-view chest at 01:32 a.m. CORRELATION STUDY: 09/29/2016. FINDINGS: There is rotation present. Lung jones are clear of infiltrate. Small nodule at the right lung base generally stable. Heart size, mediastinum, and vasculature within normal limits given patient positioning. IMPRESSION: 1. No radiographic evidence for acute abnormality of the chest. 2. Questionable small nodule in the right lung base, may be reflective of a nipple shadow, would recommend short-term follow-up two-view chest imaging to include nipple markers. Dictated by: Dictated on workstation # [id number]
--- NOTE | 2017-01-16 08:19 | Diagnostic Imaging Report ---
PROCEDURE: CT head without contrast. TECHNIQUE: Multiple contiguous axial images were obtained through the brain without the use of intravenous contrast. INDICATION: Altered mental status, noncompliant. CORRELATION STUDY: 04/01/2016. FINDINGS: Ventricles and sulci are generally stable; however, do appear to be somewhat prominent for the patient's age suggestive of some atrophy. No midline shift or mass effect. There is a very questionable, subtle hypodensity involving the right temporal lobe anteriorly. No intracranial hemorrhage. Basilar cisterns are maintained. Bony calvarium intact. IMPRESSION: 1. Very questionable hypodensity involving the right temporal lobe anteriorly without associated mass effect. Possibility of a recent infarct not completely excluded. Follow-up imaging as clinically warranted versus follow-up MRI. A preliminary report was provided by [facility]. Dictated by: Dictated on workstation # [id number]
== END 2017-01-16 04:01 | disposition short-term general hospital (02) ==
LOC: EDUNIT# 23:46 → ER 23:48
DX: K72.90 Hepatic failure, unspecified without coma (principal); K74.69 Other cirrhosis of liver; B19.20 Unspecified viral hepatitis C without hepatic coma; K92.2 Gastrointestinal hemorrhage, unspecified; D69.6 Thrombocytopenia, unspecified; E83.42 Hypomagnesemia; E11.40 Type 2 diabetes mellitus with diabetic neuropathy, unspecified; G43.909 Migraine, unspecified, not intractable, without status migrainosus; I10 Essential (primary) hypertension; K21.9 Gastro-esophageal reflux disease without esophagitis; F41.9 Anxiety disorder, unspecified; F20.9 Schizophrenia, unspecified; D64.9 Anemia, unspecified; F32.9 Major depressive disorder, single episode, unspecified; I25.10 Atherosclerotic heart disease of native coronary artery without angina pectoris; J44.9 Chronic obstructive pulmonary disease, unspecified; F17.210 Nicotine dependence, cigarettes, uncomplicated; Z79.4 Long term (current) use of insulin; Z82.49 Family history of ischemic heart disease and other diseases of the circulatory system
CPT/HCPCS: 36415; 36430; 70450; 71010; 80053; 80306; 80320; 81000; 82140; 82962; 83605; 83735; 84484; 85025; 86850; 86900; 86901; 87040

== ENCOUNTER 2017-01-25 09:55 | Inpatient (IN) | payer MEDICAID ==
[~2017-01-25] VITALS: Ht 190.5 cm; Wt 78.2 kg
[2017-01-25] MEDS ORDERED: NS IV 1000 ML 1,000 ML IV ONE ×2 (10:08→10:38)
[2017-01-25 10:23] LABS: BASOPHILS % (AUTO) 0 % (0-10); EOSINOPHILS % (AUTO) 0 % (0-10); LYMPHOCYTES # (AUTO) 0.7 X 10^3 (1.0-4.0); LYMPHOCYTES % (AUTO) 9 % (12-44); MEAN CORPUSCULAR HEMOGLOBIN 28 PG (25-34); MEAN CORPUSCULAR HGB CONC 33 G/DL (32-36); MEAN CORPUSCULAR VOLUME 83 FL (80-99); MEAN PLATELET VOLUME 10.1 FL (7.4-10.4); MONOCYTES # (AUTO) 0.4 X 10^3 (0.0-1.0); MONOCYTES % (AUTO) 5 % (0-12); NEUTROPHILS # (AUTO) 7.3 X 10^3 (1.8-7.8); NEUTROPHILS % (AUTO) 86 % (42-75); PLATELET COUNT 73 10^3/uL (130-400); RED BLOOD COUNT 3.38 10^6/uL (4.35-5.85); RED CELL DISTRIBUTION WIDTH 19.9 % (10.0-14.5); WHITE BLOOD COUNT 8.5 10^3/uL (4.3-11.0)
[2017-01-25 10:25] LABS: BILIRUBIN,URINE NEGATIVE (NEGATIVE); KETONES,URINE NEGATIVE (NEGATIVE); LEUKOCYTE ESTERASE ,URINE NEGATIVE (NEGATIVE); NITRITE,URINE NEGATIVE (NEGATIVE); PH,URINE 6 (5-9); PROTEIN,URINE 1+ (NEGATIVE); UROBILINOGEN,URINE NORMAL (NORMAL)
[2017-01-25] MEDS ORDERED: fentaNYL INJECTION 100 MCG/2 ML AMP ONE (10:32)
[2017-01-25 10:33] LABS: SQUAMOUS EPITHELIAL CELL,UR RARE /HPF; WBC,URINE RARE /HPF
[2017-01-25 10:42] LABS: ALANINE AMINOTRANSFERASE 83 U/L (0-55); ALBUMIN 2.4 GM/DL (3.2-4.5); ALCOHOL < 10 MG/DL (<10); AMMONIA 27 UMOL/L (11-32); ANION GAP 16 MMOL/L (5-14); ASPARTATE AMINO TRANSFERASE 107 U/L (5-34); BILIRUBIN,TOTAL 2.1 MG/DL (0.1-1.0); BLOOD UREA NITROGEN 12 MG/DL (7-18); BUN/CREATININE RATIO 9; CALCIUM 8.3 MG/DL (8.5-10.1); CARBON DIOXIDE 13 MMOL/L (21-32); CHLORIDE 102 MMOL/L (98-107); CREATININE SERUM 1.38 MG/DL (0.60-1.30); GFR ESTIMATED 56; POTASSIUM 4.7 MMOL/L (3.6-5.0); SODIUM 131 MMOL/L (135-145)
[2017-01-25 10:43] LABS: ACETAMINOPHEN < 10 UG/ML (10-30)
--- NOTE | 2017-01-25 10:43 | ED General ---
General Chief Complaint: Abdominal/GI Problems Stated Complaint: DIABETES LEVEL UP AND TSERING/ CHEST PAIN/LETHARGIC Nursing Triage Note: PT. HERE WITH EPIGASTRIC PAIN ET PAIN TO ABD. PT. WAS RELEASED 2 DAYS AGO FROM [facility] W/DX OF DIABETIC COMA. PT. STATES HE WAS BETTER WHEN RELEASED BUT STARTED FEELING BAD LAST NIGHT. DR. KAISER IN TO SEE PT. AT THIS TIME. Nursing Sepsis Screen: No Definite Risk Source of Information: Patient Exam Limitations: No Limitations History of Present Illness Time Seen by Provider: 10:05 Initial Comments Here with report of not feeling well with epigastric pain and lower abdominal pain. Patient is a known diabetic with hepatitis C and chronic liver failure. Poorly controlled diabetes mellitus. Just released from the hospital 2 days ago for concerns of GI bleeds and diabetes/hepatitis. States he did okay for 2 days but markedly worse this morning. Blood sugar this morning was 341 and he took his insulin. Has been unable to eat or drink due to nausea and vomiting. Denies fever or chills. Denies breathing problems. Timing/Duration: 24 Hours, Getting Worse Severity: Moderate Associated Systoms: No Chest Pain, No Cough, No Fever/Chills, Nausea/Vomiting, No Shortness of Air, Weakness Allergies and Home Medications Allergies Coded Allergies: Penicillins (Verified Allergy, Severe, EDEMA, SOA, 03/21/16) clindamycin (Verified Allergy, Unknown, 03/21/16) olanzapine (Verified Allergy, Unknown, 03/21/16) quetiapine (Verified Allergy, Unknown, 03/21/16) Home Medications Albuterol Sulfate 6.7 Gm Hfa.aer.ad, 2 PUFF INH Q4H PRN for SHORTNESS OF BREATH, (Reported) Amlodipine Besylate 5 Mg Tablet, 5 MG PO DAILY, (Reported) Buspirone HCl 15 Mg Tablet, 15 MG PO BID, (Reported) Cetirizine HCl 10 Mg Tablet, 10 MG PO DAILY, (Reported) Famotidine 20 Mg Tablet, 20 MG PO BID, (Reported) Fluticasone Propionate 16 Gm Oliver.susp, 1 SPRAY NS BID PRN for CONGESTION, ( Reported) Folic Acid 1 Mg Tablet, 1 MG PO DAILY, (Reported) Furosemide 40 Mg Tablet, 40 MG PO DAILY, (Reported) Insulin Glargine,Hum.rec.anlog 100 Unit/1 Ml Vial, 20 UNIT SQ HS, (Reported) Insulin Lispro 100 Unit/1 Ml Insuln.pen, 3 UNIT SQ AC, (Reported) Lactulose 10 Gm/15 Ml Solution, 30 ML PO Q8H, (Reported) Omeprazole 40 Mg Capsule.dr, 40 MG PO DAILY, (Reported) Potassium Chloride 10 Meq Capsule.er, 10 MEQ PO BID WITH MEALS, (Reported) Pregabalin 75 Mg Capsule, 75 MG PO TID, (Reported) Thiamine HCl 100 Mg Tablet, 100 MG PO DAILY, (Reported) Constitutional: see HPI, No chills, No fever EENTM: no symptoms reported Respiratory: no symptoms reported Cardiovascular: no symptoms reported Gastrointestinal: see HPI, abdominal pain, No diarrhea, nausea, vomiting Genitourinary: no symptoms reported Musculoskeletal: no symptoms reported Skin: no symptoms reported Psychiatric/Neurological: No Symptoms Reported All Other Systems Reviewed Negative Unless Noted: Yes Past Nqjnlgf-Zrxicw-Vjlhsw Hx Patient Social History Alcohol Use: Past History Recreational Drug Use: No Smoking Status: Current Everyday Smoker Type Used: Cigarettes 2nd Hand Smoke Exposure: Yes Recent Foreign Travel: No Contact w/Someone Who Travel: No Recent Infectious Disease Expo: No Recent Hopitalizations: No Immunizations Up To Date Tetanus Booster (TDap): Less than 5yrs PED Vaccines UTD: No Date of Pneumonia Vaccine: Apr 26, 2014 Date of Influenza Vaccine: Apr 09, 2016 Seasonal Allergies Seasonal Allergies: Yes Surgeries HX Surgeries: Yes (ORAL) Surgeries: Appendectomy, Neurological, Orthopedic Respiratory Hx Respiratory Disorders: Yes Respiratory Disorders: COPD Cardiovascular Hx Cardiac Disorders: Yes Cardiac Disorders: Coronary Artery Disease, Hypertension, Palpitations Neurological Hx Neurological Disorders: Yes (HEPATIC ENCEPHALOPATHY; CHRONIC POOR BALANCE AND FREQUENT FALLS) Neurological Disorders: Headaches /Migraines, Neuropathy Reproductive System Hx Reproductive Disorders: No Sexually Transmitted Disease: No HIV/AIDS: No Genitourinary Hx Genitourinary Disorders: Yes (chronic hematuria) Gastrointestinal Hx Gastrointestinal Disorders: Yes (HEPATITIS C) Gastrointestinal Disorders: Gastroesophageal Reflux, Liver Disease/Jaundice, Gastrointestinal Bleed, Pancreatitis, Esophageal Varices, Hepatitis, Cirrhosis, Gall Bladder Disease Musculoskeletal Hx Musculoskeletal Disorders: Yes (RIGHT ANKLE FRACTURE; MULTIPLE FRACTURES ) Musculoskeletal Disorders: Chronic Back Pain, Fractures Endocrine Hx Endocrine Disorders: Yes Endocrine Disorders: Diabetes, Insulin dep HEENT HX ENT Disorders: No Cancer Hx Cancer: No Cancer: Liver Psychosocial Hx Psychiatric Problems: Yes (EXTENISVE PSYCH ISSUES) Behavioral Health Disorders: Anxiety, Suicide Attempts, Schizophrenia, Depression Integumentary HX Skin/Integumentary Disorder: Yes (KURTZ 04/2016--PT WAS SMOKING WHILE WEARING O2/NC. ) Blood Transfusions Hx Blood Disorders: Yes (ANEMIA; THROMBOCYTOPENIA) Adverse Reaction to a Blood Tr: No Reviewed Nursing Assessment Reviewed/Agree w Nursing PMH: Yes Family Medical History Significant Family History: Psychiatric Problems Family Medial History: Cardiovascular disease 19 FATHER 19 MOTHER FH: schizophrenia 19 FATHER 19 MOTHER Respiratory disorder 19 FATHER 19 MOTHER Physical Exam Vital Signs Vital Sign - Last 12Hours 01/25/17 10:30 Temp 98.0 Pulse 71 Resp 20 B/P (MAP) 163/100 Pulse Ox 99 O2 Delivery Room Air Capillary Refill : Less Than 3 Seconds General Appearance: No Apparent Distress, WD/WN HEENT: PERRL/EOMI, Pharynx Normal Neck: Non Tender, Supple Respiratory: Lungs Clear, Normal Breath Sounds Cardiovascular: Regular Rate, Rhythm, No Murmur Gastrointestinal: Normal Bowel Sounds, Soft, Distended, No Guarding, No Rebound , Tenderness (epigastric and suprapubic region) Back: Normal Inspection, No CVA Tenderness, No Vertebral Tenderness Extremity: Non Tender, No Calf Tenderness Neurologic/Psychiatric: Alert, Oriented x3 Skin: Normal Color, Warm/Dry Focused Exam Lactic Acid Level Laboratory Tests Test 01/25/17 10:12 Lactic Acid Level 11.89 MMOL/L (0.50-2.00) *H Progress/Results/Core Measures Results/Orders Lab Results Laboratory Tests Test 01/25/17 10:07 01/25/17 10:12 01/25/17 10:14 Range/Units Glucometer > 600 *H 70-110 MG/DL White Blood Count 8.5 4.3-11.0 10^3/uL Red Blood Count 3.38 L 4.35-5.85 10^6/uL Hemoglobin 9.4 L 13.3-17.7 G/DL Hematocrit 28 L 40-54 % Mean Corpuscular Volume 83 80-99 FL Mean Corpuscular Hemoglobin 28 25-34 PG Mean Corpuscular Hemoglobin Concent 33 32-36 G/DL Red Cell Distribution Width 19.9 H 10.0-14.5 % Platelet Count 73 L 130-400 10^3/uL Mean Platelet Volume 10.1 7.4-10.4 FL Neutrophils (%) (Auto) 86 H 42-75 % Lymphocytes (%) (Auto) 9 L 12-44 % Monocytes (%) (Auto) 5 0-12 % Eosinophils (%) (Auto) 0 0-10 % Basophils (%) (Auto) 0 0-10 % Neutrophils # (Auto) 7.3 1.8-7.8 X 10^3 Lymphocytes # (Auto) 0.7 L 1.0-4.0 X 10^3 Monocytes # (Auto) 0.4 0.0-1.0 X 10^3 Eosinophils # (Auto) 0.0 0.0-0.3 10^3/uL Basophils # (Auto) 0.0 0.0-0.1 10^3/uL Sodium Level 131 L 135-145 MMOL/L Potassium Level 4.7 3.6-5.0 MMOL/L Chloride Level 102 98-107 MMOL/L Carbon Dioxide Level 13 L 21-32 MMOL/L Anion Gap 16 H 5-14 MMOL/L Blood Urea Nitrogen 12 7-18 MG/DL Creatinine 1.38 H 0.60-1.30 MG/DL Estimat Glomerular Filtration Rate 56 BUN/Creatinine Ratio 9 Glucose Level 775 *H 70-105 MG/DL Lactic Acid Level 11.89 *H 0.50-2.00 MMOL/L Calcium Level 8.3 L 8.5-10.1 MG/DL Total Bilirubin 2.1 H 0.1-1.0 MG/DL Aspartate Amino Transf (AST/SGOT) 107 H 5-34 U/L Alanine Aminotransferase (ALT/SGPT) 83 H 0-55 U/L Alkaline Phosphatase 330 H 40-136 U/L Ammonia 27 11-32 UMOL/L Total Protein 7.0 6.4-8.2 GM/DL Albumin 2.4 L 3.2-4.5 GM/DL Acetaminophen Level < 10 L 10-30 UG/ML Serum Alcohol < 10 <10 MG/DL Urine Color YELLOW Urine Clarity CLEAR Urine pH 6 5-9 Urine Specific Ralston 1.015 L 1.016-1.022 Urine Protein 1+ H NEGATIVE Urine Glucose (UA) 4+ H NEGATIVE Urine Ketones NEGATIVE NEGATIVE Urine Nitrite NEGATIVE NEGATIVE Urine Bilirubin NEGATIVE NEGATIVE Urine Urobilinogen NORMAL NORMAL MG/DL Urine Leukocyte Esterase NEGATIVE NEGATIVE Urine RBC (Auto) 5+ H NEGATIVE Urine RBC 10-25 H /HPF Urine WBC RARE /HPF Urine Squamous Epithelial Cells RARE /HPF Urine Crystals NONE /LPF Urine Bacteria NEGATIVE /HPF Urine Casts NONE /LPF Urine Mucus NEGATIVE /LPF Urine Culture Indicated NO Urine Opiates Screen NEGATIVE NEGATIVE Urine Oxycodone Screen NEGATIVE NEGATIVE Urine Methadone Screen NEGATIVE NEGATIVE Urine Propoxyphene Screen NEGATIVE NEGATIVE Urine Barbiturates Screen NEGATIVE NEGATIVE Ur Tricyclic Antidepressants Screen NEGATIVE NEGATIVE Urine Phencyclidine Screen NEGATIVE NEGATIVE Urine Amphetamines Screen NEGATIVE NEGATIVE Urine Methamphetamines Screen NEGATIVE NEGATIVE Urine Benzodiazepines Screen NEGATIVE NEGATIVE Urine Cocaine Screen NEGATIVE NEGATIVE Urine Cannabinoids Screen NEGATIVE NEGATIVE My Orders Orders - JAYLON KAISER MD Acetaminophen (01/25/17 10:08) Alcohol (01/25/17 10:08) Ammonia (01/25/17 10:08) Cbc With Automated Diff (01/25/17 10:08) Comprehensive Metabolic Panel (01/25/17 10:08) Drug Screen Stat (Urine) (01/25/17 10:08) Lactic Acid Analyzer (01/25/17 10:08) Ua Culture If Indicated (01/25/17 10:08) Blood Culture (01/25/17 10:08) Saline Lock/Iv-Start (01/25/17 10:08) Accucheck Stat ONCE (01/25/17 10:08) Ekg Tracing (01/25/17 10:08) Monitor-Rhythm Ecg Trace Only (01/25/17 10:08) Saline Lock/Iv-Start (01/25/17 10:08) Ns Iv 1000 Ml (Sodium Chloride 0.9%) (01/25/17 10:08) Ns Iv 1000 Ml (Sodium Chloride 0.9%) (01/25/17 10:38) Fentanyl Injection (Sublimaze Injection (01/25/17 10:32) Labetalol Injection (Normodyne Injection (01/25/17 11:00) Labetalol Injection (Normodyne Injection (01/25/17 10:51) Insulin (Regular) Human (Humulin R (Per (01/25/17 11:46) Medications Given in ED Current Medications Medications Dose Ordered Sig/Rafita Route Start Time Stop Time Status Last Admin Dose Admin Labetalol HCl 20 mg ONCE ONCE IV 01/25/17 11:00 01/25/17 11:01 DC 01/25/17 10:59 20 MG Sodium Chloride 1,000 ml @ 0 mls/hr Q0M ONCE IV 01/25/17 10:08 01/25/17 10:12 DC 01/25/17 10:21 0 MLS/HR Sodium Chloride 1,000 ml @ 0 mls/hr Q0M ONCE IV 01/25/17 10:38 01/25/17 10:39 DC 01/25/17 10:45 1,000 MLS/HR Vital Signs/I&O Vital Sign - Last 12Hours 01/25/17 10:30 Temp 98.0 Pulse 71 Resp 20 B/P (MAP) 163/100 Pulse Ox 99 O2 Delivery Room Air Blood Pressure Mean: 121 Progress Note : Progress Note Seen and evaluated. IV, labs, UA, normal saline 1 L bolus. Fentanyl IV for pain. Zofran 4 mg IV for nausea and vomiting. Repeat normal saline 1 L bolus. Insulin 10 units IV. 1150: Discussed case with Dr. SKAGGS and he accepts patient for admission, inpatient status. Patient agrees with plan. Patient has findings of lactic acidosis which I believe is related to his liver failure and inability to metabolize lactate that is also increased due to the non- ketotic hyper glycemia from diabetic state. I do not believe this is sepsis, septic shock or infection related at this time. Discussed with Dr. Skaggs who agrees. ECG Initial ECG Impression Date: Jan 25, 2017 Initial ECG Impression Time: 10:03 Initial ECG Rate: 70 Initial ECG Rhythm: Normal Sinus Comment Sinus rhythm with nonspecific abnormalities. Normal axis. No evidence of ST elevation SC. Similar to previous of 08/12/16. Interpreted by me. Departure Communication Time/Spoke to Admitting Phy: 11:50 Impression Impression: Primary Impression: Uncontrolled type 2 diabetes mellitus with hyperosmolar nonketotic hyperglycemia Additional Impressions: Liver failure Qualified Codes: K72.00 - Acute and subacute hepatic failure without coma Lactic acidosis Disposition: 09 ADMITTED INPATIENT Condition: Stable Decision to Admit Reason: Admit from ER (General) Decision to Admit/Date: Jan 25, 2017 Time/Decision to Admit Time: 11:50 Departure-Patient Inst. Referrals: [facility] (PCP/Family) Primary Care Physician JAYLON KAISER MD Jan 25, 2017 10:43
[2017-01-25 10:44] LABS: GLUCOSE 775 MG/DL (70-105)
[2017-01-25] MEDS ORDERED: LABETALOL HCL 20 MG/4 ML VIAL ONE (10:51)
[2017-01-25] MEDS ORDERED: LABETALOL HCL 20 MG/4 ML VIAL IV ONE (11:00)
[2017-01-25] MEDS ORDERED: inSUlin (REGULAR) HUMAN 1 UNIT/0.01 ML (CHARGE PER UNIT) IV STA (11:46)
[2017-01-25 12:55] VITALS: BP 155/86
[2017-01-25 13:10] VITALS: BP 147/94
[2017-01-25] MEDS ORDERED: ONDANSETRON 4 MG/2 ML (SDV) Z0FRAN IV PRN (13:30)
[2017-01-25] MEDS ORDERED: inSUlin REGULAR TPN/DRIP 250 UNITS/NS 250 ML IV SCH ×2 (13:30)
[2017-01-25] MEDS ORDERED: CATHETER FLUSH 10 ML SYR IV PRN (13:30)
[2017-01-25] MEDS: NS IV 1000 ML 1,000 ML IV SCH ×2 (13:37→20:27)
[2017-01-25] MEDS ORDERED: RT-ALBUTEROL SULF 2.5 MG/3 ML PRE-MIX VIAL IH PRN (16:00)
[2017-01-25] MEDS ORDERED: IBUPROFEN 600 MG (MOTRIN) TAB PO PRN (16:00)
[2017-01-25 16:42] VITALS: BP 146/94
[2017-01-25 18:00] VITALS: BP 148/93
[2017-01-25 20:00] VITALS: BP 142/91
[2017-01-25 20:52] VITALS: BP 132/78
[2017-01-25] MEDS: inSUlin (REGULAR) HUMAN 1 UNIT/0.01 ML (CHARGE PER UNIT) SC SCH (22:51)
[2017-01-26] VITALS (8 sets, daily range): BP systolic 119–153; BP diastolic 75–100
[2017-01-26] MEDS: NS IV 1000 ML 1,000 ML IV SCH ×2 (03:16→09:32)
[2017-01-26] MEDS: inSUlin (REGULAR) HUMAN 1 UNIT/0.01 ML (CHARGE PER UNIT) SC SCH ×2 (06:34→11:00)
[2017-01-26 06:42] LABS: BASOPHILS % (AUTO) 0 % (0-10); EOSINOPHILS # (AUTO) 0.1 10^3/uL (0.0-0.3); EOSINOPHILS % (AUTO) 3 % (0-10); LYMPHOCYTES % (AUTO) 19 % (12-44); MEAN CORPUSCULAR HEMOGLOBIN 28 PG (25-34); MEAN CORPUSCULAR HGB CONC 33 G/DL (32-36); MEAN CORPUSCULAR VOLUME 83 FL (80-99); MEAN PLATELET VOLUME 9.6 FL (7.4-10.4); MONOCYTES # (AUTO) 0.2 X 10^3 (0.0-1.0); MONOCYTES % (AUTO) 5 % (0-12); NEUTROPHILS # (AUTO) 3.7 X 10^3 (1.8-7.8); NEUTROPHILS % (AUTO) 73 % (42-75); PLATELET COUNT 65 10^3/uL (130-400); RED BLOOD COUNT 3.25 10^6/uL (4.35-5.85); RED CELL DISTRIBUTION WIDTH 19.9 % (10.0-14.5); WHITE BLOOD COUNT 5.1 10^3/uL (4.3-11.0)
[2017-01-26 07:11] LABS: ALANINE AMINOTRANSFERASE 62 U/L (0-55); ALBUMIN 1.9 GM/DL (3.2-4.5); ANION GAP 5 MMOL/L (5-14); ASPARTATE AMINO TRANSFERASE 84 U/L (5-34); BILIRUBIN,TOTAL 1.9 MG/DL (0.1-1.0); BLOOD UREA NITROGEN 8 MG/DL (7-18); BUN/CREATININE RATIO 11; CALCIUM 7.3 MG/DL (8.5-10.1); CARBON DIOXIDE 18 MMOL/L (21-32); CHLORIDE 112 MMOL/L (98-107); CREATININE SERUM 0.74 MG/DL (0.60-1.30); GFR ESTIMATED > 60; GLUCOSE 208 MG/DL (70-105); POTASSIUM 3.7 MMOL/L (3.6-5.0); SODIUM 135 MMOL/L (135-145); TOTAL PROTEIN 5.5 GM/DL (6.4-8.2)
[2017-01-26] MEDS ORDERED: TRAM50TA2 PO (08:08)
[2017-01-26] MEDS ORDERED: TRAZ100T92 PO (08:08)
[2017-01-26] MEDS ORDERED: traZODone 100 MG (DESYREL) TAB PO PRN (14:30)
[2017-01-26] MEDS ORDERED: FLUTICASONE NASAL SPRAY (FLONASE) 16 GM BTL NS PRN (14:30)
[2017-01-26] MEDS ORDERED: LACTULOSE SYRUP 10GM/15ML (ENULOSE) 30ML UDC PO SCH (14:30)
[2017-01-26] MEDS ORDERED: RT-ALBUTEROL SULF 2.5 MG/3 ML PRE-MIX VIAL IH PRN (14:30)
--- NOTE | 2017-01-26 14:31 | Short Stay Summary-Hospitalist ---
HPI History of Present Illness: HPI/Chief Complaint The patient is a 46-year-old white male well-known to this institution because of his frequent appearances here. He was seen here on 01/16 for abdominal pain and vomiting blood. He was transferred to [place] for gastroenterology evaluation. He is a chronic alcoholic with prior IV drug use and hepatitis C. He has all the evidence of hepatic failure including ascites. He states that he had an endoscopy in [place]. He was discharged to 2 days prior to presenting in the emergency room prior to this admission. He stated that he almost in [place] and they assured him that if he did not quit using drugs and alcohol that he would . He reports that he has not been taking his insulin. This is not a new development either. He presented to on 01/25 with complaints of acute abdominal pain which began the night prior to presentation. He reported that he had been unable to eat or drink because of nausea prior to admission. He states he is now feeling much better. Source: patient Exam Limitations: no limitations Date Seen 01/26/17 Time Seen by Provider: 14:26 Attending Physician Dez Skaggs MD PCP [facility] [place] Referring Physician Date of Admission Jan 25, 2017 at 11:50 Home Medications & Allergies Home Medications Reviewed patient Home Medication Reconciliation Form Allergies Allergies Coded Allergies Penicillins (Verified Allergy, Severe, EDEMA, SOA, 03/21/16) clindamycin (Verified Allergy, Unknown, 03/21/16) olanzapine (Verified Allergy, Unknown, 03/21/16) quetiapine (Verified Allergy, Unknown, 03/21/16) Past Grzrncj-Xvtwvb-Jpgeyr Hx Patient Social History Alcohol Use: Denies Use Recreational Drug Use: No Smoking Status: Current Someday Smoker Type Used: Cigarettes 2nd Hand Smoke Exposure: Yes Physical Abuse Screen: No Sexual Abuse: No Recent Foreign Travel: No Contact w/other who traveled: No Recent Hopitalizations: No Recent Infectious Disease Expo: No Immunizations Up To Date Tetanus Booster (TDap): Less than 5yrs Date of Pneumonia Vaccine: Apr 26, 2014 Date of Influenza Vaccine: Apr 09, 2016 Seasonal Allergies Seasonal Allergies: Yes Surgeries HX Surgeries: Yes (ORAL) Surgeries: Appendectomy, Neurological, Orthopedic Respiratory Hx Respiratory Disorders: Yes Respiratory Disorders: COPD Cardiovascular Hx Cardiovascular Disorders: Yes Cardiac Disorders: Coronary Artery Disease, Hypertension, Palpitations Neurological Hx Neurological Disorders: Yes (HEPATIC ENCEPHALOPATHY; CHRONIC POOR BALANCE AND FREQUENT FALLS) Neurological Disorders: Headaches /Migraines, Neuropathy Reproductive System Hx Reproductive Disorders: No Sexually Transmitted Disease: No HIV/AIDS: No Genitourinary Hx Genitourinary Disorders: Yes (chronic hematuria) Gastrointestinal Hx Gastrointestinal Disorders: Yes (HEPATITIS C) Gastrointestinal Disorders: Gastroesophageal Reflux, Liver Disease/Jaundice, Gastrointestinal Bleed, Pancreatitis, Esophageal Varices, Hepatitis, Cirrhosis, Gall Bladder Disease Musculoskeletal Hx Musculoskeletal Disorders: Yes (RIGHT ANKLE FRACTURE; MULTIPLE FRACTURES ) Musculoskeletal Disorders: Chronic Back Pain, Fractures Endocrine Hx Endocrine Disorders: Yes Endocrine Disorders: Diabetes, Insulin dep HEENT HX ENT Disorders: No Cancer Hx Cancer: No Cancer: Liver Psychosocial Hx Psychiatric Problems: Yes (EXTENISVE PSYCH ISSUES) Behavioral Health Disorders: Anxiety, Suicide Attempts, Schizophrenia, Depression Integumentary HX Skin/Integumentary Disorder: Yes (KUTRZ 04/2016--PT WAS SMOKING WHILE WEARING O2/NC. ) Blood Transfusions Hx Blood Disorders: Yes (ANEMIA; THROMBOCYTOPENIA) Adverse Reaction to a Blood Tr: No Reviewed Nursing Assessment Reviewed/Agree w Nursing PMH: Yes Family Medical History Significant Family History: Psychiatric Problems Family Hx: Cardiovascular disease 19 FATHER 19 MOTHER FH: schizophrenia 19 FATHER 19 MOTHER Respiratory disorder 19 FATHER 19 MOTHER Review of Systems Constitutional: see HPI EENTM: dental problems Respiratory: no symptoms reported Cardiovascular: no symptoms reported Gastrointestinal: abdominal pain, heartburn, loss of appetite, melena, nausea, vomiting Genitourinary: no symptoms reported Musculoskeletal: no symptoms reported Skin: no symptoms reported Psychiatric/Neurological: No Symptoms Reported Physical Exam Physical Exam Vital Signs Vital Sign - Last 12Hours 01/25/17 10:30 Temp 98.0 Pulse 71 Resp 20 B/P (MAP) 163/100 Pulse Ox 99 O2 Delivery Room Air Capillary Refill : Less Than 3 Seconds General Appearance: Other Eyes: Bilateral Eye Normal Inspection HEENT: Other (poor dental hygiene and a few remaining teeth) Neck: Full Range of Motion Respiratory: Chest Non Tender, Lungs Clear, Normal Breath Sounds, No Accessory Muscle Use, No Respiratory Distress Cardiovascular: Regular Rate, Rhythm, No Edema, No Gallop, No JVD, No Murmur, Normal Peripheral Pulses Extremity: Normal Capillary Refill, Normal Inspection, Normal Range of Motion, Non Tender, No Calf Tenderness, No Pedal Edema Skin: Normal Color, Warm/Dry Lymphatic: No Adenopathy Results Results/Procedures Lab Laboratory Tests 01/25/17 10:12 01/26/17 06:31 Short Stay Diagnosis Discharge Diagnosis-Short Stay Admission Diagnosis Acute nausea and vomiting. 2.hepatitis C. 3.chronic alcohol and drug abuse. 4.ascites 5.recent upper GI bleed site unknown. 6.diabetes mellitus type II with poor adherence to prescribed management regimen. Final Discharge Diagnosis Same as admission diagnosis Conclusion Plan Discharge SEE discharge sequence Clinical Quality Measures DVT/VTE Risk/Contraindication: Risk Factor Score Per Nursin RFS Level Per Nursing on Admit: 2=Moderate DEZ SKAGGS MD Jan 26, 2017 14:31
--- NOTE | 2017-01-26 14:36 | Discharge Instructions ---
Discharge Instructions Patient Instructions Patient Instructions: Diabetic diet Take medicines as detailed in the discharge sequence Faithful adherence to insulin. See your provider next week. ASIYA SKAGGS MD Jan 26, 2017 14:36
[2017-01-26] MEDS ORDERED: inSUlin ASPART (NovoLOG) 1 UNIT/0.01 ML (CHARGE PER UNIT) SC NR (14:45)
[2017-01-26] MEDS ORDERED: inSUlin DETERMIR 1 UNIT/0.01 ML (LEVEMIR) CHARGE PER UNIT SQ NR (14:45)
[2017-01-26] MEDS ORDERED: FAMOTIDINE 20 MG (PEPCID) TABLET PO SCH ×2 (15:00→21:00)
[2017-01-26] MEDS ORDERED: PREGABALIN 75 MG (LYRICA) CAP PO SCH ×2 (15:00→21:00)
[2017-01-26] MEDS ORDERED: amLODIPine 5 MG (NORVASC) TAB PO SCH (21:00)
[2017-01-26] MEDS ORDERED: THIAMINE 100 MG (VITAMIN B-1) TAB PO SCH (21:00)
[2017-01-26] MEDS ORDERED: FOLIC ACID 1 MG TAB PO SCH (21:00)
[2017-01-26] MEDS ORDERED: FUROSEMIDE 40 MG (LASIX) TAB PO SCH (21:00)
[2017-01-26] MEDS ORDERED: busPIRone 15 MG (BUSPAR) TABLET PO SCH (21:00)
--- OUTSIDE RECORDS SUMMARY | 2017-02-04 13:07 | XMS REPORT | Clinical Summary ---
Author Author [facility] Organization [facility] Address Unknown Phone Unavailable Care Team Providers Care Building Associate Name Role Phone PCP Unavailable Source Comments Some departments are not documenting in the electronic medical record. If you do not see the information that you expected, contact Release of Information in the Health Information Management department at [phone] for further assistance in locating additional records.[facility] Allergies Active Allergy Reactions Severity Noted Date Comments Penicillins ANAPHYLAXIS, HIVES 03/01/2012 Quetiapine ITCHING 02/03/2013 Current Medications Prescription Sig. Disp. Refills Start [...] Next Due Pneumococcal Vaccine 05/23/2014 (23-Gill Adult) Family History Medical History Relation Name Comments COPD Father Cancer Maternal Grandfather COPD Mother Relation Name Status Comments Father Maternal Grandfather Mother Social History Tobacco Use Types Packs/Day Years Used Date Current Every Day Smoker Cigarettes 0.25 20 Smokeless Tobacco: Never Used Tobacco Cessation: Ready to Quit: No; Counseling Given: Yes Sex Assigned at Date Recorded Not on file Last Filed Vital Signs Vital Sign Reading Time Taken Blood Pressure 155/99 05/23/2014 12:00 PM TIRE BAGGER Pulse 66 05/22/2014 3:59 PM TIRE BAGGER Temperature 36.4 C (97.6 F) 05/23/2014 12:00 PM TIRE BAGGER Respiratory Rate 16 11/01/2012 8:48 AM CDT Oxygen Saturation 96% 05/23/2014 12:00 PM TIRE BAGGER Inhaled Oxygen - - Concentration Weight 94.8 kg (208 lb 15.9 oz) 05/21/2014 5:41 AM TIRE BAGGER Height 190.5 cm (6' 3") 05/20/2014 6:00 PM TIRE BAGGER Body Mass Index 26.12 05/21/2014 5:41 AM TIRE BAGGER Plan of Treatment Health Maintenance Due Date Last Done Comments PHYSICAL (COMPREHENSIVE) 1979 EXAM PERTUSSIS VACCINE 1983 TETANUS VACCINE 1989 INFLUENZA VACCINE 03/05/2017 Results Not on filefrom Last 3 Months
--- OUTSIDE RECORDS SUMMARY | 2017-02-04 18:12 | XMS REPORT | Clinical Summary ---
Author Author [facility] Organization [facility] Address Unknown Phone Unavailable Care Team Providers Care Bindery Operator Name Role Phone PCP Unavailable Source Comments Some departments are not documenting in the electronic medical record. If you do not see the information that you expected, contact Release of Information in the Health Information Management department at [phone] for further assistance in locating additional records.[facility] Allergies Active Allergy Reactions Severity Noted Date [...] Taken Blood Pressure 155/99 05/23/2014 12:00 PM SALES AND EVENTS COORDINATOR Pulse 66 05/22/2014 3:59 PM SALES AND EVENTS COORDINATOR Temperature 36.4 C (97.6 F) 05/23/2014 12:00 PM SALES AND EVENTS COORDINATOR Respiratory Rate 16 11/01/2012 8:48 AM CDT Oxygen Saturation 96% 05/23/2014 12:00 PM SALES AND EVENTS COORDINATOR Inhaled Oxygen - - Concentration Weight 94.8 kg (208 lb 15.9 oz) 05/21/2014 5:41 AM SALES AND EVENTS COORDINATOR Height 190.5 cm (6' 3") 05/20/2014 6:00 PM SALES AND EVENTS COORDINATOR Body Mass Index 26.12 05/21/2014 5:41 AM SALES AND EVENTS COORDINATOR Plan of Treatment Health Maintenance Due Date Last Done Comments PHYSICAL (COMPREHENSIVE) 1979 EXAM PERTUSSIS VACCINE 1983 TETANUS VACCINE 1989 INFLUENZA VACCINE 03/05/2017 Results Not on filefrom Last 3 Months
== END 2017-01-26 15:45 | disposition home or self-care (01) | DRG 639 ==
LOC: EDUNIT# 09:55 → ER 09:58 → 4TH 11:50 → ICU 13:10 → 4TH 22:00
PROVIDERS: ADMIT Internal Medicine; ATTEND Internal Medicine
DX: E11.65 Type 2 diabetes mellitus with hyperglycemia (principal); K72.90 Hepatic failure, unspecified without coma; K70.31 Alcoholic cirrhosis of liver with ascites; B19.20 Unspecified viral hepatitis C without hepatic coma; F10.229 Alcohol dependence with intoxication, unspecified; F19.10 Other psychoactive substance abuse, uncomplicated; F17.210 Nicotine dependence, cigarettes, uncomplicated; J44.9 Chronic obstructive pulmonary disease, unspecified; I25.10 Atherosclerotic heart disease of native coronary artery without angina pectoris; I10 Essential (primary) hypertension; R00.2 Palpitations; K21.9 Gastro-esophageal reflux disease without esophagitis; F20.9 Schizophrenia, unspecified; D69.6 Thrombocytopenia, unspecified; F32.9 Major depressive disorder, single episode, unspecified; D64.9 Anemia, unspecified; Z79.4 Long term (current) use of insulin; Z91.14 Patient's other noncompliance with medication regimen
CPT/HCPCS: 36415; 80053; 80306; 80320; 80329; 81000; 82140; 82962; 83605; 85025; 87040; 93005; 93041; 96361; 96374; 96375

== ENCOUNTER 2017-03-29 13:45 | Inpatient (IN) | payer MEDICAID ==
[~2017-03-29] VITALS: Ht 190.5 cm; Wt 73.3 kg
--- OUTSIDE RECORDS SUMMARY | 2017-03-29 13:53 | XMS REPORT | Continuity of Care Document ---
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 Diabetes mellitus (disorder) 08/23/2015 Diagnosis 2015 [facility], [facility]. Alcoholism (disorder) 2015 Diagnosis 08/27/2015 [facility] Alcoholic cirrhosis (disorder) 08/23/2015 Diagnosis 08/27 [facility] Epidermoid cyst of skin (disorder) 08/23/2015 Diagnosis 08/27/2015 [facility] Hypersplenism (disorder) Diagnosis 08/27/2015 [facility] Chest pain (finding) 2015 Diagnosis 07/23/2015 [facility], [facility]. Paranoid schizophrenia (disorder) 06/19/2015 Diagnosis [facility], [facility] Atrial flutter (disorder) Diagnosis 06/23/2015 [facility] Intentional drug overdose (disorder) 06/11/2015 Diagnosis 06/15/2015 [facility], [facility]. Supraventricular tachycardia (disorder) 06/04/2015 Diagnosis 06/15/2015 [facility], [facility]. Hepatic encephalopathy (disorder) 06/04/2015 Diagnosis [facility], [facility]. Acute renal failure syndrome (disorder) 06/03/2015 Diagnosis 06/15/2015 [facility] Gastroesophageal reflux disease (disorder) 05/29/2015 Diagnosis 06/02/2015 [facility] Hypertensive disorder, systemic arterial (disorder) 05/29/2015 Diagnosis 06/02/2015 [facility] Other abnormal glucose 02/28 Diagnosis 03/04/2015 [facility] Hepatic coma 02/28/2015 Diagnosis 03/04/2015 [facility] Alcoholic cirrhosis of liver 02/28/2015 Diagnosis 2014 [facility] Other anxiety states 2014 Diagnosis 03/04/2015 [facility] Unspecified essential hypertension 02/28/2015 Diagnosis 03/04/2015 [facility] Diabetes mellitus without mention of complication, type II or unspecified type , not stated as uncontrolled 02/28/2015 Diagnosis 2014 [facility] Other and unspecified alcohol dependence, unspecified drinking behavior 02/28/2015 Diagnosis 03/04/2015 [facility] Traumatic arthropathy involving ankle and foot 02/07/2015 Diagnosis 02/11/2015 [facility] Diabetes mellitus with neurological manifestations, type II or unspecified type , not stated as uncontrolled 02/07/2015 Diagnosis 2014 [facility] Other secondary thrombocytopenia 11/21/2014 Diagnosis [facility] Contusion of chest wall Diagnosis 11/25/2014 [facility] Esophageal reflux 2014 Diagnosis 10/15/2014 [facility] Unspecified fall 10/11/2014 Diagnosis 10/15/2014 [facility] Bimalleolar fracture, closed 10/11/2014 Diagnosis 2014 [facility] Thrombocytopenia, unspecified 05/24/2014 Diagnosis 2013 [facility] Esophageal varices without mention of bleeding 02/16/2014 Diagnosis 02/20/2014 [facility], [facility], [facility]. Esophageal reflux 2013 Diagnosis 02/20/2014 [facility] Unspecified essential hypertension 02/16/2014 Diagnosis 02/20/2014 [facility] Attention deficit disorder of childhood with hyperactivity 02/16/2014 Diagnosis 02/20/2014 [facility] Alcoholic cirrhosis of liver 02/16/2014 Diagnosis 2013 [facility] Abdominal pain, unspecified site 01/23/2014 Diagnosis [facility] Cirrhosis of liver without mention of alcohol 01/02/2014 Diagnosis 01/06/2014 [facility] Acute upper respiratory infections of unspecified site 01/02/2014 Diagnosis 01/06/2014 [facility] Hepatic coma 12/22/2013 Diagnosis 12/26/2013 [facility] Paranoid type schizophrenia, unspecified state 11/20/2013 Diagnosis 11/24/2013 [facility] Traumatic arthropathy-ankle (disorder) Active 04/23/2011 Problem 09/15/2016 [facility] Traumatic arthropathy-ankle (disorder) Active 04/23/2011 Problem 07/19/2015 [facility] 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) Active 04/23/2011 Problem 10/06/2013 [facility] 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 04/23/2011 Problem 07/09/2013 [facility], [facility] Attention deficit hyperactivity disorder (disorder) Active Problem 09/15/2016 [facility], [facility] Alcoholic cirrhosis (disorder) Active Problem 09/15/2016 [facility], [facility] Alcoholism (disorder) Active Problem 09/15/2016 [facility], [facility], [facility] Fracture of ankle (disorder) Active Problem 09/15/2016 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) Active Problem 09/15/2016 [facility] Diabetes mellitus (disorder) Active Problem 09/15/2016 [facility], [facility] Gastroesophageal reflux disease (disorder) Active Problem 09/15/2016 [facility], [facility] Hepatic coma (disorder) Active Problem 09/15/2016 [facility], [facility] Hypertensive disorder, systemic arterial (disorder) Active Problem 09/15/2016 [facility], [facility] Paranoid schizophrenia (disorder) Active Problem 2016 [facility], [facility], [facility], [facility] Supraventricular tachycardia (disorder) Active Problem [facility], [facility], [facility] Cirrhosis - non-alcoholic (disorder) Active Problem 09/19 [facility], [facility] Medications Medication Details Route Status Patient Instructions Ordering Provider Order Date Source No Known Medications No known medications Active [facility] Pneumovax 23 0.5 mL, SOLN, IM, ONCE, 02/12/12 12:00:00 , Stop date 02/12/12 12:00:00Provide patient/caregiver the vaccine information statement and document version date on eMAR. Record the lot number and content architect below. Manuf: Lot Number: Exp Date: Inactive [facility] influenza virus vaccine, inactivated adult 0.5 mL, Suspension, IM, ONCE, Start Date: 07/03/13 12:00:00, Stop Date: 07/03/13 12:00: 00Provide patient/caregiver the vaccine information statement and document version date on eMAR. Record the lot number and content architect below. Manuf: ____ Lot Number: Exp Date: Inactive [facility]. Allergies, Adverse Reactions, Alerts Substance Category Reaction Severity Reaction type Status Date Reported Comments Source penicillins Assertion "can't breathe" Drug [facility], [facility], [facility] penicillins drug allergy "can 't breathe" Allergy Active [facility], [facility] penicillin drug allergy "can' t breathe" Allergy Active [facility], [facility] Immunizations Immunization Date Given Site Status Last Updated Comments Source influenza virus vaccine 07/19/2015 Not Given [facility] influenza virus vaccine 06/02/2015 Left Deltoid influenza virus vaccine [facility] influenza virus vaccine 07/05/2013 Left Deltoid influenza virus vaccine [facility], [facility], [facility], [facility], [facility]. pneumococcal polysaccharide PPV23 02/12/2012 Right Deltoid pneumococcal 23-valent vaccine [facility], [facility], [facility], [facility] pneumococcal 23-valent vaccine 02/12/2012 completed [facility], [facility], [facility] Results Vital Signs Encounters Location Location Details Encounter Type Encounter Number Reason For Visit Attending Provider ADM Date DC Date Status Source [facility] [id number] Inpatient [id number] Max An 02/10/2012 Active [facility]. [facility] [id number] Inpatient [id number] Kings Aguilar 06/20/2012 06/21/2012 Active [facility]. OM [id number] Inpatient [id number] Kings Aguilar 08/01/2012 08/08/2012 Active [facility]. [facility] [id number] Inpatient [id number] Kings Aguilar 12/08/2012 12/09/2012 Active [facility]. [facility] [id number] Clinic ( Outpatient) [id number] Sofy Smith 05/03/2013 Active [place] [employer] [facility], [facility] CD:[id number] Clinic ( Outpatient) [id number] Kings Aguilar 06/07/2013 Active [facility] [id number] Clinic ( Outpatient) [id number] Kings Aguilar 06/14/2013 Active [facility] [id number] Clinic ( Outpatient) [id number] Kings Aguilar 06/21/2013 Active [facility] [id number] Inpatient [id number] Kings Aguilar 07/02/2013 07/05/2013 Active [employer]. [facility] CD:[id number] Clinic ( Outpatient) [id number] Kings Aguilar 07/13/2013 Active [facility] CD:[id number] Clinic ( Outpatient) [id number] Kings Aguilar 07/27/2013 Active [facility] CD:[id number] Inpatient [id number] Kings Aguilar 09/11/2013 09/15/2013 Active [employer] [employer]. [facility] CD:[id number] Clinic ( Outpatient) [id number] Kings Aguilar 09/20/2013 Active [facility] CD:[id number] Clinic ( Outpatient) [id number] Kings Aguilar 10/02/2013 Active [facility] Cancel/No Show [id number] Kings Aguilar 10/02/2013 10/02/2013 [facility] [id number] Clinic ( Outpatient) [id number] Sofy Smith 11/01/2013 Active [facility] CD:[id number] Clinic ( Outpatient) [id number] Kings Aguilar 11/06/2013 Active [facility] CD:[id number] Clinic ( Outpatient) [id number] Kings Aguilar 11/10/2013 Active [facility] [id number] Kings Aguilar 11/10/2013 11/10/2013 [employer] [facility] [place] [facility] [id number] Kings Aguilar 11/20/2013 11/21/2013 [facility] [place] [facility] Cancel/No Show [id number] Kings Aguilar 12/18/2013 12/18/2013 [facility] [place] [facility] CD:[id number] Clinic ( Outpatient) [id number] 12/22/2013 Active [facility] [place] [facility] [id number] Kings Aguilar 12/22/2013 12/23/2013 [facility] [place] [facility] [id number] Zoran Mara 01/02/2014 01/03/2014 [facility] [place] [facility] [id number] Clinic ( Outpatient) [id number] Sofy Luis 01/04/2014 Active [facility], [facility] Clinic [id number] [facility] 01/04/201410/2013 [facility] CD:[id number] Outpatient [id number] Salem Luis 01/23/2014 01/23/2014 Active [facility], [facility]. [facility] CD:[id number] Emergency [id number] DENISE NOBLE 01/23/2014 01/23/2014 Active [facility]. [facility] CD:[id number] Outpatient [id number] Sofy Luis 01/26/2014 01/26/2014 Active [facility]. [facility] [id number] Kings Aguilar 02/16/2014 02/17/2014 [facility] [place] [facility] Cancel/No Show [id number] Halie Dacosta 02/19/2014 02/19/2014 [facility] CD:[id number] Emergency [id number] Kings Arredondo 03/29/2014 Active [facility], [facility]. [facility] [id number] Kings Aguilar 05/24/2014 [facility] [place] [facility] [place] Cancel/No Show [id number] Kings Aguilar 06/22/2014 06/22/2014 [facility] [place] [facility] [place] [facility] [id number] Kings Aguilar 08/27/2014 [facility] [place] [facility] [place] Cancel/No Show [id number] Kings Aguilar 09/24/2014 09/26/2014 [facility] [place] [facility] Cancel/No Show [id number] Halie Dacosta 10/01/2014 10/01/2014 [facility] [place] [facility] [id number] Kings Aguilar 10/11/201404/2015 [facility] [place] [facility] CD:[id number] Emergency [id number] Napoleon Isabel 11/15/2014 11/15/2014 Active [facility] [place] Cancel/No Show [id number] Kings Aguilar 11/19/2014 11/19/2014 [facility] [place] [facility] [facility] [id number] Kings Aguilar 11/21/2014 [facility] [place] [facility] [id number] Kings Aguilar 02/07/201501/2015 [facility] [place] [facility] [place] [facility] [id number] Kings Aguilar 02/28/2015 [facility] [place] [employer] [place] Cancel/No Show [id number] Kings Aguilar 04/17/2015 04/16/2015 [facility] [place] [facility] [place] [facility] [id number] Kings Aguilar 05/29/2015 [facility] [place] [facility] CD:[id number] Inpatient [id number] Ryan Nolan 06/01/2015 06/11/2015 Active [facility], [facility]. [facility] [place] [facility] [id number] Kings Aguilar 06/19/2015 [facility] [place] [facility] CD:[id number] Inpatient [id number] Kings Aguilar 07/18/2015 07/19/2015 Active [facility], [facility]. [facility] [place] Cancel/No Show [id number] Kings Aguilar 07/19/2015 07/15/2015 [facility] [place] [facility] CD:[id number] Clinic ( Outpatient) [id number] Kings Aguilar 08/22/2015 Active [facility] [place] [facility] [place] [facility] [id number] Kings Aguilar 08/23/2015 [facility] [place] [facility] [id number] Clinic ( Outpatient) [id number] Valentin Rojas 10/09/2015 Active [facility] [id number] Valentin Rojas 11/04/2015 11/04/2015 [facility] Cancel/No Show [id number] Kings Aguilar 09/1109/11/2016 [facility] Procedures Procedure Code Date Perfomer Comments Source Echocardiography, transthoracic, real-time with image documentation (2D), includes M-mode recording, when performed, complete, with spectral Doppler echocardiography, and with color flow Doppler echocardiography [id number] 07/19/2015 [facility] Typical and Atypical AVNRT and Atrial Flutter Ablation 06/05/2015 [facility]. Echocardiogram, EF 55% 06/03 [facility]. No data available for this section [facility] Esophagogastroduodenoscopy, flexible, transoral; diagnostic, including collection of specimen(s) by brushing or washing, when performed (separate procedure) [id number] [facility]. Plan of Care Social History Assessment and Plan Family History Value Date Source Advance Directives Order Name Results Value Date Source
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
--- OUTSIDE RECORDS SUMMARY | 2017-03-29 13:55 | XMS REPORT | Clinical Summary ---
Author Author [facility] Organization [facility] Address Unknown Phone Unavailable Care Team Providers Care Manager Basketball Name Role Phone PCP Unavailable Source Comments Some departments are not documenting in the electronic medical record. If you do not see the information that you expected, contact Release of Information in the Health Information Management department at [phone] for further assistance in locating additional records.[facility] Allergies Active Allergy Reactions Severity Noted [...] Taken Blood Pressure 155/99 05/23/2014 12:00 PM PROFESSOR OF ARCHITECTURE Pulse 66 05/22/2014 3:59 PM PROFESSOR OF ARCHITECTURE Temperature 36.4 C (97.6 F) 05/23/2014 12:00 PM PROFESSOR OF ARCHITECTURE Respiratory Rate 16 11/01/2012 8:48 AM CDT Oxygen Saturation 96% 05/23/2014 12:00 PM PROFESSOR OF ARCHITECTURE Inhaled Oxygen - - Concentration Weight 94.8 kg (208 lb 15.9 oz) 05/21/2014 5:41 AM PROFESSOR OF ARCHITECTURE Height 190.5 cm (6' 3") 05/20/2014 6:00 PM PROFESSOR OF ARCHITECTURE Body Mass Index 26.12 05/21/2014 5:41 AM PROFESSOR OF ARCHITECTURE Plan of Treatment Health Maintenance Due Date Last Done Comments PHYSICAL (COMPREHENSIVE) 1979 EXAM PERTUSSIS VACCINE 1983 TETANUS VACCINE 1989 INFLUENZA VACCINE 04/04/2017 Results Not on filefrom Last 3 Months
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
--- OUTSIDE RECORDS SUMMARY | 2017-03-29 13:56 | XMS REPORT ---
Author Author REDD MCKEON Organization [facility] Address [address] [place] [address] Care Team Providers Care Oil Pumper Name Role Phone MIKE REDD Unavailable PROBLEMS Type Condition ICD9-CM Code [id number] Code Onset Dates Condition Status SNOMED Code Problem 2Nd deg burn nose T20.24XA Active 90769532 Problem Acute alcohol dependence syndrome F10.20 Active 02993297 Problem Hypertension due to endocrine disorder I15.2 Active 619321132 Problem Chronic pain syndrome G89.4 Active 088349322 Problem Non-intractable cyclical vomiting with nausea G43.A0 Active 28976800 Problem Chronic pain due to injury G89.21 Active 360718977 Problem Gastroesophageal reflux disease without esophagitis K21.9 Active 534946338 Problem Chronic obstructive pulmonary disease, unspecified COPD type J44.9 Active 68980156 Problem Anxiety F41.9 Active 62420973 Problem Edema, unspecified type R60.9 Active 947922701 Problem 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 Z79.4 Active 225565044 Problem Type 2 diabetes mellitus with hyperglycemia E11.65 Active 677989668694719 Problem Type 2 diabetes mellitus without complication, unspecified penitentiary insulin use status E11.9 Active 00356227 Problem Paranoid schizophrenia F20.0 Active 15215789 Problem Other chronic pain G89.29 Active 03160829 Problem Pain in left leg M79.605 Active 32025743 Problem Alcoholic cirrhosis of liver without ascites K70.30 Active 059854275 Problem Drug abuse and dependence F19.20 Active 3735843 Problem Gastroesophageal reflux disease, esophagitis presence not specified K21.9 Active 864842714 Problem Unspecified fracture of shaft of right fibula, subsequent encounter for closed fracture with routine healing S82.401D Active 47246677 ALLERGIES Unknown Allergies SOCIAL HISTORY No smoking Hx information available PLAN OF CARE Activity Details Follow Up 1 Week Reason: VITAL SIGNS MEDICATIONS Unknown Medications RESULTS No Results PROCEDURES Procedure Date Ordered Related Diagnosis Body Site Alcohol and/or drug services May 20, 2016 IMMUNIZATIONS No Known Immunizations
--- OUTSIDE RECORDS SUMMARY | 2017-03-29 13:56 | XMS REPORT ---
Author Author REDD MCKEON Organization [facility] Address [address] [place] [address] Care Team Providers Care Byproducts Extractor Name Role Phone MIKE REDD Unavailable PROBLEMS Type Condition ICD9-CM Code [id number]-[id number] Code Onset Dates Condition Status SNOMED Code Problem 2Nd deg burn nose T20.24XA Active 57676172 Problem Acute alcohol dependence syndrome F10.20 Active 97480850 Problem Hypertension due to endocrine disorder I15.2 Active 374968548 Problem Chronic pain syndrome G89.4 Active 580172434 Problem Paranoid schizophrenia F20.0 Active 07643842 Problem Chronic pain due to injury G89.21 Active 982779217 Problem Chronic obstructive pulmonary disease, unspecified COPD type J44.9 Active 94844181 Problem Gastroesophageal reflux disease without esophagitis K21.9 Active 512440613 Problem Anxiety F41.9 Active 75232058 Problem Edema, unspecified type R60.9 Active 847987653 Problem detention current use of insulin Z79.4 Active 728375774 Problem Type 2 diabetes mellitus without complication, unspecified extermination inspector insulin use status E11.9 Active 30849154 Problem Type 2 diabetes mellitus with hyperglycemia E11.65 Active 592312497689438 Problem Alcoholic cirrhosis of liver without ascites K70.30 Active 099368176 Problem Pain in left leg M79.605 Active 40393073 Problem Other chronic pain G89.29 Active 39204908 Problem Non-intractable cyclical vomiting with nausea G43.A0 Active 53301435 Problem Unspecified fracture of shaft of right fibula, subsequent encounter for closed fracture with routine healing S82.401D Active 20639386 Problem Gastroesophageal reflux disease, esophagitis presence not specified K21.9 Active 227986919 Problem Drug abuse and dependence F19.20 Active 5838245 ALLERGIES Unknown Allergies SOCIAL HISTORY No smoking Hx information available PLAN OF CARE Activity Details Follow Up 1 Week Reason: VITAL SIGNS MEDICATIONS Unknown Medications RESULTS No Results PROCEDURES Procedure Date Ordered Related Diagnosis Body Site Alcohol and/or drug services Jul 14, 2016 IMMUNIZATIONS No Known Immunizations
--- OUTSIDE RECORDS SUMMARY | 2017-03-29 13:57 | XMS REPORT ---
Author Author REDD MCKEON Organization [facility] Address [address] [place] [address] Care Team Providers Care Diesel Mechanic Farm Name Role Phone MIKE REDD Unavailable PROBLEMS Type Condition ICD9-CM Code [id number] Code Onset Dates Condition Status SNOMED Code Problem 2Nd deg burn nose T20.24XA Active 13450979 Problem Acute alcohol dependence syndrome F10.20 Active 40466086 Problem Hypertension due to endocrine disorder I15.2 Active 913985020 Problem Chronic pain syndrome G89.4 Active 262347381 Problem Paranoid schizophrenia F20.0 Active 56189182 Problem Chronic pain due to injury G89.21 Active 525724638 Problem Chronic obstructive pulmonary disease, unspecified COPD type J44.9 Active 14150871 Problem Gastroesophageal reflux disease without esophagitis K21.9 Active 859482850 Problem Anxiety F41.9 Active 46196114 Problem Edema, unspecified type R60.9 Active 227402033 Problem senior living current use of insulin Z79.4 Active 305566808 Problem Type 2 diabetes mellitus without complication, unspecified terminal carman insulin use status E11.9 Active 18807871 Problem Type 2 diabetes mellitus with hyperglycemia E11.65 Active 203721126176609 Problem Alcoholic cirrhosis of liver without ascites K70.30 Active 693523949 Problem Pain in left leg M79.605 Active 83427293 Problem Other chronic pain G89.29 Active 44196589 Problem Non-intractable cyclical vomiting with nausea G43.A0 Active 41768606 Problem Unspecified fracture of shaft of right fibula, subsequent encounter for closed fracture with routine healing S82.401D Active 32395957 Problem Gastroesophageal reflux disease, esophagitis presence not specified K21.9 Active 397604409 Problem Drug abuse and dependence F19.20 Active 0609018 ALLERGIES Unknown Allergies SOCIAL HISTORY No smoking Hx information available PLAN OF CARE Activity Details Follow Up 1 Week Reason: VITAL SIGNS MEDICATIONS Unknown Medications RESULTS No Results PROCEDURES Procedure Date Ordered Related Diagnosis Body Site Alcohol and/or drug services Jun 16, 2016 IMMUNIZATIONS No Known Immunizations
--- OUTSIDE RECORDS SUMMARY | 2017-03-29 13:57 | XMS REPORT ---
Author Author AMADO Cooney Organization [facility] Address [address] [place] [address] Care Team Providers Care Hvac Operations Technician Name Role Phone massimoAMADO OSBORN Unavailable PROBLEMS Type Condition ICD9-CM Code [id number] Code Onset Dates Condition Status SNOMED Code Problem 2Nd deg burn nose T20.24XA Active 32831640 Problem Acute alcohol dependence syndrome F10.20 Active 49788953 Problem Hypertension due to endocrine disorder I15.2 Active 903874302 Problem Chronic pain syndrome G89.4 Active 277391610 Problem Paranoid schizophrenia F20.0 Active 96129403 Problem Chronic pain due to injury G89.21 Active 627624843 Problem Chronic obstructive pulmonary disease, unspecified COPD type J44.9 Active 62049852 Problem Gastroesophageal reflux disease without esophagitis K21.9 Active 298379044 Problem Anxiety F41.9 Active 28876986 Problem Edema, unspecified type R60.9 Active 807044445 Problem assisted current use of insulin Z79.4 Active 830151772 Problem Type 2 diabetes mellitus without complication, unspecified senior care insulin use status E11.9 Active 38907381 Problem Type 2 diabetes mellitus with hyperglycemia E11.65 Active 461539203267195 Problem Alcoholic cirrhosis of liver without ascites K70.30 Active 490324011 Problem Pain in left leg M79.605 Active 49137766 Problem Other chronic pain G89.29 Active 49769729 Problem Non-intractable cyclical vomiting with nausea G43.A0 Active 13286879 Problem Unspecified fracture of shaft of right fibula, subsequent encounter for closed fracture with routine healing S82.401D Active 76941329 Problem Gastroesophageal reflux disease, esophagitis presence not specified K21.9 Active 644234804 Problem Drug abuse and dependence F19.20 Active 3610796 ALLERGIES Unknown Allergies SOCIAL HISTORY No smoking Hx information available PLAN OF CARE VITAL SIGNS MEDICATIONS Unknown Medications RESULTS No Results PROCEDURES No Known procedures IMMUNIZATIONS No Known Immunizations
--- OUTSIDE RECORDS SUMMARY | 2017-03-29 13:57 | XMS REPORT ---
Author Author YAA TORRES [facility] Address [address] [place] [address] Care Team Providers Care Ciso Name Role Phone JULIALEONYAA Unavailable PROBLEMS Type Condition ICD9-CM Code GBX40-LC Code Onset Dates Condition Status SNOMED Code Problem 2Nd deg burn nose T20.24XA Active 10192549 Problem Acute alcohol dependence syndrome F10.20 Active 47638707 Problem Hypertension due to endocrine disorder I15.2 Active 880866054 Problem Chronic pain syndrome G89.4 Active 124083484 Problem Paranoid schizophrenia F20.0 Active 13260201 Problem Chronic pain due to injury G89.21 Active 955784527 Problem Chronic obstructive pulmonary disease, unspecified COPD type J44.9 Active 38933539 Problem Gastroesophageal reflux disease without esophagitis K21.9 Active 882696356 Problem Anxiety F41.9 Active 87623079 Problem Edema, unspecified type R60.9 Active 727811684 Problem manager intermediate current use of insulin Z79.4 Active 668268834 Problem Type 2 diabetes mellitus without complication, unspecified intermediate project manager insulin use status E11.9 Active 81311339 Problem Type 2 diabetes mellitus with hyperglycemia E11.65 Active 513556278488530 Problem Alcoholic cirrhosis of liver without ascites K70.30 Active 759018051 Problem Pain in left leg M79.605 Active 48892373 Problem Other chronic pain G89.29 Active 94358433 Problem Non-intractable cyclical vomiting with nausea G43.A0 Active 74453254 Problem Unspecified fracture of shaft of right fibula, subsequent encounter for closed fracture with routine healing S82.401D Active 13925919 Problem Gastroesophageal reflux disease, esophagitis presence not specified K21.9 Active 787819568 Problem Drug abuse and dependence F19.20 Active 7148909 ALLERGIES No Information SOCIAL HISTORY Never Assessed PLAN OF CARE Activity Details Follow Up 2 - 3 Days Reason: VITAL SIGNS MEDICATIONS Unknown Medications RESULTS No Results PROCEDURES Procedure Date Ordered Result Body Site Alcohol and/or drug services Aug 17, 2016 IMMUNIZATIONS No Known Immunizations MEDICAL (GENERAL) HISTORY Type Description Date Medical History cirrhosis Medical History type II diabetes Medical History Hep C Medical History schizophrenia, paranoid Medical History martin to face and left hand Surgical History some kind of heart surgery [facility] 2015 Surgical History cholecystectomy Hospitalization History [facility] Hospitalization Jun 2015 Hospitalization History Severe Hyperglycemia, Dehydration 11/17/15 Hospitalization History Liver Cirrhosis with ascites, Hyperglycemia, Hypokalemia 03/03/2016 Hospitalization History Uncontroled Hyperglycemia 03/21/2016 Hospitalization History Altered Mental Status, Hypoglycemia, hypokalemia--[facility] 04/01/2016 Hospitalization History Mental Health Stay At [facility] in [facility] 2016 Hospitalization History ESLD, Hyperglycemia, Acute ETOH intox, End sstage liver cirrhosis-[facility] 08/12/16 Hospitalization History pneumonia 08/2016 Hospitalization History Uncontroled Hyperglycemia, dehydration, liver failure- [facility] 08/27/16
--- OUTSIDE RECORDS SUMMARY | 2017-03-29 13:57 | XMS REPORT ---
Author Author AMADO Cooney Organization [facility] Address [address] [place] [address] Care Team Providers Care Assistant Account Manager Name Role Phone AMADO Cooney Unavailable PROBLEMS Type Condition ICD9-CM Code JPL10-CW Code Onset Dates Condition Status SNOMED Code Problem 2Nd deg burn nose T20.24XA Active 84980423 Problem Acute alcohol dependence syndrome F10.20 Active 09362100 Problem Hypertension due to endocrine disorder I15.2 Active 421431773 Problem Chronic pain syndrome G89.4 Active 079696666 Problem Paranoid schizophrenia F20.0 Active 67195459 Problem Chronic pain due to injury G89.21 Active 889341962 Problem Chronic obstructive pulmonary disease, unspecified COPD type J44.9 Active 96462924 Problem Gastroesophageal reflux disease without esophagitis K21.9 Active 729258266 Problem Anxiety F41.9 Active 64663486 Problem Edema, unspecified type R60.9 Active 281710285 Problem terminal computer operator current use of insulin Z79.4 Active 002934055 Problem Type 2 diabetes mellitus without complication, unspecified detention insulin use status E11.9 Active 86842129 Problem Type 2 diabetes mellitus with hyperglycemia E11.65 Active 261360201844132 Problem Alcoholic cirrhosis of liver without ascites K70.30 Active 525620883 Problem Pain in left leg M79.605 Active 40805721 Problem Other chronic pain G89.29 Active 83842714 Problem Non-intractable cyclical vomiting with nausea G43.A0 Active 62009835 Problem Unspecified fracture of shaft of right fibula, subsequent encounter for closed fracture with routine healing S82.401D Active 53765844 Problem Gastroesophageal reflux disease, esophagitis presence not specified K21.9 Active 074204157 Problem Drug abuse and dependence F19.20 Active 4694650 ALLERGIES No Information SOCIAL HISTORY Never Assessed PLAN OF CARE VITAL SIGNS MEDICATIONS Unknown Medications RESULTS No Results PROCEDURES Procedure Date Ordered Result Body Site Alcohol and/or drug services Aug 18, 2016 IMMUNIZATIONS No Known Immunizations MEDICAL (GENERAL) HISTORY Type Description Date Medical History cirrhosis Medical History type II diabetes Medical History Hep C Medical History schizophrenia, paranoid Medical History martin to face and left hand Surgical History some kind of heart surgery [facility] 2015 Surgical History cholecystectomy Hospitalization History [facility]ric Hospitalization Jun 2015 Hospitalization History Severe Hyperglycemia, Dehydration 11/17/15 Hospitalization History Liver Cirrhosis with ascites, Hyperglycemia, Hypokalemia 03/03/2016 Hospitalization History Uncontroled Hyperglycemia 03/21/2016 Hospitalization History Altered Mental Status, Hypoglycemia, hypokalemia--[facility] 04/01/2016 Hospitalization History Mental Health Stay At [facility] in [facility] 2016 Hospitalization History ESLD, Hyperglycemia, Acute ETOH intox, End sstage liver cirrhosis-[facility] 08/12/16 Hospitalization History pneumonia 08/2016 Hospitalization History Uncontroled Hyperglycemia, dehydration, liver failure- [facility] 08/27/16
--- OUTSIDE RECORDS SUMMARY | 2017-03-29 13:57 | XMS REPORT ---
Author Author MEETA SUTTON Organization [facility] Address [address] [place] [address] Care Team Providers Care Technical Designer Name Role Phone MEETA SUTTON Unavailable PROBLEMS Type Condition ICD9-CM Code EUS25-NI Code Onset Dates Condition Status SNOMED Code Problem 2Nd deg burn nose T20.24XA Active 92993457 Problem Acute alcohol dependence syndrome F10.20 Active 02741703 Problem Hypertension due to endocrine disorder I15.2 Active 485401390 Problem Chronic pain syndrome G89.4 Active 881260198 Problem Paranoid schizophrenia F20.0 Active 86782537 Problem Chronic pain due to injury G89.21 Active 855455521 Problem Chronic obstructive pulmonary disease, unspecified COPD type J44.9 Active 01272414 Problem Gastroesophageal reflux disease without esophagitis K21.9 Active 552414467 Problem Anxiety F41.9 Active 03388574 Problem Edema, unspecified type R60.9 Active 722351196 Problem watermelon inspector current use of insulin Z79.4 Active 448234427 Problem Type 2 diabetes mellitus without complication, unspecified terminal gauger supervisor insulin use status E11.9 Active 37512270 Problem Type 2 diabetes mellitus with hyperglycemia E11.65 Active 821858177957511 Problem Alcoholic cirrhosis of liver without ascites K70.30 Active 131378294 Problem Pain in left leg M79.605 Active 65689489 Problem Other chronic pain G89.29 Active 49544001 Problem Non-intractable cyclical vomiting with nausea G43.A0 Active 45233082 Problem Unspecified fracture of shaft of right fibula, subsequent encounter for closed fracture with routine healing S82.401D Active 78864653 Problem Gastroesophageal reflux disease, esophagitis presence not specified K21.9 Active 882541101 Problem Drug abuse and dependence F19.20 Active 3825816 ALLERGIES Unknown Allergies SOCIAL HISTORY No smoking Hx information available PLAN OF CARE VITAL SIGNS MEDICATIONS Medication Instructions Dosage Frequency Start Date End Date Duration Status Tramadol HCl 50 mg Orally twice a day 1 tablet as needed 12h 14 Feb, 2017 14 days Active RESULTS No Results PROCEDURES No Known procedures IMMUNIZATIONS No Known Immunizations
--- OUTSIDE RECORDS SUMMARY | 2017-03-29 13:58 | XMS REPORT ---
Author Author NAVEEN MOTT Organization [facility] Address [address] [place] [address] Care Team Providers Care Auto Wrecker Name Role Phone NAVEEN MOTT Unavailable PROBLEMS Type Condition ICD9-CM Code [id number] Code Onset Dates Condition Status SNOMED Code Problem 2Nd deg burn nose T20.24XA Active 87628207 Problem Acute alcohol dependence syndrome F10.20 Active 61335112 Problem Hypertension due to endocrine disorder I15.2 Active 705255303 Problem Chronic pain syndrome G89.4 Active 618356405 Problem Paranoid schizophrenia F20.0 Active 69892260 Problem Chronic pain due to injury G89.21 Active 985012819 Problem Chronic obstructive pulmonary disease, unspecified COPD type J44.9 Active 54912165 Problem Gastroesophageal reflux disease without esophagitis K21.9 Active 466198687 Problem Anxiety F41.9 Active 92308318 Problem Edema, unspecified type R60.9 Active 858286187 Problem FPC current use of insulin Z79.4 Active 798315885 Problem Type 2 diabetes mellitus without complication, unspecified emt intermediate insulin use status E11.9 Active 60752240 Problem Type 2 diabetes mellitus with hyperglycemia E11.65 Active 412216856194162 Problem Alcoholic cirrhosis of liver without ascites K70.30 Active 348672503 Problem Pain in left leg M79.605 Active 76574532 Problem Other chronic pain G89.29 Active 19310934 Problem Non-intractable cyclical vomiting with nausea G43.A0 Active 29105974 Problem Unspecified fracture of shaft of right fibula, subsequent encounter for closed fracture with routine healing S82.401D Active 57966387 Problem Gastroesophageal reflux disease, esophagitis presence not specified K21.9 Active 939620071 Problem Drug abuse and dependence F19.20 Active 7978661 ALLERGIES Substance Reaction Event Type Date Status Zyprexa Unknown Drug Allergy Aug, Active Seroquel Unknown Drug Allergy Aug, Active Penicillin V Potassium Unknown Drug Allergy Aug, Active Clindamycin HCl Unknown Drug Allergy Aug, Active SOCIAL HISTORY No smoking Hx information available PLAN OF CARE Activity Details Follow Up prn Reason: VITAL SIGNS Height 75 in 2016-08-11 Weight 182.0 lbs 2016-08-11 Temperature 97.4 degrees Fahrenheit 2016-08-11 Heart Rate 108 bpm 2016-08-11 Respiratory Rate 22 2016-08-11 Oximetry on room air:94 % 2016-08-11 BMI 22.75 kg/m2 2016-08-11 Blood pressure systolic 142 mmHg 2016-08-11 Blood pressure diastolic 86 mmHg 2016-08-11 MEDICATIONS Medication Instructions Dosage Frequency Start Date End Date Duration Status Amitriptyline HCl 75 MG Orally one hour before bed 1 tablet Active Lantus 100 UNIT/ML Subcutaneous at bedtime 60 units Active Trazodone HCl 50 mg Orally Once a day 1 tablet at bedtime as needed 24h Active Blood Glucose Monitor System w/Device [employer] E11.65 as directed Apr, Active Norvasc 5 mg Orally Once a day 1 tablet 24h 28 days Active Lyrica 50 mg Orally 2 times a day 1 capsule 12h May, 28 days Active Folic Acid 1 MG Orally Once a day 1 tablet 24h 28 days Active Lactulose 10 GM/15ML Orally TID with meals 15 ml 17 Dec, 2015 Active Cetirizine HCl 10 MG Orally Once a day 1 tablet 24h Aug, Sep, 30 day(s) Active Humalog KwikPen 100 UNIT/ML Subcutaneous TID before meals 15 units November Active Omeprazole 40 mg Orally Once a day 1 capsule 24h Jul, 30 day(s ) Active True Metrix Blood Glucose Test - In Vitro 3 times a day and lancets. Whatever insurance will cover as directed 34 Active Flonase Allergy Relief 50 MCG/ACT Nasally twice per day 1 spray in each nostril Aug, 30 day(s) Active Tramadol HCl 50 mg Orally twice a day 1 tablet as needed 12h 14 Aug, 2016 14 days Active RESULTS No Results PROCEDURES Procedure Date Ordered Related Diagnosis Body Site MEASURE BLOOD OXYGEN LEVEL Aug 11, 2016 Office Visit, Est Pt., Level 3 Aug 11, 2016 IMMUNIZATIONS No Known Immunizations
--- OUTSIDE RECORDS SUMMARY | 2017-03-29 13:59 | XMS REPORT ---
Author Author MEETA SUTTON Organization [facility] Address [address] [place] [address] Care Team Providers Care Ventilation Worker Name Role Phone MEETA SUTTON Unavailable PROBLEMS Type Condition ICD9-CM Code [id number] Code Onset Dates Condition Status SNOMED Code Problem 2Nd deg burn nose T20.24XA Active 94818526 Problem Acute alcohol dependence syndrome F10.20 Active 01073045 Problem Hypertension due to endocrine disorder I15.2 Active 917637330 Problem Chronic pain syndrome G89.4 Active 412101712 Problem Paranoid schizophrenia F20.0 Active 50536466 Problem Chronic pain due to injury G89.21 Active 085187873 Problem Chronic obstructive pulmonary disease, unspecified COPD type J44.9 Active 97710473 Problem Gastroesophageal reflux disease without esophagitis K21.9 Active 461964164 Problem Anxiety F41.9 Active 78710216 Problem Edema, unspecified type R60.9 Active 627273491 Problem 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 Active 421838065 Problem Type 2 diabetes mellitus without complication, unspecified 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 helper insulin use status E11.9 Active 60084202 Problem Type 2 diabetes mellitus with hyperglycemia E11.65 Active 881137998355866 Problem Alcoholic cirrhosis of liver without ascites K70.30 Active 527136123 Problem Pain in left leg M79.605 Active 89814538 Problem Other chronic pain G89.29 Active 62662207 Problem Non-intractable cyclical vomiting with nausea G43.A0 Active 84710840 Problem Unspecified fracture of shaft of right fibula, subsequent encounter for closed fracture with routine healing S82.401D Active 27272862 Problem Gastroesophageal reflux disease, esophagitis presence not specified K21.9 Active 008400886 Problem Drug abuse and dependence F19.20 Active 0178326 ALLERGIES No Information SOCIAL HISTORY Never Assessed PLAN OF CARE VITAL SIGNS MEDICATIONS Medication Instructions Dosage Frequency Start Date End Date Duration Status Abilify 10 mg Orally Once a day 1 tablet 24h Aug, 30 day(s) Active RESULTS No Results PROCEDURES No Known procedures IMMUNIZATIONS No Known Immunizations MEDICAL (GENERAL) HISTORY Type Description Date Medical History cirrhosis Medical History type II diabetes Medical History Hep C Medical History schizophrenia, paranoid Medical History martin to face and left hand Surgical History some kind of heart surgery [facility] 2015 Surgical History cholecystectomy [facility] 2015 Hospitalization History Severe Hyperglycemia, Dehydration 11/17/15 Hospitalization History Liver Cirrhosis with ascites, Hyperglycemia, Hypokalemia 03/03/2016 Hospitalization History Uncontroled Hyperglycemia 03/21/2016 Hospitalization History Altered Mental Status, Hypoglycemia, hypokalemia--[facility] 04/01/2016 Hospitalization History Mental Health Stay At [facility] in [facility] 2016 Hospitalization History ESLD, Hyperglycemia, Acute ETOH intox, End sstage liver cirrhosis-[facility] 08/12/16 Hospitalization History pneumonia 08/2016 Hospitalization History Uncontroled Hyperglycemia, dehydration, liver failure- [facility] 08/27/16
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
[2017-03-29] MEDS ORDERED: inSUlin (REGULAR) HUMAN 1 UNIT/0.01 ML (CHARGE PER UNIT) IV STA ×2 (14:56→16:29)
[2017-03-29] MEDS ORDERED: NS IV 1000 ML 1,000 ML IV ONE ×2 (14:56→15:29)
[2017-03-29 15:08] LABS: BASOPHILS % (AUTO) 1 % (0-10); EOSINOPHILS # (AUTO) 0.1 10^3/uL (0.0-0.3); EOSINOPHILS % (AUTO) 1 % (0-10); LYMPHOCYTES # (AUTO) 0.9 X 10^3 (1.0-4.0); LYMPHOCYTES % (AUTO) 15 % (12-44); MEAN CORPUSCULAR HEMOGLOBIN 29 PG (25-34); MEAN CORPUSCULAR HGB CONC 34 G/DL (32-36); MEAN CORPUSCULAR VOLUME 83 FL (80-99); MEAN PLATELET VOLUME 10.7 FL (7.4-10.4); MONOCYTES # (AUTO) 0.4 X 10^3 (0.0-1.0); MONOCYTES % (AUTO) 6 % (0-12); NEUTROPHILS # (AUTO) 4.4 X 10^3 (1.8-7.8); NEUTROPHILS % (AUTO) 77 % (42-75); PLATELET COUNT 72 10^3/uL (130-400); RED BLOOD COUNT 3.79 10^6/uL (4.35-5.85); RED CELL DISTRIBUTION WIDTH 16.7 % (10.0-14.5); WHITE BLOOD COUNT 5.8 10^3/uL (4.3-11.0)
[2017-03-29 15:23] LABS: ALANINE AMINOTRANSFERASE 35 U/L (0-55); ALBUMIN 2.4 GM/DL (3.2-4.5); ANION GAP 10 MMOL/L (5-14); ASPARTATE AMINO TRANSFERASE 42 U/L (5-34); BILIRUBIN,TOTAL 2.3 MG/DL (0.1-1.0); BLOOD UREA NITROGEN 14 MG/DL (7-18); BUN/CREATININE RATIO 12; CALCIUM 8.7 MG/DL (8.5-10.1); CARBON DIOXIDE 20 MMOL/L (21-32); CHLORIDE 96 MMOL/L (98-107); CREATININE SERUM 1.19 MG/DL (0.60-1.30); GFR ESTIMATED > 60; LIPASE 75 U/L (8-78); POTASSIUM 4.2 MMOL/L (3.6-5.0); SODIUM 126 MMOL/L (135-145); TOTAL PROTEIN 7.4 GM/DL (6.4-8.2)
[2017-03-29 15:28] LABS: GLUCOSE 690 MG/DL (70-105)
[2017-03-29] MEDS ORDERED: KETOROLAC 30 MG/ML VIAL IVP STA (15:29)
[2017-03-29] MEDS ORDERED: ONDANSETRON 4 MG/2 ML (SDV) Z0FRAN IVP ONE (15:30)
[2017-03-29 16:41] LABS: ALCOHOL < 10 MG/DL (<10); AMMONIA 47 UMOL/L (11-32)
--- OUTSIDE RECORDS SUMMARY | 2017-03-29 18:05 | XMS REPORT | Continuity of Care Document ---
Author Author [employer] Organization [facility] Address Unknown Phone Unavailable Care Team Providers Care Freedom Of Information Officer Name Role Phone [employer] Unavailable Unavailable Problems Problem Status Onset Date Classification Date Reported Comments Source 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) 08/23/2015 Diagnosis 08/27/2015 [facility], [facility]. Diabetes mellitus (disorder) 08/23/2015 Diagnosis 2015 [facility], [facility]. Alcoholism (disorder) 2015 Diagnosis 08/27/2015 [facility] Alcoholic cirrhosis (disorder) 08/23/2015 Diagnosis 08/27 [facility] Epidermoid cyst of skin (disorder) 08/23/2015 Diagnosis 08/27/2015 [facility] Hypersplenism (disorder) Diagnosis 08/27/2015 [facility] Chest pain (finding) 2015 Diagnosis 07/23/2015 [facility], [facility]. Paranoid schizophrenia (disorder) 06/19/2015 Diagnosis [facility], [facility] Atrial flutter (disorder) Diagnosis 06/23/2015 [facility] Intentional drug overdose (disorder) 06/11/2015 Diagnosis 06/15/2015 [facility], [facility]. Supraventricular tachycardia (disorder) 06/04/2015 Diagnosis 06/15/2015 [facility], [facility]. Hepatic encephalopathy (disorder) 06/04/2015 Diagnosis [facility], [facility]. Acute renal failure syndrome (disorder) 06/03/2015 Diagnosis 06/15/2015 [facility] Gastroesophageal reflux disease (disorder) 05/29/2015 Diagnosis 06/02/2015 [facility] Hypertensive disorder, systemic arterial (disorder) 05/29/2015 Diagnosis 06/02/2015 [facility] Other abnormal glucose 02/28 Diagnosis 03/04/2015 [facility] Hepatic coma 02/28/2015 Diagnosis 03/04/2015 [facility] Alcoholic cirrhosis of liver 02/28/2015 Diagnosis 2014 [facility] Other anxiety states 2014 Diagnosis 03/04/2015 [facility] Unspecified essential hypertension 02/28/2015 Diagnosis 03/04/2015 [facility] Diabetes mellitus without mention of complication, type II or unspecified type , not stated as uncontrolled 02/28/2015 Diagnosis 2014 [facility] Other and unspecified alcohol dependence, unspecified drinking behavior 02/28/2015 Diagnosis 03/04/2015 [facility] Traumatic arthropathy involving ankle and foot 02/07/2015 Diagnosis 02/11/2015 [facility] Diabetes mellitus with neurological manifestations, type II or unspecified type , not stated as uncontrolled 02/07/2015 Diagnosis 2014 [facility] Other secondary thrombocytopenia 11/21/2014 Diagnosis [facility] Contusion of chest wall Diagnosis 11/25/2014 [facility] Esophageal reflux 2014 Diagnosis 10/15/2014 [facility] Unspecified fall 10/11/2014 Diagnosis 10/15/2014 [facility] Bimalleolar fracture, closed 10/11/2014 Diagnosis 2014 [facility] Thrombocytopenia, unspecified 05/24/2014 Diagnosis 2013 [facility] Esophageal varices without mention of bleeding 02/16/2014 Diagnosis 02/20/2014 [facility], [facility], [facility]. Esophageal reflux 2013 Diagnosis 02/20/2014 [facility] Unspecified essential hypertension 02/16/2014 Diagnosis 02/20/2014 [facility] Attention deficit disorder of childhood with hyperactivity 02/16/2014 Diagnosis 02/20/2014 [facility] Alcoholic cirrhosis of liver 02/16/2014 Diagnosis 2013 [facility] Abdominal pain, unspecified site 01/23/2014 Diagnosis [facility] Cirrhosis of liver without mention of alcohol 01/02/2014 Diagnosis 01/06/2014 [facility] Acute upper respiratory infections of unspecified site 01/02/2014 Diagnosis 01/06/2014 [facility] Hepatic coma 12/22/2013 Diagnosis 12/26/2013 [facility] Paranoid type schizophrenia, unspecified state 11/20/2013 Diagnosis 11/24/2013 [facility] Traumatic arthropathy-ankle (disorder) Active 04/23/2011 Problem 09/15/2016 [facility] Traumatic arthropathy-ankle (disorder) Active 04/23/2011 Problem 07/19/2015 [facility] 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) Active 04/23/2011 Problem 10/06/2013 [facility] 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 04/23/2011 Problem 07/09/2013 [facility], [facility] Attention deficit hyperactivity disorder (disorder) Active Problem 09/15/2016 [facility], [facility] Alcoholic cirrhosis (disorder) Active Problem 09/15/2016 [facility], [facility] Alcoholism (disorder) Active Problem 09/15/2016 [facility], [facility], [facility] Fracture of ankle (disorder) Active Problem 09/15/2016 [facility], [facility] Mixed anxiety and depressive disorder (disorder) Active Problem 09/15/2016 [facility], [facility] Atrial flutter (disorder) Active Problem 09/15/2016 [facility] AV cathy re-entry tachycardia (disorder) Active Problem 09/15/2016 [facility] 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) Active Problem 09/15/2016 [facility] Diabetes mellitus (disorder) Active Problem 09/15/2016 [facility], [facility] Gastroesophageal reflux disease (disorder) Active Problem 09/15/2016 [facility], [facility] Hepatic coma (disorder) Active Problem 09/15/2016 [facility], [facility] Hypertensive disorder, systemic arterial (disorder) Active Problem 09/15/2016 [facility], [facility], [facility] Paranoid schizophrenia (disorder) Active Problem 2016 [facility], [facility], [facility], [facility] Supraventricular tachycardia (disorder) Active Problem [facility], [facility], [facility], [facility] Cirrhosis - non-alcoholic (disorder) Active Problem 09/19 [facility], [facility] Medications Medication Details Route Status Patient Instructions Ordering Provider Order Date Source No Known Medications No known medications Active [facility] Pneumovax 23 0.5 mL, SOLN, IM, ONCE, 02/12/12 12:00:00 , Stop date 02/12/12 12:00:00Provide patient/caregiver the vaccine information statement and document version date on eMAR. Record the lot number and youth corrections officer below. Manuf: Lot Number: Exp Date: Inactive Epp [facility] influenza virus vaccine, inactivated adult 0.5 mL, Suspension, IM, ONCE, Start Date: 07/03/13 12:00:00, Stop Date: 07/03/13 12:00: 00Provide patient/caregiver the vaccine information statement and document version date on eMAR. Record the lot number and youth corrections officer below. Manuf: ____ Lot Number: Exp Date: Inactive [facility]. Allergies, Adverse Reactions, Alerts Substance Category Reaction Severity Reaction type Status Date Reported Comments Source penicillins Assertion "can't breathe" [facility], [facility], [facility] penicillins drug allergy "can 't breathe" Allergy Active [facility], [facility] penicillin drug allergy "can' t breathe" Allergy Active [facility], [facility] Immunizations Immunization Date Given Site Status Last Updated Comments Source influenza virus vaccine 07/19/2015 Not Given [facility] influenza virus vaccine 06/02/2015 Left Deltoid influenza virus vaccine [facility] influenza virus vaccine 07/05/2013 Left Deltoid influenza virus vaccine [facility], [facility]., [facility], [facility], [facility], [facility]. pneumococcal polysaccharide PPV23 02/12/2012 Right Deltoid pneumococcal 23-valent vaccine [facility], [facility], [facility] pneumococcal 23-valent vaccine 02/12/2012 completed [facility], [facility], [facility] Results Vital Signs Encounters Location Location Details Encounter Type Encounter Number Reason For Visit Attending Provider ADM Date DC Date Status Source [facility] [id number] Inpatient [id number] Max An 02/10/2012 Active [facility]. [facility] [id number] Inpatient [id number] Kings Aguilar 06/20/2012 06/21/2012 Active [facility]. OM CD:[id number] Inpatient [id number] Kings Aguilar 08/01/2012 08/08/2012 Active [facility]. [facility] [id number] Inpatient [id number] Kings Aguilar 12/08/2012 12/09/2012 Active [facility]. [facility] [id number] Clinic ( Outpatient) [id number] Sofy Smith 05/03/2013 Active [facility], [facility] CD:[id number] Clinic ( Outpatient) [id number] Kings Aguilar 06/07/2013 Active [facility] CD:[id number] Clinic ( Outpatient) [id number] Kings Aguilar 06/14/2013 Active [facility] CD:[id number] Clinic ( Outpatient) [id number] Kings Aguilar 06/21/2013 Active [facility] CD:[id number] Inpatient [id number] Kings Aguilar 07/02/2013 07/05/2013 Active [facility] CD:[id number] Clinic ( Outpatient) [id number] Kings Aguilar 07/13/2013 Active [facility] CD:[id number] Clinic ( Outpatient) [id number] Kings Aguilar 07/27/2013 Active [facility] CD:[id number] Inpatient [id number] Kings Aguilar 09/11/2013 09/15/2013 Active [employer] [employer] [facility] CD:[id number] Clinic ( Outpatient) [id number] Kings Aguilar 09/20/2013 Active [facility] CD:[id number] Clinic ( Outpatient) [id number] Kings Aguilar 10/02/2013 Active [facility] Cancel/No Show [id number] Kings Aguilar 10/02/2013 10/02/2013 [facility] [id number] Clinic ( Outpatient) [id number] Sofy Smith 11/01/2013 Active [facility] CD:[id number] Clinic ( Outpatient) [id number] Kings Aguilar 11/06/2013 Active [facility] CD:[id number] Clinic ( Outpatient) [id number] Kings Aguilar 11/10/2013 Active [facility] [id number] Kings Aguilar 11/10/2013 11/10/2013 [facility] [place] [facility] [id number] Kings Aguilar 11/20/2013 11/21/2013 [facility] Cancel/No Show [id number] Kings Aguilar 12/18/2013 12/18/2013 [facility] CD:[id number] Clinic ( Outpatient) [id number] 12/22/2013 Active [facility] [place] [facility] [id number] Kings Aguilar 12/22/2013 12/23/2013 [facility] [place] [facility] [id number] Zoran Mara 01/02/2014 01/03/2014 [facility] [place] [facility] [id number] Clinic ( Outpatient) [id number] Sofy Luis 01/04/2014 Active [facility], [facility] Clinic [id number] [facility] 01/04/201410/2013 [facility] CD:[id number] Outpatient [id number] Rogers Luis 01/23/2014 01/23/2014 Active [facility], [facility]. [facility] CD:[id number] Emergency [id number] DENISE NOBLE 01/23/2014 01/23/2014 Active [facility]. [facility] CD:[id number] Outpatient [id number] Sofy Luis 01/26/2014 01/26/2014 Active [facility]. [facility] [id number] [facility] Aguilar 02/16/2014 02/17/2014 [facility] [place] [facility] Cancel/No Show [id number] Halie Dacosta 02/19/2014 02/19/2014 [facility] CD:[id number] Emergency [id number] Kings Arredondo 03/29/2014 Active [facility], [facility]. [facility] [place] [facility] [id number] Kings Aguilar 05/24/2014 [facility] [place] [facility]FC [place] Cancel/No Show [id number] Kings Aguilar 06/22/2014 06/22/2014 [facility] [place] [facility] [place] [facility] [id number] Kings Aguilar 08/27/2014 [facility] [place] [facility] [place] Cancel/No Show [id number] Kings Aguilar 09/24/2014 09/26/2014 [facility] [place] [facility] Cancel/No Show [id number] Halie Dacosta 10/01/2014 10/01/2014 [facility] [place] [facility] [id number] [place] Aguilar 10/11/201404/2015 [facility] [place] [facility] CD:[id number] Emergency [id number] Napoleon Isabel 11/15/2014 11/15/2014 Active [facility] [place] Cancel/No Show [id number] Kings Aguilar 11/19/2014 11/19/2014 [facility] [place] [facility] [place] [facility] [id number] Kings Aguilar 11/21/2014 [facility] [place] [facility] [place] [facility] [id number] Kings Aguilar 02/07/201501/2015 [facility] [place] [facility] [place] [facility] [id number] Kings Aguilar 02/28/2015 [facility] [place] AF [place] Cancel/No Show [id number] Kings Aguilar 04/17/2015 04/16/2015 [facility] [place] [facility] [place] [facility] [id number] Kings Aguilar 05/29/2015 [facility] [place] [facility] CD:[id number] Inpatient [id number] Ryan Nolan 06/01/2015 06/11/2015 Active [facility], [facility]. [facility] [place] [facility] [id number] Kings Aguilar 06/19/2015 [facility] [place] [facility] CD:[id number] Inpatient [id number] Kings Aguilar 07/18/2015 07/19/2015 Active [facility], [facility]. [facility] [place] Cancel/No Show [id number] Kings Aguilar 07/19/2015 07/15/2015 [facility] [place] [facility] CD:[id number] Clinic ( Outpatient) [id number] Kings Aguilar 08/22/2015 Active [facility] [place] [facility] [place] [facility] [id number] Kings Aguilar 08/23/2015 [facility] [place] [facility] [id number] Clinic ( Outpatient) [id number] Valentin Rojas 10/09/2015 Active [facility] [id number] Valentin Rojas 11/04/2015 11/04/2015 [facility] Cancel/No Show [id number] Kings Aguilar 09/1109/11/2016 [facility] Procedures Procedure Code Date Perfomer Comments Source Echocardiography, transthoracic, real-time with image documentation (2D), includes M-mode recording, when performed, complete, with spectral Doppler echocardiography, and with color flow Doppler echocardiography [id number] 07/19/2015 [facility] Typical and Atypical AVNRT and Atrial Flutter Ablation 06/05/2015 [facility]. Echocardiogram, EF 55% 06/03 [facility]. No data available for this section [facility] Esophagogastroduodenoscopy, flexible, transoral; diagnostic, including collection of specimen(s) by brushing or washing, when performed (separate procedure) [id number] [facility]. Plan of Care Social History Assessment and Plan Family History Value Date Source Advance Directives Order Name Results Value Date Source
--- OUTSIDE RECORDS SUMMARY | 2017-03-29 18:07 | XMS REPORT | Clinical Summary ---
Author Author [facility] Organization [facility] Address Unknown Phone Unavailable Care Team Providers Care Digital X Ray Service Engineer Name Role Phone PCP Unavailable Source Comments Some departments are not documenting in the electronic medical record. If you do not see the information that you expected, contact Release of Information in the Health Information Management department at [phone] for further assistance in locating additional records.[facility] Allergies Active Allergy Reactions Severity Noted [...] Taken Blood Pressure 155/99 05/23/2014 12:00 PM [employer] WORKER HELPER Pulse 66 05/22/2014 3:59 PM [employer] WORKER HELPER Temperature 36.4 C (97.6 F) 05/23/2014 12:00 PM [employer] WORKER HELPER Respiratory Rate 16 11/01/2012 8:48 AM CDT Oxygen Saturation 96% 05/23/2014 12:00 PM [employer] WORKER HELPER Inhaled Oxygen - - Concentration Weight 94.8 kg (208 lb 15.9 oz) 05/21/2014 5:41 AM [employer] WORKER HELPER Height 190.5 cm (6' 3") 05/20/2014 6:00 PM [employer] WORKER HELPER Body Mass Index 26.12 05/21/2014 5:41 AM [employer] WORKER HELPER Plan of Treatment Health Maintenance Due Date Last Done Comments PHYSICAL (COMPREHENSIVE) 1979 EXAM PERTUSSIS VACCINE 1983 TETANUS VACCINE 1989 INFLUENZA VACCINE 04/04/2017 Results Not on filefrom Last 3 Months
[2017-03-29 19:00] VITALS: BP 125/80
[2017-03-29] MEDS ORDERED: 1/2 NS W/KCL 20 MEQ/L 1,000 ML IV SCH (19:00)
[2017-03-29] MEDS ORDERED: REGULAR inSUlin DRIP 250 UNITS/NS 250 ML IV SCH ×2 (19:15)
[2017-03-29] MEDS ORDERED: D5 1/2 NS IV 1,000 ML IV SCH (19:15)
[2017-03-29] MEDS: 1/2 NS IV SOLUTION 1,000 ML IV SCH ×2 (19:15→23:28)
[2017-03-29] MEDS ORDERED: ONDANSETRON 4 MG/2 ML (SDV) Z0FRAN IV PRN (19:15)
[2017-03-29] MEDS: D5 1/2 NS W/KCL 20 MEQ/L 1,000 ML IV SCH ×2 (19:15→23:28)
[2017-03-29] MEDS: DEXTROSE 10% IV SOLUTION 1,000 ML IV SCH (19:15)
[2017-03-29] MEDS ORDERED: CATHETER FLUSH 10 ML SYR IV PRN (19:15)
[2017-03-29] MEDS ORDERED: inSUlin (REGULAR) HUMAN 1 UNIT/0.01 ML (CHARGE PER UNIT) ONE (19:26)
[2017-03-29] MEDS ORDERED: 1/2 NS W/KCL 20 MEQ/L 1,000 ML IV ONE (19:28)
[2017-03-29 20:00] VITALS: BP 113/70
[2017-03-29 20:35] LABS: ANION GAP 7 MMOL/L (5-14); BLOOD UREA NITROGEN 15 MG/DL (7-18); BUN/CREATININE RATIO 14; CALCIUM 8.1 MG/DL (8.5-10.1); CARBON DIOXIDE 21 MMOL/L (21-32); CHLORIDE 102 MMOL/L (98-107); CREATININE SERUM 1.06 MG/DL (0.60-1.30); GFR ESTIMATED > 60; POTASSIUM 3.6 MMOL/L (3.6-5.0); SODIUM 130 MMOL/L (135-145)
[2017-03-29 20:41] LABS: GLUCOSE 520 MG/DL (70-105)
[2017-03-29 21:00] VITALS: BP 112/73
[2017-03-29] MEDS ORDERED: FAMOTIDINE 20MG/2ML IV (PEPCID) IV SCH (21:00)
[2017-03-29] MEDS: traZODone 100 MG (DESYREL) TAB PO PRN (21:33)
[2017-03-29 22:00] VITALS: BP 111/82
[2017-03-29 22:26] LABS: ANION GAP 10 MMOL/L (5-14); BLOOD UREA NITROGEN 16 MG/DL (7-18); BUN/CREATININE RATIO 13; CALCIUM 7.9 MG/DL (8.5-10.1); CARBON DIOXIDE 17 MMOL/L (21-32); CHLORIDE 101 MMOL/L (98-107); CREATININE SERUM 1.19 MG/DL (0.60-1.30); GFR ESTIMATED > 60; POTASSIUM 3.9 MMOL/L (3.6-5.0); SODIUM 128 MMOL/L (135-145)
[2017-03-29 22:35] LABS: GLUCOSE 545 MG/DL (70-105)
[2017-03-29 23:00] VITALS: BP 107/70
[2017-03-30] VITALS (25 sets, daily range): BP systolic 85–119; BP diastolic 53–79
[2017-03-30] MEDS: 1/2 NS W/KCL 20 MEQ/L 1,000 ML IV SCH ×3 (01:13→05:19)
[2017-03-30 02:46] LABS: ANION GAP 7 MMOL/L (5-14); BLOOD UREA NITROGEN 17 MG/DL (7-18); BUN/CREATININE RATIO 18; CALCIUM 7.6 MG/DL (8.5-10.1); CARBON DIOXIDE 18 MMOL/L (21-32); CHLORIDE 104 MMOL/L (98-107); CREATININE SERUM 0.96 MG/DL (0.60-1.30); GFR ESTIMATED > 60; GLUCOSE 251 MG/DL (70-105); POTASSIUM 3.6 MMOL/L (3.6-5.0); SODIUM 129 MMOL/L (135-145)
[2017-03-30] MEDS: 1/2 NS IV SOLUTION 1,000 ML IV SCH ×2 (02:48→08:06)
[2017-03-30] MEDS: D5 1/2 NS W/KCL 20 MEQ/L 1,000 ML IV SCH ×2 (02:49→08:07)
[2017-03-30 04:50] LABS: BASOPHILS % (AUTO) 0 % (0-10); EOSINOPHILS # (AUTO) 0.1 10^3/uL (0.0-0.3); EOSINOPHILS % (AUTO) 2 % (0-10); LYMPHOCYTES % (AUTO) 16 % (12-44); MEAN CORPUSCULAR HEMOGLOBIN 28 PG (25-34); MEAN CORPUSCULAR HGB CONC 34 G/DL (32-36); MEAN CORPUSCULAR VOLUME 83 FL (80-99); MEAN PLATELET VOLUME 10.6 FL (7.4-10.4); MONOCYTES # (AUTO) 0.3 X 10^3 (0.0-1.0); MONOCYTES % (AUTO) 5 % (0-12); NEUTROPHILS # (AUTO) 4.5 X 10^3 (1.8-7.8); NEUTROPHILS % (AUTO) 77 % (42-75); PLATELET COUNT 57 10^3/uL (130-400); RED BLOOD COUNT 3.14 10^6/uL (4.35-5.85); RED CELL DISTRIBUTION WIDTH 16.4 % (10.0-14.5); WHITE BLOOD COUNT 5.9 10^3/uL (4.3-11.0)
[2017-03-30 05:05] LABS: MAGNESIUM 1.6 MG/DL (1.8-2.4); PHOSPHORUS 1.2 MG/DL (2.3-4.7)
[2017-03-30] MEDS: DEXTROSE 10% IV SOLUTION 1,000 ML IV SCH (05:07)
[2017-03-30] MEDS: MAGNESIUM 1 GM/100 ML IVPB 100 ML IV SCH ×2 (05:20→06:30)
[2017-03-30] MEDS ORDERED: POTASSIUM CL 10MEQ/50ML IVPB 50 ML IV SCH (06:00)
[2017-03-30] MEDS ORDERED: MAGNESIUM 1 GM/100 ML IVPB 100 ML IV SCH (06:00)
[2017-03-30] MEDS ORDERED: KCL 20 MEQ TAB (K-DUR) PO SCH (06:00)
--- NOTE | 2017-03-30 07:24 | Diagnostic Imaging Report ---
INDICATION: Shortness of air. COMPARISON: 01/16/17. FINDINGS: Low lung volumes. Development of patchy interstitial and airspace opacity in the lung bases. No pleural effusion or pneumothorax. Normal heart size. Normal pulmonary vasculature. IMPRESSION: 1. Patchy bibasilar opacities could relate to multifocal bronchiolitis in the appropriate setting. However, if the patient does not have symptoms of infection or aspiration, these may be due to scattered foci of atelectasis. Dictated by: Dictated on workstation # [id number]
[2017-03-30] MEDS ORDERED: FAMOTIDINE 20 MG (PEPCID) TABLET PO SCH (09:00)
[2017-03-30] MEDS ORDERED: NS IV 1000 ML 1,000 ML ONE (10:00)
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
[2017-03-30 10:21] LABS: ANION GAP 5 MMOL/L (5-14); BLOOD UREA NITROGEN 17 MG/DL (7-18); BUN/CREATININE RATIO 19; CALCIUM 7.5 MG/DL (8.5-10.1); CARBON DIOXIDE 19 MMOL/L (21-32); CHLORIDE 105 MMOL/L (98-107); CREATININE SERUM 0.91 MG/DL (0.60-1.30); GFR ESTIMATED > 60; GLUCOSE 120 MG/DL (70-105); POTASSIUM 3.7 MMOL/L (3.6-5.0); SODIUM 129 MMOL/L (135-145)
[2017-03-30] MEDS ORDERED: LACT10SO PO (10:23)
[2017-03-30] MEDS ORDERED: PANT40TA3 PO (10:24)
[2017-03-30] MEDS ORDERED: SUCR1ORA5 PO (10:24)
[2017-03-30] MEDS ORDERED: PAMI30VI8 SQ (10:25)
[2017-03-30] MEDS ORDERED: INSU100V6 SQ (10:26)
[2017-03-30] MEDS: inSUlin DETERMIR 1 UNIT/0.01 ML (LEVEMIR) CHARGE PER UNIT SQ SCH (11:53)
[2017-03-30] MEDS: NS W/KCL 20 MEQ/L 1,000 ML IV SCH ×2 (11:53→21:06)
[2017-03-30] MEDS: FUROSEMIDE 40 MG/4 ML INJ (LASIX) IVP SCH ×2 (11:53→15:56)
[2017-03-30] MEDS: inSUlin ASPART (NovoLOG) 1 UNIT/0.01 ML (CHARGE PER UNIT) SC SCH ×3 (11:54→21:07)
[2017-03-30 17:35] LABS: ANION GAP 5 MMOL/L (5-14); BLOOD UREA NITROGEN 16 MG/DL (7-18); BUN/CREATININE RATIO 18; CALCIUM 7.4 MG/DL (8.5-10.1); CARBON DIOXIDE 21 MMOL/L (21-32); CHLORIDE 104 MMOL/L (98-107); CREATININE SERUM 0.89 MG/DL (0.60-1.30); GFR ESTIMATED > 60; GLUCOSE 123 MG/DL (70-105); POTASSIUM 3.3 MMOL/L (3.6-5.0); SODIUM 130 MMOL/L (135-145)
[2017-03-30] MEDS: traZODone 100 MG (DESYREL) TAB PO PRN (20:59)
[2017-03-30] MEDS ORDERED: fentaNYL INJECTION 100 MCG/2 ML AMP IV PRN (22:15)
[2017-03-31] VITALS (17 sets, daily range): BP systolic 91–127; BP diastolic 52–86
[2017-03-31] MEDS ORDERED: fentaNYL INJECTION 100 MCG/2 ML AMP IV PRN
[2017-03-31] MEDS: FUROSEMIDE 40 MG/4 ML INJ (LASIX) IVP SCH ×3 (00:09→11:13)
[2017-03-31] MEDS: NS W/KCL 20 MEQ/L 1,000 ML IV SCH ×2 (03:32→09:53)
[2017-03-31 05:35] LABS: BASOPHILS % (AUTO) 1 % (0-10); EOSINOPHILS % (AUTO) 1 % (0-10); LYMPHOCYTES # (AUTO) 0.9 X 10^3 (1.0-4.0); LYMPHOCYTES % (AUTO) 22 % (12-44); MEAN CORPUSCULAR HEMOGLOBIN 29 PG (25-34); MEAN CORPUSCULAR HGB CONC 34 G/DL (32-36); MEAN CORPUSCULAR VOLUME 84 FL (80-99); MEAN PLATELET VOLUME 11.3 FL (7.4-10.4); MONOCYTES # (AUTO) 0.3 X 10^3 (0.0-1.0); MONOCYTES % (AUTO) 9 % (0-12); NEUTROPHILS # (AUTO) 2.7 X 10^3 (1.8-7.8); NEUTROPHILS % (AUTO) 68 % (42-75); PLATELET COUNT 47 10^3/uL (130-400); RED BLOOD COUNT 2.98 10^6/uL (4.35-5.85); RED CELL DISTRIBUTION WIDTH 16.7 % (10.0-14.5)
[2017-03-31 05:49] LABS: ANION GAP 6 MMOL/L (5-14); BLOOD UREA NITROGEN 16 MG/DL (7-18); BUN/CREATININE RATIO 19; CALCIUM 6.8 MG/DL (8.5-10.1); CARBON DIOXIDE 20 MMOL/L (21-32); CHLORIDE 107 MMOL/L (98-107); CREATININE SERUM 0.84 MG/DL (0.60-1.30); GFR ESTIMATED > 60; GLUCOSE 222 MG/DL (70-105); MAGNESIUM 1.3 MG/DL (1.8-2.4); PHOSPHORUS 2.1 MG/DL (2.3-4.7); SODIUM 133 MMOL/L (135-145)
[2017-03-31] MEDS: inSUlin ASPART (NovoLOG) 1 UNIT/0.01 ML (CHARGE PER UNIT) SC SCH ×2 (06:18→11:11)
[2017-03-31] MEDS: inSUlin DETERMIR 1 UNIT/0.01 ML (LEVEMIR) CHARGE PER UNIT SQ SCH (09:53)
--- NOTE | 2017-03-31 14:08 | D/C HH Face to Face Order ---
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 Discharge Diet for Home: ADA Diet Patient Problems: Uncontrolled Diabetes Medical Non-compliance Hepatitis C End Stage Liver Disease Schizophrenia Alcohol Abuse Goals for Patient: Improved medical compliance, improved glycemia control, decreased hospitalizations Patient Data-Allergies,Ht & Wt Patient Allergies: Coded Allergies: Penicillins (Verified Allergy, Severe, EDEMA, SOA, 03/21/16) clindamycin (Verified Allergy, Unknown, 03/21/16) olanzapine (Verified Allergy, Unknown, 03/21/16) quetiapine (Verified Allergy, Unknown, 03/21/16) Height (Feet): 6 Height (Inches): 3.00 Weight (Pounds): 161 Weight (Ounces): 8.0 Home Health Need/Face to Face Date of Face to Face: Mar 31, 2017 Clinical Findings: Generalized weakness and fatigue, Other-list in note Uncontrolled Diabetes Mellitus Alcohol Abuse Hepatitis C End Stage Liver Disease Medical Non-compliance I have seen Pt [id number]: Yes Discharged To: Home Diagnosis/Conditions: Uncontrolled Diabetes Mellitus Alcohol Abuse Hepatitis C End Stage Liver Disease Medical Non-compliance Problems/Diagnosis/Condition: Patient is Homebound due to: CognItive deficits lack of transportation, medical non-compliance, mental disorder, cognative deficit Homebound Status Due to the above stated illness, injury or surgical procedure (medical condition or diagnosis) and associated clinical findings, the patient is homebound because of his/her inability to leave home except with aid of a supportive device and/or person AND leaving the home requires a considerable and taxing effort or is medically contraindicated. Pt req the following assistanc: Aid of another person Home Health Nursing Orders Home Health Services Order: Nursing Services Home Health Infusion Therapy Line Start Date: Mar 29, 2017 Certify Stmt I certify that this patient is under my care and that I, a nurse practitioner or a physician; a orthodontist assistant working with me, had a face to face encounter that - meets the physician face to face encounter requirements with this patient as dated. MOAHMUD MATUTE DO Mar 31, 2017 14:08
--- NOTE | 2017-03-31 14:17 | Discharge Summary ---
Diagnosis/Chief Complaint Date of Admission Mar 29, 2017 at 17:45 Date of Discharge 03/31/17 Admission Diagnosis Admission Diagnosis SEE BELOW Discharge Diagnosis Hyperglycemia - resolved Hyponatremia - improved Medical Non-compliance End Stage Liver Disease Hx of Hepatitis C Liver Cirrhosis Chief Complaint/HPI Chief Complaint/HPI 47yo male well known to [facility] presented to hospital with complaints of abdominal pain and vomiting. Patient has a long history of alcohol abuse, though he tells me today he hasn't drank in almost 8 months. He also has HEpatitis C and decompensated liver failure. He has previously been transferred to [place] for banding of bleeding esophageal varices. Today, he states he is too sleepy to really talk to me. From record review and discussing things with his ER provider , he was admitted for hyperglycemia that was not resolved after multiple doses of insulin in the ER. In addition, his sodium was 126. Patel was unclear to me whether he has been taking his insulin or not. He did tell me he had some at home but then mentioned he needed to get more. Discharge Summary-Simple/Stand Consultations Discharge Physical Examination Allergies: Coded Allergies: Penicillins (Verified Allergy, Severe, EDEMA, SOA, 03/21/16) clindamycin (Verified Allergy, Unknown, 03/21/16) olanzapine (Verified Allergy, Unknown, 03/21/16) quetiapine (Verified Allergy, Unknown, 03/21/16) Vitals & I&Os Vital Sign - Last 12Hours Date Time Temp Pulse Resp B/P (MAP) Pulse Ox O2 Delivery O2 Flow Rate FiO2 03/31/17 14:00 78 11 105/74 98 Room Air 03/31/17 12:00 99.0 General Appearance: Alert, Oriented X3, Cooperative, No Acute Distress HEENT: Atraumatic, Mucous Memb Moist/[place] Respiratory: Normal Air Movement Cardiovascular: Regular Rate, Normal S1, Normal S2, Other (II/ systolic murmur) Abdominal: Normal Bowel Sounds, Soft, No Tenderness, No Masses Extremities: No Clubbing, No Cyanosis, No Edema, No Tenderness/Swelling Skin: No Rashes, No Significant Lesion Neuro: Normal Speech, Normal Tone Psych/Mental Status: Mental Status NL Hospital Course See final discharge diagnosis. Labs Laboratory Tests Test 03/29/17 14:21 03/29/17 14:22 03/29/17 16:18 03/29/17 16:22 Range/Units Glucometer 562 *H 529 *H 70-110 MG/DL White Blood Count 5.8 4.3-11.0 10^3/uL Red Blood Count 3.79 L 4.35-5.85 10^6/uL Hemoglobin 10.8 L 13.3-17.7 G/DL Hematocrit 32 L 40-54 % Mean Corpuscular Volume 83 80-99 FL Mean Corpuscular Hemoglobin 29 25-34 PG Mean Corpuscular Hemoglobin Concent 34 32-36 G/DL Red Cell Distribution Width 16.7 H 10.0-14.5 % Platelet Count 72 L 130-400 10^3/uL Mean Platelet Volume 10.7 H 7.4-10.4 FL Neutrophils (%) (Auto) 77 H 42-75 % Lymphocytes (%) (Auto) 15 12-44 % Monocytes (%) (Auto) 6 0-12 % Eosinophils (%) (Auto) 1 0-10 % Basophils (%) (Auto) 1 0-10 % Neutrophils # (Auto) 4.4 1.8-7.8 X 10^3 Lymphocytes # (Auto) 0.9 L 1.0-4.0 X 10^3 Monocytes # (Auto) 0.4 0.0-1.0 X 10^3 Eosinophils # (Auto) 0.1 0.0-0.3 10^3/uL Basophils # (Auto) 0.0 0.0-0.1 10^3/uL Sodium Level 126 L 135-145 MMOL/L Potassium Level 4.2 3.6-5.0 MMOL/L Chloride Level 96 L 98-107 MMOL/L Carbon Dioxide Level 20 L 21-32 MMOL/L Anion Gap 10 5-14 MMOL/L Blood Urea Nitrogen 14 7-18 MG/DL Creatinine 1.19 0.60-1.30 MG/DL Estimat Glomerular Filtration Rate > 60 BUN/Creatinine Ratio 12 Glucose Level 690 *H 70-105 MG/DL Calcium Level 8.7 8.5-10.1 MG/DL Total Bilirubin 2.3 H 0.1-1.0 MG/DL Aspartate Amino Transf (AST/SGOT) 42 H 5-34 U/L Alanine Aminotransferase (ALT/SGPT) 35 0-55 U/L Alkaline Phosphatase 259 H 40-136 U/L Total Protein 7.4 6.4-8.2 GM/DL Albumin 2.4 L 3.2-4.5 GM/DL Lipase 75 8-78 U/L Ammonia 47 H 11-32 UMOL/L Serum Alcohol < 10 <10 MG/DL Test 03/29/17 17:22 03/29/17 19:24 03/29/17 20:10 03/29/17 20:42 Range/Units Glucometer 512 *H 483 *H 450 *H 70-110 MG/DL Sodium Level 130 L 135-145 MMOL/L Potassium Level 3.6 3.6-5.0 MMOL/L Chloride Level 102 98-107 MMOL/L Carbon Dioxide Level 21 21-32 MMOL/L Anion Gap 7 5-14 MMOL/L Blood Urea Nitrogen 15 7-18 MG/DL Creatinine 1.06 0.60-1.30 MG/DL Estimat Glomerular Filtration Rate > 60 BUN/Creatinine Ratio 14 Glucose Level 520 *H 70-105 MG/DL Hemoglobin A1c > 14.5 H 4.5-6.2 % Calcium Level 8.1 L 8.5-10.1 MG/DL Test 03/29/17 21:37 03/29/17 22:05 03/29/17 22:28 03/29/17 23:34 Range/Units Glucometer 486 *H 467 *H 433 *H 70-110 MG/DL Sodium Level 128 L 135-145 MMOL/L Potassium Level 3.9 3.6-5.0 MMOL/L Chloride Level 101 98-107 MMOL/L Carbon Dioxide Level 17 L 21-32 MMOL/L Anion Gap 10 5-14 MMOL/L Blood Urea Nitrogen 16 7-18 MG/DL Creatinine 1.19 0.60-1.30 MG/DL Estimat Glomerular Filtration Rate > 60 BUN/Creatinine Ratio 13 Glucose Level 545 *H 70-105 MG/DL Calcium Level 7.9 L 8.5-10.1 MG/DL Test 03/30/17 01:08 03/30/17 02:10 03/30/17 02:18 03/30/17 03:35 Range/Units Glucometer 346 H 245 H 226 H 70-110 MG/DL Sodium Level 129 L 135-145 MMOL/L Potassium Level 3.6 3.6-5.0 MMOL/L Chloride Level 104 98-107 MMOL/L Carbon Dioxide Level 18 L 21-32 MMOL/L Anion Gap 7 5-14 MMOL/L Blood Urea Nitrogen 17 7-18 MG/DL Creatinine 0.96 0.60-1.30 MG/DL Estimat Glomerular Filtration Rate > 60 BUN/Creatinine Ratio 18 Glucose Level 251 H 70-105 MG/DL Calcium Level 7.6 L 8.5-10.1 MG/DL Test 03/30/17 04:20 03/30/17 04:22 03/30/17 05:23 03/30/17 06:34 Range/Units White Blood Count 5.9 4.3-11.0 10^3/uL Red Blood Count 3.14 L 4.35-5.85 10^6/uL Hemoglobin 8.8 L 13.3-17.7 G/DL Hematocrit 26 L 40-54 % Mean Corpuscular Volume 83 80-99 FL Mean Corpuscular Hemoglobin 28 25-34 PG Mean Corpuscular Hemoglobin Concent 34 32-36 G/DL Red Cell Distribution Width 16.4 H 10.0-14.5 % Platelet Count 57 L 130-400 10^3/uL Mean Platelet Volume 10.6 H 7.4-10.4 FL Neutrophils (%) (Auto) 77 H 42-75 % Lymphocytes (%) (Auto) 16 12-44 % Monocytes (%) (Auto) 5 0-12 % Eosinophils (%) (Auto) 2 0-10 % Basophils (%) (Auto) 0 0-10 % Neutrophils # (Auto) 4.5 1.8-7.8 X 10^3 Lymphocytes # (Auto) 1.0 1.0-4.0 X 10^3 Monocytes # (Auto) 0.3 0.0-1.0 X 10^3 Eosinophils # (Auto) 0.1 0.0-0.3 10^3/uL Basophils # (Auto) 0.0 0.0-0.1 10^3/uL Phosphorus Level 1.2 L 2.3-4.7 MG/DL Magnesium Level 1.6 L 1.8-2.4 MG/DL Glucometer 149 H 121 H 73 70-110 MG/DL Test 03/30/17 07:45 03/30/17 08:41 03/30/17 09:50 03/30/17 09:53 Range/Units Glucometer 164 H 201 H 131 H 70-110 MG/DL Sodium Level 129 L 135-145 MMOL/L Potassium Level 3.7 3.6-5.0 MMOL/L Chloride Level 105 98-107 MMOL/L Carbon Dioxide Level 19 L 21-32 MMOL/L Anion Gap 5 5-14 MMOL/L Blood Urea Nitrogen 17 7-18 MG/DL Creatinine 0.91 0.60-1.30 MG/DL Estimat Glomerular Filtration Rate > 60 BUN/Creatinine Ratio 19 Glucose Level 120 H 70-105 MG/DL Calcium Level 7.5 L 8.5-10.1 MG/DL Test 03/30/17 10:52 03/30/17 11:58 03/30/17 15:04 03/30/17 15:57 Range/Units Glucometer 72 78 199 H 168 H 70-110 MG/DL Test 03/30/17 17:00 03/30/17 20:58 03/31/17 05:08 03/31/17 11:05 Range/Units Sodium Level 130 L 133 L 135-145 MMOL/L Potassium Level 3.3 L 4.0 3.6-5.0 MMOL/L Chloride Level 104 107 98-107 MMOL/L Carbon Dioxide Level 21 20 L 21-32 MMOL/L Anion Gap 5 6 5-14 MMOL/L Blood Urea Nitrogen 16 16 7-18 MG/DL Creatinine 0.89 0.84 0.60-1.30 MG/DL Estimat Glomerular Filtration Rate > 60 > 60 BUN/Creatinine Ratio 18 19 Glucose Level 123 H 222 H 70-105 MG/DL Calcium Level 7.4 L 6.8 L 8.5-10.1 MG/DL Glucometer 175 H 300 H 70-110 MG/DL White Blood Count 4.0 L 4.3-11.0 10^3/uL Red Blood Count 2.98 L 4.35-5.85 10^6/uL Hemoglobin 8.5 L 13.3-17.7 G/DL Hematocrit 25 L 40-54 % Mean Corpuscular Volume 84 80-99 FL Mean Corpuscular Hemoglobin 29 25-34 PG Mean Corpuscular Hemoglobin Concent 34 32-36 G/DL Red Cell Distribution Width 16.7 H 10.0-14.5 % Platelet Count 47 L 130-400 10^3/uL Mean Platelet Volume 11.3 H 7.4-10.4 FL Neutrophils (%) (Auto) 68 42-75 % Lymphocytes (%) (Auto) 22 12-44 % Monocytes (%) (Auto) 9 0-12 % Eosinophils (%) (Auto) 1 0-10 % Basophils (%) (Auto) 1 0-10 % Neutrophils # (Auto) 2.7 1.8-7.8 X 10^3 Lymphocytes # (Auto) 0.9 L 1.0-4.0 X 10^3 Monocytes # (Auto) 0.3 0.0-1.0 X 10^3 Eosinophils # (Auto) 0.0 0.0-0.3 10^3/uL Basophils # (Auto) 0.0 0.0-0.1 10^3/uL Phosphorus Level 2.1 L 2.3-4.7 MG/DL Magnesium Level 1.3 L 1.8-2.4 MG/DL Discussion & Recommendations Pt agreeable to home health to help set up his medication, as he reports that he does not always take his medication as directed. Pt states he has roommate who does the cooking for him, and that they are aware of his need for a diabetic diet. Will discharge to home later today with home health referral and close follow up in office. Discharge Condition at discharge Stable Instructions to patient/family Please see electronic discharge instructions given to patient. Discharge Medications Reviewed and agree with Discharge Medication list on patient's Discharge Instruction sheet Clinical Quality Measures DVT/VTE Risk/Contraindication: Risk Factor Score Per Nursin RFS Level Per Nursing on Admit: 2=Moderate MOHAMUD MATUTE DO Mar 31, 2017 14:17
[2017-05-23] MEDS ORDERED: PREG75CA PO (10:42)
[2017-05-23] MEDS ORDERED: CIPR-225 PO (10:42)
[2017-05-23] MEDS ORDERED: CAPS60CR3 TP (10:42)
== END 2017-03-31 15:33 | disposition home health service (06) | DRG 638 ==
LOC: EDUNIT# 13:45 → ER 13:47 → ICU 17:45
PROVIDERS: ADMIT Pediatrics; ATTEND Pediatrics
DX: E10.65 Type 1 diabetes mellitus with hyperglycemia (principal); E87.1 Hypo-osmolality and hyponatremia; Z91.19 Patient's noncompliance with other medical treatment and regimen; K74.60 Unspecified cirrhosis of liver; B19.20 Unspecified viral hepatitis C without hepatic coma; F10.20 Alcohol dependence, uncomplicated; F17.210 Nicotine dependence, cigarettes, uncomplicated
CPT/HCPCS: 36415; 71010; 80048; 80053; 80320; 82140; 82962; 83036; 83690; 83735; 84100; 85025; 96361; 96374; 96375; 96376

== ENCOUNTER 2017-05-19 13:52 | Emergency (ER) | payer MEDICAID ==
[~2017-05-19] VITALS: Ht 190.5 cm; Wt 86.2 kg
[~2017-05-19 13:52] MED LIST changes: +PAMI30VI8 SQ; +PANT40TA3 PO; +SUCR1ORA5 PO
--- OUTSIDE RECORDS SUMMARY | 2017-05-19 14:04 | XMS REPORT | Continuity of Care Document ---
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 Diabetes mellitus (disorder) 08/23/2015 Diagnosis 2015 [facility]. Alcoholism (disorder) 2015 Diagnosis 08/27/2015 [facility] Alcoholic cirrhosis (disorder) 08/23/2015 Diagnosis 08/27 [facility] Epidermoid cyst of skin (disorder) 08/23/2015 Diagnosis 08/27/2015 [facility] Hypersplenism (disorder) Diagnosis 08/27/2015 [facility] Chest pain (finding) 2015 Diagnosis 07/23/2015 [facility]. Paranoid schizophrenia (disorder) 06/19/2015 Diagnosis [facility], [facility] Atrial flutter (disorder) Diagnosis 06/23/2015 [facility] Intentional drug overdose (disorder) 06/11/2015 Diagnosis 06/15/2015 [facility]. Supraventricular tachycardia (disorder) 06/04/2015 Diagnosis 06/15/2015 [facility]. Hepatic encephalopathy (disorder) 06/04/2015 Diagnosis [facility]. Acute renal failure syndrome (disorder) 06/03/2015 Diagnosis 06/15/2015 [facility] Gastroesophageal reflux disease (disorder) 05/29/2015 Diagnosis 06/02/2015 [facility] Hypertensive disorder, systemic arterial (disorder) 05/29/2015 Diagnosis 06/02/2015 [facility] Other abnormal glucose 02/28 Diagnosis 03/04/2015 [facility] Hepatic coma 02/28/2015 Diagnosis 03/04/2015 [facility] Alcoholic cirrhosis of liver 02/28/2015 Diagnosis 2014 [facility] Other anxiety states 2014 Diagnosis 03/04/2015 [facility] Unspecified essential hypertension 02/28/2015 Diagnosis 03/04/2015 [facility] Diabetes mellitus without mention of complication, type II or unspecified type , not stated as uncontrolled 02/28/2015 Diagnosis 2014 [facility] Other and unspecified alcohol dependence, unspecified drinking behavior 02/28/2015 Diagnosis 03/04/2015 [facility] Traumatic arthropathy involving ankle and foot 02/07/2015 Diagnosis 02/11/2015 [facility] Diabetes mellitus with neurological manifestations, type II or unspecified type , not stated as uncontrolled 02/07/2015 Diagnosis 2014 [facility] Other secondary thrombocytopenia 11/21/2014 Diagnosis [facility] Contusion of chest wall Diagnosis 11/25/2014 [facility] Esophageal reflux 2014 Diagnosis 10/15/2014 [facility] Unspecified fall 10/11/2014 Diagnosis 10/15/2014 [facility] Bimalleolar fracture, closed 10/11/2014 Diagnosis 2014 [facility] Thrombocytopenia, unspecified 05/24/2014 Diagnosis 2013 [facility] Esophageal varices without mention of bleeding 02/16/2014 Diagnosis 02/20/2014 [facility], [facility]. Esophageal reflux 2013 Diagnosis 02/20/2014 [facility] Unspecified essential hypertension 02/16/2014 Diagnosis 02/20/2014 [facility] Attention deficit disorder of childhood with hyperactivity 02/16/2014 Diagnosis 02/20/2014 [facility] Alcoholic cirrhosis of liver 02/16/2014 Diagnosis 2013 [facility] Abdominal pain, unspecified site 01/23/2014 Diagnosis [facility] Cirrhosis of liver without mention of alcohol 01/02/2014 Diagnosis 01/06/2014 [facility] Acute upper respiratory infections of unspecified site 01/02/2014 Diagnosis 01/06/2014 [facility] Hepatic coma 12/22/2013 Diagnosis 12/26/2013 [facility] Paranoid type schizophrenia, unspecified state 11/20/2013 Diagnosis 11/24/2013 [facility] Traumatic arthropathy-ankle (disorder) Active 04/23/2011 Problem 09/15/2016 [facility] Traumatic arthropathy-ankle (disorder) Active 04/23/2011 Problem 07/19/2015 [facility] 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) Active 04/23/2011 Problem 10/06/2013 [facility] 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 04/23/2011 Problem 07/09/2013 [facility] Attention deficit hyperactivity disorder (disorder) Active Problem 09/15/2016 [facility], [facility] Alcoholic cirrhosis (disorder) Active Problem 09/15/2016 [facility], [facility] Alcoholism (disorder) Active Problem 09/15/2016 [facility], [facility], [facility] Fracture of ankle (disorder) Active Problem 09/15/2016 [facility], [facility] Mixed anxiety and depressive disorder (disorder) Active Problem 09/15/2016 [facility], [facility] Atrial flutter (disorder) Active Problem 09/15/2016 [facility] AV cathy re-entry tachycardia (disorder) Active Problem 09/15/2016 [facility] 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) Active Problem 09/15/2016 [facility] Diabetes mellitus (disorder) Active Problem 09/15/2016 [facility], [facility] Gastroesophageal reflux disease (disorder) Active Problem 09/15/2016 [facility], [facility] Hepatic coma (disorder) Active Problem 09/15/2016 [facility], [facility] Hypertensive disorder, systemic arterial (disorder) Active Problem 09/15/2016 [facility], [facility], [facility] Paranoid schizophrenia (disorder) Active Problem 2016 [facility], [facility], [facility], [facility] Supraventricular tachycardia (disorder) Active Problem [facility], [facility], [facility], [facility] Cirrhosis - non-alcoholic (disorder) Active Problem 09/19 [facility], [facility] Medications Medication Details Route Status Patient Instructions Ordering Provider Order Date Source No Known Medications No known medications Active [facility] Pneumovax 23 0.5 mL, SOLN, IM, ONCE, 02/12/12 12:00:00 , Stop date 02/12/12 12:00:00Provide patient/caregiver the vaccine information statement and document version date on eMAR. Record the lot number and stone banker below. Manuf: Lot Number: Exp Date: Inactive [facility] influenza virus vaccine, inactivated adult 0.5 mL, Suspension, IM, ONCE, Start Date: 07/03/13 12:00:00, Stop Date: 07/03/13 12:00: 00Provide patient/caregiver the vaccine information statement and document version date on eMAR. Record the lot number and stone banker below. Manuf: ____ Lot Number: Exp Date: Inactive [facility]. Allergies, Adverse Reactions, Alerts Substance Category Reaction Severity Reaction type Status Date Reported Comments Source penicillins Assertion "can't breathe" [facility], [facility] penicillins drug allergy "can 't breathe" Allergy Active [facility], [facility] penicillin drug allergy "can' t breathe" Allergy Active [facility], [facility] Immunizations Immunization Date Given Site Status Last Updated Comments Source influenza virus vaccine 07/19/2015 Not Given [facility] influenza virus vaccine 06/02/2015 Left Deltoid influenza virus vaccine [facility] influenza virus vaccine 07/05/2013 Left Deltoid influenza virus vaccine [facility], [facility], [facility], [facility]. pneumococcal polysaccharide PPV23 02/12/2012 Right Deltoid pneumococcal 23-valent vaccine [facility], [facility], [facility], [facility] pneumococcal 23-valent vaccine 02/12/2012 [facility] Results Vital Signs Encounters Location Location Details Encounter Type Encounter Number Reason For Visit Attending Provider ADM Date DC Date Status Source [facility] CD:[id number] Inpatient [id number] Max An 02/10/2012 Active [facility]. [facility] CD:[id number] Inpatient [id number] Kings Aguilar 06/20/2012 06/21/2012 Active [facility]. OM CD:[id number] Inpatient [id number] Kings Aguilar 08/01/2012 08/08/2012 Active [facility]. [facility] CD:[id number] Inpatient [id number] Kings Aguilar 12/08/2012 12/09/2012 Active [facility]. [facility] CD:[id number] Clinic ( Outpatient) [id number] Sofy Smith 05/03/2013 Active [place] CD:[id number] Clinic ( Outpatient) [id number] Kings Aguilar 06/07/2013 Active [facility] CD:[id number] Clinic ( Outpatient) [id number] Kings Aguilar 06/14/2013 Active [facility] CD:[id number] Clinic ( Outpatient) [id number] Kings Aguilar 06/21/2013 Active [facility] CD:[id number] Inpatient [id number] Kings Aguilar 07/02/2013 07/05/2013 Active [employer] CD:[id number] Clinic ( Outpatient) [id number] Kings Aguilar 07/13/2013 Active [facility] CD:[id number] Clinic ( Outpatient) [id number] Kings Aguilar 07/27/2013 Active [facility] CD:[id number] Inpatient [id number] Kings Aguilar 09/11/2013 09/15/2013 Active [employer] [employer] CD:[id number] Clinic ( Outpatient) [id number] Kings Aguilar 09/20/2013 Active [facility] CD:[id number] Clinic ( Outpatient) [id number] Kings Aguilar 10/02/2013 Active [facility] Cancel/No Show [id number] Kings Aguilar 10/02/2013 10/02/2013 [facility] CD:[id number] Clinic ( Outpatient) [id number] Sofy Smith 11/01/2013 Active [facility] CD:[id number] Clinic ( Outpatient) [id number] Kings Aguilar 11/06/2013 Active [facility] CD:[id number] Clinic ( Outpatient) [id number] Kings Aguilar 11/10/2013 Active [facility] [id number] Kings Aguilar 11/10/2013 11/10/2013 [facility] [id number] Kings Aguilar 11/20/2013 11/21/2013 [facility] [place] [facility] Cancel/No Show [id number] Kings Aguilar 12/18/2013 12/18/2013 [facility] [place] [facility] CD:[id number] Clinic ( Outpatient) [id number] 12/22/2013 Active [facility] [place] [facility] [id number] Kings Aguilar 12/22/2013 12/23/2013 [facility] [place] [facility] [id number] Zoran Mara 01/02/2014 01/03/2014 [facility] [place] [facility]IS CD:[id number] Clinic ( Outpatient) [id number] Sofy Luis 01/04/2014 Active [facility] [id number] [facility] 01/04/201410/2013 [facility] CD:[id number] Outpatient [id number] [employer] Luis 01/23/2014 01/23/2014 Active [facility]. [facility] CD:[id number] Emergency [id number] DENISE NOBLE 01/23/2014 01/23/2014 Active [facility]. [facility] CD:[id number] Outpatient [id number] Sofy Luis 01/26/2014 01/26/2014 Active [facility] [id number] Kings Aguilar 02/16/2014 02/17/2014 [facility] [place] [facility] Cancel/No Show [id number] Halie Dacosta 02/19/2014 02/19/2014 [facility] CD:[id number] Emergency [id number] Kings Arredondo 03/29/2014 Active [facility] [place] [id number] [place] Aguilar 05/24/2014 [facility] [place] [facility] [place] Cancel/No Show [id number] Kings Aguilar 06/22/2014 06/22/2014 [facility] [place] [facility] [place] [id number] Kings Aguilar 08/27/2014 [facility] [place] [facility] [place] Cancel/No Show [id number] Kings Aguilar 09/24/2014 09/26/2014 [facility] [place] [facility] Cancel/No Show [id number] Halie Dacosta 10/01/2014 10/01/2014 [facility] [place] [id number] Kings Aguilar 10/11/201404/2015 [facility] [place] [facility] CD:[id number] Emergency [id number] Napoleon Isabel 11/15/2014 11/15/2014 Active [facility] [place] Cancel/No Show [id number] Kings Aguilar 11/19/2014 11/19/2014 [facility] [place] [facility] [id number] Kings Aguilar 11/21/2014 [facility] [place] [facility] [id number] Kings Aguilar 02/07/201501/2015 [facility] [place] [facility] [place] [id number] Kings Aguilar 02/28/2015 [facility] [place] [facility] [place] Cancel/No Show [id number] Kings Aguilar 04/17/2015 04/16/2015 [facility] [place] [facility] [place] [id number] Kings Aguilar 05/29/2015 [facility] [place] [facility] CD:[id number] Inpatient [id number] Ryan Nolan 06/01/2015 06/11/2015 Active [facility]. [facility] [place] [facility] [id number] Kings Aguilar 06/19/2015 [facility] [place] [facility] CD:[id number] Inpatient [id number] Kings Aguilar 07/18/2015 07/19/2015 Active [facility]. [facility] [place] Cancel/No Show [id number] Kings Aguilar 07/19/2015 07/15/2015 [facility] [place] [facility] CD:[id number] Clinic ( Outpatient) [id number] Kings Aguilar 08/22/2015 Active [facility] [place] [facility] [id number] Kings Aguilar 08/23/2015 [facility] [place] CS[facility] CD:[id number] Clinic ( Outpatient) [id number] Valentin Rojas 10/09/2015 Active [facility] [id number] Valentin Rojas 11/04/2015 11/04/2015 [facility] Cancel/No Show [id number] [facility] Aguilar 09/1109/11/2016 [facility] Procedures Procedure Code Date Perfomer Comments Source Echocardiography, transthoracic, real-time with image documentation (2D), includes M-mode recording, when performed, complete, with spectral Doppler echocardiography, and with color flow Doppler echocardiography [id number] 07/19/2015 [facility] Typical and Atypical AVNRT and Atrial Flutter Ablation 06/05/2015 [facility]. Echocardiogram, EF 55% 06/03 [facility]. No data available for this section [facility] Esophagogastroduodenoscopy, flexible, transoral; diagnostic, including collection of specimen(s) by brushing or washing, when performed (separate procedure) [id number] [facility]. Plan of Care Social History Assessment and Plan Family History Value Date Source Advance Directives Order Name Results Value Date Source
--- OUTSIDE RECORDS SUMMARY | 2017-05-19 14:46 | XMS REPORT | Clinical Summary ---
Author Author [facility] Organization [facility] Address Unknown Phone Unavailable Care Team Providers Care Data Migration Consultant Name Role Phone PCP Unavailable Source Comments Some departments are not documenting in the electronic medical record. If you do not see the information that you expected, contact Release of Information in the Health Information Management department at [phone] for further assistance in locating additional records.[facility] Allergies Active Allergy Reactions Severity Noted [...] Taken Blood Pressure 155/99 05/23/2014 12:00 PM [employer] Pulse 66 05/22/2014 3:59 PM [employer] Temperature 36.4 C (97.6 F) 05/23/2014 12:00 PM [employer] Respiratory Rate 16 11/01/2012 8:48 AM CDT Oxygen Saturation 96% 05/23/2014 12:00 PM [employer] Inhaled Oxygen - - Concentration Weight 94.8 kg (208 lb 15.9 oz) 05/21/2014 5:41 AM [employer] Height 190.5 cm (6' 3") 05/20/2014 6:00 PM [employer] Body Mass Index 26.12 05/21/2014 5:41 AM [employer] Plan of Treatment Health Maintenance Due Date Last Done Comments PHYSICAL (COMPREHENSIVE) 1979 EXAM PERTUSSIS VACCINE 1983 TETANUS VACCINE 1989 INFLUENZA VACCINE 02/02/2017 Results Not on filefrom Last 3 Months
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
--- OUTSIDE RECORDS SUMMARY | 2017-05-19 14:51 | XMS REPORT ---
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.2 Active 425466940 Problem Chronic pain syndrome G89.4 Active 645434160 Problem Paranoid schizophrenia F20.0 Active 20366528 Problem Chronic pain due to injury G89.21 Active 323845228 Problem Chronic obstructive pulmonary disease, unspecified COPD type J44.9 Active 44453972 Problem Gastroesophageal reflux disease without esophagitis K21.9 Active 311246886 Problem Anxiety F41.9 Active 16861594 Problem Edema, unspecified type R60.9 Active 467831443 Problem 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401D Active 13943284 Problem Gastroesophageal reflux disease, esophagitis presence not specified K21.9 Active 731039451 Problem Drug abuse and dependence F19.20 Active 9317221 ALLERGIES No Information SOCIAL HISTORY Never Assessed PLAN OF CARE Activity Details Follow Up 1 Week Reason: VITAL SIGNS MEDICATIONS Unknown Medications RESULTS No Results PROCEDURES Procedure Date Ordered Result Body Site Alcohol and/or drug services September 15, 2016 IMMUNIZATIONS No Known Immunizations MEDICAL (GENERAL) HISTORY Type Description Date Medical History cirrhosis Medical History type II diabetes Medical History Hep C Medical History schizophrenia, paranoid Medical History martin to face and left hand Surgical History some kind of heart surgery [facility] 2015 Surgical History cholecystectomy Hospitalization History [facility] Hospitalization Jun 2015 Hospitalization History Severe Hyperglycemia, Dehydration 11/17/15 Hospitalization History Liver Cirrhosis with ascites, Hyperglycemia, Hypokalemia 03/03/2016 Hospitalization History Uncontroled Hyperglycemia 03/21/2016 Hospitalization History Altered Mental Status, Hypoglycemia, hypokalemia--[facility] 04/01/2016 Hospitalization History Mental Health Stay At [facility] in [facility] 2016 Hospitalization History ESLD, Hyperglycemia, Acute ETOH intox, End sstage liver cirrhosis-[facility] 08/12/16 Hospitalization History pneumonia 08/2016 Hospitalization History Uncontroled Hyperglycemia, dehydration, liver failure- [facility] 08/27/16 Hospitalization History DKA-[facility] 09/25/16 Hospitalization History Hypokalemia-[facility] 12/23/16 Hospitalization History Uncontrolled DM-[facility] 01/25/17 Hospitalization History Hyperglycemia, hyponatremia-[facility] 03/29/17
--- OUTSIDE RECORDS SUMMARY | 2017-05-19 14:52 | XMS REPORT ---
Author Author AMADO Cooney Organization [facility] Address [address] [place] [address] Care Team Providers Care Field Support Rep Name Role Phone AMADO Cooney Unavailable PROBLEMS Type Condition ICD9-CM Code AIL13-DX Code Onset Dates Condition Status SNOMED Code Problem 2Nd deg burn nose T20.24XA Active 51143558 Problem Acute alcohol dependence syndrome F10.20 Active 44579049 Problem Hypertension due to endocrine disorder I15.2 Active 172729388 Problem Chronic pain syndrome G89.4 Active 147036137 Problem Paranoid schizophrenia F20.0 Active 84760247 Problem Chronic pain due to injury G89.21 Active 569150504 Problem Chronic obstructive pulmonary disease, unspecified COPD type J44.9 Active 48713999 Problem Gastroesophageal reflux disease without esophagitis K21.9 Active 808592762 Problem Anxiety F41.9 Active 17825575 Problem Edema, unspecified type R60.9 Active 587955584 Problem 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 Active 635781018 Problem Type 2 diabetes mellitus without complication, unspecified shelter insulin use status E11.9 Active 53624205 Problem Type 2 diabetes mellitus with hyperglycemia E11.65 Active 544098217097541 Problem Alcoholic cirrhosis of liver without ascites K70.30 Active 740740917 Problem Pain in left leg M79.605 Active 28733342 Problem Other chronic pain G89.29 Active 78198536 Problem Non-intractable cyclical vomiting with nausea G43.A0 Active 67419920 Problem Unspecified fracture of shaft of right fibula, subsequent encounter for closed fracture with routine healing S82.401D Active 08557705 Problem Gastroesophageal reflux disease, esophagitis presence not specified K21.9 Active 678232917 Problem Drug abuse and dependence F19.20 Active 4100591 ALLERGIES No Information SOCIAL HISTORY Never Assessed [...] Surgical History some kind of heart surgery [facility] 2015 Surgical History cholecystectomy Hospitalization History [facility] Hospitalization Jun 2015 Hospitalization History Severe Hyperglycemia, Dehydration 11/17/15 Hospitalization History Liver Cirrhosis with ascites, Hyperglycemia, Hypokalemia 03/03/2016 Hospitalization History Uncontroled Hyperglycemia 03/21/2016 Hospitalization History Altered Mental Status, Hypoglycemia, hypokalemia--[facility] 04/01/2016 Hospitalization History Mental Health Stay At [facility] in [facility] 2016 Hospitalization History ESLD, Hyperglycemia, Acute ETOH intox, End sstage liver cirrhosis-[facility] 08/12/16 Hospitalization History pneumonia 08/2016 Hospitalization History Uncontroled Hyperglycemia, dehydration, liver failure- [facility] 08/27/16 Hospitalization History DKA-[facility] 09/25/16 Hospitalization History Hypokalemia-[facility] 12/23/16 Hospitalization History Uncontrolled DM-[facility] 01/25/17 Hospitalization History Hyperglycemia, hyponatremia-[facility] 03/29/17
--- OUTSIDE RECORDS SUMMARY | 2017-05-19 14:53 | XMS REPORT ---
Author Author YAA TORRES [facility] Address [address] [place] [address] Care Team Providers Care Office Analyst Name Role Phone YAA TORRES Unavailable PROBLEMS Type Condition ICD9-CM Code LQK10-PK Code Onset Dates Condition Status SNOMED Code Problem 2Nd deg burn nose T20.24XA Active 33465955 Problem Acute alcohol dependence syndrome F10.20 Active 16268532 Problem Hypertension due to endocrine disorder I15.2 Active 311265531 Problem Chronic pain syndrome G89.4 Active 010474038 Problem Paranoid schizophrenia F20.0 Active 98105386 Problem Chronic pain due to injury G89.21 Active 482653216 Problem Chronic obstructive pulmonary disease, unspecified COPD type J44.9 Active 19726438 Problem Gastroesophageal reflux disease without esophagitis K21.9 Active 717050794 Problem Anxiety F41.9 Active 22802590 Problem Edema, unspecified type R60.9 Active 304895622 Problem 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 Z79.4 Active 013735630 Problem Type 2 diabetes mellitus without complication, unspecified manager long term care insulin use status E11.9 Active 83174524 Problem Type 2 diabetes mellitus with hyperglycemia E11.65 Active 104725830544379 Problem Alcoholic cirrhosis of liver without ascites K70.30 Active 059916613 Problem Pain in left leg M79.605 Active 40708809 Problem Other chronic pain G89.29 Active 19121055 Problem Non-intractable cyclical vomiting with nausea G43.A0 Active 16207554 Problem Unspecified fracture of shaft of right fibula, subsequent encounter for closed fracture with routine healing S82.401D Active 66146470 Problem Gastroesophageal reflux disease, esophagitis presence not specified K21.9 Active 840269991 Problem Drug abuse and dependence F19.20 Active 5067442 ALLERGIES No Information SOCIAL HISTORY Never Assessed PLAN OF CARE Activity Details Follow Up 1 Week Reason: VITAL SIGNS MEDICATIONS Unknown Medications RESULTS No Results PROCEDURES Procedure Date Ordered Result Body Site Alcohol and/or drug services September 22, 2016 IMMUNIZATIONS No Known Immunizations MEDICAL (GENERAL) HISTORY Type Description Date Medical History cirrhosis Medical History type II diabetes Medical History Hep C Medical History schizophrenia, paranoid Medical History martin to face and left hand Surgical History some kind of heart surgery [facility] 2015 Surgical History cholecystectomy Hospitalization History [facility] Hospitalization Jun 2015 Hospitalization History Severe Hyperglycemia, Dehydration 11/17/15 Hospitalization History Liver Cirrhosis with ascites, Hyperglycemia, Hypokalemia 03/03/2016 Hospitalization History Uncontroled Hyperglycemia 03/21/2016 Hospitalization History Altered Mental Status, Hypoglycemia, hypokalemia--[facility] 04/01/2016 Hospitalization History Mental Health Stay At [facility] in [facility] 2016 Hospitalization History ESLD, Hyperglycemia, Acute ETOH intox, End sstage liver cirrhosis-[facility] 08/12/16 Hospitalization History pneumonia 08/2016 Hospitalization History Uncontroled Hyperglycemia, dehydration, liver failure- [facility] 08/27/16 Hospitalization History DKA-[facility] 09/25/16 Hospitalization History Hypokalemia-[facility] 12/23/16 Hospitalization History Uncontrolled DM-[facility] 01/25/17 Hospitalization History Hyperglycemia, hyponatremia-[facility] 03/29/17
--- OUTSIDE RECORDS SUMMARY | 2017-05-19 14:53 | XMS REPORT ---
Author Author MEETA SUTTON Organization [facility] Address [address] [place] [address] Care Team Providers Care Ensemble Member Name Role Phone MEETA SUTTON Unavailable PROBLEMS Type Condition ICD9-CM Code [id number] Code Onset Dates Condition Status SNOMED Code Problem 2Nd deg burn nose T20.24XA Active 10643861 Problem Acute alcohol dependence syndrome F10.20 Active 44915834 Problem Hypertension due to endocrine disorder I15.2 Active 971961864 Problem Chronic pain syndrome G89.4 Active 492267755 Problem Paranoid schizophrenia F20.0 Active 95316989 Problem Chronic pain due to injury G89.21 Active 256718204 Problem Chronic obstructive pulmonary disease, unspecified COPD type J44.9 Active 21218127 Problem Gastroesophageal reflux disease without esophagitis K21.9 Active 793743588 Problem Anxiety F41.9 Active 59177988 Problem Edema, unspecified type R60.9 Active 766846228 Problem 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 Z79.4 Active 418484458 Problem Type 2 diabetes mellitus without complication, unspecified 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 insulin use 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 E11.9 Active 04791446 Problem Type 2 diabetes mellitus with hyperglycemia E11.65 Active 830919673491954 Problem Alcoholic cirrhosis of liver without ascites K70.30 Active 611251025 Problem Pain in left leg M79.605 Active 46102041 Problem Other chronic pain G89.29 Active 97367797 Problem Non-intractable cyclical vomiting with nausea G43.A0 Active 53009408 Problem Unspecified fracture of shaft of right fibula, subsequent encounter for closed fracture with routine healing S82.401D Active 42710108 Problem Gastroesophageal reflux disease, esophagitis presence not specified K21.9 Active 033754352 Problem Drug abuse and dependence F19.20 Active 8330833 ALLERGIES No Information SOCIAL HISTORY Never Assessed PLAN OF CARE VITAL SIGNS MEDICATIONS Unknown Medications RESULTS No Results PROCEDURES No Known procedures IMMUNIZATIONS No Known Immunizations MEDICAL (GENERAL) HISTORY Type Description Date Medical History cirrhosis Medical History type II diabetes Medical History Hep C Medical History schizophrenia, paranoid Medical History martin to face and left hand Surgical History some kind of heart surgery [facility] 2015 Surgical History cholecystectomy Hospitalization History [facility] Hospitalization Jun 2015 Hospitalization History Severe Hyperglycemia, Dehydration 11/17/15 Hospitalization History Liver Cirrhosis with ascites, Hyperglycemia, Hypokalemia 03/03/2016 Hospitalization History Uncontroled Hyperglycemia 03/21/2016 Hospitalization History Altered Mental Status, Hypoglycemia, hypokalemia--[facility] 04/01/2016 Hospitalization History Mental Health Stay At [facility] in [facility] 2016 Hospitalization History ESLD, Hyperglycemia, Acute ETOH intox, End sstage liver cirrhosis-[facility] 08/12/16 Hospitalization History pneumonia 08/2016 Hospitalization History Uncontroled Hyperglycemia, dehydration, liver failure- [facility] 08/27/16 Hospitalization History DKA-[facility] 09/25/16 Hospitalization History Hypokalemia-[facility] 12/23/16 Hospitalization History Uncontrolled DM-[facility] 01/25/17 Hospitalization History Hyperglycemia, hyponatremia-[facility] 03/29/17
--- OUTSIDE RECORDS SUMMARY | 2017-05-19 14:54 | XMS REPORT ---
Author Author YAA TORRES [facility] Address [address] [place] [address] Care Team Providers Care Operations Support Representative Name Role Phone YAA TORRES Unavailable PROBLEMS Type Condition ICD9-CM Code QNE08-BG Code Onset Dates Condition Status SNOMED Code Problem 2Nd deg burn nose T20.24XA Active 39902435 Problem Acute alcohol dependence syndrome F10.20 Active 99203227 Problem Hypertension due to endocrine disorder I15.2 Active 754079100 Problem Chronic pain syndrome G89.4 Active 391287388 Problem Paranoid schizophrenia F20.0 Active 84334892 Problem Chronic pain due to injury G89.21 Active 473474909 Problem Chronic obstructive pulmonary disease, unspecified COPD type J44.9 Active 94375207 Problem Gastroesophageal reflux disease without esophagitis K21.9 Active 638203110 Problem Anxiety F41.9 Active 75423894 Problem Edema, unspecified type R60.9 Active 503542539 Problem 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 Z79.4 Active 107950129 Problem Type 2 diabetes mellitus without complication, unspecified cross tie turner insulin use status E11.9 Active 38713642 Problem Type 2 diabetes mellitus with hyperglycemia E11.65 Active 149176859776544 Problem Alcoholic cirrhosis of liver without ascites K70.30 Active 665274448 Problem Pain in left leg M79.605 Active 10311035 Problem Other chronic pain G89.29 Active 27826342 Problem Non-intractable cyclical vomiting with nausea G43.A0 Active 02847261 Problem Unspecified fracture of shaft of right fibula, subsequent encounter for closed fracture with routine healing S82.401D Active 41029821 Problem Gastroesophageal reflux disease, esophagitis presence not specified K21.9 Active 352549113 Problem Drug abuse and dependence F19.20 Active 4319373 ALLERGIES No Information SOCIAL HISTORY Never Assessed PLAN OF CARE VITAL SIGNS MEDICATIONS Unknown Medications RESULTS No Results PROCEDURES No Known procedures IMMUNIZATIONS No Known Immunizations MEDICAL (GENERAL) HISTORY Type Description Date Medical History cirrhosis Medical History type II diabetes Medical History Hep C Medical History schizophrenia, paranoid Medical History martin to face and left hand Surgical History some kind of heart surgery [facility] 2015 Surgical History cholecystectomy Hospitalization History [facility] Hospitalization Jun 2015 Hospitalization History Severe Hyperglycemia, Dehydration 11/17/15 Hospitalization History Liver Cirrhosis with ascites, Hyperglycemia, Hypokalemia 03/03/2016 Hospitalization History Uncontroled Hyperglycemia 03/21/2016 Hospitalization History Altered Mental Status, Hypoglycemia, hypokalemia--[facility] 04/01/2016 Hospitalization History Mental Health Stay At [facility] in [facility] 2016 Hospitalization History ESLD, Hyperglycemia, Acute ETOH intox, End sstage liver cirrhosis-[facility] 08/12/16 Hospitalization History pneumonia 08/2016 Hospitalization History Uncontroled Hyperglycemia, dehydration, liver failure- [facility] 08/27/16
--- OUTSIDE RECORDS SUMMARY | 2017-05-19 14:54 | XMS REPORT ---
Author Author JANES Em [facility] Address Unknown Care Team Providers Care Distributor Advertising Material Name Role Phone JANES Em Unavailable PROBLEMS Type Condition ICD9-CM Code [id number] Code Onset Dates Condition Status SNOMED Code Problem 2Nd deg burn nose T20.24XA Active 68912054 Problem Acute alcohol dependence syndrome F10.20 Active 59900917 Problem Hypertension due to endocrine disorder I15.2 Active 797772064 Problem Chronic pain syndrome G89.4 Active 507893284 Problem Paranoid schizophrenia F20.0 Active 85323492 Problem Chronic pain due to injury G89.21 Active 617661590 Problem Chronic obstructive pulmonary disease, unspecified COPD type J44.9 Active 34928812 Problem Gastroesophageal reflux disease without esophagitis K21.9 Active 850912001 Problem Anxiety F41.9 Active 68254461 Problem Edema, unspecified type R60.9 Active 140881997 Problem [facility] current use of insulin Z79.4 Active 230264664 Problem Type 2 diabetes mellitus without complication, 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.9 Active 09814089 Problem Type 2 diabetes mellitus with hyperglycemia E11.65 Active 411055444649734 Problem Alcoholic cirrhosis of liver without ascites K70.30 Active 399021217 Problem Pain in left leg M79.605 Active 81905450 Problem Other chronic pain G89.29 Active 75711621 Problem Non-intractable cyclical vomiting with nausea G43.A0 Active 86677669 Problem Unspecified fracture of shaft of right fibula, subsequent encounter for closed fracture with routine healing S82.401D Active 89280341 Problem Gastroesophageal reflux disease, esophagitis presence not specified K21.9 Active 441955426 Problem Drug abuse and dependence F19.20 Active 0670248 ALLERGIES Substance Reaction Event Type Date Status Zyprexa Unknown Drug Allergy Aug, Active Seroquel Unknown Drug Allergy Aug, Active Penicillin V Potassium Unknown Drug Allergy Aug, Active Clindamycin HCl Unknown Drug Allergy Aug, Active SOCIAL HISTORY Never Assessed PLAN OF CARE Activity Details Follow Up prn Reason:UR extractions per Dr Desai sjf VITAL SIGNS Height 75 in 2016-08-18 Blood pressure systolic 160 mmHg 2016-08-18 Blood pressure diastolic 116 mmHg 2016-08-18 MEDICATIONS Medication Instructions Dosage Frequency Start Date End Date Duration Status Tramadol HCl 50 mg Orally twice a day 1 tablet as needed 12h 14 Sep, 2016 28 days Active Folic Acid 1 MG Orally Once a day 1 tablet 24h November, 28 days Active Lyrica 75 mcg Orally 2 times a day 1 capsule 12h May, 28 days Active Lactulose 20 GM/30ML Orally every 8 hours 30ml 8h Dec, Active Albuterol Sulfate HFA 108 (90 Base) MCG/ACT Inhalation every 4 hrs 2 puffs as needed 4h Aug, Active Amlodipine Besylate 5 mg Orally Once a day 1 tablet 24h Active RESULTS No Results PROCEDURES Procedure Date Ordered Result Body Site COMP ORAL EVALUATION - NEW/EST PT Aug 18, 2016 PANORAMIC FILM SEE ALSO CODE 90457 Aug 18, 2016 IMMUNIZATIONS No Known Immunizations MEDICAL (GENERAL) HISTORY Type Description Date Medical History cirrhosis Medical History type II diabetes Medical History Hep C Medical History schizophrenia, paranoid Medical History martin to face and left hand Surgical History some kind of heart surgery [facility] 2015 Surgical History cholecystectomy [facility] Jun 2015 Hospitalization History Severe Hyperglycemia, Dehydration 11/17/15 Hospitalization History Liver Cirrhosis with ascites, Hyperglycemia, Hypokalemia 03/03/2016 Hospitalization History Uncontroled Hyperglycemia 03/21/2016 Hospitalization History Altered Mental Status, Hypoglycemia, hypokalemia--[facility] 04/01/2016 Hospitalization History Mental Health Stay At [facility] in [facility] 2016 Hospitalization History ESLD, Hyperglycemia, Acute ETOH intox, End sstage liver cirrhosis-[facility] 08/12/16 Hospitalization History pneumonia 08/2016 Hospitalization History Uncontroled Hyperglycemia, dehydration, liver failure- [facility] 08/27/16 Hospitalization History DKA-[facility] 09/25/16 Hospitalization History Hypokalemia-[facility] 12/23/16 Hospitalization History Uncontrolled DM-[facility] 01/25/17 Hospitalization History Hyperglycemia, hyponatremia-[facility] 03/29/17
--- OUTSIDE RECORDS SUMMARY | 2017-05-19 14:54 | XMS REPORT ---
Author Author MEETA SUTTON Organization [facility] Address [address] [place] [address] Care Team Providers Care Locksmith Name Role Phone MEETA SUTTON Unavailable PROBLEMS Type Condition ICD9-CM Code [id number] Code Onset Dates Condition Status SNOMED Code Problem 2Nd deg burn nose T20.24XA Active 23068638 Problem Acute alcohol dependence syndrome F10.20 Active 04911977 Problem Hypertension due to endocrine disorder I15.2 Active 015586812 Problem Chronic pain syndrome G89.4 Active 806371283 Problem Paranoid schizophrenia F20.0 Active 71790735 Problem Chronic pain due to injury G89.21 Active 960511931 Problem Chronic obstructive pulmonary disease, unspecified COPD type J44.9 Active 32010686 Problem Gastroesophageal reflux disease without esophagitis K21.9 Active 666251846 Problem Anxiety F41.9 Active 47700254 Problem Edema, unspecified type R60.9 Active 678942762 Problem 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 Active 755048771 Problem Type 2 diabetes mellitus without complication, unspecified intermediate frame tender insulin use status E11.9 Active 22962215 Problem Type 2 diabetes mellitus with hyperglycemia E11.65 Active 023658623666062 Problem Alcoholic cirrhosis of liver without ascites K70.30 Active 618371179 Problem Pain in left leg M79.605 Active 48783307 Problem Other chronic pain G89.29 Active 94318130 Problem Non-intractable cyclical vomiting with nausea G43.A0 Active 48505663 Problem Unspecified fracture of shaft of right fibula, subsequent encounter for closed fracture with routine healing S82.401D Active 06281273 Problem Gastroesophageal reflux disease, esophagitis presence not specified K21.9 Active 140280299 Problem Drug abuse and dependence F19.20 Active 3409190 ALLERGIES No Information SOCIAL HISTORY Never Assessed [...] Surgical History some kind of heart surgery [facility] 2015 Surgical History cholecystectomy Hospitalization History [facility] Jun 2015 Hospitalization History Severe Hyperglycemia, Dehydration 11/17/15 Hospitalization History Liver Cirrhosis with ascites, Hyperglycemia, Hypokalemia 03/03/2016 Hospitalization History Uncontroled Hyperglycemia 03/21/2016 Hospitalization History Altered Mental Status, Hypoglycemia, hypokalemia--[facility] 04/01/2016 Hospitalization History Mental Health Stay At [facility] in [facility] 2016 Hospitalization History ESLD, Hyperglycemia, Acute ETOH intox, End sstage liver cirrhosis-[facility] 08/12/16 Hospitalization History pneumonia 08/2016 Hospitalization History Uncontroled Hyperglycemia, dehydration, liver failure- [facility] 08/27/16 Hospitalization History DKA-[facility] 09/25/16 Hospitalization History Hypokalemia-[facility] 12/23/16 Hospitalization History Uncontrolled DM-[facility] 01/25/17 Hospitalization History Hyperglycemia, hyponatremia-[facility] 03/29/17
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
--- OUTSIDE RECORDS SUMMARY | 2017-05-19 15:01 | XMS REPORT ---
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.2 Active 504125034 Problem Chronic pain syndrome G89.4 Active 766433337 Problem Paranoid schizophrenia F20.0 Active 88742702 Problem Chronic pain due to injury G89.21 Active 562961368 Problem Chronic obstructive pulmonary disease, unspecified COPD type J44.9 Active 62573548 Problem Gastroesophageal reflux disease without esophagitis K21.9 Active 396015125 Problem Anxiety F41.9 Active 43473048 Problem Edema, unspecified type R60.9 Active 855946289 Problem 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 Active 761078498 Problem Type 2 diabetes mellitus without complication, unspecified buttermaker continuous churn insulin use status E11.9 Active 58799899 Problem Type 2 diabetes mellitus with hyperglycemia E11.65 Active 578973478125600 Problem Alcoholic cirrhosis of liver without ascites K70.30 Active 615817975 Problem Pain in left leg M79.605 Active 96565836 Problem Other chronic pain G89.29 Active 16479119 Problem Non-intractable cyclical vomiting with nausea G43.A0 Active 18006633 Problem Unspecified fracture of shaft of right fibula, subsequent encounter for closed fracture with routine healing S82.401D Active 86054563 Problem Gastroesophageal reflux disease, esophagitis presence not specified K21.9 Active 808585784 Problem Drug abuse and dependence F19.20 Active [id number] ALLERGIES No Information SOCIAL HISTORY Never Assessed PLAN OF CARE VITAL SIGNS MEDICATIONS Unknown Medications RESULTS No Results PROCEDURES No Known procedures IMMUNIZATIONS No Known Immunizations MEDICAL (GENERAL) HISTORY Type Description Date Medical History cirrhosis Medical History type II diabetes Medical History Hep C Medical History schizophrenia, paranoid Medical History martin to face and left hand Surgical History some kind of heart surgery [facility] 2015 Surgical History cholecystectomy Hospitalization History [facility] Jun 2015 Hospitalization History Severe Hyperglycemia, Dehydration 11/17/15 Hospitalization History Liver Cirrhosis with ascites, Hyperglycemia, Hypokalemia 03/03/2016 Hospitalization History Uncontroled Hyperglycemia 03/21/2016 Hospitalization History Altered Mental Status, Hypoglycemia, hypokalemia--[facility] 04/01/2016 Hospitalization History Mental Health Stay At [facility] in [facility] 2016 Hospitalization History ESLD, Hyperglycemia, Acute ETOH intox, End sstage liver cirrhosis-[facility] 08/12/16 Hospitalization History pneumonia 08/2016 Hospitalization History Uncontroled Hyperglycemia, dehydration, liver failure- [facility] 08/27/16 Hospitalization History DKA-[facility] 09/25/16 Hospitalization History Hypokalemia-[facility] 12/23/16 Hospitalization History Uncontrolled DM-[facility] 01/25/17 Hospitalization History Hyperglycemia, hyponatremia-[facility] 03/29/17
--- OUTSIDE RECORDS SUMMARY | 2017-05-19 15:01 | XMS REPORT ---
Author Author YAA TORRES [facility] Address [address] [place] [address] Care Team Providers Care Product Support Analyst Name Role Phone YAA TORRES Unavailable PROBLEMS Type Condition ICD9-CM Code [id number] Code Onset Dates Condition Status SNOMED Code Problem 2Nd deg burn nose T20.24XA Active 19443593 Problem Acute alcohol dependence syndrome F10.20 Active 51565254 Problem Hypertension due to endocrine disorder I15.2 Active 475870079 Problem Chronic pain syndrome G89.4 Active 693140221 Problem Paranoid schizophrenia F20.0 Active 67299272 Problem Chronic pain due to injury G89.21 Active 952477991 Problem Chronic obstructive pulmonary disease, unspecified COPD type J44.9 Active 26449501 Problem Gastroesophageal reflux disease without esophagitis K21.9 Active 412732896 Problem Anxiety F41.9 Active 94339703 Problem Edema, unspecified type R60.9 Active 105320059 Problem 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 Active 908534541 Problem Type 2 diabetes mellitus without complication, unspecified ad terminal makeup operator insulin use status E11.9 Active 27260733 Problem Type 2 diabetes mellitus with hyperglycemia E11.65 Active 538294071357853 Problem Alcoholic cirrhosis of liver without ascites K70.30 Active 939173686 Problem Pain in left leg M79.605 Active 43299954 Problem Other chronic pain G89.29 Active 89164727 Problem Non-intractable cyclical vomiting with nausea G43.A0 Active 43882804 Problem Unspecified fracture of shaft of right fibula, subsequent encounter for closed fracture with routine healing S82.401D Active 07912092 Problem Gastroesophageal reflux disease, esophagitis presence not specified K21.9 Active 867887841 Problem Drug abuse and dependence F19.20 Active [id number] ALLERGIES No Information SOCIAL HISTORY Never Assessed [...] Surgical History some kind of heart surgery [facility] 2015 Surgical History cholecystectomy Hospitalization History [facility] Jun 2015 Hospitalization History Severe Hyperglycemia, Dehydration 11/17/15 Hospitalization History Liver Cirrhosis with ascites, Hyperglycemia, Hypokalemia 03/03/2016 Hospitalization History Uncontroled Hyperglycemia 03/21/2016 Hospitalization History Altered Mental Status, Hypoglycemia, hypokalemia--[facility] 04/01/2016 Hospitalization History Mental Health Stay At [facility] in [facility] 2016 Hospitalization History ESLD, Hyperglycemia, Acute ETOH intox, End sstage liver cirrhosis-[facility] 08/12/16 Hospitalization History pneumonia 08/2016 Hospitalization History Uncontroled Hyperglycemia, dehydration, liver failure- [facility] 08/27/16 Hospitalization History DKA-[facility] 09/25/16 Hospitalization History Hypokalemia-[facility] 12/23/16 Hospitalization History Uncontrolled DM-[facility] 01/25/17 Hospitalization History Hyperglycemia, hyponatremia-[facility] 03/29/17
--- OUTSIDE RECORDS SUMMARY | 2017-05-19 15:02 | XMS REPORT ---
Author Author AMADO Cooney Organization [facility] Address [address] [place] [address] Care Team Providers Care Elder Assistant Name Role Phone AMADO Cooney Unavailable PROBLEMS Type Condition ICD9-CM Code [id number] Code Onset Dates Condition Status SNOMED Code Problem 2Nd deg burn nose T20.24XA Active 39714080 Problem Acute alcohol dependence syndrome F10.20 Active 54145285 Problem Hypertension due to endocrine disorder I15.2 Active 979545117 Problem Chronic pain syndrome G89.4 Active 571016774 Problem Paranoid schizophrenia F20.0 Active 05525074 Problem Chronic pain due to injury G89.21 Active 202105816 Problem Chronic obstructive pulmonary disease, unspecified COPD type J44.9 Active 18942984 Problem Gastroesophageal reflux disease without esophagitis K21.9 Active 922138690 Problem Anxiety F41.9 Active 22415165 Problem Edema, unspecified type R60.9 Active 192720227 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 Active 562217856 Problem Type 2 diabetes mellitus without complication, unspecified prison insulin use status E11.9 Active 41735333 Problem Type 2 diabetes mellitus with hyperglycemia E11.65 Active 458397863819538 Problem Alcoholic cirrhosis of liver without ascites K70.30 Active 694238755 Problem Pain in left leg M79.605 Active 68178620 Problem Other chronic pain G89.29 Active 48236763 Problem Non-intractable cyclical vomiting with nausea G43.A0 Active 72006298 Problem Unspecified fracture of shaft of right fibula, subsequent encounter for closed fracture with routine healing S82.401D Active 15489426 Problem Gastroesophageal reflux disease, esophagitis presence not specified K21.9 Active 985229799 Problem Drug abuse and dependence F19.20 Active 4299879 ALLERGIES No Information SOCIAL HISTORY Never Assessed PLAN OF CARE VITAL SIGNS MEDICATIONS Unknown Medications RESULTS No Results PROCEDURES No Known procedures IMMUNIZATIONS No Known Immunizations MEDICAL (GENERAL) HISTORY Type Description Date Medical History cirrhosis Medical History type II diabetes Medical History Hep C Medical History schizophrenia, paranoid Medical History martin to face and left hand Surgical History some kind of heart surgery [facility] 2015 Surgical History cholecystectomy Hospitalization History [facility] Jun 2015 Hospitalization History Severe Hyperglycemia, Dehydration 11/17/15 Hospitalization History Liver Cirrhosis with ascites, Hyperglycemia, Hypokalemia 03/03/2016 Hospitalization History Uncontroled Hyperglycemia 03/21/2016 Hospitalization History Altered Mental Status, Hypoglycemia, hypokalemia--[facility] 04/01/2016 Hospitalization History Mental Health Stay At [facility] in [facility] 2016 Hospitalization History ESLD, Hyperglycemia, Acute ETOH intox, End sstage liver cirrhosis-[facility] 08/12/16 Hospitalization History pneumonia 08/2016 Hospitalization History Uncontroled Hyperglycemia, dehydration, liver failure- [facility] 08/27/16 Hospitalization History DKA-[facility] 09/25/16 Hospitalization History Hypokalemia-[facility] 12/23/16 Hospitalization History Uncontrolled DM-[facility] 01/25/17 Hospitalization History Hyperglycemia, hyponatremia-[facility] 03/29/17
--- OUTSIDE RECORDS SUMMARY | 2017-05-19 15:02 | XMS REPORT ---
Author Author MEETA SUTTON Organization [facility] Address [address] [place] [address] Care Team Providers Care Power Checker Name Role Phone MEETA SUTTON Unavailable PROBLEMS Type Condition ICD9-CM Code [id number] Code Onset Dates Condition Status SNOMED Code Problem 2Nd deg burn nose T20.24XA Active 75862820 Problem Acute alcohol dependence syndrome F10.20 Active 87600142 Problem Hypertension due to endocrine disorder I15.2 Active 287801581 Problem Chronic pain syndrome G89.4 Active 932823749 Problem Paranoid schizophrenia F20.0 Active 87915647 Problem Chronic pain due to injury G89.21 Active 083993914 Problem Chronic obstructive pulmonary disease, unspecified COPD type J44.9 Active 86213428 Problem Gastroesophageal reflux disease without esophagitis K21.9 Active 463721134 Problem Anxiety F41.9 Active 74822158 Problem Edema, unspecified type R60.9 Active 613229320 Problem 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 Active 452223470 Problem Type 2 diabetes mellitus without complication, unspecified aerophysics engineer insulin use status E11.9 Active 28358139 Problem Type 2 diabetes mellitus with hyperglycemia E11.65 Active 764296254112755 Problem Alcoholic cirrhosis of liver without ascites K70.30 Active 345102948 Problem Pain in left leg M79.605 Active 80755082 Problem Other chronic pain G89.29 Active 71685365 Problem Non-intractable cyclical vomiting with nausea G43.A0 Active 53205344 Problem Unspecified fracture of shaft of right fibula, subsequent encounter for closed fracture with routine healing S82.401D Active 77968380 Problem Gastroesophageal reflux disease, esophagitis presence not specified K21.9 Active 760192106 Problem Drug abuse and dependence F19.20 Active 0752858 ALLERGIES No Information SOCIAL HISTORY Never Assessed [...] History some kind of heart surgery [facility] 2015 Surgical History cholecystectomy Hospitalization History [facility] Jun 2015 Hospitalization History Severe Hyperglycemia, Dehydration 11/17/15 Hospitalization History Liver Cirrhosis with ascites, Hyperglycemia, Hypokalemia 03/03/2016 Hospitalization History Uncontroled Hyperglycemia 03/21/2016 Hospitalization History Altered Mental Status, Hypoglycemia, hypokalemia--[facility] 04/01/2016 Hospitalization History Mental Health Stay At [facility] in [facility] 2016 Hospitalization History ESLD, Hyperglycemia, Acute ETOH intox, End sstage liver cirrhosis-[facility] 08/12/16 Hospitalization History pneumonia 08/2016 Hospitalization History Uncontroled Hyperglycemia, dehydration, liver failure- [facility] 08/27/16
--- OUTSIDE RECORDS SUMMARY | 2017-05-19 15:03 | XMS REPORT ---
Author Author HERMAN MEETA Organization [facility] Address [address] [place] [address] Care Team Providers Care Triage Rn Name Role Phone MEETA SUTTON Unavailable PROBLEMS Type Condition ICD9-CM Code [id number] Code Onset Dates Condition Status SNOMED Code Problem 2Nd deg burn nose T20.24XA Active 59141610 Problem Acute alcohol dependence syndrome F10.20 Active 68057632 Problem Hypertension due to endocrine disorder I15.2 Active 301476133 Problem Chronic pain syndrome G89.4 Active 109322655 Problem Paranoid schizophrenia F20.0 Active 99979508 Problem Chronic pain due to injury G89.21 Active 107342844 Problem Chronic obstructive pulmonary disease, unspecified COPD type J44.9 Active 87634377 Problem Gastroesophageal reflux disease without esophagitis K21.9 Active 947636476 Problem Anxiety F41.9 Active 58009320 Problem Edema, unspecified type R60.9 Active 052520831 Problem 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 Active 196416499 Problem Type 2 diabetes mellitus without complication, unspecified superintendent terminal insulin use status E11.9 Active 17739080 Problem Type 2 diabetes mellitus with hyperglycemia E11.65 Active 478420647402607 Problem Alcoholic cirrhosis of liver without ascites K70.30 Active 994817511 Problem Pain in left leg M79.605 Active 26800536 Problem Other chronic pain G89.29 Active 27341581 Problem Non-intractable cyclical vomiting with nausea G43.A0 Active 77283047 Problem Unspecified fracture of shaft of right fibula, subsequent encounter for closed fracture with routine healing S82.401D Active 13617445 Problem Gastroesophageal reflux disease, esophagitis presence not specified K21.9 Active 650269872 Problem Drug abuse and dependence F19.20 Active 0712775 ALLERGIES Substance Reaction Event Type Date Status Zyprexa Unknown Drug Allergy November, Active Seroquel Unknown Drug Allergy November, Active Penicillin V Potassium Unknown Drug Allergy November, Active Clindamycin HCl Unknown Drug Allergy November, Active SOCIAL HISTORY Never Assessed PLAN OF CARE Activity Details Follow Up 2 Weeks Reason: VITAL SIGNS Height 75 in 2016-11-17 Weight 175.6 lbs 2016-11-17 Temperature 97.6 degrees Fahrenheit 2016-11-17 Heart Rate 96 bpm 2016-11-17 Respiratory Rate 22 2016-11-17 BMI 21.95 kg/m2 2016-11-17 Blood pressure systolic 132 mmHg 2016-11-17 Blood pressure diastolic 82 mmHg 2016-11-17 MEDICATIONS Medication Instructions Dosage Frequency Start Date End Date Duration Status Tramadol HCl 50 mg Orally 2 times a day 1 tablet as needed 12h 13 Dec, 2016 28 days Active Cetirizine HCl 10 MG Orally Once a day 1 tablet 24h 30 Active Thiamine HCl 100 mg Orally Once a day 1 tablet 24h Active True Metrix Blood Glucose Test - Instill 30 days Active Blood Glucose Monitor System w/Device [employer]Metrics E11.65 as directed Apr, Active Amlodipine Besylate 5 mg Orally Once a day 1 tablet 24h Active Bactrim DS 800-160 MG Orally Twice a day 1 tablet 12h Active Famotidine 20 mg Orally twice a day 1 tablet at bedtime 12h Active BusPIRone HCl 15 MG Orally Twice a day 1 tablet 12h Sep, Active Silvadene 1 % Externally Once a day 1 application to affected area 24h November, Active Humalog KwikPen 100 UNIT/ML Subcutaneous TID before meals 15 units November Active Lantus 100 UNIT/ML Subcutaneous twice a day 40 units 12h Active Levofloxacin 500 MG Orally Once a day 1 tablet 24h Active ProAir HFA 108 (90 Base) MCG/ACT Inhalation every 4 hrs 2 puffs as needed 4h Active Trazodone HCl 100 MG Orally Once a day 1 tablet at bedtime as needed 24h Active Lyrica 75 mcg Orally Three times a day 1 capsule 8h May, Active Omeprazole 40 mg Orally Once a day 1 capsule 24h Jul, Active Lasix 40 mg Orally Once a day 1 tablet 24h Oct, 30 day(s) Active Potassium Chloride ER 10 MEQ Orally Twice a day 1 capsule with food 12h 30 Active Lactulose 20 GM/30ML Orally every 8 hours 30ml 8h Dec, Active RESULTS No Results PROCEDURES No Known procedures IMMUNIZATIONS No Known Immunizations MEDICAL (GENERAL) HISTORY Type Description Date Medical History cirrhosis Medical History type II diabetes Medical History Hep C Medical History schizophrenia, paranoid Medical History martin to face and left hand Surgical History some kind of heart surgery [facility] 2015 Surgical History cholecystectomy [facility] 2015 Hospitalization History Severe Hyperglycemia, Dehydration 11/17/15 Hospitalization History Liver Cirrhosis with ascites, Hyperglycemia, Hypokalemia 03/03/2016 Hospitalization History Uncontroled Hyperglycemia 03/21/2016 Hospitalization History Altered Mental Status, Hypoglycemia, hypokalemia--[facility] 04/01/2016 Hospitalization History Mental Health Stay At [facility] in [facility] 2016 Hospitalization History ESLD, Hyperglycemia, Acute ETOH intox, End sstage liver cirrhosis-[facility] 08/12/16 Hospitalization History pneumonia 08/2016 Hospitalization History Uncontroled Hyperglycemia, dehydration, liver failure- [facility] 08/27/16 Hospitalization History DKA-[facility] 09/25/16 Hospitalization History Hypokalemia-[facility] 12/23/16 Hospitalization History Uncontrolled DM-[facility] 01/25/17 Hospitalization History Hyperglycemia, hyponatremia-[facility] 03/29/17
--- OUTSIDE RECORDS SUMMARY | 2017-05-19 15:06 | XMS REPORT ---
Author Author MEETA SUTTON Organization [facility] Address [address] [place] [address] Care Team Providers Care Ssis Developer Name Role Phone MEETA SUTTON Unavailable PROBLEMS Type Condition ICD9-CM Code [id number] Code Onset Dates Condition Status SNOMED Code Problem 2Nd deg burn nose T20.24XA Active 12104290 Problem Acute alcohol dependence syndrome F10.20 Active 03273499 Problem Hypertension due to endocrine disorder I15.2 Active 180453137 Problem Chronic pain syndrome G89.4 Active 201674928 Problem Paranoid schizophrenia F20.0 Active 56239223 Problem Chronic pain due to injury G89.21 Active 645844879 Problem Chronic obstructive pulmonary disease, unspecified COPD type J44.9 Active 95010541 Problem Gastroesophageal reflux disease without esophagitis K21.9 Active 113220945 Problem Anxiety F41.9 Active 31446960 Problem Edema, unspecified type R60.9 Active 743256591 Problem 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 Active 654664364 Problem Type 2 diabetes mellitus without complication, unspecified 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 E11.9 Active 24085203 Problem Type 2 diabetes mellitus with hyperglycemia E11.65 Active 380315187653896 Problem Alcoholic cirrhosis of liver without ascites K70.30 Active 678644535 Problem Pain in left leg M79.605 Active 24063213 Problem Other chronic pain G89.29 Active 75249712 Problem Non-intractable cyclical vomiting with nausea G43.A0 Active 24159921 Problem Unspecified fracture of shaft of right fibula, subsequent encounter for closed fracture with routine healing S82.401D Active 99915629 Problem Gastroesophageal reflux disease, esophagitis presence not specified K21.9 Active 075790538 Problem Drug abuse and dependence F19.20 Active 4897909 ALLERGIES No Information SOCIAL HISTORY Never Assessed PLAN OF CARE VITAL SIGNS MEDICATIONS Unknown Medications RESULTS No Results PROCEDURES No Known procedures IMMUNIZATIONS No Known Immunizations MEDICAL (GENERAL) HISTORY Type Description Date Medical History cirrhosis Medical History type II diabetes Medical History Hep C Medical History schizophrenia, paranoid Medical History martin to face and left hand Surgical History some kind of heart surgery [facility] 2015 Surgical History cholecystectomy Hospitalization History [facility] Hospitalization Jun 2015 Hospitalization History Severe Hyperglycemia, Dehydration 11/17/15 Hospitalization History Liver Cirrhosis with ascites, Hyperglycemia, Hypokalemia 03/03/2016 Hospitalization History Uncontroled Hyperglycemia 03/21/2016 Hospitalization History Altered Mental Status, Hypoglycemia, hypokalemia--[facility] 04/01/2016 Hospitalization History Mental Health Stay At [facility] in [facility] 2016 Hospitalization History ESLD, Hyperglycemia, Acute ETOH intox, End sstage liver cirrhosis-[facility] 08/12/16 Hospitalization History pneumonia 08/2016 Hospitalization History Uncontroled Hyperglycemia, dehydration, liver failure- [facility] 08/27/16
--- OUTSIDE RECORDS SUMMARY | 2017-05-19 15:07 | XMS REPORT ---
Author Author AMADO Cooney Organization [facility] Address [address] [place] [address] Care Team Providers Care Exchange Underwriting Consultant Name Role Phone AMADO Cooney Unavailable PROBLEMS Type Condition ICD9-CM Code [id number] Code Onset Dates Condition Status SNOMED Code Problem 2Nd deg burn nose T20.24XA Active 00341150 Problem Acute alcohol dependence syndrome F10.20 Active 85587509 Problem Hypertension due to endocrine disorder I15.2 Active 086070664 Problem Chronic pain syndrome G89.4 Active 892074584 Problem Paranoid schizophrenia F20.0 Active 96299423 Problem Chronic pain due to injury G89.21 Active 233428187 Problem Chronic obstructive pulmonary disease, unspecified COPD type J44.9 Active 74252807 Problem Gastroesophageal reflux disease without esophagitis K21.9 Active 364497571 Problem Anxiety F41.9 Active 01652349 Problem Edema, unspecified type R60.9 Active 019087412 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 Active 361848510 Problem Type 2 diabetes mellitus without complication, unspecified fdc insulin use status E11.9 Active 45989880 Problem Type 2 diabetes mellitus with hyperglycemia E11.65 Active 609941965459112 Problem Alcoholic cirrhosis of liver without ascites K70.30 Active 907522352 Problem Pain in left leg M79.605 Active 23680848 Problem Other chronic pain G89.29 Active 34670379 Problem Non-intractable cyclical vomiting with nausea G43.A0 Active 26598827 Problem Unspecified fracture of shaft of right fibula, subsequent encounter for closed fracture with routine healing S82.401D Active 33511568 Problem Gastroesophageal reflux disease, esophagitis presence not specified K21.9 Active 286133512 Problem Drug abuse and dependence F19.20 Active 8805103 ALLERGIES No Information SOCIAL HISTORY Never Assessed PLAN OF CARE VITAL SIGNS MEDICATIONS Unknown Medications RESULTS No Results PROCEDURES Procedure Date Ordered Result Body Site Alcohol and/or drug services Aug 25, 2016 Alcohol and/or drug services Aug 25, 2016 Alcohol and/or drug services Aug 25, 2016 IMMUNIZATIONS No Known Immunizations MEDICAL (GENERAL) HISTORY Type Description Date Medical History cirrhosis Medical History type II diabetes Medical History Hep C Medical History schizophrenia, paranoid Medical History martin to face and left hand Surgical History some kind of heart surgery [facility] 2015 Surgical History cholecystectomy Hospitalization History [facility] Jun 2015 Hospitalization History Severe Hyperglycemia, Dehydration 11/17/15 Hospitalization History Liver Cirrhosis with ascites, Hyperglycemia, Hypokalemia 03/03/2016 Hospitalization History Uncontroled Hyperglycemia 03/21/2016 Hospitalization History Altered Mental Status, Hypoglycemia, hypokalemia--[facility] 04/01/2016 Hospitalization History Mental Health Stay At [facility] in [facility] 2016 Hospitalization History ESLD, Hyperglycemia, Acute ETOH intox, End sstage liver cirrhosis-[facility] 08/12/16 Hospitalization History pneumonia 08/2016 Hospitalization History Uncontroled Hyperglycemia, dehydration, liver failure- [facility] 08/27/16
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
[2017-05-19] MEDS ORDERED: ORPHENADRINE 60 MG/2 ML (NORFLEX) AMP IM ONE (16:15)
[2017-05-19] MEDS ORDERED: KETOROLAC 30 MG/ML VIAL IM ONE (16:15)
[2017-05-19 16:29] VITALS: BP 130/87
== END 2017-05-19 16:29 | disposition home or self-care (01) ==
LOC: EDUNIT# 13:52 → ER 13:54
DX: M62.838 Other muscle spasm (principal); J44.9 Chronic obstructive pulmonary disease, unspecified; G43.909 Migraine, unspecified, not intractable, without status migrainosus; I25.10 Atherosclerotic heart disease of native coronary artery without angina pectoris; B19.20 Unspecified viral hepatitis C without hepatic coma; K21.9 Gastro-esophageal reflux disease without esophagitis; E11.40 Type 2 diabetes mellitus with diabetic neuropathy, unspecified; F41.9 Anxiety disorder, unspecified; F20.9 Schizophrenia, unspecified; F32.9 Major depressive disorder, single episode, unspecified; Z91.5 Personal history of self-harm; Z79.4 Long term (current) use of insulin; Z77.22 Contact with and (suspected) exposure to environmental tobacco smoke (acute) (chronic); Z82.49 Family history of ischemic heart disease and other diseases of the circulatory system; Z90.49 Acquired absence of other specified parts of digestive tract; W18.30XA Fall on same level, unspecified, initial encounter
CPT/HCPCS: 99284

== ENCOUNTER 2017-05-21 18:54 | Inpatient (IN) | payer MEDICAID ==
[~2017-05-21] VITALS: Ht 188 cm; Wt 72.4 kg
--- OUTSIDE RECORDS SUMMARY | 2017-05-21 19:02 | XMS REPORT | Continuity of Care Document ---
Author Author [employer] Organization [facility] Address Unknown Phone Unavailable Care Team Providers Care Belt Loop Cutter Name Role Phone [employer] Unavailable Unavailable Problems Problem Status Onset Date Classification Date Reported Comments Source 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) 08/23/2015 Diagnosis 08/27/2015 [facility]. Diabetes mellitus (disorder) 08/23/2015 Diagnosis 2015 [facility]. Alcoholism (disorder) 2015 Diagnosis 08/27/2015 [facility] Alcoholic cirrhosis (disorder) 08/23/2015 Diagnosis 08/27 [facility] Epidermoid cyst of skin (disorder) 08/23/2015 Diagnosis 08/27/2015 [facility] Hypersplenism (disorder) Diagnosis 08/27/2015 [facility] Chest pain (finding) 2015 Diagnosis 07/23/2015 [facility], [facility]. Paranoid schizophrenia (disorder) 06/19/2015 Diagnosis [facility], [facility] Atrial flutter (disorder) Diagnosis 06/23/2015 [facility] Intentional drug overdose (disorder) 06/11/2015 Diagnosis 06/15/2015 [facility], [facility]. Supraventricular tachycardia (disorder) 06/04/2015 Diagnosis 06/15/2015 [facility], [facility]. Hepatic encephalopathy (disorder) 06/04/2015 Diagnosis [facility], [facility]. Acute renal failure syndrome (disorder) 06/03/2015 Diagnosis 06/15/2015 [facility] Gastroesophageal reflux disease (disorder) 05/29/2015 Diagnosis 06/02/2015 [facility] Hypertensive disorder, systemic arterial (disorder) 05/29/2015 Diagnosis 06/02/2015 [facility] Other abnormal glucose 02/28 Diagnosis 03/04/2015 [facility] Hepatic coma 02/28/2015 Diagnosis 03/04/2015 [facility] Alcoholic cirrhosis of liver 02/28/2015 Diagnosis 2014 [facility] Other anxiety states 2014 Diagnosis 03/04/2015 [facility] Unspecified essential hypertension 02/28/2015 Diagnosis 03/04/2015 [facility] Diabetes mellitus without mention of complication, type II or unspecified type , not stated as uncontrolled 02/28/2015 Diagnosis 2014 [facility] Other and unspecified alcohol dependence, unspecified drinking behavior 02/28/2015 Diagnosis 03/04/2015 [facility] Traumatic arthropathy involving ankle and foot 02/07/2015 Diagnosis 02/11/2015 [facility] Diabetes mellitus with neurological manifestations, type II or unspecified type , not stated as uncontrolled 02/07/2015 Diagnosis 2014 [facility] Other secondary thrombocytopenia 11/21/2014 Diagnosis [facility] Contusion of chest wall Diagnosis 11/25/2014 [facility] Esophageal reflux 2014 Diagnosis 10/15/2014 [facility] Unspecified fall 10/11/2014 Diagnosis 10/15/2014 [facility] Bimalleolar fracture, closed 10/11/2014 Diagnosis 2014 [facility] Thrombocytopenia, unspecified 05/24/2014 Diagnosis 2013 [facility] Esophageal varices without mention of bleeding 02/16/2014 Diagnosis 02/20/2014 [facility], [facility], [facility]. Esophageal reflux 2013 Diagnosis 02/20/2014 [facility] Unspecified essential hypertension 02/16/2014 Diagnosis 02/20/2014 [facility] Attention deficit disorder of childhood with hyperactivity 02/16/2014 Diagnosis 02/20/2014 [facility] Alcoholic cirrhosis of liver 02/16/2014 Diagnosis 2013 [facility] Abdominal pain, unspecified site 01/23/2014 Diagnosis [facility] Cirrhosis of liver without mention of alcohol 01/02/2014 Diagnosis 01/06/2014 [facility] Acute upper respiratory infections of unspecified site 01/02/2014 Diagnosis 01/06/2014 [facility] Hepatic coma 12/22/2013 Diagnosis 12/26/2013 [facility] Paranoid type schizophrenia, unspecified state 11/20/2013 Diagnosis 11/24/2013 [facility] Traumatic arthropathy-ankle (disorder) Active 04/23/2011 Problem 09/15/2016 [facility] Traumatic arthropathy-ankle (disorder) Active 04/23/2011 Problem 07/19/2015 [facility] 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) Active 04/23/2011 Problem 10/06/2013 [facility] 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 04/23/2011 Problem 07/09/2013 [facility], [facility], [facility] Attention deficit hyperactivity disorder (disorder) Active Problem 09/15/2016 [facility], [facility] Alcoholic cirrhosis (disorder) Active Problem 09/15/2016 [facility], [facility] Alcoholism (disorder) Active Problem 09/15/2016 [facility], [facility], [facility] Fracture of ankle (disorder) Active Problem 09/15/2016 [facility], [facility] Mixed anxiety and depressive disorder (disorder) Active Problem 09/15/2016 [facility], [facility] Atrial flutter (disorder) Active Problem 09/15/2016 [facility] AV cathy re-entry tachycardia (disorder) Active Problem 09/15/2016 [facility] 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) Active Problem 09/15/2016 [facility] Diabetes mellitus (disorder) Active Problem 09/15/2016 [facility], [facility] Gastroesophageal reflux disease (disorder) Active Problem 09/15/2016 [facility], [facility] Hepatic coma (disorder) Active Problem 09/15/2016 [facility], [facility] Hypertensive disorder, systemic arterial (disorder) Active Problem 09/15/2016 [facility], [facility], [facility] Paranoid schizophrenia (disorder) Active Problem 2016 [facility], [facility], [facility], [facility] Supraventricular tachycardia (disorder) Active Problem [facility], [facility], [facility], [facility] Cirrhosis - non-alcoholic (disorder) Active Problem 09/19 [facility], [facility], [facility] Medications Medication Details Route Status Patient Instructions Ordering Provider Order Date Source No Known Medications No known medications Active [facility] Pneumovax 23 0.5 mL, SOLN, IM, ONCE, 02/12/12 12:00:00 , Stop date 02/12/12 12:00:00Provide patient/caregiver the vaccine information statement and document version date on eMAR. Record the lot number and mica machine operator below. Manuf: Lot Number: Exp Date: Inactive Epp [facility] influenza virus vaccine, inactivated adult 0.5 mL, Suspension, IM, ONCE, Start Date: 07/03/13 12:00:00, Stop Date: 07/03/13 12:00: 00Provide patient/caregiver the vaccine information statement and document version date on eMAR. Record the lot number and mica machine operator below. Manuf: ____ Lot Number: Exp Date: Inactive [facility]. Allergies, Adverse Reactions, Alerts Substance Category Reaction Severity Reaction type Status Date Reported Comments Source penicillins Assertion "can't breathe" [facility], [facility] penicillins drug allergy "can 't breathe" Allergy Active [facility], [facility] penicillin drug allergy "can' t breathe" Allergy Active [facility], [facility] Immunizations Immunization Date Given Site Status Last Updated Comments Source influenza virus vaccine 07/19/2015 Not Given [facility] influenza virus vaccine 06/02/2015 Left Deltoid influenza virus vaccine [facility] influenza virus vaccine 07/05/2013 Left Deltoid influenza virus vaccine [facility], [facility], [facility], [facility]. pneumococcal polysaccharide PPV23 02/12/2012 Right Deltoid pneumococcal 23-valent vaccine [facility], [facility], [facility] pneumococcal 23-valent vaccine 02/12/2012 completed [facility], [facility], [facility] Results Vital Signs Encounters Location Location Details Encounter Type Encounter Number Reason For Visit Attending Provider ADM Date DC Date Status Source [facility] [id number] Inpatient [id number] Max An 02/10/2012 Active [facility]. [facility] [id number] Inpatient [id number] Kings Aguilar 06/20/2012 06/21/2012 Active [facility]. OM [id number] Inpatient [id number] Kings Aguilar 08/01/2012 08/08/2012 Active [facility]. [facility] [id number] Inpatient [id number] Kings Aguilar 12/08/2012 12/09/2012 Active [facility]. GIS [id number] Clinic ( Outpatient) [id number] Sofy Smith 05/03/2013 Active [place] [facility], [facility] CD:[id number] Clinic ( Outpatient) [id number] Kings Aguilar 06/07/2013 Active [facility] CD:[id number] Clinic ( Outpatient) [id number] Kings Aguilar 06/14/2013 Active [facility] [id number] Clinic ( Outpatient) [id number] Kings Aguilar 06/21/2013 Active [facility] [id number] Inpatient [id number] Kings Aguilar 07/02/2013 07/05/2013 Active [facility] CD:[id number] Clinic ( Outpatient) [id number] Kings Aguilar 07/13/2013 Active [facility] CD:[id number] Clinic ( Outpatient) [id number] Kings Aguilar 07/27/2013 Active [facility] [id number] Inpatient [id number] Kings Aguilar 09/11/2013 09/15/2013 Active [facility] AFCOL CD:[id number] Clinic ( Outpatient) [id number] Kings Aguilar 09/20/2013 Active [facility] CD:[id number] Clinic ( Outpatient) [id number] Kings Aguilar 10/02/2013 Active [facility] Cancel/No Show [id number] Kings Aguilar 10/02/2013 10/02/2013 [facility] [id number] Clinic ( Outpatient) [id number] Sofy Smith 11/01/2013 Active [facility] [id number] Clinic ( Outpatient) [id number] Kings Aguilar 11/06/2013 Active [facility] [id number] Clinic ( Outpatient) [id number] Kings Aguilar 11/10/2013 Active [facility] [id number] Kings Aguilar 11/10/2013 11/10/2013 [facility] [id number] Kings Aguilar 11/20/2013 11/21/2013 [facility] [place] Cancel/No Show [id number] Kings Aguilar 12/18/2013 12/18/2013 [facility] [place] [facility] CD:[id number] Clinic ( Outpatient) [id number] 12/22/2013 Active [facility] [place] [facility] [id number] Kings Aguilar 12/22/2013 12/23/2013 [facility] [place] [facility] [id number] Zoran Mara 01/02/2014 01/03/2014 [facility] [place] GIS [id number] Clinic ( Outpatient) [id number] Sofy Luis 01/04/2014 Active [facility], [facility] Clinic [id number] [facility] 01/04/201410/2013 [facility] CD:[id number] Outpatient [id number] [place] Luis 01/23/2014 01/23/2014 Active [facility]. [facility] CD:[id number] Emergency [id number] DENISE NOBLE 01/23/2014 01/23/2014 Active [facility]. [facility] CD:[id number] Outpatient [id number] Sofy Luis 01/26/2014 01/26/2014 Active [facility]. [facility] [id number] [place] Aguilar 02/16/2014 02/17/2014 [facility] [place] [facility] Cancel/No Show [id number] Halie Dacosta 02/19/2014 02/19/2014 [facility] CD:[id number] Emergency [id number] Kings Arredondo 03/29/2014 Active [facility], [facility]. [facility] [place] [facility] [id number] Kings Aguilar 05/24/2014 [facility] [place] AFC [place] Cancel/No Show [id number] Kings Aguilar 06/22/2014 06/22/2014 [facility] [place] [facility] [place] [facility] [id number] Kings Aguilar 08/27/2014 [facility] [place] AFC [place] Cancel/No Show [id number] Kings Aguilar 09/24/2014 09/26/2014 [facility] [place] [facility] Cancel/No Show [id number] Halie Dacosta 10/01/2014 10/01/2014 [facility] [place] [facility] [id number] [place] Aguilar 10/11/201404/2015 [facility] [place] [facility] [id number] Emergency [id number] Napoleon Isabel 11/15/2014 11/15/2014 Active [facility] [place] Cancel/No Show [id number] Kings Aguilar 11/19/2014 11/19/2014 [facility] [place] [facility] [place] [facility] [id number] Kings Aguilar 11/21/2014 [facility] [place] [facility] [place] [facility] [id number] Kings Aguilar 02/07/201501/2015 [facility] [place] [facility] [place] [facility] [id number] Kings Aguilar 02/28/2015 [facility] [place] [facility] [place] Cancel/No Show [id number] Kings Aguilar 04/17/2015 04/16/2015 [facility] [place] [facility] [place] [facility] [id number] Kings Aguilar 05/29/2015 [facility] [place] [facility] [id number] Inpatient [id number] Ryan Nolan 06/01/2015 06/11/2015 Active [facility], [facility]. [facility] [place] [facility] [id number] Kings Aguilar 06/19/2015 [facility] [place] [facility] [id number] Inpatient [id number] Kings Aguilar 07/18/2015 07/19/2015 Active [facility], [facility]. [facility] [place] Cancel/No Show [id number] Kings Aguilar 07/19/2015 07/15/2015 [facility] [place] [facility] [id number] Clinic ( Outpatient) [id number] Kings Aguilar 08/22/2015 Active [facility] [place] [facility] [place] [facility] [id number] Kings Aguilar 08/23/2015 [facility] [place] CSOL [id number] Clinic ( Outpatient) [id number] Valentin Rojas 10/09/2015 Active [facility] [id number] Valentin Rojas 11/04/2015 11/04/2015 [facility] Cancel/No Show [id number] [place] Aguilar 09/1109/11/2016 [facility] Procedures Procedure Code Date Perfomer Comments Source Echocardiography, transthoracic, real-time with image documentation (2D), includes M-mode recording, when performed, complete, with spectral Doppler echocardiography, and with color flow Doppler echocardiography [id number] 07/19/2015 [facility] Typical and Atypical AVNRT and Atrial Flutter Ablation 06/05/2015 [facility]. Echocardiogram, EF 55% 06/03 [facility]. No data available for this section [facility] Esophagogastroduodenoscopy, flexible, transoral; diagnostic, including collection of specimen(s) by brushing or washing, when performed (separate procedure) [id number] [facility]. Plan of Care Social History Assessment and Plan Family History Value Date Source Advance Directives Order Name Results Value Date Source
--- OUTSIDE RECORDS SUMMARY | 2017-05-21 19:34 | XMS REPORT | Clinical Summary ---
Author Author [facility] Organization [facility] Address Unknown Phone Unavailable Care Team Providers Care Photography Colorist Name Role Phone PCP Unavailable Source Comments Some departments are not documenting in the electronic medical record. If you do not see the information that you expected, contact Release of Information in the Health Information Management department at [phone] for further assistance in locating additional records.[facility] Allergies Active Allergy Reactions Severity Noted [...] Taken Blood Pressure 155/99 05/23/2014 12:00 PM COMPOUNDER HELPER Pulse 66 05/22/2014 3:59 PM COMPOUNDER HELPER Temperature 36.4 C (97.6 F) 05/23/2014 12:00 PM COMPOUNDER HELPER Respiratory Rate 16 11/01/2012 8:48 AM CDT Oxygen Saturation 96% 05/23/2014 12:00 PM COMPOUNDER HELPER Inhaled Oxygen - - Concentration Weight 94.8 kg (208 lb 15.9 oz) 05/21/2014 5:41 AM COMPOUNDER HELPER Height 190.5 cm (6' 3") 05/20/2014 6:00 PM COMPOUNDER HELPER Body Mass Index 26.12 05/21/2014 5:41 AM COMPOUNDER HELPER Plan of Treatment Health Maintenance Due Date Last Done Comments PHYSICAL (COMPREHENSIVE) 1979 EXAM PERTUSSIS VACCINE 1983 TETANUS VACCINE 1989 INFLUENZA VACCINE 02/02/2017 Results Not on filefrom Last 3 Months
--- NOTE | 2017-05-21 20:57 | Diagnostic Imaging Report ---
EXAM: SHOULDER, LEFT, 3 VIEWS INDICATION: Fall. Left shoulder pain. COMPARISON: None. FINDINGS: No fracture or malalignment. Chronic degenerative changes or remote trauma in the left acromion. Visualized soft tissues are unremarkable. IMPRESSION: No acute radiographic findings in the left shoulder. Dictated by: Dictated on workstation # [id number]
--- NOTE | 2017-05-21 20:58 | Diagnostic Imaging Report ---
EXAM: Chest PA/lat (2 view). INDICATION: Fall. COMPARISON: Chest radiograph of 03/30/2017. FINDINGS: Normal heart size and pulmonary vascularity. Moderate right pleural effusion and right basilar atelectasis or infiltrate is new since the prior exam. The left lung is clear. No pneumothorax. No fractures are identified. IMPRESSION: New moderate right pleural effusion and right basilar consolidation. No fractures are identified. No pneumothorax. Dictated by: Dictated on workstation # [id number]
[2017-05-21 21:13] LABS: BASOPHILS % (AUTO) 1 % (0-10); EOSINOPHILS % (AUTO) 0 % (0-10); LYMPHOCYTES # (AUTO) 0.6 X 10^3 (1.0-4.0); LYMPHOCYTES % (AUTO) 13 % (12-44); MEAN CORPUSCULAR HEMOGLOBIN 30 PG (25-34); MEAN CORPUSCULAR HGB CONC 35 G/DL (32-36); MEAN CORPUSCULAR VOLUME 85 FL (80-99); MEAN PLATELET VOLUME 10.6 FL (7.4-10.4); MONOCYTES # (AUTO) 0.3 X 10^3 (0.0-1.0); MONOCYTES % (AUTO) 6 % (0-12); NEUTROPHILS # (AUTO) 3.4 X 10^3 (1.8-7.8); NEUTROPHILS % (AUTO) 80 % (42-75); PLATELET COUNT 54 10^3/uL (130-400); RED BLOOD COUNT 3.65 10^6/uL (4.35-5.85); RED CELL DISTRIBUTION WIDTH 18.7 % (10.0-14.5); WHITE BLOOD COUNT 4.3 10^3/uL (4.3-11.0)
[2017-05-21 21:20] LABS: INR 1.7 (0.8-1.4)
[2017-05-21 21:31] LABS: ALBUMIN 1.9 GM/DL (3.2-4.5); BILIRUBIN,TOTAL 2.7 MG/DL (0.1-1.0); CALCIUM 7.5 MG/DL (8.5-10.1); CREATININE SERUM 1.31 MG/DL (0.60-1.30); MAGNESIUM 1.3 MG/DL (1.8-2.4); POTASSIUM 3.7 MMOL/L (3.6-5.0); TOTAL PROTEIN 6.5 GM/DL (6.4-8.2)
[2017-05-21] MEDS ORDERED: NS IV 1000 ML 1,000 ML IV ONE (21:31)
[2017-05-21] MEDS ORDERED: cefTRIAXone 1 GM (ROCEPHIN) VIAL ONE (21:35)
[2017-05-21] MEDS ORDERED: MAGNESIUM SULFATE 1 GM/2 ML VIAL ONE (21:36)
[2017-05-21] MEDS ORDERED: NS (IVPB) 100 ML ONE (21:36)
[2017-05-21] MEDS ORDERED: cefTRIAXone INJECTION 1,000 MG in NS (IVPB) 50 ML IV ONE (21:45)
[2017-05-21] MEDS ORDERED: inSUlin (REGULAR) HUMAN 1 UNIT/0.01 ML (CHARGE PER UNIT) SC ONE (21:45)
[2017-05-21] MEDS ORDERED: ACETAMINOPHEN 500 MG TAB (TYLENOL) PO ONE (21:45)
[2017-05-21 21:53] LABS: ALCOHOL < 10 MG/DL (<10); AMYLASE 407 U/L (25-125); LIPASE 15 U/L (8-78)
[2017-05-21] MEDS: MAGNESIUM 1 GM/100 ML IVPB 100 ML IV SCH ×2 (22:05→23:24)
[2017-05-21 22:10] LABS: BILIRUBIN,URINE NEGATIVE (NEGATIVE); KETONES,URINE NEGATIVE (NEGATIVE); LEUKOCYTE ESTERASE ,URINE NEGATIVE (NEGATIVE); NITRITE,URINE NEGATIVE (NEGATIVE); PH,URINE 6 (5-9); PROTEIN,URINE 2+ (NEGATIVE); UROBILINOGEN,URINE 1 MG/DL (NORMAL)
[2017-05-21 22:17] LABS: SQUAMOUS EPITHELIAL CELL,UR RARE /HPF
[2017-05-21] MEDS ORDERED: KETOROLAC 30 MG/ML VIAL IVP ONE (22:30)
[2017-05-21] MEDS ORDERED: IOHEXOL 350 MG/ML 100 ML (OMNIPAQUE 350) VIAL IV ONE (22:45)
[2017-05-21] MEDS ORDERED: NS 100 ML (IVPB) BAG IV ONE (22:45)
[2017-05-21 22:48] LABS: ABG BASE EXCESS -2.6 MMOL/L (-2.5-2.5); ABG HCO3 20 MMOL/L (23-27); ABG OXYGEN SATURATION 100 % (94-100); ABG PCO2 24 MMHG (35-45); ABG PH 7.53 (7.37-7.43); ABG PO2 102 MMHG (79-93); ABG TCO2 20.3 MMOL/L (21.0-31.0)
[2017-05-21 22:49] LABS: ALLENS TEST YES-POS; PATIENT TEMP 99.8
[2017-05-22] VITALS (14 sets, daily range): BP systolic 97–128; BP diastolic 64–86
[2017-05-22] MEDS ORDERED: MEROPENEM 2,000 MG in NS (IVPB) 100 ML IV ONE ×2
[2017-05-22] MEDS ORDERED: NS IV 1000 ML 1,000 ML IV ONE (00:13)
[2017-05-22] MEDS ORDERED: inSUlin (REGULAR) HUMAN 1 UNIT/0.01 ML (CHARGE PER UNIT) IV ONE (00:15)
--- OUTSIDE RECORDS SUMMARY | 2017-05-22 00:18 | XMS REPORT | Continuity of Care Document ---
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 Diabetes mellitus (disorder) 08/23/2015 Diagnosis 2015 [facility], [facility]. Alcoholism (disorder) 2015 Diagnosis 08/27/2015 [facility] Alcoholic cirrhosis (disorder) 08/23/2015 Diagnosis 08/27 [facility] Epidermoid cyst of skin (disorder) 08/23/2015 Diagnosis 08/27/2015 [facility] Hypersplenism (disorder) Diagnosis 08/27/2015 [facility] Chest pain (finding) 2015 Diagnosis 07/23/2015 [facility], [facility]. Paranoid schizophrenia (disorder) 06/19/2015 Diagnosis [facility], [facility] Atrial flutter (disorder) Diagnosis 06/23/2015 [facility] Intentional drug overdose (disorder) 06/11/2015 Diagnosis 06/15/2015 [facility], [facility]. Supraventricular tachycardia (disorder) 06/04/2015 Diagnosis 06/15/2015 [facility], [facility]. Hepatic encephalopathy (disorder) 06/04/2015 Diagnosis [facility], [facility]. Acute renal failure syndrome (disorder) 06/03/2015 Diagnosis 06/15/2015 [facility] Gastroesophageal reflux disease (disorder) 05/29/2015 Diagnosis 06/02/2015 [facility] Hypertensive disorder, systemic arterial (disorder) 05/29/2015 Diagnosis 06/02/2015 [facility] [place] Other abnormal glucose 02/28 Diagnosis 03/04/2015 [facility] [place] Hepatic coma 02/28/2015 Diagnosis 03/04/2015 [facility] [place] Alcoholic cirrhosis of liver 02/28/2015 Diagnosis 2014 [facility] [place] Other anxiety states 2014 Diagnosis 03/04/2015 [facility] [place] Unspecified essential hypertension 02/28/2015 Diagnosis 03/04/2015 [facility] Diabetes mellitus without mention of complication, type II or unspecified type , not stated as uncontrolled 02/28/2015 Diagnosis 2014 [facility] [place] Other and unspecified alcohol dependence, unspecified drinking behavior 02/28/2015 Diagnosis 03/04/2015 [facility] [place] Traumatic arthropathy involving ankle and foot 02/07/2015 Diagnosis 02/11/2015 [facility] Diabetes mellitus with neurological manifestations, type II or unspecified type , not stated as uncontrolled 02/07/2015 Diagnosis 2014 [facility] [place] Other secondary thrombocytopenia 11/21/2014 Diagnosis [facility] [place] Contusion of chest wall Diagnosis 11/25/2014 [facility] [place] Esophageal reflux 2014 Diagnosis 10/15/2014 [facility] [place] Unspecified fall 10/11/2014 Diagnosis 10/15/2014 [facility] [place] Bimalleolar fracture, closed 10/11/2014 Diagnosis 2014 [facility] [place] Thrombocytopenia, unspecified 05/24/2014 Diagnosis 2013 [facility] [place] Esophageal varices without mention of bleeding 02/16/2014 Diagnosis 02/20/2014 [facility] [place], [facility], [facility]. Esophageal reflux 2013 Diagnosis 02/20/2014 [facility] [place] Unspecified essential hypertension 02/16/2014 Diagnosis 02/20/2014 [facility] Attention deficit disorder of childhood with hyperactivity 02/16/2014 Diagnosis 02/20/2014 [facility] Alcoholic cirrhosis of liver 02/16/2014 Diagnosis 2013 [facility] Abdominal pain, unspecified site 01/23/2014 Diagnosis [facility] Cirrhosis of liver without mention of alcohol 01/02/2014 Diagnosis 01/06/2014 [facility] Acute upper respiratory infections of unspecified site 01/02/2014 Diagnosis 01/06/2014 [facility] Hepatic coma 12/22/2013 Diagnosis 12/26/2013 [facility] Paranoid type schizophrenia, unspecified state 11/20/2013 Diagnosis 11/24/2013 [facility] Traumatic arthropathy-ankle (disorder) Active 04/23/2011 Problem 09/15/2016 [facility] Traumatic arthropathy-ankle (disorder) Active 04/23/2011 Problem 07/19/2015 [facility] 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) Active 04/23/2011 Problem 10/06/2013 [facility] 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 04/23/2011 Problem 07/09/2013 [facility], [facility], [facility] Attention deficit hyperactivity disorder (disorder) Active Problem 09/15/2016 [facility], [facility] Alcoholic cirrhosis (disorder) Active Problem 09/15/2016 [facility], [facility] Alcoholism (disorder) Active Problem 09/15/2016 [facility], [facility], [facility] Fracture of ankle (disorder) Active Problem 09/15/2016 [facility], [facility] Mixed anxiety and depressive disorder (disorder) Active Problem 09/15/2016 [facility], [facility] Atrial flutter (disorder) Active Problem 09/15/2016 [facility] AV cathy re-entry tachycardia (disorder) Active Problem 09/15/2016 [facility] 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) Active Problem 09/15/2016 [facility] Diabetes mellitus (disorder) Active Problem 09/15/2016 [facility], [facility] Gastroesophageal reflux disease (disorder) Active Problem 09/15/2016 [facility], [facility] Hepatic coma (disorder) Active Problem 09/15/2016 [facility], [facility] Hypertensive disorder, systemic arterial (disorder) Active Problem 09/15/2016 [facility], [facility], [facility] Paranoid schizophrenia (disorder) Active Problem 2016 [facility], [facility], [facility], [facility] Supraventricular tachycardia (disorder) Active Problem [facility], [facility], [facility], [facility] Cirrhosis - non-alcoholic (disorder) Active Problem 09/19 [facility], [facility], [facility] Medications Medication Details Route Status Patient Instructions Ordering Provider Order Date Source No Known Medications No known medications Active [facility] Pneumovax 23 0.5 mL, SOLN, IM, ONCE, 02/12/12 12:00:00 , Stop date 02/12/12 12:00:00Provide patient/caregiver the vaccine information statement and document version date on eMAR. Record the lot number and chiropractic practice manager below. Manuf: Lot Number: Exp Date: Inactive [facility] influenza virus vaccine, inactivated adult 0.5 mL, Suspension, IM, ONCE, Start Date: 07/03/13 12:00:00, Stop Date: 07/03/13 12:00: 00Provide patient/caregiver the vaccine information statement and document version date on eMAR. Record the lot number and chiropractic practice manager below. Manuf: ____ Lot Number: Exp Date: Inactive [facility]. Allergies, Adverse Reactions, Alerts Substance Category Reaction Severity Reaction type Status Date Reported Comments Source penicillins Assertion "can't breathe" [facility], [facility], [facility] penicillins drug allergy "can 't breathe" Allergy Active [facility], [facility] penicillin drug allergy "can' t breathe" Allergy Active [facility], [facility] Immunizations Immunization Date Given Site Status Last Updated Comments Source influenza virus vaccine 07/19/2015 Not Given [facility] influenza virus vaccine 06/02/2015 Left Deltoid influenza virus vaccine [facility] influenza virus vaccine 07/05/2013 Left Deltoid influenza virus vaccine [facility], [facility], [facility], [facility], [facility]. pneumococcal polysaccharide PPV23 02/12/2012 Right Deltoid pneumococcal 23-valent vaccine [facility], [facility], [facility], [facility] pneumococcal 23-valent vaccine 02/12/2012 completed [facility], [facility], [facility] Results Vital Signs Encounters Location Location Details Encounter Type Encounter Number Reason For Visit Attending Provider ADM Date DC Date Status Source [facility] [id number] Inpatient [id number] Max An 02/10/2012 Active [facility]. [facility] CD:[id number] Inpatient [id number] Kings Aguilar 06/20/2012 06/21/2012 Active [facility]. OM CD:[id number] Inpatient [id number] Kings Aguilar 08/01/2012 08/08/2012 Active [facility]. [facility] CD:[id number] Inpatient [id number] Kings Aguilar 12/08/2012 12/09/2012 Active [facility]. [facility] CD:[id number] Clinic ( Outpatient) [id number] Sofy Smith 05/03/2013 [facility] [place] [facility], [facility] CD:[id number] Clinic ( Outpatient) [id number] Kings Aguilar 06/07/2013 Active [employer] [facility] CD:[id number] Clinic ( Outpatient) [id number] Kings Aguilar 06/14/2013 Active [employer] CD:[id number] Clinic ( Outpatient) [id number] Kings Aguilar 06/21/2013 Active [facility] CD:[id number] Inpatient [id number] Kings Aguilar 07/02/2013 07/05/2013 Active [employer] CD:[id number] Clinic ( Outpatient) [id number] Kings Aguilar 07/13/2013 Active [facility] CD:[id number] Clinic ( Outpatient) [id number] Kings Aguilar 07/27/2013 Active [facility] CD:[id number] Inpatient [id number] Kings Aguilar 09/11/2013 09/15/2013 Active [employer] [employer]. [facility] CD:[id number] Clinic ( Outpatient) [id number] Kings Aguilar 09/20/2013 Active [employer] CD:[id number] Clinic ( Outpatient) [id number] Kings Aguilar 10/02/2013 Active [facility] Cancel/No Show [id number] Kings Aguilar 10/02/2013 10/02/2013 [facility] CD:[id number] Clinic ( Outpatient) [id number] Sofy Smith 11/01/2013 Active [employer] CD:[id number] Clinic ( Outpatient) [id number] Kings Aguilar 11/06/2013 Active [employer] CD:[id number] Clinic ( Outpatient) [id number] Kings Aguilar 11/10/2013 Active [facility] [id number] Kings Aguilar 11/10/2013 11/10/2013 [facility] [place] [facility] [id number] Kings Aguilar 11/20/2013 11/21/2013 [facility] [place] [facility] Cancel/No Show [id number] Kings Aguilar 12/18/2013 12/18/2013 [facility] [place] [facility] CD:[id number] Clinic ( Outpatient) [id number] 12/22/2013 Active [facility] [place] [facility] [id number] Kings Aguilar 12/22/2013 12/23/2013 [facility] [place] [facility] [id number] Zoran Mara 01/02/2014 01/03/2014 [facility] [place] [facility] CD:[id number] Clinic ( Outpatient) [id number] Sofy Luis 01/04/2014 [facility] [id number] [facility] 01/04/201410/2013 [facility] CD:[id number] Outpatient [id number] Tucumcari Luis 01/23/2014 01/23/2014 Active [facility], [facility]. [facility] CD:[id number] Emergency [id number] DENISE NOBLE 01/23/2014 01/23/2014 Active [facility]. [facility] CD:[id number] Outpatient [id number] Sofy Luis 01/26/2014 01/26/2014 Active [facility]. [facility] [id number] Kings Aguilar 02/16/2014 02/17/2014 [facility] [place] [facility] Cancel/No Show [id number] Halie Dacosta 02/19/2014 02/19/2014 [facility] CD:[id number] Emergency [id number] Kings Arredondo 03/29/2014 Active [facility], [facility]. [facility] [place] [facility] [id number] Kings Aguilar 05/24/2014 [facility] [place] [facility] [place] Cancel/No Show [id number] Kings Aguilar 06/22/2014 06/22/2014 [facility] [place] [facility] [place] [facility] [id number] Kings Aguilar 08/27/2014 [facility] [place] [facility] [place] Cancel/No Show [id number] Kings Aguilar 09/24/2014 09/26/2014 [facility] [place] [facility] Cancel/No Show [id number] Halie Dacosta 10/01/2014 10/01/2014 [facility] [place] [facility] [id number] Kings Aguilar 10/11/201404/2015 [facility] [place] [facility] CD:[id number] Emergency [id number] Napoleon Isabel 11/15/2014 11/15/2014 Active [facility] [place] Cancel/No Show [id number] Kings Aguilar 11/19/2014 11/19/2014 [facility] [place] [facility] [place] [facility] [id number] Kings Aguilar 11/21/2014 [facility] [place] [facility] [place] [facility] [id number] Kings Aguilar 02/07/201501/2015 [facility] [place] [facility] [place] [facility] [id number] Kings Aguilar 02/28/2015 [facility] [place] [facility] [place] Cancel/No Show [id number] Kings Aguilar 04/17/2015 04/16/2015 [facility] [place] [facility] [place] [facility] [id number] Kings Aguilar 05/29/2015 [facility] [place] [facility] CD:[id number] Inpatient [id number] Ryan Nolan 06/01/2015 06/11/2015 Active [facility], [facility]. [facility] [place] [facility] [id number] Kings Aguilar 06/19/2015 [facility] [place] [facility] CD:[id number] Inpatient [id number] Kings Aguilar 07/18/2015 07/19/2015 Active [facility], [facility]. [facility] [place] Cancel/No Show [id number] Kings Aguilar 07/19/2015 07/15/2015 [facility] [place] [facility] CD:[id number] Clinic ( Outpatient) [id number] Kings Aguilar 08/22/2015 Active [facility] [place] [facility] [place] [facility] [id number] Kings Aguilar 08/23/2015 [facility] [place] [facility] CD:[id number] Clinic ( Outpatient) [id number] Valentin Rojas 10/09/2015 Active [facility] Card[facility] Services Clinic [id number] Valentin Rojas 11/04/2015 11/04/2015 [facility] Cancel/No Show [id number] Kings Aguilar 09/1109/11/2016 [facility] Procedures Procedure Code Date Perfomer Comments Source Echocardiography, transthoracic, real-time with image documentation (2D), includes M-mode recording, when performed, complete, with spectral Doppler echocardiography, and with color flow Doppler echocardiography [id number] 07/19/2015 [facility] Typical and Atypical AVNRT and Atrial Flutter Ablation 06/05/2015 [facility]. Echocardiogram, EF 55% 06/03 [facility]. No data available for this section [facility] Esophagogastroduodenoscopy, flexible, transoral; diagnostic, including collection of specimen(s) by brushing or washing, when performed (separate procedure) [id number] [facility]. Plan of Care Social History Assessment and Plan Family History Value Date Source Advance Directives Order Name Results Value Date Source
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
--- OUTSIDE RECORDS SUMMARY | 2017-05-22 00:35 | XMS REPORT | Clinical Summary ---
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 If you do not see the information that you expected, contact Release of Information in the Health Information Management department at [phone] for further assistance in locating additional records.[facility] Allergies Active Allergy Reactions Severity Noted [...] Taken Blood Pressure 155/99 05/23/2014 12:00 PM BAND CUTTER Pulse 66 05/22/2014 3:59 PM BAND CUTTER Temperature 36.4 C (97.6 F) 05/23/2014 12:00 PM BAND CUTTER Respiratory Rate 16 11/01/2012 8:48 AM CDT Oxygen Saturation 96% 05/23/2014 12:00 PM BAND CUTTER Inhaled Oxygen - - Concentration Weight 94.8 kg (208 lb 15.9 oz) 05/21/2014 5:41 AM BAND CUTTER Height 190.5 cm (6' 3") 05/20/2014 6:00 PM BAND CUTTER Body Mass Index 26.12 05/21/2014 5:41 AM BAND CUTTER Plan of Treatment Health Maintenance Due Date Last Done Comments PHYSICAL (COMPREHENSIVE) 1979 EXAM PERTUSSIS VACCINE 1983 TETANUS VACCINE 1989 INFLUENZA VACCINE 02/02/2017 Results Not on filefrom Last 3 Months
[2017-05-22] MEDS ORDERED: NOREPINEPHRINE 4 MG in D5W IV SOLUTION (EXCEL) 250 ML IV SCH (01:15)
[2017-05-22] MEDS: inSUlin DETERMIR 1 UNIT/0.01 ML (LEVEMIR) CHARGE PER UNIT SQ SCH ×2 (01:28→21:37)
[2017-05-22] MEDS ORDERED: VASOPRESSIN INJECTION 20 UNIT in NS (IVPB) 50 ML IV SCH (01:30)
[2017-05-22] MEDS ORDERED: PIPERACILLIN/TAZO 4.5 GM VIAL (ZOSYN) IV ONE (01:56)
[2017-05-22] MEDS ORDERED: NS (IVPB) 100 ML ONE (01:57)
[2017-05-22] MEDS ORDERED: PIPERACILLIN SODIUM/TAZOBACTAM 4.5 GM in NS (IVPB) 100 ML IV ONE (02:15)
[2017-05-22] MEDS ORDERED: NS IV 1000 ML 1,000 ML ONE (02:34)
[2017-05-22] MEDS ORDERED: NS IV 1000 ML 1,000 ML IV SCH (03:15)
[2017-05-22 04:16] LABS: BASOPHILS % (AUTO) 0 % (0-10); EOSINOPHILS # (AUTO) 0.1 10^3/uL (0.0-0.3); EOSINOPHILS % (AUTO) 2 % (0-10); LYMPHOCYTES # (AUTO) 0.8 X 10^3 (1.0-4.0); LYMPHOCYTES % (AUTO) 18 % (12-44); MEAN CORPUSCULAR HEMOGLOBIN 29 PG (25-34); MEAN CORPUSCULAR HGB CONC 35 G/DL (32-36); MEAN CORPUSCULAR VOLUME 84 FL (80-99); MONOCYTES # (AUTO) 0.4 X 10^3 (0.0-1.0); MONOCYTES % (AUTO) 9 % (0-12); NEUTROPHILS # (AUTO) 3.2 X 10^3 (1.8-7.8); NEUTROPHILS % (AUTO) 71 % (42-75); PLATELET COUNT 47 10^3/uL (130-400); RED BLOOD COUNT 3.01 10^6/uL (4.35-5.85); RED CELL DISTRIBUTION WIDTH 18.7 % (10.0-14.5); WHITE BLOOD COUNT 4.4 10^3/uL (4.3-11.0)
[2017-05-22 04:33] LABS: ALANINE AMINOTRANSFERASE 19 U/L (0-55); ALBUMIN 1.6 GM/DL (3.2-4.5); ANION GAP 8 MMOL/L (5-14); ASPARTATE AMINO TRANSFERASE 33 U/L (5-34); BILIRUBIN,TOTAL 1.5 MG/DL (0.1-1.0); BLOOD UREA NITROGEN 10 MG/DL (7-18); BUN/CREATININE RATIO 9; CALCIUM 6.8 MG/DL (8.5-10.1); CARBON DIOXIDE 19 MMOL/L (21-32); CHLORIDE 101 MMOL/L (98-107); CREATININE SERUM 1.14 MG/DL (0.60-1.30); GFR ESTIMATED > 60; GLUCOSE 338 MG/DL (70-105); POTASSIUM 2.7 MMOL/L (3.6-5.0); SODIUM 128 MMOL/L (135-145); TOTAL PROTEIN 5.5 GM/DL (6.4-8.2)
[2017-05-22] MEDS ORDERED: inSUlin (REGULAR) HUMAN 1 UNIT/0.01 ML (CHARGE PER UNIT) SC SCH (06:00)
[2017-05-22] MEDS: MEROPENEM 500 MG/NS 100 ML IVPB IV SCH ×6 (06:14→18:24)
[2017-05-22] MEDS: inSUlin (REGULAR) HUMAN 1 UNIT/0.01 ML (CHARGE PER UNIT) SC SCH ×4 (06:29→21:36)
[2017-05-22 06:51] LABS: ABG BASE EXCESS -2.4 MMOL/L (-2.5-2.5); ABG HCO3 21 MMOL/L (23-27); ABG OXYGEN SATURATION 96 % (94-100); ABG PCO2 28 MMHG (35-45); ABG PH 7.49 (7.37-7.43); ABG PO2 65 MMHG (79-93); ABG TCO2 21.4 MMOL/L (21.0-31.0)
[2017-05-22 06:52] LABS: ALLENS TEST YES-POS; PATIENT TEMP 98.1
[2017-05-22] MEDS ORDERED: KCL 20 MEQ TAB (K-DUR) PO NR (07:02)
[2017-05-22] MEDS ORDERED: INFLUENZA TRIvalent 2017-2018 0.5 ML/45 MCG SYR IM ONE (07:30)
--- NOTE | 2017-05-22 07:32 | Diagnostic Imaging Report ---
PROCEDURE: CT chest, abdomen, and pelvis with contrast. TECHNIQUE: Multiple contiguous axial images were obtained through the chest, abdomen, and pelvis after the administration of intravenous contrast. INDICATION: Fall yesterday. FINDINGS: CT CHEST: There is moderate right pleural effusion with right basilar atelectasis. Left lung is clear. No fractures are demonstrated. The sagittal reconstructed images of the thoracic and lumbar spine show good alignment with no compression fractures. Facets are in good alignment. There is good opacification of the aorta and pulmonary arteries. No evidence of aortic dissection. No mediastinal or hilar adenopathy of pathologic size. IMPRESSION: Moderate right pleural effusion with right basilar atelectasis. Could not exclude underlying pneumonia in the right lung base as well. No acute changes demonstrated. CT abdomen pelvis: Cirrhosis of the liver is demonstrated with hepatosplenomegaly. There is portal hypertension. There is large volume of ascites. There is abdominal varices with recanalization of the umbilical vein. The bowel gas pattern appears normal. No bony lesions are demonstrated. There is calcification of pancreas which is atrophic consistent with chronic pancreatitis. Kidneys appear normal. Good opacification of the aorta and abdominal arteries which appear normal. IMPRESSION: 1. Finding consistent with end-stage cirrhosis with hepatosplenomegaly, portal hypertension and large volume of ascites. 2. Calcified atrophic pancreas consistent with chronic pancreatitis. 3. No acute findings. These findings are concordant with the preliminary report. Dictated by: Dictated on workstation # [id number]
[2017-05-22] MEDS ORDERED: PIPERACILLIN SODIUM/TAZOBACTAM 4.5 GM in NS (IVPB) 100 ML IV SCH (11:00)
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
[2017-05-22] MEDS ORDERED: traZODone 100 MG (DESYREL) TAB PO PRN (18:15)
[2017-05-22] MEDS ORDERED: RT-ALBUTEROL HFA (VENTOLIN) PER PUFF IH PRN (18:15)
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
[2017-05-22] MEDS ORDERED: SUCRALFATE PO SCH (21:00)
[2017-05-22] MEDS ORDERED: amLODIPine 5 MG (NORVASC) TAB PO SCH (21:00)
[2017-05-22] MEDS ORDERED: THIAMINE 100 MG (VITAMIN B-1) TAB PO SCH (21:00)
[2017-05-22] MEDS ORDERED: NON-FORMULARY MEDICATION 1 EA EA (Potassium Chloride 10 MEQ) PO SCH (21:00)
[2017-05-22] MEDS ORDERED: FOLIC ACID 1 MG TAB PO SCH (21:00)
[2017-05-22] MEDS ORDERED: NON-FORMULARY MEDICATION 1 EA EA (Cetirizine HCl 10 MG) PO SCH (21:00)
[2017-05-22] MEDS ORDERED: LORATADINE (CLARITIN) 10 MG TAB PO SCH (21:00)
[2017-05-22] MEDS ORDERED: FUROSEMIDE 40 MG (LASIX) TAB PO SCH (21:00)
[2017-05-22] MEDS ORDERED: LACTULOSE 10 GM/15 ML 30 ML POUR BOTTLE FOR ENEMA PO SCH (21:00)
[2017-05-22] MEDS ORDERED: LACTULOSE SYRUP 10GM/15ML (ENULOSE) 30ML UDC ONE (21:24)
[2017-05-22] MEDS: FAMOTIDINE 20 MG (PEPCID) TABLET PO SCH (21:25)
[2017-05-22] MEDS: busPIRone 15 MG (BUSPAR) TABLET PO SCH (21:25)
[2017-05-22] MEDS: SUCRALFATE 1 GM (CARAFATE) TAB PO SCH (21:35)
[2017-05-22] MEDS: PREGABALIN 75 MG (LYRICA) CAP PO SCH (21:35)
[2017-05-23] VITALS (11 sets, daily range): BP systolic 91–133; BP diastolic 68–95
[2017-05-23] MEDS: MEROPENEM 500 MG/NS 100 ML IVPB IV SCH ×4 (00:33→06:14)
[2017-05-23 04:58] LABS: BASOPHILS % (AUTO) 0 % (0-10); EOSINOPHILS # (AUTO) 0.1 10^3/uL (0.0-0.3); EOSINOPHILS % (AUTO) 2 % (0-10); LYMPHOCYTES # (AUTO) 0.9 X 10^3 (1.0-4.0); LYMPHOCYTES % (AUTO) 17 % (12-44); MEAN CORPUSCULAR HEMOGLOBIN 29 PG (25-34); MEAN CORPUSCULAR HGB CONC 35 G/DL (32-36); MEAN CORPUSCULAR VOLUME 84 FL (80-99); MEAN PLATELET VOLUME 11.2 FL (7.4-10.4); MONOCYTES # (AUTO) 0.5 X 10^3 (0.0-1.0); MONOCYTES % (AUTO) 10 % (0-12); NEUTROPHILS # (AUTO) 3.8 X 10^3 (1.8-7.8); NEUTROPHILS % (AUTO) 71 % (42-75); PLATELET COUNT 58 10^3/uL (130-400); RED BLOOD COUNT 3.38 10^6/uL (4.35-5.85); RED CELL DISTRIBUTION WIDTH 18.7 % (10.0-14.5); WHITE BLOOD COUNT 5.3 10^3/uL (4.3-11.0)
[2017-05-23 05:16] LABS: ALANINE AMINOTRANSFERASE 25 U/L (0-55); ALBUMIN 1.7 GM/DL (3.2-4.5); ANION GAP 8 MMOL/L (5-14); ASPARTATE AMINO TRANSFERASE 58 U/L (5-34); BILIRUBIN,TOTAL 1.6 MG/DL (0.1-1.0); BLOOD UREA NITROGEN 12 MG/DL (7-18); BUN/CREATININE RATIO 11; CALCIUM 6.9 MG/DL (8.5-10.1); CARBON DIOXIDE 20 MMOL/L (21-32); CHLORIDE 106 MMOL/L (98-107); CREATININE SERUM 1.05 MG/DL (0.60-1.30); GFR ESTIMATED > 60; GLUCOSE 118 MG/DL (70-105); POTASSIUM 3.2 MMOL/L (3.6-5.0); SODIUM 134 MMOL/L (135-145); TOTAL PROTEIN 5.9 GM/DL (6.4-8.2)
[2017-05-23] MEDS ORDERED: inSUlin ASPART (NovoLOG) 1 UNIT/0.01 ML (CHARGE PER UNIT) SC SCH (06:00)
[2017-05-23] MEDS ORDERED: INSULIN LISPRO 3 UNIT SQ SCH (06:00)
[2017-05-23] MEDS: inSUlin (REGULAR) HUMAN 1 UNIT/0.01 ML (CHARGE PER UNIT) SC SCH (06:14)
[2017-05-23] MEDS ORDERED: KCL 10 MEQ TAB (MICRO K) PO SCH (07:00)
[2017-05-23] MEDS ORDERED: RT-ALBUTEROL SULF 2.5 MG/3 ML PRE-MIX VIAL IH PRN (07:30)
[2017-05-23] MEDS ORDERED: PANTOPRAZOLE 40 MG (PROTONIX) TAB PO SCH (09:00)
[2017-05-23] MEDS ORDERED: LACTULOSE SYRUP 10GM/15ML (ENULOSE) 30ML UDC PO SCH (09:00)
[2017-05-23] MEDS: busPIRone 15 MG (BUSPAR) TABLET PO SCH (09:32)
[2017-05-23] MEDS: SUCRALFATE 1 GM (CARAFATE) TAB PO SCH (09:32)
[2017-05-23] MEDS: FAMOTIDINE 20 MG (PEPCID) TABLET PO SCH (09:32)
[2017-05-23] MEDS: PREGABALIN 75 MG (LYRICA) CAP PO SCH (09:32)
[2017-05-23] MEDS ORDERED: CIPR-225 PO (10:42)
[2017-05-23] MEDS ORDERED: CAPS60CR3 TP (10:42)
[2017-05-23] MEDS ORDERED: PREG75CA PO (10:42)
--- NOTE | 2017-05-23 10:54 | Discharge Summary ---
Diagnosis/Chief Complaint Date of Admission May 22, 2017 at 00:11 Date of Discharge Admission Diagnosis Admission Diagnosis Severe sepsis criteria met w/ concern for spontaneous bacterial peritonitis Chronic, end-stage liver disease DM Type 2, uncontrolled w/ hyperglycemia Discharge Diagnosis (1) Severe sepsis Status: Acute Assessment & Plan: 05/22/17 - met severe sepsis criteria w/ lactic acid of 3.53 -->4-->4.01-->2.73; concern for SBP secondary to abdominal pain, AMS changes in setting of cirrhosis and ascites; Adm to ICU - IVF resuciation given in the ER per protocol; blood cultures obtained - Given Rocephin and Zosyn in the ER. Dr. Diaz consulted for paracentesis. Meropenem ordered per Dr. Diaz. Antibiotics initiated prior to paracentesis. 05/23/17 - Significantly improved. AMS likely more related to elevated ammonia level. DC home on Cipro (2) Ascites Status: Chronic Assessment & Plan: 05/22/17 - pt reports Lasix use at home, does not sodium restrict -Dr. Diaz consulted for paracentesis 05/23/17 - Paracentesis not done as no significant added value as antibiotics had already been initiated. Not symptomatic from the ascites or pleural effusion at this time. Recommend restarting Lasix and consider adding Spironolactone. Qualifiers: Qualified Codes: K70.31 - Alcoholic cirrhosis of liver with ascites (3) Pleural effusion Status: Acute Assessment & Plan: 05/22/17 - RLL effusion noted, asymptomatic (4) Hypokalemia Status: Acute Assessment & Plan: 05/22/17 - replace and monitor 05/23 - Improved (5) Hyponatremia Status: Chronic Assessment & Plan: 05/22/17- Na 125 on admission, improved to 128 05/23 - improved to 134. 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 Pt has hx of chronic alcohol use. He states he last had 1 beer about 1 month ago and last had more significant alcohol intake "a few beers" about 2 months ago. Pt was last admitted 03/2017 for vomiting, abdominal pain and hyperglycemia. Pt presented to the ER w/ complaints of decreased level of consciousness. He was noted to have hyperglycemia which persisted after IV insulin. Pt is unsure if when he took is last dose of insulin. Pt reports a fall and twisting his ankle 2-3 days ago secondary to neuropathy. Pt states he had onset fever x1d and states he has been "sleepy". States he takes Lactulose when he feels sleepy. Lactic acid level was obtained which was elevated at 3.52 and 4.0 on repeat. wbc normal. Na low at 125, states he is not on a sodium restriction. Discharge Summary-Simple/Stand Consultations Discharge Physical Examination Allergies: Coded Allergies: Penicillins (Verified Allergy, Severe, EDEMA, SOA, 05/21/17) clindamycin (Verified Allergy, Unknown, 03/21/16) olanzapine (Verified Allergy, Unknown, 03/21/16) quetiapine (Verified Allergy, Unknown, 03/21/16) Vitals & I&Os Vital Sign - Last 12Hours Date Time Temp Pulse Resp B/P (MAP) Pulse Ox O2 Delivery O2 Flow Rate FiO2 05/23/17 09:00 88 14 133/95 93 Room Air 05/23/17 08:30 99.0 05/22/17 16:00 3.00 05/22/17 07:28 32 General Appearance: Alert, Oriented X3, Cooperative Respiratory: Clear to Auscultation Abdominal: Other (protuberant secondary to ascites but soft; umbilical hernia noted) Neuro: Normal Speech Psych/Mental Status: Mental Status NL Hospital Course See final discharge diagnosis. Discharge Instructions to patient/family Please see electronic discharge instructions given to patient. Patient Instructions Patient Instructions Increase Lyrica to 100mg TID Goal/Follow Up Appt: Follow-up with Dr. Brown 06/03/17 at 1:40 (call [facility] if you need transportation arranged [phone]) Activity & Diet Discharge Diet: Low Sodium Diet (<2000mg/d), Other Diet (avoid all alcohol) Discharge Medications Reviewed and agree with Discharge Medication list on patient's Discharge Instruction sheet Discharge [facility] Discharge Medications New, Converted or Re-Newed RX: Transmitted to Pharmacy ([facility]) New Medications: Capsaicin (Capsaicin) 60 Gm Cream..g. 60 GM TP four times per day for joint pain, #1 TUBE 0 Refills Ciprofloxacin HCl (Cipro) 500 Mg Tablet 500 MG PO BID for 7 Days, #14 TAB 0 Refills Pregabalin (Lyrica) 75 Mg Capsule 100 MG PO TID, #90 CAP 0 Refills dose increased from 75mg three times daily to 100mg three times daily Continued Medications: Albuterol Sulfate (Proventil Hfa) 6.7 Gm Hfa.aer.ad 2 PUFF INH Q4H PRN for SHORTNESS OF BREATH, INHALER Amlodipine Besylate (Amlodipine Besylate) 5 Mg Tablet 5 MG PO HS, TAB Buspirone HCl (Buspirone HCl) 15 Mg Tablet 15 MG PO BID, TAB Cetirizine HCl (Cetirizine HCl) 10 Mg Tablet 10 MG PO HS, TAB Famotidine (Famotidine) 20 Mg Tablet 20 MG PO BID, TAB Fluticasone Propionate (Fluticasone Propionate) 16 Gm [place].susp 1 SPRAY NS BID PRN for CONGESTION, EA Folic Acid (Folic Acid) 1 Mg Tablet 1 MG PO HS, TAB Furosemide (Furosemide) 40 Mg Tablet 40 MG PO HS, TAB Insulin Glargine,Hum.rec.anlog (Lantus) 100 Unit/1 Ml Vial 20 UNIT SQ DAILY, VIAL Insulin Lispro (Humalog) 100 Unit/1 Ml Cartridge 3 UNIT SQ TIDAC, EA Lactulose (Lactulose) 10 Gm/15 Ml Solution 30 ML PO BID, EA Pantoprazole Sodium (Pantoprazole Sodium) 40 Mg Tablet.dr 40 MG PO DAILY, TAB Potassium Chloride (Potassium Chloride) 10 Meq Capsule.er 10 MEQ PO BID, CAP Sucralfate (Carafate) 1 Gm/10 Ml Oral.susp 10 ML PO QID, ML Thiamine HCl (Vitamin B-1) 100 Mg Tablet 100 MG PO HS, TAB Trazodone HCl (Trazodone HCl) 100 Mg Tablet 100 MG PO HS PRN for SLEEP, TAB Discontinued Medications: Pregabalin (Lyrica) 75 Mg Capsule 75 MG PO TID, CAP Clinical Quality Measures DVT/VTE Risk/Contraindication: Risk Factor Score Per Nursin RFS Level Per Nursing on Admit: 4+=Very High Contraindications-Pharm: Other *list below* DVT/VTE Prophylaxis Comfirm.Dx Pharmacological not ordered: Risk of Bleeding, Platelet count <100,000 NIEVES RAMSEY DO May 23, 2017 10:54
--- OUTSIDE RECORDS SUMMARY | 2017-05-24 17:13 | XMS REPORT | Continuity of Care Document ---
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 Diabetes mellitus (disorder) 08/23/2015 Diagnosis 2015 [facility], [facility]. Alcoholism (disorder) 2015 Diagnosis 08/27/2015 [facility] Alcoholic cirrhosis (disorder) 08/23/2015 Diagnosis 08/27 [facility] Epidermoid cyst of skin (disorder) 08/23/2015 Diagnosis 08/27/2015 [facility] Hypersplenism (disorder) Diagnosis 08/27/2015 [facility] Chest pain (finding) 2015 Diagnosis 07/23/2015 [facility], [facility]. Paranoid schizophrenia (disorder) 06/19/2015 Diagnosis [facility], [facility] Atrial flutter (disorder) Diagnosis 06/23/2015 [facility] Intentional drug overdose (disorder) 06/11/2015 Diagnosis 06/15/2015 [facility], [facility]. Supraventricular tachycardia (disorder) 06/04/2015 Diagnosis 06/15/2015 [facility], [facility]. Hepatic encephalopathy (disorder) 06/04/2015 Diagnosis [facility], [facility]. Acute renal failure syndrome (disorder) 06/03/2015 Diagnosis 06/15/2015 [facility] Gastroesophageal reflux disease (disorder) 05/29/2015 Diagnosis 06/02/2015 [facility] Hypertensive disorder, systemic arterial (disorder) 05/29/2015 Diagnosis 06/02/2015 [facility] Other abnormal glucose 02/28 Diagnosis 03/04/2015 [facility] Hepatic coma 02/28/2015 Diagnosis 03/04/2015 [facility] Alcoholic cirrhosis of liver 02/28/2015 Diagnosis 2014 [facility] Other anxiety states 2014 Diagnosis 03/04/2015 [facility] Unspecified essential hypertension 02/28/2015 Diagnosis 03/04/2015 [facility] Diabetes mellitus without mention of complication, type II or unspecified type , not stated as uncontrolled 02/28/2015 Diagnosis 2014 [facility] Other and unspecified alcohol dependence, unspecified drinking behavior 02/28/2015 Diagnosis 03/04/2015 [facility] Traumatic arthropathy involving ankle and foot 02/07/2015 Diagnosis 02/11/2015 [facility] Diabetes mellitus with neurological manifestations, type II or unspecified type , not stated as uncontrolled 02/07/2015 Diagnosis 2014 [facility] Other secondary thrombocytopenia 11/21/2014 Diagnosis [facility] Contusion of chest wall Diagnosis 11/25/2014 [facility] Esophageal reflux 2014 Diagnosis 10/15/2014 [facility] Unspecified fall 10/11/2014 Diagnosis 10/15/2014 [facility] Bimalleolar fracture, closed 10/11/2014 Diagnosis 2014 [facility] Thrombocytopenia, unspecified 05/24/2014 Diagnosis 2013 [facility] Esophageal varices without mention of bleeding 02/16/2014 Diagnosis 02/20/2014 [facility], [facility], [facility]. Esophageal reflux 2013 Diagnosis 02/20/2014 [facility] Unspecified essential hypertension 02/16/2014 Diagnosis 02/20/2014 [facility] Attention deficit disorder of childhood with hyperactivity 02/16/2014 Diagnosis 02/20/2014 [facility] Alcoholic cirrhosis of liver 02/16/2014 Diagnosis 2013 [facility] Abdominal pain, unspecified site 01/23/2014 Diagnosis [facility] Cirrhosis of liver without mention of alcohol 01/02/2014 Diagnosis 01/06/2014 [facility] Acute upper respiratory infections of unspecified site 01/02/2014 Diagnosis 01/06/2014 [facility] Hepatic coma 12/22/2013 Diagnosis 12/26/2013 [facility] Paranoid type schizophrenia, unspecified state 11/20/2013 Diagnosis 11/24/2013 [facility] Traumatic arthropathy-ankle (disorder) Active 04/23/2011 Problem 09/15/2016 [facility] Traumatic arthropathy-ankle (disorder) Active 04/23/2011 Problem 07/19/2015 [facility] 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) Active 04/23/2011 Problem 10/06/2013 [facility] 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, [facility] Attention deficit hyperactivity disorder (disorder) Active Problem 09/15/2016 [facility], [facility] Alcoholic cirrhosis (disorder) Active Problem 09/15/2016 [facility], [facility] Alcoholism (disorder) Active Problem 09/15/2016 [facility], [facility], [facility] Fracture of ankle (disorder) Active Problem 09/15/2016 [facility], [facility] Mixed anxiety and depressive disorder (disorder) Active Problem 09/15/2016 [facility], [facility] Atrial flutter (disorder) Active Problem 09/15/2016 [facility] AV cathy re-entry tachycardia (disorder) Active Problem 09/15/2016 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 Diabetes mellitus (disorder) Active Problem 09/15/2016 [facility], [facility] Gastroesophageal reflux disease (disorder) Active Problem 09/15/2016 [facility], [facility] Hepatic coma (disorder) Active Problem 09/15/2016 [facility], [facility] Hypertensive disorder, systemic arterial (disorder) Active Problem 09/15/2016 [facility], [facility], [facility] Paranoid schizophrenia (disorder) Active Problem 2016 [facility], [facility], [facility], [facility] Supraventricular tachycardia (disorder) Active Problem [facility] Cardiology [facility], [facility], [facility], [facility] Cirrhosis - non-alcoholic (disorder) Active Problem 09/19 [facility], [facility], [facility] Medications Medication Details Route Status Patient Instructions Ordering Provider Order Date Source No Known Medications No known medications Active [facility] Pneumovax 23 0.5 mL, SOLN, IM, ONCE, 02/12/12 12:00:00 , Stop date 02/12/12 12:00:00Provide patient/caregiver the vaccine information statement and document version date on eMAR. Record the lot number and logistics coordinator below. Manuf: Lot Number: Exp Date: Inactive [facility] influenza virus vaccine, inactivated adult 0.5 mL, Suspension, IM, ONCE, Start Date: 07/03/13 12:00:00, Stop Date: 07/03/13 12:00: 00Provide patient/caregiver the vaccine information statement and document version date on eMAR. Record the lot number and logistics coordinator below. Manuf: ____ Lot Number: Exp Date: Inactive [facility]. Allergies, Adverse Reactions, Alerts Substance Category Reaction Severity Reaction type Status Date Reported Comments Source penicillins Assertion "can't breathe" [facility], [facility], [facility] penicillins drug allergy "can 't breathe" Allergy Active [facility], [facility] penicillin drug allergy "can' t breathe" Allergy Active [facility], [facility], [facility] Immunizations Immunization Date Given Site Status Last Updated Comments Source influenza virus vaccine 07/19/2015 Not Given [facility] influenza virus vaccine 06/02/2015 Left Deltoid influenza virus vaccine [facility] influenza virus vaccine 07/05/2013 Left Deltoid influenza virus vaccine [facility], [facility], [facility], [facility], [facility]. pneumococcal polysaccharide PPV23 02/12/2012 Right Deltoid pneumococcal 23-valent vaccine [facility], [facility], [facility], [facility] pneumococcal 23-valent vaccine 02/12/2012 completed [facility], [facility], [facility] Results Vital Signs Encounters Location Location Details Encounter Type Encounter Number Reason For Visit Attending Provider ADM Date DC Date Status Source [facility] CD:[id number] Inpatient [id number] Max An 02/10/2012 Active [facility] CD:[id number] Inpatient [id number] Kings Aguilar 06/20/2012 06/21/2012 Active [facility]. OM CD:[id number] Inpatient [id number] Kings Aguilar 08/01/2012 08/08/2012 Active [facility] CD:[id number] Inpatient [id number] Kings Aguilar 12/08/2012 12/09/2012 Active [facility]. GIS CD:[id number] Clinic ( Outpatient) [id number] Sofy Smith 05/03/2013 Active [place] [facility], [facility] CD:[id number] Clinic ( Outpatient) [id number] Kings Aguilar 06/07/2013 Active [employer] [facility] CD:[id number] Clinic ( Outpatient) [id number] Kings Aguilar 06/14/2013 Active [employer] [facility] CD:[id number] Clinic ( Outpatient) [id number] Kings Aguilar 06/21/2013 Active [employer] [facility] CD:[id number] Inpatient [id number] Kings Aguilar 07/02/2013 07/05/2013 Active [employer] CD:[id number] Clinic ( Outpatient) [id number] Kings Aguilar 07/13/2013 Active [employer] [facility] CD:[id number] Clinic ( Outpatient) [id number] Kings Aguilar 07/27/2013 Active [employer] [facility] CD:[id number] Inpatient [id number] Kings Aguilar 09/11/2013 09/15/2013 Active [employer] [employer]FC[facility] CD:[id number] Clinic ( Outpatient) [id number] Kings Aguilar 09/20/2013 Active [employer] [facility] CD:[id number] Clinic ( Outpatient) [id number] Kings Aguilar 10/02/2013 Active [employer] [facility] Cancel/No Show [id number] Kings Aguilar 10/02/2013 10/02/2013 [facility] CD:[id number] Clinic ( Outpatient) [id number] Sofy Smith 11/01/2013 Active [employer] [facility] CD:[id number] Clinic ( Outpatient) [id number] Kings Aguilar 11/06/2013 Active [employer] [facility] CD:[id number] Clinic ( Outpatient) [id number] Kings Aguilar 11/10/2013 Active [employer] [facility] [id number] Kings Aguilar 11/10/2013 11/10/2013 [facility] [place] [facility] [id number] Kings Aguilar 11/20/2013 11/21/2013 [facility] [place] [facility] Cancel/No Show [id number] Kings Aguilar 12/18/2013 12/18/2013 [facility] [place] [facility] CD:[id number] Clinic ( Outpatient) [id number] 12/22/2013 Active [facility] [place] [facility] [id number] Kings Aguilar 12/22/2013 12/23/2013 [facility] [place] [facility] [id number] Zoran Mara 01/02/2014 01/03/2014 [facility] [place] GIS CD:[id number] Clinic ( Outpatient) [id number] Sofy Luis 01/04/[address] [facility], [facility] [id number] [facility] 01/04/201410/2013 [facility] CD:[id number] Outpatient [id number] [place] Luis 01/23/2014 01/23/2014 Active [facility], [facility]. [facility] CD:[id number] Emergency [id number] DENISE NOBLE 01/23/2014 01/23/2014 Active [facility]. [facility] CD:[id number] Outpatient [id number] Sofy Luis 01/26/2014 01/26/2014 Active [facility]. [facility] [id number] [place] Aguilar 02/16/2014 02/17/2014 [facility] [place] [facility] Cancel/No Show [id number] Halie Dacosta 02/19/2014 02/19/2014 [facility] CD:[id number] Emergency [id number] Kings Arredondo 03/29/2014 Active [facility], [facility]. [facility] [place] [facility] [id number] [place] Aguilar 05/24/2014 [facility] [place] [facility] [place] Cancel/No Show [id number] Kings Aguilar 06/22/2014 06/22/2014 [facility] [place] [facility] [place] [facility] [id number] [place] Aguilar 08/27/2014 [facility] [place] [facility] [place] Cancel/No Show [id number] Kings Aguilar 09/24/2014 09/26/2014 [facility] [place] [facility] Cancel/No Show [id number] Halie Dacosta 10/01/2014 10/01/2014 [facility] [place] [facility] [id number] [place] Aguilar 10/11/201404/2015 [facility] [place] [facility] CD:[id number] Emergency [id number] Napoleon Isabel 11/15/2014 11/15/2014 Active [facility] [place] Cancel/No Show [id number] Kings Aguilar 11/19/2014 11/19/2014 [facility] [place] [facility] [place] [facility] [id number] [place] Aguilar 11/21/2014 [facility] [place] [facility] [place] [facility] [id number] Kings Aguilar 02/07/201501/2015 [facility] [place] [facility] [place] [facility] [id number] [place] Aguilar 02/28/2015 [facility] [place] [facility] [place] Cancel/No Show [id number] Kings Aguilar 04/17/2015 04/16/2015 [facility] [place] [facility] [place] [facility] [id number] [place] Aguilar 05/29/2015 [facility] [place] [facility] CD:[id number] Inpatient [id number] Ryan Nolan 06/01/2015 06/11/2015 Active [facility], [facility]. [facility] [place] [facility] [id number] [place] Aguilar 06/19/2015 [facility] [place] [facility] CD:[id number] Inpatient [id number] Kings Aguilar 07/18/2015 07/19/2015 Active [facility], [facility]. [facility] [place] Cancel/No Show [id number] Kings Aguilar 07/19/2015 07/15/2015 [facility] [place] [facility] CD:[id number] Clinic ( Outpatient) [id number] Kinsg Aguilar 08/22/2015 Active [facility] [place] [facility] [place] [facility] [id number] [place] Aguilar 08/23/2015 [facility] [place] CSOL CD:[id number] Clinic ( Outpatient) [id number] Valentin Rojas 10/09/2015 Active [facility] Card[facility] Clinic [id number] Valentin Rojas 11/04/2015 11/04/2015 [facility] Services [facility] Cancel/No Show [id number] Kings Aguilar 09/1109/11/2016 [facility] Procedures Procedure Code Date Perfomer Comments Source Echocardiography, transthoracic, real-time with image documentation (2D), includes M-mode recording, when performed, complete, with spectral Doppler echocardiography, and with color flow Doppler echocardiography [id number] 07/19/2015 [facility] Typical and Atypical AVNRT and Atrial Flutter Ablation 06/05/2015 [facility]. Echocardiogram, EF 55% 06/03 [facility]. No data available for this section [facility] Esophagogastroduodenoscopy, flexible, transoral; diagnostic, including collection of specimen(s) by brushing or washing, when performed (separate procedure) [id number] [facility]. Plan of Care Social History Assessment and Plan Family History Value Date Source Advance Directives Order Name Results Value Date Source
--- OUTSIDE RECORDS SUMMARY | 2017-05-24 17:46 | XMS REPORT | Clinical Summary ---
Author Author [facility] Organization [facility] Address Unknown Phone Unavailable Care Team Providers Care Investigation Clerk Name Role Phone PCP Unavailable Source Comments Some departments are not documenting in the electronic medical record. If you do not see the information that you expected, contact Release of Information in the Health Information Management department at [phone] for further assistance in locating additional records.[facility] Allergies Active Allergy Reactions Severity Noted [...] Taken Blood Pressure 155/99 05/23/2014 12:00 PM [employer] Pulse 66 05/22/2014 3:59 PM [employer] Temperature 36.4 C (97.6 F) 05/23/2014 12:00 PM [employer] Respiratory Rate 16 11/01/2012 8:48 AM CDT Oxygen Saturation 96% 05/23/2014 12:00 PM [employer] Inhaled Oxygen - - Concentration Weight 94.8 kg (208 lb 15.9 oz) 05/21/2014 5:41 AM [employer] Height 190.5 cm (6' 3") 05/20/2014 6:00 PM [employer] Body Mass Index 26.12 05/21/2014 5:41 AM [employer] Plan of Treatment Health Maintenance Due Date Last Done Comments PHYSICAL (COMPREHENSIVE) 1979 EXAM PERTUSSIS VACCINE 1983 TETANUS VACCINE 1989 INFLUENZA VACCINE 02/02/2017 Results Not on filefrom Last 3 Months
== END 2017-05-23 13:00 | disposition home or self-care (01) | DRG 871 ==
LOC: EDUNIT# 18:54 → ER 18:55 → ICU 23:30 → UNDOADMIN 05-22 00:11 → UNDODISIN 05-23 13:00
PROVIDERS: ADMIT Family Medicine; ATTEND Family Medicine
DX: A41.9 Sepsis, unspecified organism (principal); K65.9 Peritonitis, unspecified; K72.10 Chronic hepatic failure without coma; K70.31 Alcoholic cirrhosis of liver with ascites; J90 Pleural effusion, not elsewhere classified; K86.0 Alcohol-induced chronic pancreatitis; E87.1 Hypo-osmolality and hyponatremia; E11.65 Type 2 diabetes mellitus with hyperglycemia; E11.43 Type 2 diabetes mellitus with diabetic autonomic (poly)neuropathy; E83.42 Hypomagnesemia; D63.8 Anemia in other chronic diseases classified elsewhere; E86.0 Dehydration; J44.9 Chronic obstructive pulmonary disease, unspecified; I25.10 Atherosclerotic heart disease of native coronary artery without angina pectoris; R09.02 Hypoxemia; I10 Essential (primary) hypertension; R00.2 Palpitations; B19.20 Unspecified viral hepatitis C without hepatic coma; K21.9 Gastro-esophageal reflux disease without esophagitis; F41.9 Anxiety disorder, unspecified; F32.9 Major depressive disorder, single episode, unspecified; F20.9 Schizophrenia, unspecified; D69.6 Thrombocytopenia, unspecified; F17.210 Nicotine dependence, cigarettes, uncomplicated; F10.20 Alcohol dependence, uncomplicated; F12.90 Cannabis use, unspecified, uncomplicated; R31.9 Hematuria, unspecified; Z91.19 Patient's noncompliance with other medical treatment and regimen; Z79.4 Long term (current) use of insulin; Z95.5 Presence of coronary angioplasty implant and graft
CPT/HCPCS: 36415; 71020; 71260; 73030; 74177; 80053; 80074; 80306; 80320; 81000; 82140; 82150; 82805; 82962; 83605; 83690; 83735; 83880; 85025; 85610; 85730; 87040; 87804; 93005; 93041; 96365; 96367; 96375; 96376

== ENCOUNTER 2017-05-28 15:19 | Inpatient (IN) | payer MEDICAID ==
[~2017-05-28] VITALS: Ht 167.6 cm; Wt 59.0 kg
[~2017-05-28 15:19] MED LIST changes: +CAPS60CR3 TP; +CIPR-225 PO
[2017-05-28] MEDS ORDERED: NS IV 1000 ML 1,000 ML IV ONE (15:25)
[2017-05-28 15:39] LABS: BASOPHILS % (AUTO) 0 % (0-10); EOSINOPHILS % (AUTO) 0 % (0-10); LYMPHOCYTES # (AUTO) 0.5 X 10^3 (1.0-4.0); LYMPHOCYTES % (AUTO) 6 % (12-44); MEAN CORPUSCULAR HEMOGLOBIN 29 PG (25-34); MEAN CORPUSCULAR HGB CONC 36 G/DL (32-36); MEAN CORPUSCULAR VOLUME 80 FL (80-99); MEAN PLATELET VOLUME 10.7 FL (7.4-10.4); MONOCYTES # (AUTO) 0.3 X 10^3 (0.0-1.0); MONOCYTES % (AUTO) 3 % (0-12); NEUTROPHILS # (AUTO) 7.7 X 10^3 (1.8-7.8); NEUTROPHILS % (AUTO) 90 % (42-75); RED BLOOD COUNT 3.26 10^6/uL (4.35-5.85); RED CELL DISTRIBUTION WIDTH 16.9 % (10.0-14.5); WHITE BLOOD COUNT 8.6 10^3/uL (4.3-11.0)
[2017-05-28 15:47] LABS: BILIRUBIN,URINE NEGATIVE (NEGATIVE); KETONES,URINE NEGATIVE (NEGATIVE); LEUKOCYTE ESTERASE ,URINE 1+ (NEGATIVE); NITRITE,URINE NEGATIVE (NEGATIVE); PH,URINE 6 (5-9); PROTEIN,URINE 2+ (NEGATIVE); UROBILINOGEN,URINE NORMAL (NORMAL)
[2017-05-28 15:58] LABS: ALANINE AMINOTRANSFERASE 36 U/L (0-55); ALBUMIN 2.1 GM/DL (3.2-4.5); ALCOHOL < 10 MG/DL (<10); AMMONIA 105 UMOL/L (11-32); AMYLASE 476 U/L (25-125); ANION GAP 13 MMOL/L (5-14); ASPARTATE AMINO TRANSFERASE 58 U/L (5-34); BILIRUBIN,TOTAL 3.3 MG/DL (0.1-1.0); BLOOD UREA NITROGEN 13 MG/DL (7-18); BUN/CREATININE RATIO 9; CALCIUM 8.2 MG/DL (8.5-10.1); CARBON DIOXIDE 19 MMOL/L (21-32); CHLORIDE 103 MMOL/L (98-107); CREATINE KINASE 664 U/L (30-200); CREATININE SERUM 1.44 MG/DL (0.60-1.30); GFR ESTIMATED 53; LIPASE 133 U/L (8-78); PLATELET COUNT 38 10^3/uL (130-400); POTASSIUM 3.3 MMOL/L (3.6-5.0); SODIUM 135 MMOL/L (135-145); TOTAL PROTEIN 6.5 GM/DL (6.4-8.2)
[2017-05-28 16:01] LABS: ABG BASE EXCESS -6.6 MMOL/L (-2.5-2.5); ABG HCO3 19 MMOL/L (23-27); ABG OXYGEN SATURATION 67 % (94-100); ABG PCO2 29 MMHG (35-45); ABG PH 7.38 (7.37-7.43); ABG TCO2 20.3 MMOL/L (21.0-31.0)
[2017-05-28 16:03] LABS: GLUCOSE 614 MG/DL (70-105)
[2017-05-28 16:03] LABS: ABG PO2 24 MMHG (79-93); ALLENS TEST POSITIVE; PATIENT TEMP 85
[2017-05-28 16:08] LABS: INR 1.6 (0.8-1.4); PROTHROMBIN TIME PATIENT 19.3 SEC (12.2-14.7)
[2017-05-28 16:11] LABS: YEAST,URINE MODERATE /HPF
--- NOTE | 2017-05-28 16:14 | Diagnostic Imaging Report ---
Indication: Patient found down CT head without contrast The ventricles are normal in size, shape and position. There are no masses or hemorrhages. There are no extra-axial fluid collections. Impression: Negative CT head Dictated by: Dictated on workstation # [id number]
[2017-05-28 16:18] LABS: MYOGLOBIN SERUM 936.5 NG/ML (10.0-92.0); TROPONIN I < 0.30 NG/ML (<0.30)
--- NOTE | 2017-05-28 16:23 | Diagnostic Imaging Report ---
INDICATION: Found down. EXAMINATION: Single view of the chest was obtained. FINDINGS: Basilar atelectasis on the right, present on prior, resolved. The lungs show no focal consolidation. There are no findings of pleural effusion. No pneumothorax. No acute finding. IMPRESSION: Resolution of previous right basilar pleural parenchymal opacity. Clear chest on followup with no acute abnormality identified. Dictated by: Dictated on workstation # [id number]
--- NOTE | 2017-05-28 16:25 | Diagnostic Imaging Report ---
INDICATION: Found down. Single AP view of the pelvis is obtained. FINDINGS: Monitoring probe passes over the right pelvis. No acute fracture or dislocation is identified. No abnormal lytic or sclerotic focus is seen, and there is no radiopaque foreign body. IMPRESSION: No acute abnormality. Dictated by: Dictated on workstation # [id number]
[2017-05-28] MEDS ORDERED: inSUlin (REGULAR) HUMAN 1 UNIT/0.01 ML (CHARGE PER UNIT) IV ONE ×2 (16:30→17:00)
[2017-05-28 17:30] VITALS: BP 113/79
[2017-05-28 18:00] VITALS: BP 115/79
[2017-05-28] MEDS ORDERED: inSUlin (REGULAR) HUMAN 1 UNIT/0.01 ML (CHARGE PER UNIT) SC SCH (18:00)
[2017-05-28] MEDS ORDERED: RT-ALBUTEROL/IPRATROPIUM 3 ML (DUONEB) VIAL INH PRN (18:00)
[2017-05-28] MEDS ORDERED: SALIVA STIMULANT MOUTH SPRAY (BIOTENE) 1.5 OZ MM PRN (18:00)
[2017-05-28] MEDS ORDERED: ATROPINE 1% OPHTHALMIC SOLN 2 ML SL PRN (18:00)
[2017-05-28] MEDS ORDERED: GLYCOPYRROLATE 0.2 MG/ML (ROBINUL) 2 ML VIAL IV PRN (18:00)
[2017-05-28] MEDS ORDERED: ONDANSETRON 4 MG/2 ML (SDV) Z0FRAN IV PRN (18:00)
[2017-05-28] MEDS ORDERED: ARTIFICAL TEARS 0.4 ML UNIT DOSE (REFRESH PLUS) OU PRN (18:00)
[2017-05-28] MEDS ORDERED: BISACODYL 10 MG SUPP (DULCOLAX) PR PRN (18:00)
[2017-05-28] MEDS ORDERED: NS IV 1000 ML 1,000 ML IV SCH (18:00)
[2017-05-28] MEDS ORDERED: ACETAMINOPHEN 650 MG SUPP (TYLENOL) PR PRN (18:00)
[2017-05-28] MEDS ORDERED: PROMETHAZINE INJ 25 MG/ML (PHENERGAN) AMP IV PRN (18:00)
[2017-05-28] MEDS ORDERED: INFLUENZA TRIvalent 2017-2018 0.5 ML/45 MCG SYR IM ONE (18:45)
[2017-05-28] MEDS: SCOPOLAMINE 1.5 MG (TRANSDERM-SCOP) PATCH TOP SCH (18:57)
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
[2017-05-28 19:00] VITALS: BP 116/81
[2017-05-28] MEDS: LORazepam INJ 2 MG/ML (ATIVAN) VIAL IV PRN (23:48)
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
--- NOTE | 2017-05-29 14:05 | Progress Note (SOAP) ---
Subjective Subjective/Events-last exam Pt sleeping. There is a question of whether he wants his 4 children (born to 4 different women) to visit him in hospital. I discussed with the nurse that they are allwoed to visit. HOwever, it is up to him whether he wants us to talk with them. Patel was comfortably resting in bed, so I did not arouse/ awaken today. Review of Systems Date Seen by Provider: May 29, 2017 Time Seen by Provider: 09:00 UTO Objective Exam Last Set of Vital Signs Vital Signs Date Time Temp Pulse Resp B/P (MAP) Pulse Ox O2 Delivery O2 Flow Rate FiO2 05/28/17 20:00 Room Air 05/28/17 20:00 94.0 98 19 100 05/28/17 19:00 116/81 Capillary Refill : Less Than 3 Seconds I&O Intake and Output 05/30/17 00:00 Intake Total 0 ml Output Total 150 ml Balance -150 ml Intake Oral 0 ml Output Urine Total 150 ml General: Other (sleeping peacefully) HEENT: Atraumatic, Mucous Memb Moist/[place] (blood still around the mouth, nares - dried) Lungs: Clear to Auscultation, Normal Air Movement Heart: Regular Rate, Normal S1, Normal S2, No Murmurs, Gallops, Rubs Abdomen: Normal Bowel Sounds, Soft, No Tenderness Extremities: No Clubbing, No Cyanosis Results/Procedures Lab Laboratory Tests 05/28/17 15:29: Glucometer 563*H 05/28/17 15:30: White Blood Count 8.6, Red Blood Count 3.26L, Hemoglobin 9.5L, Hematocrit 26L, Mean Corpuscular Volume 80, Mean Corpuscular Hemoglobin 29, Mean Corpuscular Hemoglobin Concent 36, Red Cell Distribution Width 16.9H, Platelet Count 38*L, Mean Platelet Volume 10.7H, Neutrophils (%) (Auto) 90H, Lymphocytes (%) (Auto) 6L, Monocytes (%) (Auto) 3, Eosinophils (%) (Auto) 0, Basophils (%) (Auto) 0, Neutrophils # (Auto) 7.7, Lymphocytes # (Auto) 0.5L, Monocytes # (Auto) 0.3, Eosinophils # (Auto) 0.0, Basophils # (Auto) 0.0, Prothrombin Time 19.3H, INR Comment 1.6H, Activated Partial Thromboplast Time 54H, Sodium Level 135, Potassium Level 3.3L, Chloride Level 103, Carbon Dioxide Level 19L, Anion Gap 13 , Blood Urea Nitrogen 13, Creatinine 1.44H, Estimat Glomerular Filtration Rate 53, BUN/Creatinine Ratio 9, Glucose Level 614*H, Calcium Level 8.2L, Magnesium Level 2.0, Total Bilirubin 3.3H, Aspartate Amino Transf (AST/SGOT) 58H, Alanine Aminotransferase (ALT/SGPT) 36, Alkaline Phosphatase 250H, Ammonia 105H, Total Creatine Kinase 664H, Creatine Kinase MB 16.3*H, Myoglobin 936.5H, Troponin I < 0.30, B-Type Natriuretic Peptide 56.6, Total Protein 6.5, Albumin 2.1L, Amylase Level 476H, Lipase 133H, Free Thyroxine 0.91, TSH [place] Testing 6.08H, Serum Alcohol < 10 05/28/17 15:33: Urine Color YELLOW, Urine Clarity CLEAR, Urine pH 6, Urine Specific [place] 1.010L, Urine Protein 2+H, Urine Glucose (UA) 4+H, Urine Ketones NEGATIVE, Urine Nitrite NEGATIVE, Urine Bilirubin NEGATIVE, Urine Urobilinogen NORMAL, Urine Leukocyte Esterase 1+H, Urine RBC (Auto) 5+H, Urine RBC >100H, Urine WBC 5 -10H, Urine Crystals NONE, Urine Bacteria NONE, Urine Casts NONE, Urine Mucus NEGATIVE, Urine Yeast MODERATEH, Urine Culture Indicated YES, Urine Opiates Screen NEGATIVE, Urine Oxycodone Screen NEGATIVE, Urine Methadone Screen NEGATIVE, Urine Propoxyphene Screen NEGATIVE, Urine Barbiturates Screen NEGATIVE , Ur Tricyclic Antidepressants Screen NEGATIVE, Urine Phencyclidine Screen NEGATIVE, Urine Amphetamines Screen POSITIVEH, Urine Methamphetamines Screen POSITIVEH, Urine Benzodiazepines Screen NEGATIVE, Urine Cocaine Screen NEGATIVE , Urine Cannabinoids Screen NEGATIVE 05/28/17 15:54: Blood Gas Puncture Site LEFT RADIAL, Blood Gas Patient Temperature 85, Arterial Blood pH 7.38, Arterial Blood Partial Pressure CO2 29L, Arterial Blood Partial Pressure O2 24*L, Arterial Blood HCO3 19L, Arterial Blood Total CO2 20.3L, Arterial Blood Oxygen Saturation 67L, Arterial Blood Base Excess -6.6L, Demetris Test POSITIVE, Blood Gas Ventilator Setting NO, Blood Gas Inspired Oxygen N/A Microbiology 05/28/17 Blood Culture - Preliminary, Resulted Gram Positive Cocci 05/28/17 Urine Culture - Preliminary, Resulted Presumptive Mary Kate Albicans Assessment/Plan Assessment/Plan Admission Dx MODERATE DIABETIC KETOACIDOSIS SEPSIS END STAGE LIVER DISEASE HYPERAMMONEMIA POLYSUBSTANCE ABUSE THROMBOCYTOPENIA Plan SAME I discussed with patient the severity of his situation. He repeatedly told me that he wanted to do comfort care and did not want aggressive measures. I agree with him that it would take aggressive measures up to and including intubation. He was very consistent that he did not want this. He was alert and oriented even thoguh he was somehwat slow in speech and thought. He did ask that I let him go to 4th floor and give him something to "get it over quickly." I explained that physician assisted suicide was neither ethical nor legal, nor was it necessary as we would give him medications to help calm him and not be in pain. Our goal is his comfort in the end stages of life. Patient was agreeable to this. WE will look at hospice options on Wednesday pending his clinical sitaution at that time. I am not going to do CIWAs as he will be on PRN ativan anyways. SHould there be a question that he is withdrawing, we can add that on, but I do not foresee needing it at this time. 05/29 - Will continue with comfort care. Called by micro - positive blood cultures, awaiting speciation. Girlfriend at bedside, she did not ask questions while i was in the room. Clinical Quality Measures DVT/VTE Risk/Contraindication: Risk Factor Score Per Nursin RFS Level Per Nursing on Admit: 3=High LISBET MCGARRY MD May 29, 2017 2:05 pm
[2017-05-29] MEDS: LORazepam INJ 2 MG/ML (ATIVAN) VIAL IV PRN ×2 (14:20→21:12)
--- NOTE | 2017-05-30 11:11 | Progress Note (SOAP) ---
Subjective Subjective/Events-last exam Patel received ativan again last night. he aroused but did not say anything to me. resting comfortably in bed. no one present in room today. Review of Systems Date Seen by Provider: May 30, 2017 Time Seen by Provider: 10:00 UTO Objective Exam Last Set of Vital Signs Vital Signs Date Time Temp Pulse Resp B/P (MAP) Pulse Ox O2 Delivery O2 Flow Rate FiO2 05/29/17 20:00 Room Air 05/28/17 20:00 94.0 98 19 100 05/28/17 19:00 116/81 Capillary Refill : Less Than 3 Seconds I&O Intake and Output 05/31/17 00:00 Intake Total 0 ml Output Total 200 ml Balance -200 ml Intake Oral 0 ml Output Urine Total 200 ml General: Other (resting comfortably, still arousable with minimal stimulation) Lungs: Clear to Auscultation, Normal Air Movement Heart: Regular Rate, Normal S1, Normal S2, No Murmurs, Gallops, Rubs Abdomen: Normal Bowel Sounds, Soft, Other Extremities: Other (edematous, 2+) Results/Procedures Lab Microbiology 05/28/17 Blood Culture - Preliminary, Resulted Staphylococcus Aureus 05/28/17 Urine Culture - Preliminary, Resulted Presumptive Mary Kate Albicans Assessment/Plan Assessment/Plan Plan SAME I discussed with patient the severity of his situation. He repeatedly told me that he wanted to do comfort care and did not want aggressive measures. I agree with him that it would take aggressive measures up to and including intubation. He was very consistent that he did not want this. He was alert and oriented even thoguh he was somehwat slow in speech and thought. He did ask that I let him go to 4th floor and give him something to "get it over quickly." I explained that physician assisted suicide was neither ethical nor legal, nor was it necessary as we would give him medications to help calm him and not be in pain. Our goal is his comfort in the end stages of life. Patient was agreeable to this. WE will look at hospice options on Wednesday pending his clinical sitaution at that time. I am not going to do CIWAs as he will be on PRN ativan anyways. SHould there be a question that he is withdrawing, we can add that on, but I do not foresee needing it at this time. 05/29 - Will continue with comfort care. Called by micro - positive blood cultures, awaiting speciation. Girlfriend at bedside, she did not ask questions while i was in the room. 05/30 - appears comfortable. no changes today. we will need to make some decisions as to whether Patel will go home (not a good option) versus to a facility for the remainder of his end of life care. will need social work's assistance in this planning. Clinical Quality Measures DVT/VTE Risk/Contraindication: Risk Factor Score Per Nursin RFS Level Per Nursing on Admit: 3=High LISBET MCGARRY MD May 30, 2017 11:11 am
[2017-05-30] MEDS: LORazepam INJ 2 MG/ML (ATIVAN) VIAL IV PRN (13:20)
[2017-05-30] MEDS ORDERED: CIPR500T4 PO (16:02)
[2017-05-30] MEDS ORDERED: INSU100I10 SQ (16:02)
[2017-05-30] MEDS ORDERED: PREG100C PO (16:02)
[2017-05-30] MEDS ORDERED: INSU100I23 SQ (16:02)
[2017-05-30] MEDS: morphine (ROXINOL) 10 MG/0.5 ML oral conc 0.5 ML PO PRN (17:03)
[2017-05-31] MEDS: SCOPOLAMINE 1.5 MG (TRANSDERM-SCOP) PATCH TOP SCH (08:46)
[2017-05-31] MEDS: morphine (ROXINOL) 10 MG/0.5 ML oral conc 0.5 ML PO PRN (08:47)
[2017-05-31] MEDS ORDERED: SCOPOLAMINE PATCH REMOVAL TP SCH (08:59)
[2017-05-31] MEDS: LORazepam INJ 2 MG/ML (ATIVAN) VIAL IV PRN (20:00)
--- NOTE | 2017-05-31 21:25 | Progress Note (SOAP) ---
Subjective Subjective/Events-last exam Patient is somnolent but arousable. Has a male and female friend in the room with him. He moans when touched. The friends are trying to get ahold of his 2 sons. He apparently also has a daughter, but she does not know he is her biological father. Review of Systems Date Seen by Provider: May 31, 2017 Time Seen by Provider: 09:00 UTO Objective Exam Last Set of Vital Signs Vital Signs Date Time Temp Pulse Resp B/P (MAP) Pulse Ox O2 Delivery O2 Flow Rate FiO2 05/31/17 09:20 94.0 05/31/17 08:00 Room Air 05/30/17 08:00 100 05/28/17 20:00 98 19 05/28/17 19:00 116/81 Capillary Refill : Less Than 3 Seconds I&O Intake and Output 06/01/17 00:00 Intake Total 0 ml Output Total 435 ml Balance -435 ml Intake Oral 0 ml Output Urine Total 435 ml General: Other (in bed with sheet over his head, moans to touch) Lungs: Clear to Auscultation, Other (rapid and shallow breathing) Heart: Regular Rate, Normal S1, Normal S2, No Murmurs, Gallops, Rubs Abdomen: Soft Results/Procedures Lab Microbiology 05/28/17 Blood Culture - Preliminary, Resulted Staphylococcus Aureus 05/28/17 Urine Culture - Final, Complete Presumptive Mary Kate Albicans Assessment/Plan Assessment/Plan Plan SAME I discussed with patient the severity of his situation. He repeatedly told me that he wanted to do comfort care and did not want aggressive measures. I agree with him that it would take aggressive measures up to and including intubation. He was very consistent that he did not want this. He was alert and oriented even thoguh he was somehwat slow in speech and thought. He did ask that I let him go to 4th floor and give him something to "get it over quickly." I explained that physician assisted suicide was neither ethical nor legal, nor was it necessary as we would give him medications to help calm him and not be in pain. Our goal is his comfort in the end stages of life. Patient was agreeable to this. WE will look at hospice options on Wednesday pending his clinical sitaution at that time. I am not going to do CIWAs as he will be on PRN ativan anyways. SHould there be a question that he is withdrawing, we can add that on, but I do not foresee needing it at this time. 05/29 - Will continue with comfort care. Called by micro - positive blood cultures, awaiting speciation. Girlfriend at bedside, she did not ask questions while i was in the room. 05/30 - appears comfortable. no changes today. we will need to make some decisions as to whether Patel will go home (not a good option) versus to a facility for the remainder of his end of life care. will need social work's assistance in this planning. 05/31 - have consulted palliative care and social work. will plan for placement today as pt does have medicaid. Pt is a risk to go home given his unstable social situation. plan for dc tomorrow. Clinical Quality Measures DVT/VTE Risk/Contraindication: Risk Factor Score Per Nursin RFS Level Per Nursing on Admit: 3=High LISBET MCGARRY MD May 31, 2017 9:25 pm
[2017-06-01] MEDS: LORazepam INJ 2 MG/ML (ATIVAN) VIAL IV PRN (02:02)
[2017-06-01] MEDS ORDERED: SCOP1PAT TOP (10:30)
[2017-06-01] MEDS ORDERED: ATRO2DRO4 SL (10:30)
[2017-06-01] MEDS ORDERED: MORP100S3 PO (10:30)
[2017-06-01] MEDS ORDERED: LORA2ORA PO (10:30)
--- NOTE | 2017-06-01 10:32 | Discharge Instructions ---
Discharge [facility] Discharge Medications New, Converted or Re-Newed RX: RX on Chart New Medications: Lorazepam (Lorazepam Intensol) 2 Mg/1 Ml Oral.conc 2-4 MG PO Q6H PRN for AGITATION, #1 ML 0 Refills Morphine Sulfate (Morphine Sulfate Concentrate 20mg/ml) 100 Mg/5 Ml Solution 0.5 ML PO Q2H PRN for AGITATION, #1 EA 0 Refills Atropine Sulfate (Atropine Sulfate) 2 Ml Drops 1 DROP SL Q6H PRN for TERMINAL CHOKING/ RATTLE, #1 Scopolamine (Transderm-Scop) 1 Each Patch.td72 1.5 MG TOP Q72H PRN for terminal choking/ rattle, #10 PATCH Discontinued Medications: Albuterol Sulfate (Proventil Hfa) 6.7 Gm Hfa.aer.ad 2 PUFF INH Q4H PRN for SHORTNESS OF BREATH, INHALER Amlodipine Besylate (Amlodipine Besylate) 5 Mg Tablet 5 MG PO HS, TAB Buspirone HCl (Buspirone HCl) 15 Mg Tablet 15 MG PO BID, TAB Ciprofloxacin HCl (Ciprofloxacin HCl) 500 Mg Tablet 500 MG PO BID FILLED 05/24/17 #14 FOR A 7 DAY THERAPY Famotidine (Famotidine) 20 Mg Tablet 20 MG PO BID, TAB Fluticasone Propionate (Fluticasone Propionate) 16 Gm [place].susp 1 SPRAY NS BID PRN for CONGESTION, EA Folic Acid (Folic Acid) 1 Mg Tablet 1 MG PO HS, TAB Furosemide (Furosemide) 40 Mg Tablet 40 MG PO HS, TAB Insulin Glargine,Hum.rec.anlog (Lantus Solostar) 100 Unit/1 Ml Insuln.pen 20 UNITS SQ DAILY LAST FILLED 04/07/17 #15ML Insulin Lispro (Humalog Kwikpen) 100 Unit/1 Ml Insuln.pen 3 UNITS SQ TIDAC Pantoprazole Sodium (Pantoprazole Sodium) 40 Mg Tablet.dr 40 MG PO DAILY, TAB Potassium Chloride (Potassium Chloride) 10 Meq Capsule.er 10 MEQ PO BID, CAP LAST FILLED 04/07/17 #60 Pregabalin (Lyrica) 100 Mg Capsule 100 MG PO TID Sucralfate (Carafate) 1 Gm/10 Ml Oral.susp 10 ML PO QID, ML Trazodone HCl (Trazodone HCl) 100 Mg Tablet 100 MG PO HS PRN for SLEEP, TAB Patient Instructions Goal/Follow Up Appt: [facility] at [facility] Disha Gilbert APRN will follow up at [facility] NIEVES RAMSEY DO Jun 01, 2017 10:32
== END 2017-06-01 14:20 | disposition hospice, inpatient (51) | DRG 871 ==
LOC: EDUNIT# 15:19 → ER 15:20 → ICU 16:15 → 4TH 20:45
PROVIDERS: ADMIT Pediatrics; ATTEND Pediatrics
DX: A41.9 Sepsis, unspecified organism (principal); T68.XXXA Hypothermia, initial encounter; E10.10 Type 1 diabetes mellitus with ketoacidosis without coma; E10.65 Type 1 diabetes mellitus with hyperglycemia; E72.20 Disorder of urea cycle metabolism, unspecified; K70.30 Alcoholic cirrhosis of liver without ascites; F17.210 Nicotine dependence, cigarettes, uncomplicated; I10 Essential (primary) hypertension; Z66 Do not resuscitate; K72.90 Hepatic failure, unspecified without coma; D69.6 Thrombocytopenia, unspecified; J44.9 Chronic obstructive pulmonary disease, unspecified; Z79.4 Long term (current) use of insulin; I25.10 Atherosclerotic heart disease of native coronary artery without angina pectoris; K21.9 Gastro-esophageal reflux disease without esophagitis; F15.10 Other stimulant abuse, uncomplicated; B18.2 Chronic viral hepatitis C; Z91.19 Patient's noncompliance with other medical treatment and regimen
CPT/HCPCS: 36415; 51702; 70450; 71010; 72170; 80053; 80306; 80320; 81000; 82140; 82150; 82550; 82553; 82805; 82962; 83690; 83735; 83874; 83880; 84439; 84443; 84484; 85025; 85610; 85730; 87040; 87077; 87088; 87186; 93005; 93041; 96365